=== PATIENT | male | born 1945 | race Caucasian/White ===

== ENCOUNTER 2018-07-24 22:36 | Inpatient (IN) | payer OTHER, MEDICARE ==
[~2018-07-24] VITALS: Ht 170.2 cm; Wt 77.7 kg
--- NOTE | 2018-07-24 23:23 | CT SCAN REPORT ---
EXAMINATION: CT HEAD WITHOUT CONTRAST CLINICAL INFORMATION: Unresponsive. Concern for stroke. COMPARISON: None. TECHNIQUE: Contiguous axial images of the brain were obtained without IV contrast. DLP: 602 mGy-cm. FINDINGS: There are no pathologic extra-axial fluid collections. The lateral, third, fourth ventricles are nondilated and concordant with the appearance of the sulci. There is no evidence for acute intraparenchymal hemorrhage or infarct. There is neither mass nor mass effect. There is no shift of midline structures. There is patchy ethmoid sinus opacification. The paranasal sinuses and mastoid air cells are otherwise clear. There are no osseous lesions. IMPRESSION: No evidence for acute intracranial injury. Mild paranasal sinus disease. The aforementioned was communicated to Dr. Christy at 2320 hours.
[2018-07-24 23:29] LABS: ABSOLUTE BASOPHIL COUNT 0 /CUMM (0.0-0.2); ABSOLUTE EOSINOPHIL COUNT 0.1 /CUMM (0.0-0.7); ABSOLUTE GRANULOCYTE CT 8.7 /CUMM (1.4-6.5); ABSOLUTE LYMPH COUNT 1.8 /CUMM (1.2-3.4); BASOPHIL % 0.3 % (0.0-2.0); EOSINOPHIL % 0.8 % (0-5); HEMATOCRIT 44.4 % (42-52); MEAN CORPUSCULAR HGB 29.6 PG (27.0-31.0); MEAN CORPUSCULAR HGB CONC 33.4 G/DL (33.0-37.0); MEAN CORPUSCULAR VOLUME 88.8 FL (80.0-94.0); PLATELET COUNT 139 /CUMM (130-400); RBC DISTRIBUTION WIDTH 13.8 % (11.5-14.5); WHITE BLOOD CELL COUNT 11.6 /CUMM (4.8-10.8)
[2018-07-24 23:36] LABS: PT 13.4 SEC (9.4-12.5); PTT 25 SEC (25-37)
--- NOTE | 2018-07-24 23:54 | CT SCAN REPORT ---
EXAMINATION: CT NECK ANGIOGRAM, CT HEAD ANGIOGRAM CLINICAL INFORMATION: Unresponsive. Cerebrovascular accident. COMPARISON: CT scan of the head and 07/24/2018. TECHNIQUE: Patient Care Assistant images were obtained. A CT angiogram of the head and neck was performed in the arterial phase after the intravenous administration of 95 mL Optiray 320. Delayed postcontrast images of the head were also obtained. MIP reconstructions were generated in multiple orientations at the acquisition workstation. Multiple three-dimensional surface rendered images and maximum intensity projection images were generated on a dedicated 3-D lab workstation. Arterial stenoses are measured in accordance with NASCET criteria or similar method if applicable. Total exam dose-length product 1865.43 mGy-cm FINDINGS: Head: Delayed postcontrast images reveal no abnormal intracranial mass or enhancement. There is no intracranial mass effect midline shift. Lateral and third ventricles are normal. No hydrocephalus. Gonzales-white matter differentiation is grossly preserved and there is no evidence of acute territorial infarct. The calvarium and skull base are intact. Mastoid air cells and middle ear cavities are well aerated. There is mild paranasal sinus disease primarily affecting the ethmoid air cells CT angiogram neck: The aortic arch apex is normal and the origins of major aortic branches are patent. Common carotid arteries and carotid bifurcations are normal. No stenosis of the extracranial internal carotid arteries. The cervical segments of the vertebral arteries as well as their origins are patent. CT angiogram head: The intracranial internal carotid arteries are patent. Intradural vertebral artery segments and basilar artery are patent. Anterior, middle, and posterior cerebral artery complexes are unremarkable. No high-grade stenosis or proximal occlusion is visualized within the intracranial vessels. Other: There is extensive centrilobular emphysema visualized within the apices of both lungs. No acute osseous finding. The tip of the endotracheal tube is located at the level of the jorge directed towards the right mainstem bronchus. IMPRESSION: Unremarkable CT angiogram of the head and neck. No high-grade stenosis or proximal occlusion is visualized within the intracranial vessels. Grossly no evidence of acute territorial infarct or hemorrhage. No abnormal intracranial mass or enhancement. Of note the tip of the endotracheal tube is located at the level of the jorge directed towards the right mainstem bronchus. This critical result was discussed with Sid Christy at 07/24/2018 11:48 PM and it was ascertained that the content and urgency of the report was understood at the time of direct communication.
--- NOTE | 2018-07-25 00:38 | History & Physical ---
Junior Knutson 07/25/18 0037: General Information and HPI MD Statement: I have seen and personally examined LANCE MARTINEZ and documented this H&P. The patient is a 73 year old M who presented with a patient stated chief complaint of [unresponsiveness]. Source of Information: family Exam Limitations: not alert/orientated, clinical condition, physical impairment History of Present Illness: The patient is a 73-year-old male with a past medical history significant for obstructive sleep apnea, coronary artery disease (with 7 stents), hypertension, chronic back pain, depression and anxiety who was brought in due to unresponsiveness. The patient was accompanied by his ex- who is a nurse and 3 of his sons and also his daughter and the history was taken from the family members, he was unconscious and unresponsive during the history and physical examination (he had received 2 doses of vecuronium prior to intubation). 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 Segura. The surgery took longer than what it was supposed to, because the mass was more extensive than what they thought at first, and the patient had to stay overnigh in [facility]. The surgery was done by general anesthesia, and the pathology report was consistent with mature adipose tissue consistent with lipoma. Based on the history from family postoperatively the patient needed 6 L of oxygen and his saturation was up to 93, and after wards with 2 L of oxygen saturation was between 89-93. The surgery was done on the last Sunday, and the patient was sent home on Sunday. Based on the history from his son, he was relatively doing fine when he was home on Sunday morning, walking around, talking, and difficulty and pain while swallowing. On Sunday, later in the day the patient started to become confused and then his daughter came home, she found that her father is out of himself and confused. Oxycodone 5 mg, 3 times a day was prescribed to control his pain. The patient was brought by ambulance to the emergency department of [facility]. He was not responding to any commands. The family asked that ambulance take the patient to [facility] where he had the surgery, but since they were suspecting CVA, they brought the patient to [facility] since it is closer to their home. He also has an extensive history of lower back pain. Allergy: The patient is allergic to statins and he develops muscle problems with this medication, he has an allergic reaction to honeybee sting. Family history: His mother had breast cancer, and his sister has end-stage pancreatic cancer Past medical history: Obstructive sleep apnea, chronic back pain, coronary artery disease with [address], hypertension, depression and anxiety Past surgical history: Surgery on both knees, surgery on right sided elbow and wrist Social history: Based on the history from the family the patient never smoked, never used any type of recreational drugs, and had occasional use of alcohol. Allergies/Medications Allergies: Coded Allergies: STATINS (UNKNOWN 07/25/18) bee venom protein (honey bee) (UNKNOWN 07/25/18) Compliance With Home Meds: UNKNOWN Past History Travel History Traveled to [facility] past 21 day No Medical History Neurological: NONE EENT: NONE Cardiovascular: CAD, hypertension, [place] X7 Respiratory: NONE Gastrointestinal: GERD Hepatic: NONE Renal: KIDNEY STONES Musculoskeletal: chronic back pain, osteoarthritis Psychiatric: NONE Endocrine: NONE Blood Disorders: NONE Cancer(s): NONE PATIENT CARE ASSISTANT/Reproductive: NONE Surgical History Surgical History: Cervical lipoma removed on Jul 22, 2018 remote knee surgery remote right elbow and wrist surgery Past Family/Social History Psychosocial History ETOH Use: denies use Illicit Drug Use: denies illicit drug use Review of Systems Review of Systems Constitutional: Reports: see HPI. Exam & Diagnostic Data Last 24 Hrs of Vital Signs/I&O Vital Signs Date Time Temp Pulse Resp B/P B/P Pulse O2 O2 Flow FiO2 Mean Ox Delivery Rate 07/25 0541 50 07/25 0400 97 Ventilator 50% 07/25 0400 95.7 42 20 100/50 97 Ventilator 50% 07/25 0334 96 Ventilator 50% 07/25 0245 50 07/25 0205 44 92/55 100 Ventilator 07/25 0200 41 90/52 07/25 0155 44 87/53 07/25 0150 43 84/50 07/25 0149 96.7 42 20 96/54 99 Ventilator 07/25 0145 41 96/54 99 Ventilator 07/25 0140 41 96/52 07/25 0135 85 125/59 07/25 0130 42 104/58 07/25 0125 43 87/51 07/25 0120 41 83/50 07/25 0115 44 87/51 99 Ventilator / 0100 41 126/62 98 Ventilator / 0045 46 98/55 99 Ventilator / 0026 50 09/13 0025 46 134/63 99 Ventilator / 0010 44 110/67 99 Ventilator / 2355 99 Ventilator / 2351 50 79/51 99 Ventilator / 2324 50 09/ 2321 62 125/62 95 Ventilator / 2256 128/70 07/24 2250 139 120/64 96 Ventilator 07/24 2247 82 115/61 95 Ventilator Intake & Output 07/25 0800 07/25 0000 07/24 1600 Intake Total 3000 Output Total 300 Balance 2700 Intake, IV 3000 Output, Urine 300 Patient 180 lb Weight Weight Bed scale Measurement Method Physical Exam General Appearance Unresponsive, intubated, Skin No Rashes Skin Temp/Moisture Exam: Warm/Dry Sepsis Skin Exam (color): Normal for Ethnicity HEENT echymosis on the lateral side of his tounge Neck swelling, no external sutures Cardiovascular Regular Rate, Normal S1, Normal S2, bradycardic Lungs Clear to Auscultation, Normal Air Movement Neurological Not able to assess unresponsive, unconsious, intubated, Extremities Normal Pulses Assessment/Plan Assessment: The patient is a 73-year-old male with a past medical history significant for obstructive sleep apnea, coronary artery disease with 7 stents, who had recently had a surgery to remove a cervical lipoma on Sunday, was brought into emergency department by ambulance due to unresponsiveness. Unresponsiveness probably due to CO2 retention: The patient has a background history of obstructive sleep apnea, and the surgery had induced neck swelling which has probably compress the airways and may be more difficult for the patient to ventilate. He said probably caused CO2 retention and had led to confusion and then unresponsiveness. The first ABG was done 1-2 hours after the patient was intubated so it cannot be reliable to assess the primary condition of the patient. Plan: The patient is admitted to ICU, IV fluids at the rate of 100 cc/h. Smith catheter, daily weights, intake and output measurement, neurochecks Bradycardia: The patient has metoprolol as home medication which might be the cause of bradycardia. Plan: Qc Tech consult, pacer pads and atropine at the bedside Hypertension: Blood pressure was normal on admission but it went down to 80s over 50s Plan: IV fluids to maintain the mean arterial pressure over 65 CODE STATUS: Full code As Ranked By This Provider Problem List: 1. Altered mental status 2. Respiratory failure Core Measures/Misc (07/29) Acute Coronary Syndrome ACS Diagnosis: No Congestive Heart Failure Congestive Heart Failure Diagnosis No Cerebrovascular Accident CVA/TIA Diagnosis: No VTE (View Protocol) VTE Risk Factors Age>40 No Mechanical VTE Prophylaxis d/t N/A MechProphylax Ordered No VTE Pharm Prophylaxis d/t NA PharmProphylax ordered Sepsis (View protocol) Sepsis Present: No If YES complete Sepsis Event Note If YES complete Sepsis Event Note Reagan REEVES,Tonia 07/25/18 0044: Exam & Diagnostic Data Last 24 Hrs of Vital Signs/I&O Vital Signs Date Time Temp Pulse Resp B/P B/P Pulse O2 O2 Flow FiO2 Mean Ox Delivery Rate 07/25 0026 50 07/24 2324 50 07/24 2321 62 125/62 95 Ventilator 07/24 2256 128/70 07/24 2250 139 120/64 96 Ventilator 07/24 2247 82 115/61 95 Ventilator Last 24 Hrs of Labs/Andry: Laboratory Tests 07/25/18 004: pH 7.50 H, pCO2 26 L, pO2 74 L, HCO3 20 L, ABG O2 Sat (Measured) 95.0 L, P- 50 (Temp Corrected) Y, Carboxyhemoglobin 1.3 L, O2 Concentration % 50%, Temperature 96.8 L, Respiration Rate 20, O2 Delivery Method ESPRIT, Vent Mode AC, Expiratory Pressure 5, Tidal Volume 500, Phlebotomy Draw Site RIGHT RADIAL 07/24/182239: Anion Gap 7, Estimated GFR > 60, BUN/Creatinine Ratio 15.5, Glucose 111 H, Calcium 8.9, Magnesium 2.1, Total Bilirubin 1.2, AST 27, ALT 34, Alkaline Phosphatase 88, Troponin I < 0.01, Total Protein 6.1 L, Albumin 3.4 L, Globulin 2.7, Albumin/Globulin Ratio 1.3, Free T4 Pending, TSH &T3 &Free T4 Intrp 0.097 L, PT 13.4 H, INR 1.23 H, APTT 25, CBC w Diff NO MAN DIFF REQ, RBC 5.00, MCV 88.8, MCH 29.6, MCHC 33.4, RDW 13.8, MPV 8.0, Gran % 75.0, Lymphocytes % 15.4 L, Monocytes % 8.5, Eosinophils % 0.8, Basophils % 0.3, Absolute Granulocytes 8.7 H, Absolute Lymphocytes 1.8, Absolute Monocytes 1.0 H, Absolute Eosinophils 0.1, Absolute Basophils 0 Core Measures/Misc (07/29) Sepsis (View protocol) If YES complete Sepsis Event Note If YES complete Sepsis Event Note Resident Review Statement Resident Statement: examined this patient, discussed with manager intern, agreed with manager intern, discussed with family, reviewed EMR data (avail) Other Findings: Patient is a 73-year-old male, was unresponsive and got intubated in the ED, followed by assist control ventilation tidal volume 500, FiO2 50% with 5 PEEP. History is taken from the as patient was completely intubated and sedated. 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 Patient was taken to the OR on 07/22/2018 with , for excision of retropharyngeal mass, left posterior pharyngeal mass was resected transorally a general anesthesia. Pathology report did show mature adipose tissue consistent with lipoma. According to the postoperatively patient needed 6 L of oxygen with saturation of 93% he was kept overnight and afterwards he was tapered down to 2 L with saturation between 89-93%. He was sent home he was completely all right except he was complaining of difficulty in the swallowing slight sore throat. Denies for any fever, chills. Overnight on Sunday he was slightly confused. Early in the morning, when daughter came to the home she found that her father is completely out of himself. He was not responding to any commands. So the BIBA him to the [facility]. Before transport they wanted patient to be transferred to the [facility] by EMS did not allow that because [facility] is much near to their home. His most of care is done at the [facility]. Past medical history- Coronary artery disease, hypertension, hyperlipidemia, [place] status post coronary stent x 7, GERD, nephrolithiasis, chronic back pain, osteoarthritis, history of pericarditis January 2017 CT head-No evidence for acute intracranial injury. Mild paranasal sinus disease. CTA HEAD AND NECK -Unremarkable CT angiogram of the head and neck. Blood workup-WBC 11.6, hemoglobin 14.8, hematocrit 44.8, platelet count 139, granulocyte 75.0, serum sodium 137, potassium 3.9, chloride 102, carbon DEXA 27, anion gap 7, BUN 17, creatinine 1.1, glucose 111, calcium 8.9, magnesium 2.1, total bilirubin 1.2, AST 27, ALT 34, alkaline phosphatase 88, troponin I is 0.01 , albumin 3.4, PT/INR 13 point/1.23, APTT is 25, Assessment and plan - Difficulty in the breathing possibly secondary to swelling in the neck leading to compression of the trachea and CO2 retention followed by confusion - * Admit the patient to the ICU * Smith catheter * Daily weight * Strict intake output charting * IV fluid - normal saline for boluses followed by 100 cc/h to keep the mean arterial pressure more than 65. * We will hold his home medication * Neuro check every shift * Please get the medical records from [facility] * We will rethink about using steroid -to decrease the inflammation * Weaning from the ventilator after he regained consciousness * Placed cardiology consult - Dr Olsen-medication management * Echocardiogram in the morning * We will follow the ENT evaluation with Dr. Segura. Bradycardia-possibly secondary to medication-metoprolol * We discussed with Dr. Olsen he will come in follow the patient * Pacer pads and atropine at the bedside. Hypotension- * We will give IV fluid to keep the mean arterial pressure more than 65. Code status - full code Diet - NPO DVT prophylaxis - HA Marina MD,Delfino 07/25/18 0505: Core Measures/Misc (07/29) Sepsis (View protocol) If YES complete Sepsis Event Note If YES complete Sepsis Event Note Attending MD Review Statement Attending Statement Attending MD Statement: examined this patient, discuss w/resident/PA/SLAG DUMPER, agreed w/resident/PA/SLAG DUMPER, discussed with family, reviewed EMR data (avail), discussed with nursing, amended to note Attending Assessment/Plan: Patient seen and examined. History and physical as documented by the resident above. Family present at the bedside. Records from [facility] reviewed. Pathology results consistent with lipoma. On examination patient is intubated on mechanical ventilation. Pupils are round equal and reactive. He had no response to verbal or tactile stimuli. However as time progressed he has started to show some spontaneous activity. Imaging studies obtained by the ER include CT head and neck with contrast due to concern for stroke. No evidence of stroke noted. Differential for his acute respiratory failure include compression of his airway by inflammation from the surgical site. An infection is also within the differential. Lactic acid level however is not elevated as would be expected if he was indeed in septic shock. Pulmonary embolism is also within the differential. Blood pressure currently stabilizing. His hypotension could be explained by medications he received prior to intubation. BP has improved after over 5 L of fluid boluses. He is also bradycardic with HR as low as upper 30s. Problems: 1. Acute hypoxic respiratory failure 2. Recent retropharyngeal surgery. 3. Extensive coronary artery disease history. 4. Hypotension 5. Bradycardia Plan: -Admit to the intensive care unit. -Begin empiric antibiotic therapy with IV ceftazidime. Obtain blood cultures. -Urgent ENT consultation. -Would recommend CT scan soft tissues of the neck once more clinically stable. -Check D-dimers. Check lower extremity Dopplers. -Hold all antihypertensive medications. -Trend troponins. Obtain echocardiogram. Hold metoprolol. Cardiology consultation. Pacer Pads at the bedside. -Maintenance fluid D5 half-normal saline at 100 cc/h. -Abnormal TSH noted, ?euthyroid sick syndrome. Repeat TSH. -Critical Care Consultation.
--- NOTE | 2018-07-25 01:30 | ED AMS/SEIZURE/WEAK/DIZZY ---
History of Present Illness General Chief Complaint: Neuro Symptoms/ Deficit Stated Complaint: AMS/ ACUTE RESPIRATORY DISTRESS Source: family, old records, EMS, Epic Exam Limitations: clinical condition Vital Signs & Intake/Output Vital Signs & Intake/Output Vital Signs Date Time Temp Pulse Resp B/P B/P Pulse O2 O2 Flow FiO2 Mean Ox Delivery Rate / 0245 50 / 0205 44 92/55 100 Ventilator / 0200 41 90/52 / 0155 44 87/53 / 0150 43 84/50 / 0149 96.7 42 20 96/54 99 Ventilator 09/13 0145 41 96/54 99 Ventilator 09/13 0140 41 96/52 / 0135 85 125/59 /13 0130 42 104/58 / 0125 43 87/51 / 0120 41 83/50 / 0115 44 87/51 99 Ventilator / 0100 41 126/62 98 Ventilator / 0045 46 98/55 99 Ventilator / 0026 50 / 0025 46 134/63 99 Ventilator /13 0010 44 110/67 99 Ventilator 09/12 2355 99 Ventilator 09/12 2351 50 79/51 99 Ventilator 09/12 2324 50 09/12 2321 62 125/62 95 Ventilator 09/12 2256 128/70 09/12 2250 139 120/64 96 Ventilator 09/12 2247 82 115/61 95 Ventilator Allergies Coded Allergies: STATINS (UNKNOWN 07/25/18) bee venom protein (honey bee) (UNKNOWN 07/25/18) Triage Note: PT BIBA FOR STROKE ALERT, 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 WHEN EMS ARRIVED PT UNRESPONSIVE BUT BREATHING SPONTANEOUSLY. HX THROAT SURGERY LAST WEEK. Triage Nurses Notes Reviewed? 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 His ex notes he was put on 6L NC with oxygen saturation of 93%. 1 day prior to admission the middle of the night he called his ex- thinking it was the afternoon. Prior to admission he became acutely confused and speaking to his ex-. She called 911. She took his oxygen saturation and it was 88%. The paramedics called a stroke alert he seemed to be less confused at this time and moving all extremities. He was brought immediately to the CT scanner and became apneic. His past reports there was no fever chills nausea vomiting diarrhea abdominal pain chest pain cough headache dysuria rash bleeding. Past History Travel History Traveled to [place] past 21 day No Medical History Any Pertinent Medical History? 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 No Review of Systems Review of Systems Constitutional: Reports: see HPI, weakness. EENTM: Reports: no symptoms. Respiratory: Reports: see HPI. Cardiovascular: Reports: no symptoms. GI: Reports: no symptoms. Genitourinary: Reports: no symptoms. Musculoskeletal: Reports: no symptoms. Skin: Reports: no symptoms. Neurological/Psychological: Reports: see HPI, confusion. Hematologic/Endocrine: Reports: no symptoms. Immunologic/Allergic: Reports: no symptoms. All Other Systems: Reviewed and Negative Physical Exam Physical Exam General Appearance: well developed/nourished, lethargic, severe distress, obese Head: atraumatic, normal appearance Eyes: Bilateral: normal appearance, PERRL, EOMI. Ears, Nose, Throat: normal pharynx, normal ENT inspection Neck: normal inspection, supple, full range of motion, no midline tenderness Respiratory: chest non-tender, respiratory distress Cardiovascular: regular rate/rhythm, normal peripheral pulses, norml femoral pulses equa Peripheral Pulses: 4+ carotid (R), 4+ carotid (L) Gastrointestinal: normal bowel sounds, soft, non-tender, no organomegaly Back: normal inspection, normal range of motion Extremities: normal range of motion, no ligament instability Neurologic/Psych: disoriented x 3, motor/sensory deficits Reflexes: 2+: bicep (R), bicep (L). Skin: intact, normal color, warm/dry Lymphatic: no anterior cervical norman Core Measures ACS in differential dx? Yes No ASA d/t Medical Contraindication CVA/TIA Diagnosis No Sepsis Present: No Sepsis Focused Exam Completed? No Progress Differential Diagnosis: CVA/stroke, drug intoxication, electrolyte imbalance, hypoglycemia, hypoxia, intracranial Hem., intracranial mass/tumor, pneumonia Plan of Care: Orders Procedure Date/time Status XRY-PORTABLE CHEST XRAY 07/25 0600 Active ICU LAB BUNDLE 07/25 0400 Active CBC WITHOUT DIFFERENTIAL 07/25 0400 Active VRE ACTIVE SURVIELLANCE 07/25 0243 Active ACTIVE SURVEILLANCE NARES 07/25 0243 Active Restraint- Medical 07/25 0239 Active OGT 07/25 0239 Active Code Status 07/25 0239 Active Intake & Output 07/25 0231 Active Wound Care/Dressing 07/25 0228 Active Wound Care/Dressing 07/25 0203 Complete Weight 07/25 0203 Complete VTE Mechanical Prophylaxis 07/25 0203 Active Vital Signs 07/25 0203 Active Turn and Reposition 07/25 0203 Active Drains/Tubes 07/25 0203 Active Teach/Educate 07/25 0203 Active Skin Integrity Protocol 07/25 0203 Active Skin/Pressure Ulcer Assess (Sk 07/25 0203 Active Precautions 07/25 0203 Active Pain Treatment and Response 07/25 0203 Active Nutritional Intake, Monitor 07/25 0203 Active Isolation 07/25 0203 Active CIWA 07/25 0203 Complete Patient Care Conference 07/25 0203 Active Activity/Ambulation 07/25 0203 Active CULTURE,URINE 07/25 0138 Active Add-on Test (ER Only) 07/25 0053 Active Patient Data 07/25 0039 Active Admit to inpatient 07/25 0025 Active ARTERIAL BLOOD GAS (GEN) 07/25 0010 Active US-EXT BILAT VENOUS DOPPLER 07/25 UNK Active Smith, Insertion/Removal/Asses 07/25 UNK Active EKG 07/24 2257 Active TSH REFLEX 07/24 2251 Complete TROPONIN LEVEL 07/24 2251 Complete PARTIAL THROMBOPLASTIN TIME 07/24 2251 Complete PROTHROMBIN TIME 07/24 2251 Complete MAGNESIUM 07/24 2251 Complete COMPREHENSIVE METABOLIC PANEL 07/24 2251 Complete CBC WITHOUT DIFFERENTIAL 07/24 2251 Complete VENTILATOR PARAMETERS 07/24 2248 Complete TOTAL TRIODOTHYROXINE 07/24 224 Complete LACTIC ACID 07/24 224 Complete FREE T4 07/24 2240 Complete Current Medications Sig/Zev Start time Last Medication Dose Stop Time Status Admin Pantoprazole Sodium 40 MG DAILY 07/25 09 AC (Protonix) Lorazepam 50 MG Q24H 07/25 0330 AC (Ativan Drip) Sodium Chloride 500 ML (Normal Saline 0.9%) Sodium Chloride 1,000 ML BOLUS ONE 07/25 031 UNVr (Normal Saline 0.9%) 07/25 0414 Laboratory Tests 07/25/18 0040: pH 7.50 H, pCO2 26 L, pO2 74 L, HCO3 20 L, ABG O2 Sat (Measured) 95.0 L, P- 50 (Temp Corrected) Y, Carboxyhemoglobin 1.3 L, O2 Concentration % 50%, Temperature 96.8 L, Respiration Rate 20, O2 Delivery Method ESPRIT, Vent Mode AC, Expiratory Pressure 5, Tidal Volume 500, Phlebotomy Draw Site RIGHT RADIAL 07/24/18 2240: Anion Gap 7, Estimated GFR > 60, BUN/Creatinine Ratio 15.5, Glucose 111 H, Lactic Acid 0.8, Calcium 8.9, Magnesium 2.1, Total Bilirubin 1.2, AST 27, ALT 34 , Alkaline Phosphatase 88, Troponin I < 0.01, Total Protein 6.1 L, Albumin 3.4 L, Globulin 2.7, Albumin/Globulin Ratio 1.3, Free T4 2.10, Total T3 1.16, TSH & T3 &Free T4 Intrp 0.097 L, PT 13.4 H, INR 1.23 H, APTT 25, CBC w Diff NO MAN DIFF REQ, RBC 5.00, MCV 88.8, MCH 29.6, MCHC 33.4, RDW 13.8, MPV 8.0, Gran % 75.0, Lymphocytes % 15.4 L, Monocytes % 8.5, Eosinophils % 0.8, Basophils % 0.3 , Absolute Granulocytes 8.7 H, Absolute Lymphocytes 1.8, Absolute Monocytes 1.0 H, Absolute Eosinophils 0.1, Absolute Basophils 0 Microbiology 07/25 243 UPPER RESP: Surveillance Culture - ORD 07/25 243 GI: Surveillance Culture - ORD 07/25 0156 URINE ROUT: Urine Culture - RECD Diagnostic Imaging: Viewed by Me: Radiology Read, CT Scan. Discussed w/RAD: Radiology Read, CT Scan. CXR Impression: 1. Endotracheal tube catheter 4 cm above jorge. 2. Nasogastric tube in stomach. 3. No acute abnormality of chest. Initial ED EKG: normal axis, normal intervals, normal p-waves, normal QRS complex, normal sinus rhythm, nonspecific ST T wave chg Rhythm Strip: normal sinus rhythm Departure Departure Disposition: STILL A PATIENT Condition: Critical Clinical Impression Primary Impression: Respiratory failure Secondary Impressions: Altered mental status Referrals: Augusto REEVES,Stephan Hargrove III (PCP/Family) Departure Forms: Customer Survey General Discharge Information Admission Note Spoke With: Delfino Marina MD Documentation of Exam: Documentation of any treatments & extenuating circumstances including Concerns Regarding Discharge (functional status, medication knowledge or non-compliance, living conditions, etc.) that warrant an admission rather than observation: ICU monitoring mechanical ventilation serial EKG serial lab exam medication adjustment neurology evaluation pulmonary evaluation continuing care discharge planning Procedures Intubation Intubation Method: orotracheal Tube Size (cm): 7.5 Medications: succinylcholine Breath Sounds After Intubation: equal Intubation Complications: no complications Post Intubation Xray? Yes Critical Care Note Critical Care Note Critical Care Time: 30-74 min (45)
--- NOTE | 2018-07-25 01:48 | RADIOLOGY REPORT ---
EXAMINATION: XR PORTABLE CHEST CLINICAL INFORMATION: Altered mental status COMPARISON: None TECHNIQUE: Portable frontal view of the chest was obtained. 12:51 AM FINDINGS: Endotracheal tube in place. Catheter tip is approximately 4 cm above the jorge. This nasogastric tube tip in the stomach. There is emphysematous lucency of lungs. There are coarse increased lung markings at both lung bases that appear to be likely chronic. There is no acute abnormality. No focal consolidation. No pleural effusion or pneumothorax. There is multilevel degenerative spondylosis of dorsal spine. IMPRESSION: 1. Endotracheal tube catheter 4 cm above jorge. 2. Nasogastric tube in stomach. 3. No acute abnormality of chest.
[2018-07-25 04:00] VITALS: BP 100/50
--- NOTE | 2018-07-25 05:06 | Admission Certification ---
Admission Certification Certification Statement - As attending physician, I certify that at the time of - admission, based on clinical presentation, severity of - symptoms, need for further diagnostic testing and - therapeutic interventions, and risk of adverse outcomes - without in-hospital treatment, in my clinical assessment, - this patient requires an acute hospital stay for a minimum - of two nights or longer. I have also considered psychsocial - factors such as support system, advanced age, financial - issues, cognitive issues, and failed out-patient treatments, - past re-admission history, safety of patient, and lack of - compliance as applicable. Specific rationale supporting this admission is: Patient requires hospitalization for management of acute respiratory failure.
[2018-07-25 05:31] LABS: ABSOLUTE BASOPHIL COUNT 0 /CUMM (0.0-0.2); ABSOLUTE EOSINOPHIL COUNT 0 /CUMM (0.0-0.7); ABSOLUTE GRANULOCYTE CT 5.6 /CUMM (1.4-6.5); ABSOLUTE MONOCYTE COUNT 0.6 /CUMM (0.10-0.60); BASOPHIL % 0.4 % (0.0-2.0); EOSINOPHIL % 0.5 % (0-5); GRANULOCYTE % 77.2 % (42.2-75.2); MEAN CORPUSCULAR HGB 30.5 PG (27.0-31.0); MEAN CORPUSCULAR VOLUME 89.7 FL (80.0-94.0); MEAN PLATELET VOLUME 9.1 FL (7.4-10.4); PLATELET COUNT 95 /CUMM (130-400); RBC DISTRIBUTION WIDTH 13.6 % (11.5-14.5); RED BLOOD CELL CT 4.15 /CUMM (4.70-6.10); WHITE BLOOD CELL COUNT 7.3 /CUMM (4.8-10.8)
[2018-07-25 05:46] LABS: HEMATOCRIT 37.2 % (42-52)
--- NOTE | 2018-07-25 06:21 | RADIOLOGY REPORT ---
EXAMINATION: XR PORTABLE CHEST CLINICAL INFORMATION: Intubation. COMPARISON: Chest x-ray July 25, 2018 TECHNIQUE: Portable frontal view of the chest was obtained. 5:37 AM FINDINGS: Endotracheal tube catheter unchanged position. Catheter tip about 5 cm above the jorge. Nasogastric tube catheter in the stomach. Lung volume is low. This causes crowding of the bronchovascular markings. Allowing for the low inspiratory effort there does not appear to be significant pulmonary vascular congestion. There is no focal consolidation. There are no large pleural effusions. IMPRESSION: 1. Endotracheal tube catheter 5 cm above jorge. 2. Nasogastric tube in stomach. 3. Low lung volume. No acute abnormality of the chest.
--- NOTE | 2018-07-25 07:39 | Cons- CRCU ---
Jonathan REEVES,[facility] 07/25/18 0739: General Information and HPI Consulting Request Date of Consult: 07/25/18 Requested By: Dr. Marina Reason for Consult: Respiratory failure requiring intubation Source of Information: family, old records Exam Limitations: not alert/orientated, clinical condition History of Present Illness: Past medical history significant for extensive cardiovascular disease status post 7 stents last 1 couple of years ago, no reports for drug-eluting stents. History of severe pericarditis in 2017, hypertension, hyperlipidemia, chronic back pain, osteoarthritis. Recent history of retropharyngeal procedure to remove mass that turned to be a lipoma 3 days ago on 07/22/18 at [facility]. Patient had an uneventful hospital stay during the procedure except of desaturating and requiring 6 L that was titrated down to 2 L and then patient was discharged next day on Monday 07/23 on room air and was satting at 93%. 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 Initially patient was thought to have CTA however CAT scan head negative for any evidence of acute intracranial injury. Patient was intubated in ED because of unconsciousness and inability to secure airway. Family denied any recent symptoms of chest pain, palpitation, shortness of breath, weakness, headaches, falls, motor or sensory changes. In ICU, patient was started on fluid D5 half-normal saline running at 75 cc/h, Protonix, antibiotic Unasyn to cover for possible aspiration pneumonia. Cardiology consultation was obtained for bradycardia that is new onset and was reported since admission, heart rate has been running in the 30s, possible causes are injury of sympathetic fibers and/or increased vagal tone because of the neck manipulation during the recent retropharyngeal surgery, patient was started on dobutamine drip running at 5 mics that was titrated down to 2.5 mics per kilogram per minute with targeting heart rate of 50 and above beats per minute. Blood pressure was noticed to be running on the high side with maximum of 160 systolic, patient was given Ativan followed by fentanyl 25 MCG every 3 hours for anxiety and agitation. Around 2 PM afternoon patient was noticed to have generalized tonic-clonic jerking movements, was given Versed 2 mg and loading dose of Keppra 2000 mg, EEG was ordered, chest x-ray and ABG to rule out any hypoxia, neurology consultation was obtained. Allergies/Medications Allergies: Coded Allergies: STATINS (UNKNOWN 07/25/18) bee venom protein (honey bee) (UNKNOWN 07/25/18) Review of Systems Review of Systems Constitutional: Reports: see HPI. 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 Home Smoking Status: Former Smoker ETOH Use: denies use Illicit Drug Use: denies illicit drug use Exam & Diagnostic Data Last 24 Hrs of Vital Signs/I&O Vital Signs Date Time Temp Pulse Resp B/P B/P Pulse O2 O2 Flow FiO2 Mean Ox Delivery Rate 07/25 1605 45 07/25 1600 98.6 53 20 138/64 96 Ventilator 45% 07/25 1600 96 Ventilator 45% 07/25 1529 56 127/62 07/25 1444 45 / 1200 97 Ventilator 45% / 1142 45 / 1100 46 170/75 07/25 0818 50 / 0800 96.9 33 20 100/60 97 Ventilator 50% / 0800 97 Ventilator 50% / 0541 50 / 0400 97 Ventilator 50% / 0400 95.7 42 20 100/50 97 Ventilator 50% / 0334 96 Ventilator 50% / 0245 50 / 0205 44 92/55 100 Ventilator / 0200 41 90/52 / 0155 44 87/53 / 0150 43 84/50 / 0149 96.7 42 20 96/54 99 Ventilator 09/13 0145 41 96/54 99 Ventilator 09/ 0140 41 96/52 / 0135 85 125/59 / 0130 42 104/58 / 0125 43 87/51 09/13 0120 41 83/50 / 0115 44 87/51 99 Ventilator 09/ 0100 41 126/62 98 Ventilator 07/25 0045 46 98/55 99 Ventilator 07/25 0026 50 07/25 0025 46 134/63 99 Ventilator 07/25 0010 44 110/67 99 Ventilator 07/24 2355 99 Ventilator 07/24 2351 50 79/51 99 Ventilator 07/24 2324 50 / 2321 62 125/62 95 Ventilator 07/24 2256 128/70 07/24 2250 139 120/64 96 Ventilator 07/24 2247 82 115/61 95 Ventilator Intake & Output 07/25 1600 07/25 0800 07/25 0000 Intake Total 1110 4400 Output Total 525 900 Balance 585 3500 Intake, IV 1050 4400 Intake, Other 60 Output, 75 Gastric Drainage Output, Urine 450 900 Patient 81.5 kg Weight Weight Bed scale Measurement Method Physical Exam General Appearance: well developed/nourished Head: atraumatic, normal appearance Ears, Nose, Throat: normal pharynx, normal ENT inspection Neck: normal inspection, supple Respiratory: chest non-tender Cardiovascular: regular rate/rhythm, bradycardia Gastrointestinal: normal bowel sounds, soft, non-tender Extremities: normal inspection, normal capillary refill, normal range of motion, no edema Cranial Nerves: respond to painful stimuli Last 48 Hrs of Labs/Andry: Laboratory Tests 07/25/18 2000: Potassium Cancelled 07/25/18 1905: Sodium Pending, Potassium Pending, Chloride Pending, Carbon Dioxide Pending, Anion Gap Pending, BUN Pending, Creatinine Pending, Glucose Pending, Calcium Pending, Phosphorus Pending, Magnesium Pending, Total Bilirubin Pending, AST Pending, ALT Pending, Albumin Pending 07/25/18 1645: pH 7.38, pCO2 38, pO2 95, HCO3 19 L, ABG O2 Sat (Measured) 96.0, P-50 (Temp Corrected) N, Carboxyhemoglobin 0.7 L, O2 Concentration % 40%, Temperature 98.6 , Respiration Rate 20, O2 Delivery Method ESPRIT, Vent Mode AC, Expiratory Pressure 5, Tidal Volume 500, Phlebotomy Draw Site RIGHT BRACHIAL 07/25/18 1410: Anion Gap 9, Estimated GFR > 60, Glucose 106 H, Calcium 8.2 L, Phosphorus 1.8 L, Magnesium 2.0, Total Bilirubin 0.6, AST 19, ALT 30, Albumin 2.7 L, CBC w Diff NO MAN DIFF REQ, RBC 4.65 L, MCV 88.8, MCH 30.0, MCHC 33.8, RDW 13.9, MPV 7.6, Gran % 82.9 H, Lymphocytes % 9.1 L, Monocytes % 7.1, Eosinophils % 0.5, Basophils % 0.4, Absolute Granulocytes 5.8, Absolute Lymphocytes 0.6 L, Absolute Monocytes 0.5, Absolute Eosinophils 0, Absolute Basophils 0 07/25/18 0835: pH 7.39, pCO2 31 L, pO2 77 L, HCO3 19 L, ABG O2 Sat (Measured) 95.0 L, P-50 (Temp Corrected) N, Carboxyhemoglobin 0.9 L, O2 Concentration % 50%, Respiration Rate 20, O2 Delivery Method VENT, Vent Mode AC, Expiratory Pressure 5, Tidal Volume 500, Pressure Support 0, Phlebotomy Draw Site RIGHT RADIAL 07/25/18 0755: Urine Opiates Screen 156, Methadone Screen 44, Barbiturate Screen < 60, Ur Phencyclidine Scrn < 6.00, Amphetamines Screen < 100, U Benzodiazepines Scrn 122 , Urine Cocaine Screen < 50, Urine Cannabis Screen < 5.00, Urine Color YEL, Urine Clarity CLEAR, Urine pH 7.0, Ur Specific [place] <= 1.005, Urine Protein NEG, Urine Ketones 15 H, Urine Nitrite NEG, Urine Bilirubin NEG, Urine Urobilinogen 0.2, Ur Leukocyte Esterase NEG, Ur Microscopic SEDIMENT EXAMINED, Urine RBC 15-25 H, Urine WBC RARE, Ur Epithelial Cells FEW, Urine Hemoglobin MOD H, Urine Glucose NEG 07/25/18 0630: D-Dimer High Sensitivty 233 07/25/18 0400: Anion Gap 10, Estimated GFR > 60, Glucose 93, Calcium 7.8 L, Phosphorus 1.5 L, Magnesium 2.0, Total Bilirubin 1.0, AST 26, ALT 19 L, Troponin I < 0.01, Albumin 2.6 L, CBC w Diff NO MAN DIFF REQ, RBC 4.15 L, MCV 89.7, MCH 30.5, MCHC 34.0, RDW 13.6, MPV 9.1, Gran % 77.2 H, Lymphocytes % 13.9 L, Monocytes % 8.0, Eosinophils % 0.5, Basophils % 0.4, Absolute Granulocytes 5.6, Absolute Lymphocytes 1.0 L, Absolute Monocytes 0.6, Absolute Eosinophils 0, Absolute Basophils 0, Lyme Disease Screen Pending 07/25/18 0040: pH 7.50 H, pCO2 26 L, pO2 74 L, HCO3 20 L, ABG O2 Sat (Measured) 95.0 L, P- 50 (Temp Corrected) Y, Carboxyhemoglobin 1.3 L, O2 Concentration % 50%, Temperature 96.8 L, Respiration Rate 20, O2 Delivery Method ESPRIT, Vent Mode AC, Expiratory Pressure 5, Tidal Volume 500, Phlebotomy Draw Site RIGHT RADIAL 07/24/18 2240: Anion Gap 7, Estimated GFR > 60, BUN/Creatinine Ratio 15.5, Glucose 111 H, Lactic Acid 0.8, Calcium 8.9, Magnesium 2.1, Total Bilirubin 1.2, AST 27, ALT 34 , Alkaline Phosphatase 88, Troponin I < 0.01, Total Protein 6.1 L, Albumin 3.4 L, Globulin 2.7, Albumin/Globulin Ratio 1.3, Free T4 2.10, Total T3 1.16, TSH & T3 &Free T4 Intrp 0.097 L, PT 13.4 H, INR 1.23 H, APTT 25, CBC w Diff NO MAN DIFF REQ, RBC 5.00, MCV 88.8, MCH 29.6, MCHC 33.4, RDW 13.8, MPV 8.0, Gran % 75.0, Lymphocytes % 15.4 L, Monocytes % 8.5, Eosinophils % 0.8, Basophils % 0.3 , Absolute Granulocytes 8.7 H, Absolute Lymphocytes 1.8, Absolute Monocytes 1.0 H, Absolute Eosinophils 0.1, Absolute Basophils 0 Assessment/Plan CRCU Impression/Plan: Mr. MARTINEZ is 73-year-old male with following problems: 1-new onset bradycardia 2-extensive past medical history of CAD status post 7 stents 3-pharyngeal lipoma status post retropharyngeal excision 4-COPD not on home oxygen 5-low lung volume with signs of aspiration pneumonia 6-CT findings suspicious for lung nodule 7-new onset of seizure activity with an abnormal EEG Plan Continue dobutamine drip at 2.5 MCG per hour with targeting heart rate 50 Continue Keppra 500 mg twice daily, patient received 2000 mg loading dose Continue Ativan 1 mg every 2 hours Continue fentanyl as needed 25 MCG every 3 hours for agitation and irritability Replete potassium and repeat labs Monitor EKG Follow-up blood cultures, sputum culture Repeat ICU bundle, CBCs in a.m. Repeat chest x-ray in a.m. Continue Unasyn for possible aspiration pneumonia Appreciate cardiology, ENT, neurology recommendation Consult Acknowledgment - Thank you for your consult request. 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 Patient was on a beta-arpita and multiple other medications as noted including mirtazapine, Lexapro etc. He was discharged from sent refills on stable condition. Patient apparently was doing well at home but however in the past day he started becoming more confused and was brought to the emergency room. He was having significant periods of desaturation at times was having severe bradycardia as well. He was promptly intubated. Due to some episodes of agitation he was paralyzed as well. Since then he has been significantly bradycardic. Since this morning when I saw him he has been unresponsive, had bilateral pinpoint pupils. Patient continued to be bradycardic. Subsequently was started on low-dose dobutamine drip. His blood pressure seems to have come up nicely and his heart rate is improved. He continues to be now sedated with lorazepam. Full history and exam as noted above Pupils reacting but pinpoint dull site could not be appropriately elicited patient was paralyzed prior to that Bradycardic with no heart murmur Chest clear to auscultation Abdominal exam soft bowel sounds were heard Trace edema noted some ecchymosis noted EKG reviewed significant bradycardia with no heart block Laboratory data reviewed Chest x-ray showed low lung volumes ET tube in place nasogastric tube in place CT of the head with angiogram was unremarkable no significant stroke noted no high-grade stenosis prior CT to that was unremarkable Lower extremity Doppler negative D-dimer low EKG after his heart rate came up did show prolonged QTC. IMPRESSION This is a 73-year-old gentleman with history of sleep apnea, not on CPAP regularly, COPD, increasing lung nodule which needs longitudinal follow-up, coronary artery disease with multiple stents in the past, chronic back pain, previous history of depression and anxiety on multiple medications noted, recent surgery of pharyngeal lipoma resection, came into the hospital with lethargy on and off was promptly intubated. Subsequently noted to have bradycardia. He was hemodynamically stable. ENT evaluation noted. Apparently posterior pharyngeal evaluation per Dr. Ramirez, was unremarkable with no significant edema. Issues Unresponsive, altered mental status prior to coming here with severe bradycardia so far is suggestive of significant vagal response versus arrhythmia. Patient's QTC is quite prolonged. Differential diagnosis is broad which includes stroke versus aspiration episode but that seems very unlikely so far. No clinical evidence suggestive of posterior pharyngeal anatomical abnormality versus significant aspiration pneumonia etc. No clinical evidence suggestive of substance overdose. However patient has been on multiple medications at home. Severe bradycardia with no heart block, maintaining his blood pressure, perfusion, no pulmonary edema despite having bradycardia related to beta arpita with probable worsening vagal motor tone cardiology is aware. Patient is now on low-dose dobutamine drip and the heart rate has come up to 50s Lyme titer pending Ischemic heart disease with no significant ST-T changes, troponin normal echocardiogram pending No clinical evidence suggestive of venous thromboembolism with lower extremity Doppler. Hypertension, ischemic heart disease, depression/anxiety, patient was on Klonopin at home, multiple other issues COPD with emphysema noted in the CAT scan with increasing lung nodule as noted in the recent CT scan of the chest and end of June. PCP is aware of this and patient needs follow-up to rule out lung cancer in the future when he gets better PLAN Maintenance IV fluids with D5 normal saline at 75 cc Continue dobutamine drip Low-dose benzo, fentanyl drip 24 hours of Unasyn Repeat ABG Lovenox daily Repeat chest x-ray Repeat CBCs to evaluate his platelets Echocardiogram Patient is critically ill total time spent 70 minutes Seen and examined multiple times again This afternoon when examined he started having seizure-like activity. Patient was loaded with Versed, Chucho is on board. Continues to be sedated intubated Urology evaluation obtained Exam unchanged Continues to be slightly hypoxemic Plan as noted above And other family meeting held The 40 minutes of critical care time was spent with this patient Consult Acknowledgment - Thank you for your consult request.
[2018-07-25 08:00] VITALS: BP 100/60
--- NOTE | 2018-07-25 08:38 | Cons- Ear,Nose&Throat ---
General Information and HPI Consulting Request Date of Consult: 07/25/18 Requested By: Delfino Marina MD Reason for Consult: Postoperative confusion and hypoxemia Source of Information: family, intensive care unit staff Exam Limitations: patient is intubated in the intensive care unit History of Present Illness: This 73-year-old gentleman with a history of coronary artery disease and obstructive sleep apnea recently underwent a transoral resection of a retropharyngeal mass (lipoma) on 07/22/2018 at [facility]. The procedure itself was uneventful. He was observed postoperatively for his comorbidities. She has been on long-term aspirin and this was held during the surgery but started immediately after. During his postoperative period he required oxygen supplementation for the first evening but then appeared to recover well and was able to be discharged on the following morning. He was discharged on oral antibiotics and analgesics. He is quite close to his ex- and family and they noted that on the day of this admission he was becoming confused. He was then brought to the emergency room and was noted to have periodic desaturations. While undergoing a CT scan of the head and neck area he desaturated again which prompted oral intubation. There is no known history of any unilateral neurologic signs. There is no history of change in his pain pattern. He did complain of sore throat which was felt to be associated with his recent surgery Allergies/Medications Allergies: Coded Allergies: STATINS (UNKNOWN 07/25/18) bee venom protein (honey bee) (UNKNOWN 07/25/18) Current Medications: Current Medications Sig/Zev Start time Last Medication Dose Route Stop Time Status Admin Acetaminophen 0 .STK-MED ONE 07/25 0031 DC IV Acetaminophen 1,000 MG ONCE ONE 07/25 0030 DC 07/25 IV 07/25 0031 0039 Ceftazidime 2,000 MG IQ8 07/25 08 AC 07/25 IV 0650 Etomidate 10 MG ONCE ONE 07/24 2300 DC 07/24 IV 07/24 2301 2245 Lorazepam 50 MG Q24H 07/25 0330 DC Sodium Chloride 500 ML IV Lorazepam 1 MG ONCE ONE 07/24 2300 DC 07/24 IV 07/24 2301 2250 Lorazepam 0 .STK-MED ONE 07/24 2255 DC .ROUTE Pantoprazole Sodium 40 MG DAILY 07/25 900 AC IV Phosphate 250 MG 0800 07/25 0800 DC PO 07/25 0801 Sodium Chloride 1,000 ML BOLUS ONE 07/25 0315 DC / IV 07/25 0414 0323 Sodium Chloride 1,000 ML BOLUS ONE 07/25 0145 DC 09/ IV 07/25 0244 0149 Sodium Chloride 1,000 ML BOLUS ONE 07/25 0015 DC / IV 07/25 0114 0020 Sodium Chloride 1,000 ML BOLUS ONE 07/25 0015 DC / IV 07/25 0114 0049 Succinylcholine 100 MG ONCE ONE 07/24 2300 DC 09 Chloride IV 07/24 2301 2245 Vecuronium Bernice 0 .STK-MED ONE 07/25 0031 DC IV Vecuronium Bernice 10 MG ONCE ONE 07/25 0030 DC 07/25 IV 07/25 0031 0039 Vecuronium Bernice 10 MG ONCE ONE 07/24 2300 DC 07/24 IV 07/24 2301 2250 Past History Medical History Neurological: NONE EENT: NONE Cardiovascular: CAD, hypertension, [place] X7 Respiratory: NONE Gastrointestinal: GERD Hepatic: NONE Renal: KIDNEY STONES Musculoskeletal: chronic back pain, osteoarthritis Psychiatric: NONE Endocrine: NONE Blood Disorders: NONE Cancer(s): NONE 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 Home Smoking Status: Former Smoker ETOH Use: denies use Illicit Drug Use: denies illicit drug use Exam & Diagnostic Data Vital Signs and I&O Vital Signs Date Time Temp Pulse Resp B/P B/P Pulse O2 O2 Flow FiO2 Mean Ox Delivery Rate 07/25 0818 50 07/25 0800 96.9 33 20 100/60 97 Ventilator 50% 07/25 0541 50 07/25 0400 97 Ventilator 50% 07/25 0400 95.7 42 20 100/50 97 Ventilator 50% 07/25 0334 96 Ventilator 50% 07/25 0245 50 07/25 0205 44 92/55 100 Ventilator 07/25 0200 41 90/52 07/25 0155 44 87/53 07/25 0150 43 84/50 07/25 0149 96.7 42 20 96/54 99 Ventilator 07/25 0145 41 96/54 99 Ventilator 07/25 0140 41 96/52 07/25 0135 85 125/59 07/25 0130 42 104/58 /13 0125 43 87/51 /13 0120 41 83/50 /13 0115 44 87/51 99 Ventilator 09/13 0100 41 126/62 98 Ventilator 09/13 0045 46 98/55 99 Ventilator 09/13 0026 50 09/13 0025 46 134/63 99 Ventilator 09/13 0010 44 110/67 99 Ventilator /12 2355 99 Ventilator / 2351 50 79/51 99 Ventilator 09/12 2324 50 09/12 2321 62 125/62 95 Ventilator 09/12 2256 128/70 / 2250 139 120/64 96 Ventilator / 2247 82 115/61 95 Ventilator Intake & Output 07/25 1600 07/25 0800 07/25 0000 / 1600 07/24 0800 07/24 0000 Intake Total 4400 Output Total 900 Balance 3500 Intake, IV 4400 Output, Urine 900 Patient 180 lb Weight Weight Bed scale Measurement Method Physical Exam: Examination was performed at the bedside with the ICU staff and his ex- present. He was orally intubated and nonresponsive verbally but did respond to pain. Oral examination revealed accumulated secretions in the oropharynx, however, there is mild swelling of the uvula but the posterior pharyngeal wall did not appear significantly swollen. The neck examination was unremarkable Assessment/Plan Assessment/Plan Impression: post-operative confusion of unclear etiology Postoperative findings consistent with healing following a transoral duction of a retropharyngeal mass Recommend: Coverage of antibiotics for oral tej Management of his airway per ICU staff will follow Consult Acknowledgment - Thank you for your consult request. Attending MD Review Statement Attending Statement Attending MD Statement: examined this patient
--- NOTE | 2018-07-25 12:25 | ULTRASOUND REPORT ---
EXAMINATION: US TRIPLEX OF LOWER EXTREMITIES, BILATERAL CLINICAL INFORMATION: Tachypnea emboli suspected COMPARISON: None TECHNIQUE: Color-flow triplex imaging with spectral analysis and compression Doppler were performed on the lower extremities. FINDINGS: Respiratory variation, normal compression and augmented flow are noted throughout the lower extremities. The visualized common femoral vein, superficial femoral vein, profunda femoral vein, popliteal vein and midcalf peroneal and posterior tibial venous segments show no evidence of deep venous thrombosis. There is no Leigh's cyst. IMPRESSION: No evidence of deep venous thrombosis involving the bilateral lower extremities.
--- NOTE | 2018-07-25 13:13 | Cons- Cardiology ---
General Information and HPI Consulting Request Date of Consult: 07/25/18 Requested By: Delfino Marina MD History of Present Illness: This patient is a 73 year old male with history of hypertension and coronary artery disease s/p multiple stents. 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 This did appear to be an extensive mass however. 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 Post operatively the patient desaturated and was confused. He currently does not respond to questions. He is also noted to be very bradycardic with pauses which is not his baseline although his blood pressure is elevated. There is no evidence of hypothyroidism. There is no mass effect or evidence of CVA on his head CT. Allergies/Medications Allergies: Coded Allergies: STATINS (UNKNOWN 07/25/18) bee venom protein (honey bee) (UNKNOWN 07/25/18) Review of Systems Review of Systems: A review of systems is not obtainable. 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 Home Smoking Status: Former Smoker ETOH Use: denies use Illicit Drug Use: denies illicit drug use Exam & Diagnostic Data Vital Signs and I&O Vital Signs Date Time Temp Pulse Resp B/P B/P Pulse O2 O2 Flow FiO2 Mean Ox Delivery Rate 07/25 1200 97 Ventilator 45% 07/25 1142 45 07/25 1100 46 170/75 07/25 0818 50 07/25 0800 96.9 33 20 100/60 97 Ventilator 50% 07/25 0800 97 Ventilator 50% 07/25 0541 50 07/25 0400 97 Ventilator 50% 07/25 0400 95.7 42 20 100/50 97 Ventilator 50% 07/25 0334 96 Ventilator 50% 07/25 0245 50 07/25 0205 44 92/55 100 Ventilator 07/25 0200 41 90/52 07/25 0155 44 87/53 07/25 0150 43 84/50 09/13 0149 96.7 42 20 96/54 99 Ventilator 09/13 0145 41 96/54 99 Ventilator 09/13 0140 41 96/52 /13 0135 85 125/59 / 0130 42 104/58 /13 0125 43 87/51 09/13 0120 41 83/50 /13 0115 44 87/51 99 Ventilator 09/13 0100 41 126/62 98 Ventilator 09/ 0045 46 98/55 99 Ventilator 09/ 0026 50 09/13 0025 46 134/63 99 Ventilator 09/13 0010 44 110/67 99 Ventilator 09/12 2355 99 Ventilator / 2351 50 79/51 99 Ventilator 09/12 2324 50 09/ 2321 62 125/62 95 Ventilator / 2256 128/70 / 2250 139 120/64 96 Ventilator / 2247 82 115/61 95 Ventilator Intake & Output 07/25 1600 07/25 0800 / 0000 / 1600 07/24 0800 07/24 0000 Intake Total 4400 Output Total 900 Balance 3500 Intake, IV 4400 Output, Urine 900 Patient 180 lb Weight Weight Bed scale Measurement Method Physical Exam: General: WD/WN male in no apparent distress; intubated and not responsive to verbal stimuli HEENT: NC/AT, PERRL, EOMI Neck: no JVD Heart: bradycardic without murmur Lungs: clear anteriorly ABdomen: soft, NT, +ve bowel sounds Extremities: no edema Assessment/Plan Assessment/Plan * This patient has bradycardia that may be from sympathetic deinervation post surgery with unopposed vagal response or increased vagal tone. I suspect that the above is from tauma and swelling and may well resolve over time. The patient has a very good, if not elevated blood pressure despite his bradycardia. He also has platelets that are on the lower side. I recommend beginning dobutamine 5mcg/ kg/min and monitoring for improvement of his heart rate. We will consider a temporary pacemaker if this proves inadequate. Please check a Lyme titer. Consult Acknowledgment - Thank you for your consult request.
[2018-07-25 14:47] LABS: ABSOLUTE BASOPHIL COUNT 0 /CUMM (0.0-0.2); ABSOLUTE EOSINOPHIL COUNT 0 /CUMM (0.0-0.7); ABSOLUTE GRANULOCYTE CT 5.8 /CUMM (1.4-6.5); ABSOLUTE LYMPH COUNT 0.6 /CUMM (1.2-3.4); ABSOLUTE MONOCYTE COUNT 0.5 /CUMM (0.10-0.60); BASOPHIL % 0.4 % (0.0-2.0); EOSINOPHIL % 0.5 % (0-5); GRANULOCYTE % 82.9 % (42.2-75.2); HEMATOCRIT 41.3 % (42-52); MEAN CORPUSCULAR HGB CONC 33.8 G/DL (33.0-37.0); MEAN CORPUSCULAR VOLUME 88.8 FL (80.0-94.0); MEAN PLATELET VOLUME 7.6 FL (7.4-10.4); RBC DISTRIBUTION WIDTH 13.9 % (11.5-14.5); RED BLOOD CELL CT 4.65 /CUMM (4.70-6.10)
[2018-07-25 15:18] LABS: PLATELET COUNT 106 /CUMM (130-400)
--- NOTE | 2018-07-25 15:30 | RADIOLOGY REPORT ---
EXAMINATION: XR PORTABLE CHEST CLINICAL INFORMATION: Desaturation, intubated. Presumptive diagnosis of aspiration pneumonia. COMPARISON: Two chest x-rays dated 07/25/2018. TECHNIQUE: Portable frontal view of the chest was obtained. FINDINGS: Multiple EKG leads overlie the chest. Endotracheal tube is in place with tip approximately 6 cm above the jorge. Enteric tube extends into the abdomen but tip not included. The cardiomediastinal silhouette is within normal limits in size. Low lung volumes are seen with patchy parenchymal opacities in both lung bases, right greater than left. Associated air bronchograms are seen in the right lung base. No effusion or pneumothorax is seen. Bony structures are unremarkable. IMPRESSION: 1. Endotracheal tube tip approximately 6 cm above the jorge. 2. Enteric tube courses into the abdomen with tip not included. 3. Low lung volumes with bibasilar parenchymal opacities, more extensive on the right side than the left. Findings in the right lung base are associated with air bronchograms and are suspicious for pneumonia. Findings in the left lung base are nonspecific and may be related to pneumonia or atelectasis. Clinical correlation and follow-up is recommended.
[2018-07-25 16:00] VITALS: BP 138/64
--- NOTE | 2018-07-25 16:20 | Cons- Neurology ---
General Information and HPI Consulting Request Date of Consult: 07/25/18 Requested By: Christin REEVES,Taqu[employer] Hearn History of Present Illness: 73-year-old male observe today to have seizure-like event Patient had surgery 4 days ago for retropharyngeal mass He was discharged the following day On the evening of the following day patient was noted to be confused He had been on oxycodone although had taking medications of that nature in the past with no significant side effect Patient at the time did not have any fall or head trauma or convulsive activity There was a question regarding patient becoming mildly hypoxic Patient does have a history of obstructive sleep apnea No focal abnormalities were detected during the period in which he became confused EMS was called and he was taken to hospital there was also a question regarding possible CO2 retention Patient had no significant complaints over this period of time In hospital he was intubated and observed to have brief convulsive-like activity which was repetitive He was then loaded with levetiracetam and was given sedative The event happened approximately 2 hours prior to this examination Allergies/Medications Allergies: Coded Allergies: STATINS (UNKNOWN 07/25/18) bee venom protein (honey bee) (UNKNOWN 07/25/18) Current Medications: Current Medications Sig/Zev Start time Last Medication Dose Route Stop Time Status Admin Acetaminophen 0 .STK-MED ONE 07/25 0031 DC IV Acetaminophen 1,000 MG ONCE ONE 07/25 0030 DC 07/25 IV 07/25 0031 0039 Ampicillin Sodium/ 3,000 MG Q6 07/25 1200 AC 07/25 Sulbactam Sodium IV 1135 Sodium Chloride 100 ML Aspirin 81 MG DAILY 07/25 1417 AC 07/25 PO 1528 Ceftazidime 2,000 MG IQ8 07/25 0800 DC 07/25 IV 0650 Dextrose/Sodium 1,000 ML Q13H 07/25 1400 AC 07/25 Chloride IV 1440 Dextrose/Sodium 1,000 ML Q10H 07/25 1115 DC 07/25 Chloride IV 1135 Dobutamine HCl 250 MG Q20H 07/25 1400 AC Dextrose/Water 250 ML IV Dobutamine HCl 250 MG Q24H 07/25 1030 CAN Dextrose/Water 250 ML IV Dobutamine HCl 250 MG Q10H 07/25 1030 DC 07/25 Dextrose/Water 250 ML IV 1100 Enoxaparin Sodium 40 MG DAILY 07/25 1315 AC 07/25 SC 1440 Etomidate 10 MG ONCE ONE 07/24 2300 DC 07/24 IV 07/24 2301 2245 Fentanyl Citrate 25 MCG Q3P PRN 07/25 1330 AC IV Levetiracetam 500 MG ONCE ONE 07/25 1530 DC N/A 1 UNIT IV 07/25 1544 Levetiracetam 2,000 MG ONCE ONE 07/25 1500 CAN N/A 1 UNIT IV 07/25 1519 Levetiracetam 1,500 MG Q12H 07/25 1435 AC 07/25 N/A 1 UNIT IV 1528 Lorazepam 0 .STK-MED ONE 07/25 1105 DC .ROUTE Lorazepam 1 MG ONCE ONE 07/25 1100 DC 07/25 IV 07/25 1101 1107 Lorazepam 50 MG Q24H 07/25 0330 DC Sodium Chloride 500 ML IV Lorazepam 1 MG ONCE ONE 07/24 2300 DC 07/24 IV 07/24 2301 2250 Lorazepam 0 .STK-MED ONE 07/24 2255 DC .ROUTE Midazolam HCl 2 MG ONCE ONE 07/25 1445 DC 07/25 IV 07/25 1446 1440 Non-Formulary 0 SEE ADMIN CRITERIA 07/25 1000 CAN Medication ANY Pantoprazole Sodium 40 MG DAILY 07/25 0900 AC 07/25 IV 0902 Phosphate 250 MG 0800 07/25 0800 DC 07/25 PO 07/25 0801 1049 Potassium Chloride 10 MEQ Q1H 07/25 1530 AC IV 07/25 1631 Potassium Chloride 20 MEQ ONCE ONE 07/25 1530 CAN PO 07/25 1531 Potassium Chloride 20 MEQ ONCE ONE 07/25 1530 DC 07/25 PO 07/25 1531 1528 Potassium Chloride 0 .STK-MED ONE 07/25 1530 DC PO Potassium Phosphate 15 mMol ONE ONE 07/25 1530 AC Sodium Chloride 250 ML IV 07/25 1934 Sodium Chloride 1,000 ML BOLUS ONE 07/25 0315 DC 07/25 IV 07/25 0414 0323 Sodium Chloride 1,000 ML BOLUS ONE 07/25 0145 DC 07/25 IV 07/25 0244 0149 Sodium Chloride 1,000 ML BOLUS ONE 07/25 0015 DC 07/25 IV 07/25 0114 0020 Sodium Chloride 1,000 ML BOLUS ONE 07/25 0015 DC 07/25 IV 07/25 0114 0049 Succinylcholine 100 MG ONCE ONE 07/24 2300 DC / Chloride IV 07/24 2301 2245 Vecuronium [place] 0 .STK-MED ONE 07/25 0031 DC IV Vecuronium [place] 10 MG ONCE ONE 07/25 0030 DC 07/25 IV 07/25 0031 0039 Vecuronium [place] 10 MG ONCE ONE 07/24 2300 DC / IV 07/24 2301 2250 Review of Systems Review of Systems: No significant headache No head trauma Occasional shortness of breath Occasional chest pains but not recent No vomiting No fall No focal weakness No history of incontinence No recent fevers or significant swelling Weight fluctuates but overall stable Past History Travel History Traveled to [place] past 21 day No Medical History Neurological: NONE EENT: NONE Cardiovascular: CAD, hypertension, [place] X7 Respiratory: NONE Gastrointestinal: GERD Hepatic: NONE Renal: KIDNEY STONES Musculoskeletal: chronic back pain, osteoarthritis Psychiatric: NONE Endocrine: NONE Blood Disorders: NONE Cancer(s): NONE 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 Home Smoking Status: Former Smoker ETOH Use: denies use Illicit Drug Use: denies illicit drug use Exam & Diagnostic Data Vital Signs and I&O Vital Signs Date Time Temp Pulse Resp B/P B/P Pulse O2 O2 Flow FiO2 Mean Ox Delivery Rate 07/25 1600 98.6 53 20 138/64 96 Ventilator 45% 07/25 1529 56 127/62 07/25 1444 45 07/25 1200 97 Ventilator 45% 07/25 1142 45 07/25 1100 46 170/75 07/25 0818 50 07/25 0800 96.9 33 20 100/60 97 Ventilator 50% 07/25 0800 97 Ventilator 50% 07/25 0541 50 07/25 0400 97 Ventilator 50% 07/25 0400 95.7 42 20 100/50 97 Ventilator 50% 07/25 0334 96 Ventilator 50% 07/25 0245 50 07/25 0205 44 92/55 100 Ventilator 07/25 0200 41 90/52 07/25 0155 44 87/53 07/25 0150 43 84/50 07/25 0149 96.7 42 20 96/54 99 Ventilator 07/25 0145 41 96/54 99 Ventilator 07/25 0140 41 96/52 07/25 0135 85 125/59 07/25 0130 42 104/58 / 0125 43 87/51 / 0120 41 83/50 / 0115 44 87/51 99 Ventilator / 0100 41 126/62 98 Ventilator / 0045 46 98/55 99 Ventilator / 0026 50 / 0025 46 134/63 99 Ventilator / 0010 44 110/67 99 Ventilator / 2355 99 Ventilator / 2351 50 79/51 99 Ventilator / 2324 50 09/ 2321 62 125/62 95 Ventilator / 2256 128/70 07/24 2250 139 120/64 96 Ventilator 07/24 2247 82 115/61 95 Ventilator Intake & Output 07/25 1600 07/25 0800 07/25 0000 Intake Total 1110 4400 Output Total 525 900 Balance 585 3500 Intake, IV 1050 4400 Intake, Other 60 Output, 75 Gastric Drainage Output, Urine 450 900 Patient 180 lb Weight Weight Bed scale Measurement Method Last 48 Hours of Lab Results: Laboratory Tests 07/25 07/25 1410 0835 Blood Gas pH (7.35 - 7.45 PH) 7.39 pCO2 (35 - 45 TORR) 31 L pO2 (80 - 100 TORR) 77 L HCO3 (21 - 28 MEQ/L) 19 L ABG O2 Sat (Measured) (>96.0 %) 95.0 L P-50 (Temp Corrected) N Carboxyhemoglobin (1.5 - 5.0 %) 0.9 L O2 Concentration % 50% Respiration Rate (BPM) 20 O2 Delivery Method VENT Vent Mode AC Expiratory Pressure (CMH2O/P) 5 Tidal Volume (CC) 500 Pressure Support (CMH2O/P) 0 Chemistry Sodium (137 - 145 mmol/L) 141 Potassium (3.5 - 5.1 mmol/L) 3.2 L Chloride (98 - 107 mmol/L) 112 H Carbon Dioxide (22 - 30 mmol/L) 19 L Anion Gap (5 - 16) 9 BUN (9 - 20 mg/dL) 13 Creatinine (0.7 - 1.2 mg/dL) 0.8 Estimated GFR (>60 ml/min) > 60 Glucose (65 - 99 mg/dL) 106 H Calcium (8.4 - 10.2 mg/dL) 8.2 L Phosphorus (2.5 - 4.5 mg/dL) 1.8 L Magnesium (1.6 - 2.3 mg/dL) 2.0 Total Bilirubin (0.2 - 1.3 mg/dL) 0.6 AST (17 - 59 U/L) 19 ALT (21 - 72 U/L) 30 Albumin (3.5 - 5.0 g/dL) 2.7 L Hematology CBC w Diff NO MAN DIFF REQ WBC (4.8 - 10.8 /CUMM) 7.0 RBC (4.70 - 6.10 /CUMM) 4.65 L Hgb (14.0 - 18.0 G/DL) 13.9 L Hct (42 - 52 %) 41.3 L MCV (80.0 - 94.0 FL) 88.8 MCH (27.0 - 31.0 PG) 30.0 MCHC (33.0 - 37.0 G/DL) 33.8 RDW (11.5 - 14.5 %) 13.9 Plt Count (130 - 400 /CUMM) 106 L MPV (7.4 - 10.4 FL) 7.6 Gran % (42.2 - 75.2 %) 82.9 H Lymphocytes % (20.5 - 51.1 %) 9.1 L Monocytes % (1.7 - 9.3 %) 7.1 Eosinophils % (0 - 5 %) 0.5 Basophils % (0.0 - 2.0 %) 0.4 Absolute Granulocytes (1.4 - 6.5 /CUMM) 5.8 Absolute Lymphocytes (1.2 - 3.4 /CUMM) 0.6 L Absolute Monocytes (0.10 - 0.60 /CUMM) 0.5 Absolute Eosinophils (0.0 - 0.7 /CUMM) 0 Absolute Basophils (0.0 - 0.2 /CUMM) 0 Miscellaneous Phlebotomy Draw Site RIGHT RADIAL 07/25 07/25 3069 0802 Coagulation D-Dimer High Sensitivty (0 - 243 ng/ml) 233 Toxicology Urine Opiates Screen (>2000 NG/ML) 156 Methadone Screen (>300 NG/ML) 44 Barbiturate Screen (>200 NG/ML) < 60 Ur Phencyclidine Scrn (>25 NG/ML) < 6.00 Amphetamines Screen (>1000 NG/ML) < 100 U Benzodiazepines Scrn (>200 NG/ML) 122 Urine Cocaine Screen (>300 NG/ML) < 50 Urine Cannabis Screen (>50 NG/ML) < 5.00 Urines Urine Color (YEL,AMB,STR) YEL Urine Clarity (CLEAR) CLEAR Urine pH (5.0 - 8.0) 7.0 Ur Specific [place] (1.001 - 1.035) <= 1.005 Urine Protein (NEG,<30 MG/DL) NEG Urine Ketones (NEG) 15 H Urine Nitrite (NEG) NEG Urine Bilirubin (NEG) NEG Urine Urobilinogen (0.1 - 1.0 EU/dl) 0.2 Ur Leukocyte Esterase (NEG) NEG Ur Microscopic SEDIMENT EXAMINED Urine RBC (0 - 5 /HPF) 15-25 H Urine WBC (0 - 2 /HPF) RARE Ur Epithelial Cells (NONE,FEW) FEW Urine Hemoglobin (NEG) MOD H Urine Glucose (N MG/DL) NEG 07/25 07/25 0400 0040 Blood Gas pH (7.35 - 7.45 PH) 7.50 H pCO2 (35 - 45 TORR) 26 L pO2 (80 - 100 TORR) 74 L HCO3 (21 - 28 MEQ/L) 20 L ABG O2 Sat (Measured) (>96.0 %) 95.0 L P-50 (Temp Corrected) Y Carboxyhemoglobin (1.5 - 5.0 %) 1.3 L O2 Concentration % 50% Temperature (97.0 - 100.0 FARH) 96.8 L Respiration Rate (BPM) 20 O2 Delivery Method ESPRIT Vent Mode AC Expiratory Pressure (CMH2O/P) 5 Tidal Volume (CC) 500 Chemistry Sodium (137 - 145 mmol/L) 138 Potassium (3.5 - 5.1 mmol/L) 4.1 Chloride (98 - 107 mmol/L) 108 H Carbon Dioxide (22 - 30 mmol/L) 20 L Anion Gap (5 - 16) 10 BUN (9 - 20 mg/dL) 17 Creatinine (0.7 - 1.2 mg/dL) 1.0 Estimated GFR (>60 ml/min) > 60 Glucose (65 - 99 mg/dL) 93 Calcium (8.4 - 10.2 mg/dL) 7.8 L Phosphorus (2.5 - 4.5 mg/dL) 1.5 L Magnesium (1.6 - 2.3 mg/dL) 2.0 Total Bilirubin (0.2 - 1.3 mg/dL) 1.0 AST (17 - 59 U/L) 26 ALT (21 - 72 U/L) 19 L Troponin I (<0.11 ng/ml) < 0.01 Albumin (3.5 - 5.0 g/dL) 2.6 L Hematology CBC w Diff NO MAN DIFF REQ WBC (4.8 - 10.8 /CUMM) 7.3 RBC (4.70 - 6.10 /CUMM) 4.15 L Hgb (14.0 - 18.0 G/DL) 12.7 L Hct (42 - 52 %) 37.2 L MCV (80.0 - 94.0 FL) 89.7 MCH (27.0 - 31.0 PG) 30.5 MCHC (33.0 - 37.0 G/DL) 34.0 RDW (11.5 - 14.5 %) 13.6 Plt Count (130 - 400 /CUMM) 95 L MPV (7.4 - 10.4 FL) 9.1 Gran % (42.2 - 75.2 %) 77.2 H Lymphocytes % (20.5 - 51.1 %) 13.9 L Monocytes % (1.7 - 9.3 %) 8.0 Eosinophils % (0 - 5 %) 0.5 Basophils % (0.0 - 2.0 %) 0.4 Absolute Granulocytes (1.4 - 6.5 /CUMM) 5.6 Absolute Lymphocytes (1.2 - 3.4 /CUMM) 1.0 L Absolute Monocytes (0.10 - 0.60 /CUMM) 0.6 Absolute Eosinophils (0.0 - 0.7 /CUMM) 0 Absolute Basophils (0.0 - 0.2 /CUMM) 0 Miscellaneous Phlebotomy Draw Site RIGHT RADIAL Serology Lyme Disease Screen Pending 07/24 2240 Chemistry Sodium (137 - 145 mmol/L) 137 Potassium (3.5 - 5.1 mmol/L) 3.9 Chloride (98 - 107 mmol/L) 102 Carbon Dioxide (22 - 30 mmol/L) 27 Anion Gap (5 - 16) 7 BUN (9 - 20 mg/dL) 17 Creatinine (0.7 - 1.2 mg/dL) 1.1 Estimated GFR (>60 ml/min) > 60 BUN/Creatinine Ratio (7 - 25 %) 15.5 Glucose (65 - 99 mg/dL) 111 H Lactic Acid (0.7 - 2.1 mmol/L) 0.8 Calcium (8.4 - 10.2 mg/dL) 8.9 Magnesium (1.6 - 2.3 mg/dL) 2.1 Total Bilirubin (0.2 - 1.3 mg/dL) 1.2 AST (17 - 59 U/L) 27 ALT (21 - 72 U/L) 34 Alkaline Phosphatase (< 127 U/L) 88 Troponin I (<0.11 ng/ml) < 0.01 Total Protein (6.3 - 8.2 g/dL) 6.1 L Albumin (3.5 - 5.0 g/dL) 3.4 L Globulin (1.9 - 4.2 gm/dL) 2.7 Albumin/Globulin Ratio (1.1 - 2.2 %) 1.3 Free T4 (0.78 - 2.44 ng/dL) 2.10 Total T3 (0.97 - 1.69 ng/mL) 1.16 TSH &T3 &Free T4 Intrp (0.27 - 4.20 uIU/mL) 0.097 L Coagulation PT (9.4 - 12.5 SEC) 13.4 H INR (0.90 - 1.17) 1.23 H APTT (25 - 37 SEC) 25 Hematology CBC w Diff NO MAN DIFF REQ WBC (4.8 - 10.8 /CUMM) 11.6 H RBC (4.70 - 6.10 /CUMM) 5.00 Hgb (14.0 - 18.0 G/DL) 14.8 Hct (42 - 52 %) 44.4 MCV (80.0 - 94.0 FL) 88.8 MCH (27.0 - 31.0 PG) 29.6 MCHC (33.0 - 37.0 G/DL) 33.4 RDW (11.5 - 14.5 %) 13.8 Plt Count (130 - 400 /CUMM) 139 MPV (7.4 - 10.4 FL) 8.0 Gran % (42.2 - 75.2 %) 75.0 Lymphocytes % (20.5 - 51.1 %) 15.4 L Monocytes % (1.7 - 9.3 %) 8.5 Eosinophils % (0 - 5 %) 0.8 Basophils % (0.0 - 2.0 %) 0.3 Absolute Granulocytes (1.4 - 6.5 /CUMM) 8.7 H Absolute Lymphocytes (1.2 - 3.4 /CUMM) 1.8 Absolute Monocytes (0.10 - 0.60 /CUMM) 1.0 H Absolute Eosinophils (0.0 - 0.7 /CUMM) 0.1 Absolute Basophils (0.0 - 0.2 /CUMM) 0 Imaging/Other Studies: CT brain IMPRESSION: No evidence for acute intracranial injury. Mild paranasal sinus disease. Assessment/Plan Assessment: Brief seizure-like activity Possibly related to period where he was relatively anoxic No previous history of seizure disorder Period of confusion likely related to hypoxia and possible contribution from opioids Recommendations: For the interim continue levetiracetam 500 mg twice a day Electroencephalogram Since mental status once patient is off all stimulants and narcotic agents Hopefully mental status will return to baseline, at which time if EEG shows no abnormalities may taper off levetiracetam Consult Acknowledgment - Thank you for your consult request.
--- NOTE | 2018-07-25 18:34 | ELECTROENCEPHALOGRAM REPORT ---
Electroencephalogram Report Electroencephalogram Results Date of service: 07/25/18 Attending MD: Christin REEVES,[employer] Records Analyst: Ish Murillo EEG Number: [id number] Test Utilizes: 10-20 system, 21 lead 18 channel digital recording Pertinent Hx/Physical/Neuro Findings/Clin Diagnosis: confusion seizure Inpatient Medications: Current Medications Sig/Zev Start time Last Medication Dose Route Stop Time Status Admin Acetaminophen 0 .STK-MED ONE 07/25 0031 DC IV Acetaminophen 1,000 MG ONCE ONE 07/25 0030 DC 07/25 IV 07/25 0031 0039 Ampicillin Sodium/ 3,000 MG Q6 07/25 1200 AC 07/25 Sulbactam Sodium IV 1742 Sodium Chloride 100 ML Aspirin 81 MG DAILY 07/25 1417 AC 07/25 PO 1528 Ceftazidime 2,000 MG IQ8 07/25 0800 DC 07/25 IV 0650 Dextrose/Sodium 1,000 ML Q13H 07/25 1400 AC 07/25 Chloride IV 1440 Dextrose/Sodium 1,000 ML Q10H 07/25 1115 DC 07/25 Chloride IV 1135 Dobutamine HCl 250 MG Q20H 07/25 1400 AC Dextrose/Water 250 ML IV Dobutamine HCl 250 MG Q24H 07/25 1030 CAN Dextrose/Water 250 ML IV Dobutamine HCl 250 MG Q10H 07/25 1030 DC 07/25 Dextrose/Water 250 ML IV 1100 Enoxaparin Sodium 40 MG DAILY 07/25 1315 AC 07/25 SC 1440 Etomidate 10 MG ONCE ONE 07/24 2300 DC 07/24 IV 07/24 2301 2245 Fentanyl Citrate 25 MCG Q3P PRN 07/25 1330 07/25 IV 1703 Levetiracetam 500 MG ONCE ONE 07/25 1530 DC 07/25 N/A 1 UNIT IV 07/25 1544 1712 Levetiracetam 2,000 MG ONCE ONE 07/25 1500 CAN N/A 1 UNIT IV 07/25 1519 Levetiracetam 1,500 MG Q12H 07/25 1435 AC 07/25 N/A 1 UNIT IV 1528 Lorazepam 0 .STK-MED ONE 07/25 1105 DC .ROUTE Lorazepam 1 MG ONCE ONE 07/25 1100 DC 07/25 IV 07/25 1101 1107 Lorazepam 50 MG Q24H 07/25 0330 DC Sodium Chloride 500 ML IV Lorazepam 1 MG ONCE ONE 07/24 2300 DC 07/24 IV 07/24 2301 2250 Lorazepam 0 .STK-MED ONE 07/24 2255 DC .ROUTE Midazolam HCl 2 MG ONCE ONE 07/25 1445 DC 07/25 IV 07/25 1446 1440 Non-Formulary 0 SEE ADMIN CRITERIA 07/25 1000 CAN Medication ANY Pantoprazole Sodium 40 MG DAILY 07/25 0900 AC 07/25 IV 0902 Phosphate 250 MG 0800 07/25 0800 DC 07/25 PO 07/25 0801 1049 Potassium Chloride 0 .STK-MED ONE 07/25 1631 DC IV Potassium Chloride 10 MEQ Q1H 07/25 1530 DC 07/25 IV 07/25 1631 1742 Potassium Chloride 20 MEQ ONCE ONE 07/25 1530 CAN PO 07/25 1531 Potassium Chloride 20 MEQ ONCE ONE 07/25 1530 DC 07/25 PO 07/25 1531 1528 Potassium Chloride 0 .STK-MED ONE 07/25 1530 DC PO Potassium Phosphate 15 mMol ONE ONE 07/25 1530 AC Sodium Chloride 250 ML IV 07/25 1934 Sodium Chloride 1,000 ML BOLUS ONE 07/25 0315 DC 07/25 IV 07/25 0414 0323 Sodium Chloride 1,000 ML BOLUS ONE 07/25 0145 DC 07/25 IV 07/25 0244 0149 Sodium Chloride 1,000 ML BOLUS ONE 07/25 0015 DC 07/25 IV 07/25 0114 0020 Sodium Chloride 1,000 ML BOLUS ONE 07/25 0015 DC 07/25 IV 07/25 0114 0049 Succinylcholine 100 MG ONCE ONE 07/24 2300 DC 07/24 Chloride IV 07/24 2301 2245 Vecuronium [place] 0 .STK-MED ONE 07/25 0031 DC IV Vecuronium [place] 10 MG ONCE ONE 07/25 0030 DC 07/25 IV 07/25 0031 0039 Vecuronium [place] 10 MG ONCE ONE 07/24 2300 DC 07/24 IV 07/24 2301 2250 Interpretation: EEG on propofor Background low voltage 22-24 cps activity Pseudoperiodic generalized sharp waves present throughout the recording Impression: Abnormal EEG due to periodic sharp waves; potentially epileptogenic repeat EEG when off sedatives
[2018-07-26] VITALS: BP 140/64
[2018-07-26 05:30] LABS: ABSOLUTE BASOPHIL COUNT 0 /CUMM (0.0-0.2); ABSOLUTE EOSINOPHIL COUNT 0.1 /CUMM (0.0-0.7); ABSOLUTE GRANULOCYTE CT 5.5 /CUMM (1.4-6.5); ABSOLUTE LYMPH COUNT 0.8 /CUMM (1.2-3.4); ABSOLUTE MONOCYTE COUNT 0.5 /CUMM (0.10-0.60); BASOPHIL % 0.3 % (0.0-2.0); EOSINOPHIL % 0.8 % (0-5); HEMATOCRIT 41.7 % (42-52); MEAN CORPUSCULAR HGB CONC 33.8 G/DL (33.0-37.0); MEAN CORPUSCULAR VOLUME 88.7 FL (80.0-94.0); MEAN PLATELET VOLUME 7.4 FL (7.4-10.4); PLATELET COUNT 141 /CUMM (130-400); RBC DISTRIBUTION WIDTH 13.7 % (11.5-14.5); WHITE BLOOD CELL COUNT 6.8 /CUMM (4.8-10.8)
--- NOTE | 2018-07-26 07:04 | RADIOLOGY REPORT ---
EXAMINATION: XR PORTABLE CHEST CLINICAL INFORMATION: Aspiration pneumonia. Endotracheal tube. COMPARISON: Chest x-ray July 25, 2018. TECHNIQUE: Portable frontal view of the chest was obtained. 6:20 AM FINDINGS: Endotracheal tube catheter about 5 cm above the jorge. Nasogastric tube passes into the stomach. The catheter tip though is not identified. Lung volume is low. There is persistent bibasilar atelectasis/infiltrate similar to prior chest x-ray. No significant central pulmonary vascular congestion. There is no large pleural effusion. IMPRESSION: Endotracheal tube proximal 5 cm above the jorge. 2. Nasogastric tube passes into stomach. 3. Low lung volume with bibasilar atelectasis/infiltrate.
--- NOTE | 2018-07-26 07:53 | ECHOCARDIOGRAM REPORT ---
LANCE MARTINEZ Age: 73 : 1945 Gender: M Exam Date: 07/25/2018 10:40 Exam Location: [facility] Ht (in): 67 Wt (lb): 179 BSA: 1.98 BP: 168 / 76 Ordering Physician: Jenn Castillo MD Referring Physician: Jenn Castillo MD Technologist: Marty Ly RUST Room Number: 108 Indications: Pericardial Effusion Rhythm: Sinus Technical Quality: good FINDINGS Left Ventricle Normal left ventricular size, wall thickness and systolic function with no obvious regional wall motion abnormalities. Diastolic filling pattern is consistent with impaired LV relaxation. The ejection fraction is visually estimated at 60%. Right Ventricle The right ventricle is normal in size and function. Right Atrium The right atrium is normal in size. Left Atrium The left atrium is normal in size. The interatrial septum is intact. Mitral Valve The mitral valve is normal in structure and function. There is no mitral regurgitation. Aortic Valve Structurally normal aortic valve without significant sclerosis or stenosis. There is no aortic regurgitation. Tricuspid Valve The tricuspid valve is normal in structure and function. There is trace tricuspid regurgitation. Pulmonary artery systolic pressure is normal. Pulmonic Valve Structurally normal pulmonic valve. There is no pulmonic regurgitation. Pericardium Normal pericardium without effusion. No pleural effusion. Great Vessels Normal aortic root dimension. The aortic arch and great vessels are well seen and are normal. CONCLUSIONS 1. Normal EF of 60% with impaired LV relaxation. 2. Trace tricuspid regurgitation. Hermilo Olsen M.D. (Electronically Signed) Final Date: 26 July 2018 07:52 MEASUREMENTS (Male / Female) Normal Values 2D ECHO LV Diastolic Diameter PLAX 4.8 cm 4.2 - 5.9 / 3.9 - 5.3 cm LV Systolic Diameter PLAX 3.1 cm 2.1 - 4.0 cm LV Fractional Shortening PLAX 35.4 % 25 - 46 % LV Ejection Fraction 2D Teich 64.7 % IVS Diastolic Thickness 1.2 cm LVPW Diastolic Thickness 1.1 cm LV Relative Wall Thickness 0.5 LVOT Diameter 2.0 cm Aortic Root Diameter 3.6 cm LA Systolic Diameter LX 2.9 cm 3.0 - 4.0 / 2.7 - 3.8 cm Ascending Aorta Diameter 3.5 cm DOPPLER AV Peak Velocity 186.0 cm/s AV Peak Gradient 13.8 mmHg AV Mean Velocity 108.0 cm/s AV Mean Gradient 6.0 mmHg AV Velocity Time Integral 30.0 cm LVOT Peak Velocity 120.0 cm/s LVOT Peak Gradient 5.8 mmHg LVOT Mean Velocity 64.9 cm/s LVOT Mean Gradient 2.0 mmHg LVOT Velocity Time Integral 24.6 cm LVOT Stroke Volume 77.3 cm AV Area Cont Eq vti 2.6 cm AV Area Cont Eq pk 2.0 cm MV Peak Velocity 97.9 cm/s MV Peak Gradient 3.8 mmHg MV Mean Velocity 40.9 cm/s MV Mean Gradient 1.0 mmHg Mitral E Point Velocity 77.5 cm/s Mitral A Point Velocity 47.9 cm/s Mitral E to A Ratio 1.6 MV PHT Velocity 102.0 cm/s MV Deceleration [place] 497.0 cm/s MV Pressure Half Time 61.6 ms MV Area PHT 3.6 cm MV Deceleration Time 201.0 ms TR Peak Velocity 278.0 cm/s TR Peak Gradient 30.9 mmHg Right Atrial Pressure 10.0 mmHg Pulmonary Artery Systolic Pressure 40.9 mmHg Right Ventricular Systolic Pressure 40.9 mmHg PV Peak Velocity 116.0 cm/s PV Peak Gradient 5.4 mmHg PV Mean Velocity 67.2 cm/s PV Mean Gradient 2.0 mmHg PV Velocity Time Integral 23.4 cm LV E' Lateral Velocity 13.2 cm/s Mitral E to LV E' Lateral Ratio 5.9 LV E' Septal Velocity 12.1 cm/s Mitral E to LV E' Septal Ratio 6.4
[2018-07-26 08:00] VITALS: BP 142/80
--- NOTE | 2018-07-26 08:49 | CT SCAN REPORT ---
EXAMINATION: CT HEAD WITHOUT CONTRAST CLINICAL INFORMATION: Bradycardia and new onset of seizure. COMPARISON: Head angiography, 07/24/2018 TECHNIQUE: Contiguous axial imaging was performed from the skull base to vertex without intravenous administration of contrast. DLP: 629 mGy-cm FINDINGS: Brain parenchyma: No acute findings compared to 07/24/2018. Turner-white matter differentiation is well preserved. No evidence of a dense middle cerebral artery sign, acute major vascular territory infarction, hemorrhage, mass or midline shift. Mild atrophy of cerebral and cerebellar hemispheres associated with commensurate prominence of ventricles and sulci. Cerebrospinal fluid spaces: No hydrocephalus or extra-axial fluid collections. Cerebellum and brainstem: No acute abnormality. The 4th ventricle is midline in position. The cerebellopontine angles are normal. Calvarium and temporomandibular joints: Calvarium is intact. Mastoid air cells and middle ear cavities are well aerated. The TMJs are normal. Paranasal sinuses and orbits: Orogastric and endotracheal tubes in place. Persistent mucosal thickening of ethmoid air cells. Also, mucosal thickening of sphenoid sinus and interval development of air-fluid levels within sphenoid sinus and maxillary sinuses. No acute intraorbital pathology. IMPRESSION: No evidence of cerebral edema or intracranial hemorrhage. No acute intracranial pathology compared to 07/24/2018.
--- NOTE | 2018-07-26 08:51 | PN- Cardiology ---
Subjective Subjective: * Patient is not responsive to verbal stimuli. * heart rate is in the 60's on minimal dobutamine and is mildly hypertensive * normal EF of echo Objective Vital Signs and I&Os Vital Signs Date Time Temp Pulse Resp B/P B/P Pulse O2 O2 Flow FiO2 Mean Ox Delivery Rate 07/26 0611 40 07/26 0609 62 20 168/85 07/26 0428 40 07/26 0400 95 Ventilator 40% 07/26 0212 40 07/26 0000 97 Ventilator 40% 07/26 0000 97.4 52 20 140/64 97 Ventilator 40% 07/25 2225 40 07/25 2000 96 Ventilator 40% 07/25 1930 40 07/25 1605 45 07/25 1600 98.6 53 20 138/64 96 Ventilator 45% 07/25 1600 96 Ventilator 45% 07/25 1529 56 127/62 07/25 1444 45 07/25 1200 97 Ventilator 45% 07/25 1142 45 07/25 1100 46 170/75 Intake & Output 07/26 1600 07/26 0800 07/26 0000 07/25 1600 07/25 0800 07/25 0000 Intake Total 1041 1412 1110 4400 Output Total 840 690 525 900 Balance 201 950 267 7904 Intake, IV 1041 1412 1050 4400 Intake, Other 60 Number 0 0 Bowel Movements Output, 220 40 75 Gastric Drainage Output, Urine 620 650 450 900 Patient 180 lb 180 lb Weight Weight Bed scale Measurement Method Physical Exam: General: WD/WN male in no apparent distress; intubated and not responsive to verbal stimuli HEENT: NC/AT, PERRL, EOMI Neck: no JVD Heart: RRR without murmur Lungs: clear anteriorly ABdomen: soft, NT, +ve bowel sounds Extremities: no edema Assessment/Plan Assessment/Plan * This patient has bradycardia that may be from sympathetic deinervation post surgery with unopposed vagal response or increased vagal tone. I suspect that the above is from trauma and swelling, and may well resolve over time. The patient's heart rate is in the mid 60's on a small dose of dobutamine. It is reasonable to stop this medication and observe for bradycardia. I would maintain a heart rate of above 55bpm. His Lyme titer is normal. He also has a normal EF. Continue telemetry? Yes
--- NOTE | 2018-07-26 09:34 | CT SCAN REPORT ---
EXAMINATION: CT NECK WITHOUT CONTRAST CLINICAL INFORMATION: 73-year-old male with new onset of seizure and history of neck surgery. COMPARISON: CT neck angiography of 07/24/2018. TECHNIQUE: Noncontrast multidetector CT imaging examination of the neck was performed. Axial images are presented at 0.625 mm and 2.5 mm slice thickness. DLP: 597 mGy-cm FINDINGS: The tip of the endotracheal tube is 4.5 cm above the jorge. There is a mucus along the posterior wall of the jorge extending into the right mainstem bronchus. The enteric tube travels through the esophagus and beyond the [id number]. Parotid glands, submandibular glands, and thyroid gland are normal. Again noted are secretions within the posterior nasal cavity and nasopharynx. Also, mild amount of fluid/secretions within maxillary sinuses and sphenoid sinus. Again noted is mucosal thickening of bilateral ethmoid air cells. The predominantly left-sided prevertebral/retropharyngeal edema extending from C2-C4 has decreased compared to 07/24/2018. No surgical clips in this region of the neck. No noncontrast imaging evidence of soft tissue abscess or hematoma. The oral cavity, tongue base, and tonsillar pillars are unremarkable. The parapharyngeal fat planes are preserved. Laryngeal structures are unremarkable. There are normal sized lymph nodes of the suprahyoid and infrahyoid neck without evidence of lymphadenopathy by size criteria. No evidence of atherosclerotic disease of the vertebral or carotid arteries. Skull base is intact. No intracranial hemorrhage. No acute findings within the visualized head compared to 07/24/2018. The cervical vertebra have normal height and alignment. There is normal lordotic curvature of the cervical spine. Multilevel disc space narrowing and osteophyte formation. Prominent anterior ligament ossification is present at C2-C3 and C3-C4. Severe centrilobular emphysema of the partially visualized upper lobes. Mild atelectasis within dependent aspect of each lung. IMPRESSION: - Endotracheal tube is in satisfactory position at 4.5 cm above the jorge. - Severe pulmonary emphysema. - No acute findings within the neck compared to 07/24/2018. The predominantly left-sided prevertebral/retropharyngeal edema extending from C2-C4 has decreased compared to 07/24/2018.
--- NOTE | 2018-07-26 10:23 | PN- CRCU ---
Subjective HPI/Critical Care Issues: Seen and examined this morning Noted to have seizure-like activity again this morning. He definitely did have seizure yesterday. Still less responsive. Does not follow commands. Remains afebrile Still has secretions No other history could be obtained Ventilator settings reviewed he is on 40% All the data reviewed BUN creatinine stable potassium is still low magnesium is 1.8 phosphorus was slightly low and his urine tox screen was unremarkable when he came in White count 6.8 hemoglobin 14.1 platelets 141 INR upon admission was 1.2 ABG from yesterday reviewed patient is maintaining his oxygenation on 40% Bradycardia has improved, now off dobutamine CT scan of the head and neck from this morning reviewed the neck showed no significant new findings severe emphysema no acute findings. He does have some retropharyngeal left-sided edema which has significantly reduced Head CT reviewed showed no evidence of cerebral edema or intracranial hemorrhage and no acute intracranial pathology. Gonzales-white matter differentiation is well preserved. Chest x-ray showed bibasilar atelectasis/infiltrate Sputum Gram stain showed gram-positive cocci no growth after 1 day Objective Current Medications: Current Medications Sig/Zev Start time Last Medication Dose Route Stop Time Status Admin Ampicillin Sodium/ 3,000 MG Q6 07/25 1200 AC 07/26 Sulbactam Sodium IV 0610 Sodium Chloride 100 ML Aspirin 81 MG DAILY 07/25 1417 AC 07/25 PO 1528 Dextrose/Sodium 1,000 ML Q13H 07/25 1400 AC 07/25 Chloride IV 2356 Dextrose/Sodium 1,000 ML Q10H 07/25 1115 DC 07/25 Chloride IV 1135 Dobutamine HCl 250 MG Q20H 07/25 1400 DC 07/26 Dextrose/Water 250 ML IV 0609 Dobutamine HCl 250 MG Q24H 07/25 1030 CAN Dextrose/Water 250 ML IV Dobutamine HCl 250 MG Q10H 07/25 1030 DC 07/25 Dextrose/Water 250 ML IV 1100 Enoxaparin Sodium 40 MG DAILY 07/25 1315 AC 07/26 SC 1008 Fentanyl Citrate 0 .STK-MED ONE 07/26 0844 DC .ROUTE Fentanyl Citrate 25 MCG Q3P PRN 07/25 1330 AC 07/26 IV 0854 Levetiracetam 1,000 MG Q12H 07/26 1435 AC N/A 1 UNIT IV Levetiracetam 500 MG ONCE ONE 07/26 0900 DC 07/26 N/A 1 UNIT IV 07/26 0914 0944 Levetiracetam 500 MG Q12H 07/26 0235 AC 07/26 N/A 1 UNIT IV 07/26 1434 0226 Levetiracetam 500 MG ONCE ONE 07/25 1530 DC 07/25 N/A 1 UNIT IV 07/25 1544 1712 Levetiracetam 2,000 MG ONCE ONE 07/25 1500 CAN N/A 1 UNIT IV 07/25 1519 Levetiracetam 1,500 MG Q12H 07/25 1435 DC 07/25 N/A 1 UNIT IV 07/26 0234 1528 Lorazepam 2 MG ONE ONE 07/26 0900 DC 07/26 IV 07/26 0901 0859 Lorazepam 1 MG Q2 07/25 1930 AC 07/26 IV 0747 Lorazepam 0 .STK-MED ONE 07/25 1105 DC .ROUTE Lorazepam 1 MG ONCE ONE 07/25 1100 DC 07/25 IV 07/25 1101 1107 Midazolam HCl 50 MG Q24H 07/26 1015 AC Sodium Chloride 50 ML IV Midazolam HCl 25 MG SEE ADMIN CRITERIA 07/26 1000 CAN IV Midazolam HCl 2 MG ONCE ONE 07/26 1000 DC 07/26 IV 07/26 1001 1004 Midazolam HCl 2 MG ONCE ONE 07/26 0900 DC 07/26 IV 07/26 0901 0853 Midazolam HCl 2 MG ONCE ONE 07/25 1445 DC 07/25 IV 07/25 1446 1440 Non-Formulary 0 SEE ADMIN CRITERIA 07/25 1000 CAN Medication ANY Pantoprazole Sodium 40 MG DAILY 07/25 0900 AC 07/26 IV 1008 Potassium Chloride 0 .STK-MED ONE 07/26 0642 DC PO Potassium Chloride 20 MEQ ONCE ONE 07/26 0615 DC 07/26 PO 07/26 0616 0643 Potassium Chloride 20 MEQ ONCE ONE 07/26 0600 CAN IV 07/26 0601 Potassium Chloride 0 .STK-MED ONE 07/25 1631 DC IV Potassium Chloride 10 MEQ Q1H 07/25 1530 DC 07/25 IV 07/25 1631 1742 Potassium Chloride 20 MEQ ONCE ONE 07/25 1530 CAN PO 07/25 1531 Potassium Chloride 20 MEQ ONCE ONE 07/25 1530 DC 07/25 PO 07/25 1531 1528 Potassium Chloride 0 .STK-MED ONE 07/25 1530 DC PO Potassium Phosphate 15 mMol ONE ONE 07/25 1530 DC 07/25 Sodium Chloride 250 ML IV 07/25 1934 1910 Vital Signs & I&O Last 24 Hrs of Vitals and I&O: Vital Signs Date Time Temp Pulse Resp B/P B/P Pulse O2 O2 Flow FiO2 Mean Ox Delivery Rate 07/26 0846 40 07/26 0800 96.6 70 20 142/80 93 Ventilator 40% 07/26 0800 93 Ventilator 40% 07/26 0611 40 07/26 0609 62 20 168/85 07/26 0428 40 07/26 0400 95 Ventilator 40% 07/26 0212 40 07/26 0000 97 Ventilator 40% 07/26 0000 97.4 52 20 140/64 97 Ventilator 40% 07/25 2225 40 07/25 2000 96 Ventilator 40% 07/25 1930 40 07/25 1605 45 07/25 1600 98.6 53 20 138/64 96 Ventilator 45% 07/25 1600 96 Ventilator 45% 07/25 1529 56 127/62 07/25 1444 45 07/25 1200 97 Ventilator 45% 07/25 1142 45 07/25 1100 46 170/75 Intake & Output 07/26 1600 07/26 0800 07/26 0000 Intake Total 1041 1412 Output Total 840 690 Balance 201 722 Intake, IV 1041 1412 Number 0 0 Bowel Movements Output, 220 40 Gastric Drainage Output, Urine 620 650 Patient 180 lb Weight Laboratory Tests 07/26 07/25 07/25 0457 1999 190 Chemistry Sodium (137 - 145 mmol/L) 141 140 Potassium (3.5 - 5.1 mmol/L) 3.5 Cancelled 4.3 Chloride (98 - 107 mmol/L) 114 H 114 H Carbon Dioxide (22 - 30 mmol/L) 22 20 L Anion Gap (5 - 16) 4 L 6 BUN (9 - 20 mg/dL) 6 L 11 Creatinine (0.7 - 1.2 mg/dL) 0.7 0.8 Estimated GFR (>60 ml/min) > 60 > 60 Glucose (65 - 99 mg/dL) 130 H 120 H Calcium (8.4 - 10.2 mg/dL) 8.2 L 8.1 L Phosphorus (2.5 - 4.5 mg/dL) 2.4 L 1.9 L Magnesium (1.6 - 2.3 mg/dL) 1.8 1.9 Total Bilirubin (0.2 - 1.3 mg/dL) 0.6 0.6 AST (17 - 59 U/L) 19 18 ALT (21 - 72 U/L) 30 32 Albumin (3.5 - 5.0 g/dL) 2.6 L 2.6 L Hematology CBC w Diff NO MAN DIFF REQ WBC (4.8 - 10.8 /CUMM) 6.8 RBC (4.70 - 6.10 /CUMM) 4.70 Hgb (14.0 - 18.0 G/DL) 14.1 Hct (42 - 52 %) 41.7 L MCV (80.0 - 94.0 FL) 88.7 MCH (27.0 - 31.0 PG) 30.0 MCHC (33.0 - 37.0 G/DL) 33.8 RDW (11.5 - 14.5 %) 13.7 Plt Count (130 - 400 /CUMM) 141 MPV (7.4 - 10.4 FL) 7.4 Gran % (42.2 - 75.2 %) 81.0 H Lymphocytes % (20.5 - 51.1 %) 11.1 L Monocytes % (1.7 - 9.3 %) 6.8 Eosinophils % (0 - 5 %) 0.8 Basophils % (0.0 - 2.0 %) 0.3 Absolute Granulocytes (1.4 - 6.5 /CUMM) 5.5 Absolute Lymphocytes (1.2 - 3.4 /CUMM) 0.8 L Absolute Monocytes (0.10 - 0.60 /CUMM) 0.5 Absolute Eosinophils (0.0 - 0.7 /CUMM) 0.1 Absolute Basophils (0.0 - 0.2 /CUMM) 0 07/25 07/25 1645 1410 Blood Gas pH (7.35 - 7.45 PH) 7.38 pCO2 (35 - 45 TORR) 38 pO2 (80 - 100 TORR) 95 HCO3 (21 - 28 MEQ/L) 19 L ABG O2 Sat (Measured) (>96.0 %) 96.0 P-50 (Temp Corrected) N Carboxyhemoglobin (1.5 - 5.0 %) 0.7 L O2 Concentration % 40% Temperature (97.0 - 100.0 FARH) 98.6 Respiration Rate (BPM) 20 O2 Delivery Method ESPRIT Vent Mode AC Expiratory Pressure (CMH2O/P) 5 Tidal Volume (CC) 500 Chemistry Sodium (137 - 145 mmol/L) 141 Potassium (3.5 - 5.1 mmol/L) 3.2 L Chloride (98 - 107 mmol/L) 112 H Carbon Dioxide (22 - 30 mmol/L) 19 L Anion Gap (5 - 16) 9 BUN (9 - 20 mg/dL) 13 Creatinine (0.7 - 1.2 mg/dL) 0.8 Estimated GFR (>60 ml/min) > 60 Glucose (65 - 99 mg/dL) 106 H Calcium (8.4 - 10.2 mg/dL) 8.2 L Phosphorus (2.5 - 4.5 mg/dL) 1.8 L Magnesium (1.6 - 2.3 mg/dL) 2.0 Total Bilirubin (0.2 - 1.3 mg/dL) 0.6 AST (17 - 59 U/L) 19 ALT (21 - 72 U/L) 30 Albumin (3.5 - 5.0 g/dL) 2.7 L Hematology CBC w Diff NO MAN DIFF REQ WBC (4.8 - 10.8 /CUMM) 7.0 RBC (4.70 - 6.10 /CUMM) 4.65 L Hgb (14.0 - 18.0 G/DL) 13.9 L Hct (42 - 52 %) 41.3 L MCV (80.0 - 94.0 FL) 88.8 MCH (27.0 - 31.0 PG) 30.0 MCHC (33.0 - 37.0 G/DL) 33.8 RDW (11.5 - 14.5 %) 13.9 Plt Count (130 - 400 /CUMM) 106 L MPV (7.4 - 10.4 FL) 7.6 Gran % (42.2 - 75.2 %) 82.9 H Lymphocytes % (20.5 - 51.1 %) 9.1 L Monocytes % (1.7 - 9.3 %) 7.1 Eosinophils % (0 - 5 %) 0.5 Basophils % (0.0 - 2.0 %) 0.4 Absolute Granulocytes (1.4 - 6.5 /CUMM) 5.8 Absolute Lymphocytes (1.2 - 3.4 /CUMM) 0.6 L Absolute Monocytes (0.10 - 0.60 /CUMM) 0.5 Absolute Eosinophils (0.0 - 0.7 /CUMM) 0 Absolute Basophils (0.0 - 0.2 /CUMM) 0 Miscellaneous Phlebotomy Draw Site RIGHT BRACHIAL 07/25 07/25 0835 0755 Blood Gas pH (7.35 - 7.45 PH) 7.39 pCO2 (35 - 45 TORR) 31 L pO2 (80 - 100 TORR) 77 L HCO3 (21 - 28 MEQ/L) 19 L ABG O2 Sat (Measured) (>96.0 %) 95.0 L P-50 (Temp Corrected) N Carboxyhemoglobin (1.5 - 5.0 %) 0.9 L O2 Concentration % 50% Respiration Rate (BPM) 20 O2 Delivery Method VENT Vent Mode AC Expiratory Pressure (CMH2O/P) 5 Tidal Volume (CC) 500 Pressure Support (CMH2O/P) 0 Miscellaneous Phlebotomy Draw Site RIGHT RADIAL Toxicology Urine Opiates Screen (>2000 NG/ML) 156 Methadone Screen (>300 NG/ML) 44 Barbiturate Screen (>200 NG/ML) < 60 Ur Phencyclidine Scrn (>25 NG/ML) < 6.00 Amphetamines Screen (>1000 NG/ML) < 100 U Benzodiazepines Scrn (>200 NG/ML) 122 Urine Cocaine Screen (>300 NG/ML) < 50 Urine Cannabis Screen (>50 NG/ML) < 5.00 Urines Urine Color (YEL,AMB,STR) YEL Urine Clarity (CLEAR) CLEAR Urine pH (5.0 - 8.0) 7.0 Ur Specific [place] (1.001 - 1.035) <= 1.005 Urine Protein (NEG,<30 MG/DL) NEG Urine Ketones (NEG) 15 H Urine Nitrite (NEG) NEG Urine Bilirubin (NEG) NEG Urine Urobilinogen (0.1 - 1.0 EU/dl) 0.2 Ur Leukocyte Esterase (NEG) NEG Ur Microscopic SEDIMENT EXAMINED Urine RBC (0 - 5 /HPF) 15-25 H Urine WBC (0 - 2 /HPF) RARE Ur Epithelial Cells (NONE,FEW) FEW Urine Hemoglobin (NEG) MOD H Urine Glucose (N MG/DL) NEG 07/25 07/25 07/25 0630 0400 0040 Blood Gas pH (7.35 - 7.45 PH) 7.50 H pCO2 (35 - 45 TORR) 26 L pO2 (80 - 100 TORR) 74 L HCO3 (21 - 28 MEQ/L) 20 L ABG O2 Sat (Measured) (>96.0 %) 95.0 L P-50 (Temp Corrected) Y Carboxyhemoglobin (1.5 - 5.0 %) 1.3 L O2 Concentration % 50% Temperature (97.0 - 100.0 FARH) 96.8 L Respiration Rate (BPM) 20 O2 Delivery Method ESPRIT Vent Mode AC Expiratory Pressure (CMH2O/P) 5 Tidal Volume (CC) 500 Chemistry Sodium (137 - 145 mmol/L) 138 Potassium (3.5 - 5.1 mmol/L) 4.1 Chloride (98 - 107 mmol/L) 108 H Carbon Dioxide (22 - 30 mmol/L) 20 L Anion Gap (5 - 16) 10 BUN (9 - 20 mg/dL) 17 Creatinine (0.7 - 1.2 mg/dL) 1.0 Estimated GFR (>60 ml/min) > 60 Glucose (65 - 99 mg/dL) 93 Calcium (8.4 - 10.2 mg/dL) 7.8 L Phosphorus (2.5 - 4.5 mg/dL) 1.5 L Magnesium (1.6 - 2.3 mg/dL) 2.0 Total Bilirubin (0.2 - 1.3 mg/dL) 1.0 AST (17 - 59 U/L) 26 ALT (21 - 72 U/L) 19 L Troponin I (<0.11 ng/ml) < 0.01 Albumin (3.5 - 5.0 g/dL) 2.6 L Coagulation D-Dimer High Sensitivty (0 - 243 ng/ml) 233 Hematology CBC w Diff NO MAN DIFF REQ WBC (4.8 - 10.8 /CUMM) 7.3 RBC (4.70 - 6.10 /CUMM) 4.15 L Hgb (14.0 - 18.0 G/DL) 12.7 L Hct (42 - 52 %) 37.2 L MCV (80.0 - 94.0 FL) 89.7 MCH (27.0 - 31.0 PG) 30.5 MCHC (33.0 - 37.0 G/DL) 34.0 RDW (11.5 - 14.5 %) 13.6 Plt Count (130 - 400 /CUMM) 95 L MPV (7.4 - 10.4 FL) 9.1 Gran % (42.2 - 75.2 %) 77.2 H Lymphocytes % (20.5 - 51.1 %) 13.9 L Monocytes % (1.7 - 9.3 %) 8.0 Eosinophils % (0 - 5 %) 0.5 Basophils % (0.0 - 2.0 %) 0.4 Absolute Granulocytes (1.4 - 6.5 /CUMM) 5.6 Absolute Lymphocytes (1.2 - 3.4 /CUMM) 1.0 L Absolute Monocytes (0.10 - 0.60 /CUMM) 0.6 Absolute Eosinophils (0.0 - 0.7 /CUMM) 0 Absolute Basophils (0.0 - 0.2 /CUMM) 0 Miscellaneous Phlebotomy Draw Site RIGHT RADIAL Serology Lyme Disease Screen (() index) <0.90 07/24 2240 Chemistry Sodium (137 - 145 mmol/L) 137 Potassium (3.5 - 5.1 mmol/L) 3.9 Chloride (98 - 107 mmol/L) 102 Carbon Dioxide (22 - 30 mmol/L) 27 Anion Gap (5 - 16) 7 BUN (9 - 20 mg/dL) 17 Creatinine (0.7 - 1.2 mg/dL) 1.1 Estimated GFR (>60 ml/min) > 60 BUN/Creatinine Ratio (7 - 25 %) 15.5 Glucose (65 - 99 mg/dL) 111 H Lactic Acid (0.7 - 2.1 mmol/L) 0.8 Calcium (8.4 - 10.2 mg/dL) 8.9 Magnesium (1.6 - 2.3 mg/dL) 2.1 Total Bilirubin (0.2 - 1.3 mg/dL) 1.2 AST (17 - 59 U/L) 27 ALT (21 - 72 U/L) 34 Alkaline Phosphatase (< 127 U/L) 88 Troponin I (<0.11 ng/ml) < 0.01 Total Protein (6.3 - 8.2 g/dL) 6.1 L Albumin (3.5 - 5.0 g/dL) 3.4 L Globulin (1.9 - 4.2 gm/dL) 2.7 Albumin/Globulin Ratio (1.1 - 2.2 %) 1.3 Free T4 (0.78 - 2.44 ng/dL) 2.10 Total T3 (0.97 - 1.69 ng/mL) 1.16 TSH &T3 &Free T4 Intrp (0.27 - 4.20 uIU/mL) 0.097 L Coagulation PT (9.4 - 12.5 SEC) 13.4 H INR (0.90 - 1.17) 1.23 H APTT (25 - 37 SEC) 25 Hematology CBC w Diff NO MAN DIFF REQ WBC (4.8 - 10.8 /CUMM) 11.6 H RBC (4.70 - 6.10 /CUMM) 5.00 Hgb (14.0 - 18.0 G/DL) 14.8 Hct (42 - 52 %) 44.4 MCV (80.0 - 94.0 FL) 88.8 MCH (27.0 - 31.0 PG) 29.6 MCHC (33.0 - 37.0 G/DL) 33.4 RDW (11.5 - 14.5 %) 13.8 Plt Count (130 - 400 /CUMM) 139 MPV (7.4 - 10.4 FL) 8.0 Gran % (42.2 - 75.2 %) 75.0 Lymphocytes % (20.5 - 51.1 %) 15.4 L Monocytes % (1.7 - 9.3 %) 8.5 Eosinophils % (0 - 5 %) 0.8 Basophils % (0.0 - 2.0 %) 0.3 Absolute Granulocytes (1.4 - 6.5 /CUMM) 8.7 H Absolute Lymphocytes (1.2 - 3.4 /CUMM) 1.8 Absolute Monocytes (0.10 - 0.60 /CUMM) 1.0 H Absolute Eosinophils (0.0 - 0.7 /CUMM) 0.1 Absolute Basophils (0.0 - 0.2 /CUMM) 0 Microbiology Date/Time Procedure - Status Source Growth 07/25 1830 Respiratory Culture - RES LOWER RESP 07/25 183 Gram Stain - RES LOWER RESP 07/25 0630 Blood Culture - RECD BLOOD 07/25 0607 Urine Culture - COLB URINE ROUT 07/25 0600 Blood Culture - RECD BLOOD 07/25 300 Surveillance Culture - COMP UPPER RESP 07/25 300 Surveillance Culture - COMP GI 07/25 0156 Urine Culture - RES URINE ROUT Impression/Plan Impression/Plan Impression/Plan: CONCLUSIONS 1. Normal EF of 60% with impaired LV relaxation. 2. Trace tricuspid regurgitation. 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 Patient was on a beta-arpita and multiple other medications as noted including mirtazapine, Lexapro etc. He was discharged from sent refills on stable condition. Patient apparently was doing well at home but however in the past day he started becoming more confused and was brought to the emergency room. He was having significant periods of desaturation and was unconsious, and at times was having severe bradycardia as well. He was promptly intubated. Due to some episodes of agitation vs seizure he was paralyzed as well. Was sig quinn with HR of 30s since admission and was rxd with dobutamine now off dobutamine Since yesterday has had recurrent seizures and at times myoclonic jerks PT was loaded with keppra and now will be on versed drip Reactive Bradycardic with no heart murmur Chest clear to auscultation Abdominal exam soft bowel sounds were heard Trace edema noted some ecchymosis noted EKG reviewed significant bradycardia with no heart block Laboratory data reviewed Chest x-ray showed low lung volumes ET tube in place nasogastric tube in place CT of the head with angiogram was unremarkable no significant stroke noted no high-grade stenosis prior CT to that was unremarkable Lower extremity Doppler negative D-dimer low EKG after his heart rate came up did show prolonged QTC. IMPRESSION This is a 73-year-old gentleman with history of sleep apnea, not on CPAP regularly, COPD, increasing lung nodule which needs longitudinal follow-up, coronary artery disease with multiple stents in the past, chronic back pain, previous history of depression and anxiety on multiple medications noted, recent surgery of pharyngeal lipoma resection, came into the hospital with lethargy on and off was promptly intubated. Since admission he was severely bradycardic now heart rate has improved He is hemodynamically stable. ENT evaluation noted. Posterior pharyngeal evaluation per ENT, was unremarkable with no significant edema. Issues Unresponsive, altered mental status prior to coming here with severe bradycardia so far is suggestive of significant vagal reaction causing severe quinn versus arrhythmia. Patient's QTC is quite prolonged. Differential diagnosis is broad which includes low flow state from quinn vs stroke (unlikely) versus aspiration episode but that seems very unlikely so far. No clinical evidence suggestive of posterior pharyngeal anatomical abnormality versus significant aspiration pneumonia etc. No clinical evidence suggestive of substance overdose. However patient has been on multiple medications at home with prolonged qtc Severe bradycardia now resolved upon admission with no heart block, maintaining his blood pressure, perfusion, was rxd with dobutamine now off the drip with no pulmonary edema despite having bradycardia related to beta arpita with probable worsening vagal motor tone as he had post pharyngeal surg/ cardiology is aware. Lyme titer pending Sig ischemic injury to the brain now with recurrent seizures with reduced mental status and neuro onboard Ischemic heart disease with no significant ST-T changes, troponin normal echocardiogram normal No clinical evidence suggestive of venous thromboembolism with lower extremity Doppler. H/o Hypertension, ischemic heart disease, depression/anxiety, patient was on Klonopin at home, multiple other issues COPD with emphysema noted in the CAT scan with increasing lung nodule as noted in the recent CT scan of the chest and end of June. PCP is aware of this and patient needs follow-up to rule out lung cancer in the future when he gets better PLAN Maintenance IV fluids with D5 ringers Start versed drip, increase keppra and neuro to follow, if further seizures despite high dose versed then start valproic acid 48 hours of Unasyn Lovenox daily Repeat chest x-ray Start tube feedings 20 cc And other family meeting held The 40 minutes of critical care time was spent with this patient
--- NOTE | 2018-07-26 11:11 | PN- Resident CRCU ---
Subjective HPI/CRCU Issues: Patient was seen and examined this morning, intubated, sedated with as needed Ativan and fentanyl No overnight events reported by the nurse, no seizures for the last 12 hours 24 Hour Events: Temperature 96.5, T-max 98 Heart rate lowest 33, highest 85 sinus rhythm Blood pressure manual lowest 100/60, highest 168/70 Endotracheal intubation AC/500/20/40/5 Intake 3563, output 2055 Objective Vital Signs & I&O Last 8 Hrs of Vitals and I&O: Intake & Output 07/26 1600 Intake Total 1194 Output Total 850 Balance 344 Intake, IV 1094 Intake, Tube 100 Irrigant Output, 200 Gastric Drainage Output, Urine 650 Patient 81.5 kg Weight Exam General Appearance: no apparent distress, sedated, intubated Head: atraumatic Ears, Nose, Throat: normal pharynx Respiratory: chest non-tender Cardiovascular: regular rate/rhythm Gastrointestinal: normal bowel sounds, soft, non-tender Extremities: normal inspection, no edema Cranial Nerves: PERRL Current Medications: Current Medications Sig/Zev Start time Last Medication Dose Route Stop Time Status Admin Ampicillin Sodium/ 3,000 MG Q6 07/25 1200 AC 07/26 Sulbactam Sodium IV 1154 Sodium Chloride 100 ML Aspirin 81 MG DAILY 07/25 1417 07/26 PO 1014 Dextrose/Lactated 1,000 ML Q13H 07/26 1130 07/26 Ringer's IV 1154 Dextrose/Sodium 1,000 ML Q13H 07/25 1400 DC 07/25 Chloride IV 2356 Dobutamine HCl 250 MG Q20H 07/25 1400 DC 07/26 Dextrose/Water 250 ML IV 0609 Enoxaparin Sodium 40 MG DAILY 07/25 1315 07/26 SC 1008 Fentanyl Citrate 25 MCG ONCE ONE 07/26 1500 DC 07/26 IV 07/26 1501 1507 Fentanyl Citrate 0 .STK-MED ONE 07/26 1216 DC .ROUTE Fentanyl Citrate 0 .STK-MED ONE 07/26 0844 DC .ROUTE Fentanyl Citrate 25 MCG Q3P PRN 07/25 1330 07/26 IV 1245 Levetiracetam 1,000 MG Q12 07/26 2100 DC N/A 1 UNIT IV Levetiracetam 1,500 MG Q12 07/26 2100 AC N/A 1 UNIT IV Levetiracetam 500 MG ONCE ONE 07/26 1730 DC N/A 1 UNIT IV 07/26 1744 Levetiracetam 1,000 MG Q12H 07/26 1435 DC N/A 1 UNIT IV Levetiracetam 500 MG ONCE ONE 07/26 0900 DC 07/26 N/A 1 UNIT IV 07/26 0914 0944 Levetiracetam 500 MG Q12H 07/26 0235 DC 07/26 N/A 1 UNIT IV 07/26 1434 0226 Levetiracetam 1,500 MG Q12H 07/25 1435 DC 07/25 N/A 1 UNIT IV 07/26 0234 1528 Lorazepam 2 MG ONE ONE 07/26 1715 DC IV 07/26 1716 Lorazepam 0 .STK-MED ONE 07/26 1707 DC .ROUTE Lorazepam 2 MG ONE ONE 07/26 0900 DC 07/26 IV 07/26 0901 0859 Lorazepam 1 MG Q2 07/25 1930 DC 07/26 IV 0747 Midazolam HCl 5 MG ONCE ONE 07/26 1315 DC 07/26 IV 07/26 1316 1245 Midazolam HCl 50 MG Q24H 07/26 1015 AC 07/26 Sodium Chloride 50 ML IV 1030 Midazolam HCl 25 MG SEE ADMIN CRITERIA 07/26 1000 CAN IV Midazolam HCl 2 MG ONCE ONE 07/26 1000 DC 07/26 IV 07/26 1001 1004 Midazolam HCl 2 MG ONCE ONE 07/26 0900 DC 07/26 IV 07/26 0901 0853 Non-Formulary 0 SEE ADMIN CRITERIA 07/26 1745 CAN Medication ANY Pantoprazole Sodium 40 MG DAILY 07/25 0900 AC 07/26 IV 1008 Potassium Chloride 0 .STK-MED ONE 07/26 0642 DC PO Potassium Chloride 20 MEQ ONCE ONE 07/26 0615 DC 07/26 PO 07/26 0616 0643 Potassium Chloride 20 MEQ ONCE ONE 07/26 0600 CAN IV 07/26 0601 Potassium Phosphate 15 mMol ONE ONE 07/25 1530 DC 07/25 Sodium Chloride 250 ML IV 07/25 1934 1910 Propofol 1,000 MG Q24H 07/26 1800 AC N/A 1 UNIT IV Valproate Sodium 500 MG Q8 07/26 2200 CAN Sodium Chloride 50 ML IV Valproate Sodium 750 MG Q8H 07/26 1900 AC Sodium Chloride 50 ML IV Valproate Sodium 500 MG Q8 07/26 1400 DC 07/26 Sodium Chloride 50 ML IV 1240 Valproate Sodium 1,000 MG ONCE ONE 07/26 1300 DC 07/26 Sodium Chloride 100 ML IV 07/26 1359 1344 Impression/Plan Impression/Problem List Impression: 73-year-old male who was admitted on 07/24/18 after was found unconscious, patient was intubated in the ED and admitted to ICU. Problem list: 1-new onset bradycardia 2-extensive past medical history of CAD status post 7 stents 3-pharyngeal lipoma status post retropharyngeal excision 4-COPD not on home oxygen 5-low lung volume with signs of aspiration pneumonia 6-CT findings suspicious for lung nodule 7-new onset of seizure activity with an abnormal EEG Plan: Respiratory: * Intubated 07/24 * AC 500/20/40/5 * Chest x-ray revealed extensive emphysematous changes, right lung base air bronchograms suspicious for pneumonia mostly aspiration pneumonia * Unasyn IV for 48 hours * Repeat chest x-ray if patient desat Infection: * Possible aspiration pneumonia * On Unasyn for 48 hours * Sputum and blood cultures remain negative Circulation: * Off dobutamine that was started for bradycardia * Patient maintain heart rate at 80-90 normal sinus rhythm with couple of PVCs * Pressure maintaining in systolic 110-120 * Being on Versed and propofol drips, will continue to monitor closely blood pressure and heart rate. * In case of hypotension we will place a central line and start pressor while continuing antiseizure medication * Consent was obtained Hematology: * Hg is stable. * No leukocytosis * Platelet 141 improved after transient thrombocytopenia with no evidence of bleeding Neurology: * New onset of seizure probably due to decreased perfusion in setting of bradycardia and desaturation in setting of state of unconsciousness * CT head and neck 2 (07/24, 07/26) negative for any brain anoxial changes, white and groves matter differentiation is well preserved * Neurology consultation was obtained, thanks for recommendation * Currently patient is on IV propofol drip after multiple seizures despite being on Versed drip * Propofol started at 20 mics per hour, Versed drip at 9 mg/h, fentanyl as needed 25 MCG * Plan to continue propofol and Versed drips and increase it as needed to control seizure with close monitoring of blood pressure and heart rate. Central line consent was obtained in anticipation for need to place central line to support blood pressure. * We can go up on Versed drip as high as 20-30 mg/h per conversation with as far as blood pressure and heart rate allow * metabolic: * Electrolytes are balanced except for mild hyperchloremia * Fluid was changed to lactated Ringer Alimentary: * N.p.o. * Tube feed was started DVT : Lovenox code status -full Patient's significant other is ex-, 7 children Ex- has no power of assistant city attorney Problem List: 1. Altered mental status 2. Respiratory failure Pain Ratin Tomorrow's Labs & Rationales: ICU bundle CBC Chest x-ray Plan DVT/Prophylaxis: mechanical, pharmacological
[2018-07-26 16:33] VITALS: BP 128/90
--- NOTE | 2018-07-26 18:57 | PN- Neurology ---
Subjective Subjective: 73 year old s/p a retropharyngeal surgery who is now in the ICU after becoming severely bradycardic with changes in mental status and hypoxia. He was intubated and placed on Midazolam after he was noted to have a seizure yesterday. He was loaded with Keppra, but continued to exhibit more focal left sided seizures with deviatioon of the eyes to the left. Therefore I instructed to load Depakote 1500mg. This was done and since that time the seizures have slowed down albeit he still has them, just at a lower frequency. Review of Systems: no change Objective Vital Signs and I&Os Vital Signs Date Time Temp Pulse Resp B/P B/P Pulse O2 O2 Flow FiO2 Mean Ox Delivery Rate 07/26 1719 60 07/26 1633 98.0 72 20 128/90 94 Ventilator 60% 07/26 1441 60 07/26 1200 95 Ventilator 40% 07/26 1133 40 07/26 0846 40 07/26 0800 96.6 70 20 142/80 93 Ventilator 40% 07/26 0800 93 Ventilator 40% 07/26 0611 40 07/26 0609 62 20 168/85 07/26 0428 40 07/26 0400 95 Ventilator 40% 07/26 0212 40 07/26 0000 97 Ventilator 40% 07/26 0000 97.4 52 20 140/64 97 Ventilator 40% 07/25 2225 40 07/25 2000 96 Ventilator 40% 07/25 1930 40 Intake & Output 07/26 1600 07/26 0800 07/26 0000 07/25 1600 07/25 0800 07/25 0000 Intake Total 1194 1041 1412 1110 4400 Output Total 850 840 690 525 900 Balance 344 201 652 557 6386 Intake, IV 1094 1041 1412 1050 4400 Intake, Other 60 Intake, Tube 100 Irrigant Number 0 0 Bowel Movements Output, 200 220 40 75 Gastric Drainage Output, Urine 650 620 650 450 900 Patient 180 lb 180 lb Weight Weight Bed scale Measurement Method Physical Exam: Stuporous. Intubated. Pupils reactive to light. Corneal's reactive. Every so often left leg jerks. During the time I am there he goes into a seizure with left eye gaze deviation and drools through mouth. Tonic contractions noted on left side. 2 mg Ativan administered. Current Medications: Current Medications Sig/Zev Start time Last Medication Dose Route Stop Time Status Admin Ampicillin Sodium/ 3,000 MG Q6 07/25 1200 AC 07/26 Sulbactam Sodium IV 1154 Sodium Chloride 100 ML Aspirin 81 MG DAILY 07/25 1417 07/26 PO 1014 Dextrose/Lactated 1,000 ML Q13H 07/26 1130 AC 07/26 Ringer's IV 1154 Dextrose/Sodium 1,000 ML Q13H 07/25 1400 DC 07/25 Chloride IV 2356 Dobutamine HCl 250 MG Q20H 07/25 1400 DC 07/26 Dextrose/Water 250 ML IV 0609 Enoxaparin Sodium 40 MG DAILY 07/25 1315 07/26 SC 1008 Fentanyl Citrate 25 MCG ONCE ONE 07/26 1500 DC 07/26 IV 07/26 1501 1507 Fentanyl Citrate 0 .STK-MED ONE 07/26 1216 DC .ROUTE Fentanyl Citrate 0 .STK-MED ONE 07/26 0844 DC .ROUTE Fentanyl Citrate 25 MCG Q3P PRN 07/25 1330 07/26 IV 1245 Levetiracetam 1,000 MG Q12 07/26 2100 DC N/A 1 UNIT IV Levetiracetam 1,500 MG Q12 07/26 2100 AC N/A 1 UNIT IV Levetiracetam 500 MG ONCE ONE 07/26 1730 DC N/A 1 UNIT IV 07/26 1744 Levetiracetam 1,000 MG Q12H 07/26 1435 DC N/A 1 UNIT IV Levetiracetam 500 MG ONCE ONE 07/26 0900 DC 07/26 N/A 1 UNIT IV 07/26 0914 0944 Levetiracetam 500 MG Q12H 07/26 0235 DC 07/26 N/A 1 UNIT IV 07/26 1434 0226 Levetiracetam 1,500 MG Q12H 07/25 1435 DC 07/25 N/A 1 UNIT IV 07/26 0234 1528 Lorazepam 2 MG ONE ONE 07/26 1715 DC IV 07/26 1716 Lorazepam 0 .STK-MED ONE 07/26 1707 DC .ROUTE Lorazepam 2 MG ONE ONE 07/26 0900 DC 07/26 IV 07/26 0901 0859 Lorazepam 1 MG Q2 07/25 1930 DC 07/26 IV 0747 Midazolam HCl 5 MG ONCE ONE 07/26 1315 DC 07/26 IV 07/26 1316 1245 Midazolam HCl 50 MG Q24H 07/26 1015 AC 07/26 Sodium Chloride 50 ML IV 1030 Midazolam HCl 25 MG SEE ADMIN CRITERIA 07/26 1000 CAN IV Midazolam HCl 2 MG ONCE ONE 07/26 1000 DC 07/26 IV 07/26 1001 1004 Midazolam HCl 2 MG ONCE ONE 07/26 0900 DC 07/26 IV 07/26 0901 0853 Non-Formulary 0 SEE ADMIN CRITERIA 07/26 1745 CAN Medication ANY Pantoprazole Sodium 40 MG DAILY 07/25 0900 AC 07/26 IV 1008 Potassium Chloride 0 .STK-MED ONE 07/26 0642 DC PO Potassium Chloride 20 MEQ ONCE ONE 07/26 0615 DC 07/26 PO 07/26 0616 0643 Potassium Chloride 20 MEQ ONCE ONE 07/26 0600 CAN IV 07/26 0601 Potassium Phosphate 15 mMol ONE ONE 07/25 1530 DC 07/25 Sodium Chloride 250 ML IV 07/25 1934 1910 Propofol 1,000 MG Q24H 07/26 1800 AC N/A 1 UNIT IV Valproate Sodium 500 MG Q8 07/26 2200 CAN Sodium Chloride 50 ML IV Valproate Sodium 750 MG Q8H 07/26 1900 AC Sodium Chloride 50 ML IV Valproate Sodium 500 MG Q8 07/26 1400 DC 07/26 Sodium Chloride 50 ML IV 1240 Valproate Sodium 1,000 MG ONCE ONE 07/26 1300 DC 07/26 Sodium Chloride 100 ML IV 07/26 1359 1344 Results Last 24 Hours of Lab Results: Laboratory Tests 07/26 07/25 07/25 0457 2000 1905 Chemistry Sodium (137 - 145 mmol/L) 141 140 Potassium (3.5 - 5.1 mmol/L) 3.5 Cancelled 4.3 Chloride (98 - 107 mmol/L) 114 H 114 H Carbon Dioxide (22 - 30 mmol/L) 22 20 L Anion Gap (5 - 16) 4 L 6 BUN (9 - 20 mg/dL) 6 L 11 Creatinine (0.7 - 1.2 mg/dL) 0.7 0.8 Estimated GFR (>60 ml/min) > 60 > 60 Glucose (65 - 99 mg/dL) 130 H 120 H Calcium (8.4 - 10.2 mg/dL) 8.2 L 8.1 L Phosphorus (2.5 - 4.5 mg/dL) 2.4 L 1.9 L Magnesium (1.6 - 2.3 mg/dL) 1.8 1.9 Total Bilirubin (0.2 - 1.3 mg/dL) 0.6 0.6 AST (17 - 59 U/L) 19 18 ALT (21 - 72 U/L) 30 32 Albumin (3.5 - 5.0 g/dL) 2.6 L 2.6 L Hematology CBC w Diff NO MAN DIFF REQ WBC (4.8 - 10.8 /CUMM) 6.8 RBC (4.70 - 6.10 /CUMM) 4.70 Hgb (14.0 - 18.0 G/DL) 14.1 Hct (42 - 52 %) 41.7 L MCV (80.0 - 94.0 FL) 88.7 MCH (27.0 - 31.0 PG) 30.0 MCHC (33.0 - 37.0 G/DL) 33.8 RDW (11.5 - 14.5 %) 13.7 Plt Count (130 - 400 /CUMM) 141 MPV (7.4 - 10.4 FL) 7.4 Gran % (42.2 - 75.2 %) 81.0 H Lymphocytes % (20.5 - 51.1 %) 11.1 L Monocytes % (1.7 - 9.3 %) 6.8 Eosinophils % (0 - 5 %) 0.8 Basophils % (0.0 - 2.0 %) 0.3 Absolute Granulocytes (1.4 - 6.5 /CUMM) 5.5 Absolute Lymphocytes (1.2 - 3.4 /CUMM) 0.8 L Absolute Monocytes (0.10 - 0.60 /CUMM) 0.5 Absolute Eosinophils (0.0 - 0.7 /CUMM) 0.1 Absolute Basophils (0.0 - 0.2 /CUMM) 0 Recent Imaging Studies: INDINGS: Brain parenchyma: No acute findings compared to 07/24/2018. Turner-white matter differentiation is well preserved. No evidence of a dense middle cerebral artery sign, acute major vascular territory infarction, hemorrhage, mass or midline shift. Mild atrophy of cerebral and cerebellar hemispheres associated with commensurate prominence of ventricles and sulci. Cerebrospinal fluid spaces: No hydrocephalus or extra-axial fluid collections. Cerebellum and brainstem: No acute abnormality. The 4th ventricle is midline in position. The cerebellopontine angles are normal. Calvarium and temporomandibular joints: Calvarium is intact. Mastoid air cells and middle ear cavities are well aerated. The TMJs are normal. Paranasal sinuses and orbits: Orogastric and endotracheal tubes in place. Persistent mucosal thickening of ethmoid air cells. Also, mucosal thickening of sphenoid sinus and interval development of air-fluid levels within sphenoid sinus and maxillary sinuses. No acute intraorbital pathology. IMPRESSION: No evidence of cerebral edema or intracranial hemorrhage. No acute intracranial pathology compared to 07/24/2018. Assessment/Plan Assessment: 73 year old man with suspected hypoxic injury that seems focal in nature. Despite the fact that NCHCT is unrevealing he seems to have a right hemispheric frontal focus with secondary generalization. Plan: 1. Increase Keppra to 1500mg PO q12h. 2. Increase Depakote to 750mg PO q8h. 3. Increase Midazolam per ICU attending comfort. 4. If this fails to control the seizures tonight will consider switching to Propofol. YC
[2018-07-27] VITALS: BP 104/78
[2018-07-27 04:43] LABS: ABSOLUTE BASOPHIL COUNT 0 /CUMM (0.0-0.2); ABSOLUTE EOSINOPHIL COUNT 0.1 /CUMM (0.0-0.7); ABSOLUTE GRANULOCYTE CT 5.2 /CUMM (1.4-6.5); ABSOLUTE LYMPH COUNT 1.3 /CUMM (1.2-3.4); ABSOLUTE MONOCYTE COUNT 0.4 /CUMM (0.10-0.60); BASOPHIL % 0.3 % (0.0-2.0); EOSINOPHIL % 1.5 % (0-5); GRANULOCYTE % 73.3 % (42.2-75.2); HEMATOCRIT 38.4 % (42-52); MEAN CORPUSCULAR HGB 30.1 PG (27.0-31.0); MEAN CORPUSCULAR VOLUME 88.8 FL (80.0-94.0); MEAN PLATELET VOLUME 7.5 FL (7.4-10.4); PLATELET COUNT 165 /CUMM (130-400); RBC DISTRIBUTION WIDTH 13.9 % (11.5-14.5); RED BLOOD CELL CT 4.32 /CUMM (4.70-6.10); WHITE BLOOD CELL COUNT 7.1 /CUMM (4.8-10.8)
[2018-07-27 08:00] VITALS: BP 120/80
--- NOTE | 2018-07-27 08:28 | PN- Resident CRCU ---
Michel REEVES,Tavo 07/27/18 08: Subjective HPI/CRCU Issues: Patient was noted to have several episodes of seizures yesterday. Neurology was consulted. The patient was placed on a propofol drip as well as increasing doses of valproic acid, levetiracetam, and midazolam. Patient did not have any further seizures overnight. He is afebrile without any other events. This morning, he is sedated and intubated, unresponsive to sternal rub. Objective Vital Signs & I&O Last 8 Hrs of Vitals and I&O: Vital Signs Date Time Temp Pulse Resp B/P B/P Pulse O2 O2 Flow FiO2 Mean Ox Delivery Rate 07/27 0619 50 07/27 0400 95 Ventilator 50% 07/27 0350 50 07/27 0129 50 07/27 0000 98.8 82 21 104/78 95 Ventilator 50% 07/27 0000 95 Ventilator 50% 07/26 2237 50 07/26 2040 50 07/26 2024 94 Ventilator 60% 07/26 2000 97 Ventilator 60% 07/26 1719 60 07/26 1633 98.0 72 20 128/90 94 Ventilator 60% 07/26 1441 60 07/26 1200 95 Ventilator 40% 07/26 1133 40 07/26 0846 40 Intake & Output 07/27 1600 07/27 0800 07/27 0000 Intake Total 1057 1124 Output Total 1350 1150 Balance -293 -26 Intake, IV 1057 1124 Intake, Oral 0 Number 0 Bowel Movements Output, 200 200 Gastric Drainage Output, Urine 1150 950 Exam General Appearance: sedated, intubated Respiratory: no respiratory distress, rales Cardiovascular: regular rate/rhythm Gastrointestinal: normal bowel sounds, soft, non-tender Extremities: normal inspection, no edema Cranial Nerves: PINPOINT PUPILS, NEGATIVE DOLLS EYES Current Medications: Current Medications Sig/Zev Start time Last Medication Dose Route Stop Time Status Admin Ampicillin Sodium/ 3,000 MG Q6 07/25 1200 AC 07/27 Sulbactam Sodium IV 0544 Sodium Chloride 100 ML Aspirin 81 MG DAILY 07/25 1417 AC 07/27 PO 0802 Dextrose/Lactated 1,000 ML Q13H 07/26 1130 AC 07/27 Ringer's IV 0004 Dextrose/Sodium 1,000 ML Q13H 07/25 1400 DC 07/25 Chloride IV 2356 Dobutamine HCl 250 MG Q20H 07/25 1400 DC 07/26 Dextrose/Water 250 ML IV 0609 Enoxaparin Sodium 40 MG DAILY 07/25 1315 AC 07/27 SC 0801 Fentanyl Citrate 25 MCG ONCE ONE 07/26 1500 DC 07/26 IV 07/26 1501 1507 Fentanyl Citrate 0 .STK-MED ONE 07/26 1216 DC .ROUTE Fentanyl Citrate 0 .STK-MED ONE 07/26 0844 DC .ROUTE Fentanyl Citrate 25 MCG Q3P PRN 07/25 1330 AC 07/26 IV 1245 Levetiracetam 1,000 MG Q12 07/26 2100 DC N/A 1 UNIT IV Levetiracetam 1,500 MG Q12 07/26 2100 AC 07/27 N/A 1 UNIT IV 0803 Levetiracetam 500 MG ONCE ONE 07/26 1730 DC 07/26 N/A 1 UNIT IV 07/26 1744 1939 Levetiracetam 1,000 MG Q12H 07/26 1435 DC N/A 1 UNIT IV Levetiracetam 500 MG ONCE ONE 07/26 0900 DC 07/26 N/A 1 UNIT IV 07/26 0914 0944 Levetiracetam 500 MG Q12H 07/26 0235 DC 07/26 N/A 1 UNIT IV 07/26 1434 0226 Lorazepam 2 MG ONE ONE 07/26 1715 DC 07/26 IV 07/26 1716 1952 Lorazepam 0 .STK-MED ONE 07/26 1707 DC .ROUTE Lorazepam 2 MG ONE ONE 07/26 0900 DC 07/26 IV 07/26 0901 0859 Lorazepam 1 MG Q2 07/25 1930 DC 07/26 IV 0747 Magnesium Sulfate 1 GM ONCE ONE 07/27 0600 DC 07/27 Dextrose/Water 100 ML IV 07/27 0659 0616 Midazolam HCl 50 MG Q5H 07/26 2300 AC 07/27 Sodium Chloride 50 ML IV 0004 Midazolam HCl 5 MG ONCE ONE 07/26 1315 DC 07/26 IV 07/26 1316 1245 Midazolam HCl 50 MG Q24H 07/26 1015 DC 07/26 Sodium Chloride 50 ML IV 07/26 2300 1030 Midazolam HCl 25 MG SEE ADMIN CRITERIA 07/26 1000 CAN IV Midazolam HCl 2 MG ONCE ONE 07/26 1000 DC 09/14 IV 07/26 1001 1004 Midazolam HCl 2 MG ONCE ONE 07/26 0900 DC 07/26 IV 07/26 0901 0853 Non-Formulary 0 SEE ADMIN CRITERIA 07/26 1745 CAN Medication ANY Pantoprazole Sodium 40 MG DAILY 07/25 0900 AC 07/27 IV 0801 Potassium Chloride 10 MEQ Q1H 07/27 0600 DC 07/27 IV 07/27 0701 0801 Propofol 1,000 MG Q24H 07/26 1800 AC 07/27 N/A 1 UNIT IV 0154 Valproate Sodium 500 MG Q8 07/26 2200 CAN Sodium Chloride 50 ML IV Valproate Sodium 750 MG Q8H 07/26 1900 AC 07/27 Sodium Chloride 50 ML IV 0212 Valproate Sodium 500 MG Q8 07/26 1400 DC 07/26 Sodium Chloride 50 ML IV 1240 Valproate Sodium 1,000 MG ONCE ONE 07/26 1300 DC 07/26 Sodium Chloride 100 ML IV 07/26 1359 1344 Impression/Plan Impression/Problem List Impression: Mr. Monge is a 73-year-old gentleman with history of sleep apnea, not on CPAP regularly, COPD, increasing lung nodule which needs longitudinal follow-up, coronary artery disease with multiple stents in the past, chronic back pain, previous history of depression and anxiety on multiple medications noted, recent surgery of pharyngeal lipoma resection, came into the hospital with lethargy, was promptly intubated and admitted to the ICU, with subsequent episodes of bradycardia thought to be secondary to vagal nerve stimulation status post retropharyngeal surgery, lately with ongoing seizures refractory to multiple antiseizure medications but now without any seizures overnight on propofol. Issues Unresponsive, altered mental status prior to coming here with severe bradycardia so far is suggestive of significant vagal reaction causing severe quinn versus arrhythmia. Patient's QTC is quite prolonged. Differential diagnosis is broad which includes low flow state from quinn vs stroke (unlikely) versus aspiration episode but that seems very unlikely so far. No clinical evidence suggestive of posterior pharyngeal anatomical abnormality versus significant aspiration pneumonia etc. No clinical evidence suggestive of substance overdose. However patient has been on multiple medications at home with prolonged qtc Severe bradycardia now resolved upon admission with no heart block, maintaining his blood pressure, perfusion, was rxd with dobutamine now off the drip with no pulmonary edema despite having bradycardia related to beta arpita with probable worsening vagal motor tone as he had post pharyngeal surg/ cardiology is aware. Lyme titer pending Sig ischemic injury to the brain now with recurrent seizures with reduced mental status and neuro onboard Ischemic heart disease with no significant ST-T changes, troponin normal echocardiogram normal No clinical evidence suggestive of venous thromboembolism with lower extremity Doppler. H/o Hypertension, ischemic heart disease, depression/anxiety, patient was on Klonopin at home, multiple other issues COPD with emphysema noted in the CAT scan with increasing lung nodule as noted in the recent CT scan of the chest and end of June. PCP is aware of this and patient needs follow-up to rule out lung cancer in the future when he gets better PLAN Respiratory: * Intubated 07/24 * AC 500/20/40/5 * Unasyn IV for 48 hours (until tomorrow) Infection: * Possible aspiration pneumonia * On Unasyn for 48 hours (until sourav) * Sputum and blood cultures remain negative Circulation: * Off dobutamine that was started for bradycardia * Patient maintain heart rate at 80-90 normal sinus rhythm with couple of PVCs * Pressure maintaining in systolic 110-120 * Being on Versed and propofol drips, will continue to monitor closely blood pressure and heart rate. * In case of hypotension we will place a central line and start pressor while continuing antiseizure medication * Consent was obtained Hematology: * Hg is stable and low * No leukocytosis * Platelet 141 improved after transient thrombocytopenia with no evidence of bleeding Neurology: * New onset of seizure probably due to decreased perfusion in setting of bradycardia and desaturation in setting of state of unconsciousness * CT head and neck 2 (07/24, 07/26) negative for any brain anoxial changes, white and groves matter differentiation is well preserved * Neurology consultation was obtained, thanks for recommendation * Currently patient is on IV propofol drip after multiple seizures despite being on Versed drip * Propofol 20 mics per hour, Versed drip at 9 mg/h, fentanyl as needed 25 MCG, levetiracetam, valproic acid * Plan to continue propofol and Versed drips and increase it as needed to control seizure with close monitoring of blood pressure and heart rate. Central line consent was obtained in anticipation for need to place central line to support blood pressure. * We can go up on Versed drip as high as 20-30 mg/h per conversation with as far as blood pressure and heart rate allow * Appreciate neuro input Metabolic: * Electrolytes are balanced except for mild hyperchloremia * Fluid was changed to lactated Ringer Alimentary: * N.p.o. * Tube feed DVT : Lovenox code status -full Patient's significant other is ex-, 7 children Ex- has no power of trust and estates attorney, children are decision makers in absence of POA or conservator Problem List: 1. Respiratory failure 2. Hypoxic brain injury Pain Ratin Tomorrow's Labs & Rationales: cbc icu Plan DVT/Prophylaxis: mechanical, pharmacological Agnieszka REEVES,Michael 07/27/18 0846: Attending MD Review Statement Attending Sign Off Attending Cosign Statement: I have: examined this patient, reviewed aval EMR data, personally reviewd images, discussd w/resident/PA/[employer]PERATOR HELPER, discussed mgmt plan w/jeny, discussed mgmt plan w/CM, discussed mgmt plan w/pt, agreed w/resident/PA/[employer] OPERATOR HELPER, amended to note. Other Findings: Impression 73 year old man s/p pharyngeal lipoma s/p retropharyngeal excision * resolved bradycardia thought to be secondary to vagal response * seizure activity * aspiration pneumonia - bibasilar infiltrates * lung nodule per Dr. Waller's records - no imaging study at Plan Respiratory/ID -mechanical ventilation -cxr stable, continue to monitor -no leukocytosis, afebrile -currently on Unasyn, cultures negative to date -check ABG CVS -bradycardia currently resolved -sensitive to suction/stimuli likely vagal responses -cardiology consulted -ECHO EF 60% Heme -monitor coags, cbc's Metabolic -replete mag/k/phos Alimentary -tube feeds started - if to goal can stop fluids Neuro -suspected anoxic injury -keprra, depakote, midazolam -neurology consultation reviewed and appreciated -currently on propofol - will titrate if no seizure activity clinically DVT prophylaxis at all times Attending time spent 30 minutes
--- NOTE | 2018-07-27 09:19 | RADIOLOGY REPORT ---
EXAMINATION: XR PORTABLE CHEST CLINICAL INFORMATION: Aspiration pneumonia. COMPARISON: 07/26/2018 TECHNIQUE: Portable frontal view of the chest was obtained. FINDINGS: The tip of the endotracheal tube is approximately 6 cm both the jorge. The enteric tube extends below the diaphragm and into the proximal stomach. Lungs are slightly hypoinflated. Persistent linear opacity of discoid atelectasis in the left midlung. Mild atelectasis in the right lung base is not appreciably changed compared to 07/26/2018. The opacity in the left lung base is slightly increased, but this is nonspecific. It could represent a combination of small pleural effusion, atelectasis and/or consolidation. No pneumothorax, pneumomediastinum or other significant interval change. IMPRESSION: - Endotracheal tube is approximately 6 cm above the jorge. - The opacity in the left lung base is slightly increased compared to 07/26/2018. This is nonspecific and could represent combination of small pleural effusion, atelectasis and/or consolidation.
--- NOTE | 2018-07-27 14:12 | PN- Ear, Nose & Throat ---
Subjective Subjective: please see above Review of Systems: see chart Objective Vital Signs and I&Os Vital Signs Date Time Temp Pulse Resp B/P B/P Pulse O2 O2 Flow FiO2 Mean Ox Delivery Rate 07/27 1106 50 07/27 0840 50 07/27 0800 96 Ventilator 50% 07/27 0800 97.0 76 18 120/80 96 Ventilator 50% 07/27 0619 50 07/27 0400 95 Ventilator 50% 07/27 0350 50 07/27 0129 50 07/27 0000 98.8 82 21 104/78 95 Ventilator 50% 07/27 0000 95 Ventilator 50% 07/26 2237 50 07/26 2040 50 07/26 2024 94 Ventilator 60% 07/26 2000 97 Ventilator 60% 07/26 1719 60 07/26 1633 98.0 72 20 128/90 94 Ventilator 60% 07/26 1441 60 Intake & Output 07/27 1600 07/27 0800 15 0000 07/26 1600 07/26 0800 07/26 0000 Intake Total 1057 1124 1194 1041 1412 Output Total 1350 1150 850 840 690 Balance -293 -26 344 201 722 Intake, IV 1057 1124 1094 1041 1412 Intake, Oral 0 Intake, Tube 100 Irrigant Number 0 0 0 Bowel Movements Output, 200 200 200 220 40 Gastric Drainage Output, Urine 1150 950 650 620 650 Patient 180 lb Weight Assessment/Plan Assessment/Plan Patient seen on rounds at the bedside in ICU youngest daughter present patient is sedated due to recent seizure activity no seizure activity reported for past 24 hours intubated no neurologic localizing signs discussed with ICU housestaff Impression: no unusual post-operative findings following resection of posterior pharyngeal lesion (lipoma) bradycardia, hypoxia - unclear etiology history of Wang seizures no history or tests suggestived of abnormal toxicology Will continue to follow Core Measures Venous Thromboembolism VTE Risk Factors Age>40 No Mechanical VTE Prophylaxis d/t N/A MechProphylax Ordered No VTE Pharm Prophylaxis d/t NA PharmProphylax ordered Attending MD Review Statement Attending Statement Attending MD Statement: examined this patient Attending Assessment/Plan: please see above
[2018-07-27 16:00] VITALS: BP 120/60
--- NOTE | 2018-07-27 20:24 | PN- Cardiology ---
Subjective Subjective: Dobutamine titrated off and HR remains stable in the 60s. Has been loaded with keppra and is heavily sedated with propofol. No recurrence of seizures since yesterday. No pathology observed on head CT other than some mild atrophy. Objective Vital Signs and I&Os Vital Signs Date Time Temp Pulse Resp B/P B/P Pulse O2 O2 Flow FiO2 Mean Ox Delivery Rate 07/27 1917 40 07/27 1627 40 07/27 1600 95 Ventilator 40% 07/27 1600 96.4 63 18 120/60 95 Ventilator 95% 07/27 1423 50 07/27 1200 98 Ventilator 50% 07/27 1106 50 07/27 0840 50 07/27 0800 96 Ventilator 50% 07/27 0800 97.0 76 18 120/80 96 Ventilator 50% 07/27 0619 50 07/27 0400 95 Ventilator 50% 07/27 0350 50 07/27 0129 50 07/27 0000 98.8 82 21 104/78 95 Ventilator 50% 07/27 0000 95 Ventilator 50% 07/26 2237 50 07/26 2040 50 07/26 2024 94 Ventilator 60% Intake & Output 07/27 1600 15 0800 07/27 0000 07/26 1600 07/26 0800 07/26 0000 Intake Total 1815 1057 1124 1194 1041 1412 Output Total 840 1350 1150 850 840 690 Balance 975 -293 -26 344 201 722 Intake, IV 1435 1057 1124 1094 1041 1412 Intake, Oral 0 Intake, Tube 160 Feeding Intake, Tube 220 100 Irrigant Number 0 0 0 Bowel Movements Output, 200 200 200 220 40 Gastric Drainage Output, Urine 840 1150 950 650 620 650 Patient 180 lb Weight Physical Exam: General Appearance: sedated, intubated Respiratory: good air entry bilaterally Cardiovascular: regular rate/rhythm, no audible murmur Gastrointestinal: normal bowel sounds, soft, non-tender Extremities: good capillary refill, no edema Current Medications: Current Medications Sig/Zve Start time Last Medication Dose Route Stop Time Status Admin Ampicillin Sodium/ 3,000 MG Q6 07/25 1200 AC 07/27 Sulbactam Sodium IV 1837 Sodium Chloride 100 ML Aspirin 81 MG DAILY 07/25 1417 AC 07/27 PO 0802 Dextrose/Lactated 1,000 ML Q13H 07/26 1130 AC 07/27 Ringer's IV 1446 Enoxaparin Sodium 40 MG DAILY 07/25 1315 07/27 SC 0801 Fentanyl Citrate 25 MCG Q3P PRN 07/25 1330 07/26 IV 1245 Levetiracetam 1,500 MG Q12 07/26 2100 07/27 N/A 1 UNIT IV 0803 Magnesium Sulfate 1 GM ONCE ONE 07/27 0900 NJ 07/27 Dextrose/Water 100 ML IV 07/27 0959 1127 Magnesium Sulfate 1 GM ONCE ONE 07/27 0600 NJ 07/27 Dextrose/Water 100 ML IV 07/27 0659 0616 Midazolam HCl 50 MG Q4H 07/27 0830 07/27 Sodium Chloride 50 ML IV 1820 Midazolam HCl 50 MG Q5H 07/26 2300 NJ 07/27 Sodium Chloride 50 ML IV 0004 Midazolam HCl 50 MG Q24H 07/26 1015 NJ 07/26 Sodium Chloride 50 ML IV 07/26 2300 1030 Pantoprazole Sodium 40 MG DAILY 07/25 0900 07/27 IV 0801 Potassium Chloride 0 .STK-MED ONE 07/27 1129 NJ IV Potassium Chloride 10 MEQ Q1H 07/27 0600 NJ 07/27 IV 07/27 0701 1127 Propofol 1,000 MG Q12H 07/27 1300 07/27 N/A 1 UNIT IV 1445 Propofol 1,000 MG Q24H 07/26 1800 NJ 07/27 N/A 1 UNIT IV 0154 Valproate Sodium 750 MG Q8H 07/26 1900 07/27 Sodium Chloride 50 ML IV 1837 Results Last 48 Hrs of Labs/Mics: Laboratory Tests 07/27/18 1045: pH 7.52 H, pCO2 30 L, pO2 76 L, HCO3 23, ABG O2 Sat (Measured) 95.0 L, P-50 (Temp Corrected) N, Carboxyhemoglobin 0.3 L, O2 Concentration % 50%, Respiration Rate 20, O2 Delivery Method VENT, Vent Mode AC, Expiratory Pressure 5, Tidal Volume 500, Pressure Support 0, Phlebotomy Draw Site RIGHT RADIAL 07/27/18 0405: Anion Gap 7, Estimated GFR > 60, Glucose 114 H, Calcium 8.3 L, Phosphorus 2.6, Magnesium 1.7, Total Bilirubin 0.5, AST 24, ALT 26, Albumin 2.4 L, CBC w Diff NO MAN DIFF REQ, RBC 4.32 L, MCV 88.8, MCH 30.1, MCHC 34.0, RDW 13.9, MPV 7.5, Gran % 73.3, Lymphocytes % 18.6 L, Monocytes % 6.3, Eosinophils % 1.5, Basophils % 0.3, Absolute Granulocytes 5.2, Absolute Lymphocytes 1.3, Absolute Monocytes 0.4, Absolute Eosinophils 0.1, Absolute Basophils 0 07/26/18 0457: Anion Gap 4 L, Estimated GFR > 60, Glucose 130 H, Calcium 8.2 L, Phosphorus 2.4 L, Magnesium 1.8, Total Bilirubin 0.6, AST 19, ALT 30, Albumin 2.6 L, CBC w Diff NO MAN DIFF REQ, RBC 4.70, MCV 88.7, MCH 30.0, MCHC 33.8, RDW 13.7, MPV 7.4, Gran % 81.0 H, Lymphocytes % 11.1 L, Monocytes % 6.8, Eosinophils % 0.8, Basophils % 0.3, Absolute Granulocytes 5.5, Absolute Lymphocytes 0.8 L, Absolute Monocytes 0.5, Absolute Eosinophils 0.1, Absolute Basophils 0 Assessment/Plan Assessment/Plan 73 year old man with bradycardia due to traumatic/postoperative parasympathetic stimulation +/- sympathetic injury, with resultant hypoxic brain injury that seems focal in nature despite the fact that NCHCT is unrevealing he seems to have a right hemispheric frontal focus with secondary generalization. No need for inotropes at the moment. Continuing to follow, especially in context of deep sedatrion. Continue telemetry? Yes
[2018-07-28] VITALS: BP 170/100
[2018-07-28 04:59] LABS: ABSOLUTE BASOPHIL COUNT 0 /CUMM (0.0-0.2); ABSOLUTE EOSINOPHIL COUNT 0.1 /CUMM (0.0-0.7); ABSOLUTE LYMPH COUNT 1.5 /CUMM (1.2-3.4); ABSOLUTE MONOCYTE COUNT 0.4 /CUMM (0.10-0.60); BASOPHIL % 0.3 % (0.0-2.0); EOSINOPHIL % 2.1 % (0-5); GRANULOCYTE % 70.3 % (42.2-75.2); MEAN CORPUSCULAR HGB 29.8 PG (27.0-31.0); MEAN CORPUSCULAR HGB CONC 33.6 G/DL (33.0-37.0); MEAN CORPUSCULAR VOLUME 88.9 FL (80.0-94.0); MEAN PLATELET VOLUME 7.6 FL (7.4-10.4); PLATELET COUNT 163 /CUMM (130-400); RED BLOOD CELL CT 4.83 /CUMM (4.70-6.10); WHITE BLOOD CELL COUNT 7.1 /CUMM (4.8-10.8)
[2018-07-28 08:00] VITALS: BP 150/90
--- NOTE | 2018-07-28 08:41 | PN- Resident CRCU ---
See Addendum Subjective HPI/CRCU Issues: Patient was heriberto violettexaminekirstieoday, sedated and intubated. RASS -4 and sometimes -5. No seizures overnight. 24 Hour Events: Temp 98, TMAX 98.8 HR rate 50-109 BPM BP Manual lowest 90/50 and highest 170/100 AC 16/500/40/5 93% Drips: propofol 10 mcg/h, versed 10mg/h IV DC becusase of high blood pressure early this morning. Input 4323, Output 1380 No tele events Objective Vital Signs & I&O Last 8 Hrs of Vitals and I&O: -- Exam General Appearance: sedated, intubated Head: atraumatic Ears, Nose, Throat: normal ENT inspection Neck: normal inspection, supple, full range of motion Respiratory: normal breath sounds, chest non-tender Cardiovascular: regular rate/rhythm Gastrointestinal: normal bowel sounds, soft, non-tender Extremities: normal inspection, normal capillary refill, normal range of motion, no edema Cranial Nerves: PERRL Current Medications: Current Medications Sig/Zev Start time Last Medication Dose Route Stop Time Status Admin Ampicillin Sodium/ 3,000 MG Q6 07/25 1200 AC 07/28 Sulbactam Sodium IV 0511 Sodium Chloride 100 ML Aspirin 81 MG DAILY 07/25 1417 AC 07/28 PO 0822 Dextrose/Lactated 1,000 ML Q13H 07/26 1130 DC 07/27 Ringer's IV 1446 Enoxaparin Sodium 40 MG DAILY 07/25 1315 AC 07/28 SC 0821 Fentanyl Citrate 25 MCG Q3P PRN 07/25 1330 AC 07/26 IV 1245 Levetiracetam 1,500 MG Q12 07/26 2100 AC 07/28 N/A 1 UNIT IV 0823 Magnesium Sulfate 1 GM ONCE ONE 07/27 09 DC 07/27 Dextrose/Water 100 ML IV 07/27 0959 1127 Midazolam HCl 50 MG Q4H 07/27 0830 AC 07/28 Sodium Chloride 50 ML IV 0405 Pantoprazole Sodium 40 MG DAILY 07/25 0900 AC 07/28 IV 0821 Potassium Chloride 20 MEQ ONCE ONE 07/28 0945 UNVr PO 07/28 0946 Potassium Chloride 10 MEQ Q1H 07/28 0900 UNVr IV 07/28 1001 Potassium Chloride 40 MEQ ONCE ONE 07/28 0900 CANr PO 07/28 0901 Potassium Chloride 0 .STK-MED ONE 07/27 1129 DC IV Potassium Phosphate 15 mMol ONE ONE 07/28 0945 UNVr Sodium Chloride 250 ML IV 07/28 1349 Propofol 1,000 MG Q12H 07/27 1300 AC 07/28 N/A 1 UNIT IV 0819 Propofol 1,000 MG Q24H 07/26 1800 DC 07/27 N/A 1 UNIT IV 0154 Senna/Docusate Sodium 2 TAB DAILY 07/28 0900 UNVr PO Valproate Sodium 750 MG Q8H 07/26 1900 AC 07/28 Sodium Chloride 50 ML IV 0403 Impression/Plan Impression/Problem List Impression: 73-year-old male who was admitted on 07/24/18 after was found unconscious, patient was intubated in the ED and admitted to ICU. Problem list: 1-new onset bradycardia 2-extensive past medical history of CAD status post 7 stents 3-pharyngeal lipoma status post retropharyngeal excision 4-COPD not on home oxygen 5-low lung volume with signs of aspiration pneumonia 6-CT findings suspicious for lung nodule 7-new onset of seizure activity with an abnormal EEG Plan: Respiratory: * Intubated 07/24 * AC 500/20/40/5 * PH 7.55, rate was decreased to 16 ater. Patient does override the RR. We will increase sedation * Chest x-ray revealed extensive emphysematous changes, right lung base air bronchograms suspicious for pneumonia mostly aspiration pneumonia * Unasyn IV for 48 hours * Repeat ABG and CXR in AM Infection: * Possible aspiration pneumonia * Continue Unysn for now * Sputum and blood cultures remain negative Circulation: * Off dobutamine that was started for bradycardia * Patient maintain heart rate at 80-90 normal sinus rhythm with couple of PVCs * Pressure maintaining in systolic 110-120 * Being on Versed and propofol drips, will continue to monitor closely blood pressure and heart rate. * In case of hypotension we will place a central line and start pressor while continuing antiseizure medication * Consent was obtained Hematology: * Hg is stable * No leukocytosis * Platelet improved after transient thrombocytopenia with no evidence of bleeding Neurology: * New onset of seizure probably due to decreased perfusion in setting of bradycardia and desaturation in setting of state of unconsciousness * CT head and neck 2 (07/24, 07/26) negative for any brain anoxial changes, white and groves matter differentiation is well preserved * Neurology consultation was obtained, thanks for recommendation * Currently patient is on IV propofol drip after multiple seizures despite being on Versed drip * Propofol 10 mics per hour, Versed drip at 10 mg/h, fentanyl as needed 25 MCG * Plan to continue propofol and Versed drips and increase it as needed to control seizure with close monitoring of blood pressure and heart rate. Central line consent was obtained in anticipation for need to place central line to support blood pressure. * We can go up on Versed drip as high as 20-30 mg/h per conversation with as far as blood pressure and heart rate allow * Incerase Versed to 12 mg/hr * metabolic: * Electrolytes are balanced except for mild hyperchloremia * Fluid was changed to lactated Ringer Alimentary: * N.p.o. * Tube feed was started * Repleat K * [place] S for constipation DVT : Lovenox code status -full Patient's significant other is ex-, 7 children Ex- has no power of patent attorney, children are decision makers in absence of POA or conservator Problem List: 1. Respiratory failure 2. Altered mental status 3. Status epilepticus Pain Ratin Tomorrow's Labs & Rationales: ICU bundle CBC ABG CXR Plan DVT/Prophylaxis: mechanical, pharmacological
--- NOTE | 2018-07-28 10:07 | Transfer of Care Summary ---
See Addendum Hospital Course Course Hospital Course: Mr. Trinh is 73 year old male with past medical history significant for extensive cardiovascular disease status post 7 stents last 1 couple of years ago , no reports for drug-eluting stents. History of severe pericarditis in 2017, hypertension, hyperlipidemia, chronic back pain, osteoarthritis. Recent history of retropharyngeal procedure to remove mass that turned to be a lipoma 3 days ago on 07/22/18 at [facility]. Problem list: 1-new onset bradycardia 2-extensive past medical history of CAD status post 7 stents 3-pharyngeal lipoma status post retropharyngeal excision 4-COPD not on home oxygen 5-low lung volume with signs of aspiration pneumonia 6-CT findings suspicious for lung nodule 7-new onset of seizure activity with an abnormal EEG Patient was admitted to ICU for following problems: Acute hypoxic respiratory failure: patient had an uneventful hospital stay during the procedure except of desaturating and requiring 6 L that was titrated down to 2 L and then patient was discharged next day on Monday 07/23 on room air and was satting at 93%. 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 Initially patient was thought to have CTA however CAT scan head negative for any evidence of acute intracranial injury. Patient was intubated in ED because of unconsciousness and inability to secure airway. Direct visualization of airways did not reveal any swelling or obstruction per respiratory therapist. ENT evaluation was obtained, no further recommendation from ENT perspective. Toxicology screening is negative. Patient was maintained on Unasyn for possible aspiration pneumonia, abnormal chest x-ray with extensive emphysematous changes and right lung base air bronchograms. Blood culture and sputum culture remained negative. Current ventilator setting is 16/500/40/5. PH 7.55, rate was decreased to 16 yeaterday. Patient does override the RR. We will increase sedation. We will repeat chest x-ray and ABG in a.m. New onset bradycardia status post posterior retropharyngeal surgery: in ICU, patient was started on fluid D5 half-normal saline running at 75 cc/h, Protonix, antibiotic Unasyn to cover for possible aspiration pneumonia. Cardiology consultation was obtained for bradycardia that is new onset and was reported since admission, heart rate has been running in the 30s, possible causes are injury of sympathetic fibers and/or increased vagal tone because of the neck manipulation during the recent retropharyngeal surgery, patient was started on dobutamine drip running at 5 mics that was titrated down to 2.5 mics per kilogram per minute with targeting heart rate of 50 and above beats per minute and discontinued on 07/26, patient has been maintaining heart rate between 70 to low 90s. Lyme titer is negative, EKG did not show any changes including new blocks. Blood pressure was noticed to be running on the high side with maximum of 160 systolic. In case of hypotension we will place a central line and start pressor while continuing antiseizure medication. Consent obtained. New onset of seizure with suspicion for anoxic brain injury in setting of hypoxia and bradycardia: On second day of admission 07/25 patient noticed to have generalized tonic-clonic jerking movements, was given Versed 2 mg and loading dose of Keppra 2000 mg. Neurology consultation was obtained, EEG was abnormal and revealed periodic sharp waves; potentially epileptogenic. However CT head and neck 2 (07/24, 07/26 ) negative for any brain anoxial changes, white and groves matter differentiation is well preserved. Patient continued to have seizures despite being on Versed drip and Keppra. There is a suspicion of hypoxic injury that seems focal in nature. Despite the fact that NCHCT is unrevealing he seems to have a right hemispheric frontal focus with secondary generalization. Keppra was increased to 1500 twice daily, patient was started on valproic acid 750 every 8 in addition to propofol and Versed drips. No seizure activity was reported in the last 24 hours. Plan to continue both drips with close monitor of blood pressure and heart rate. Patient maintaining good heart rate and blood pressure so far. Plan to continue propofol and Versed drips and increase it as needed to control seizure with close monitoring of blood pressure and heart rate. Central line consent was obtained in anticipation for need to place central line to support blood pressure. Alimentary: * N.p.o. * Off IV fluid giving episodes of hypertension and mild hyperchloremia * Tube feed was started * Follow-up electrolytes daily and replete potassium to be 4, phosphorus between 2-3, and magnesium above 2 * [place] S for constipation * DVT : Lovenox at all times code status -full Patient's significant other is ex-, 7 children Ex- has no power of attorney general, children are decision makers in absence of POA or conservator Assessment/Plan: Please see above
--- NOTE | 2018-07-28 12:48 | PN- Neurology ---
Subjective Subjective: Doing better from a seizure perspective. Now in induced coma with Versed and Propofol x 24 hours. No further abnormal movements. Review of Systems: overbreathing vent, ph 7.55. Objective Vital Signs and I&Os Vital Signs Date Time Temp Pulse Resp B/P B/P Pulse O2 O2 Flow FiO2 Mean Ox Delivery Rate 07/28 1157 40 07/28 0827 30 07/28 0800 98.0 73 18 150/90 95 Ventilator 50% 07/28 0800 95 Ventilator 50% 07/28 0552 40 07/28 0400 94 Ventilator 40% 07/28 0340 40 07/28 0056 40 07/28 0000 92 Ventilator 40% 07/28 0000 98.3 109 22 170/100 92 Ventilator 40% 07/27 2221 40 07/27 2000 95 Ventilator 40% 07/27 1917 40 07/27 1627 40 07/27 1600 95 Ventilator 40% 07/27 1600 96.4 63 18 120/60 95 Ventilator 95% 07/27 1423 50 Intake & Output 07/28 1600 07/28 0800 07/28 0000 07/27 1600 07/27 0800 07/27 0000 Intake Total 1035 1470 1815 1057 1124 Output Total 1360 281 343 2732 1150 Balance -325 915 975 -293 -26 Intake, IV 564 513 9870 1057 1124 Intake, Oral 0 Intake, Tube 400 280 160 Feeding Intake, Tube 220 220 220 Irrigant Number 0 Bowel Movements Output, 200 200 Gastric Drainage Output, Urine 1360 048 284 9655 950 Physical Exam: Obtunded. Pupils small and equal, minimally reactive. Corneals intact bilaterally. Doll's eye intact. Resting comfortably. Current Medications: Current Medications Sig/Zev Start time Last Medication Dose Route Stop Time Status Admin Ampicillin Sodium/ 3,000 MG Q6 07/25 1200 AC 07/28 Sulbactam Sodium IV 0511 Sodium Chloride 100 ML Artificial Tears 2 GTT 4 TIMES/DAY 07/28 1300 AC OPH Aspirin 81 MG DAILY 07/25 1417 AC 07/28 PO 0822 Dextrose/Lactated 1,000 ML Q13H 07/26 1130 DC 07/27 Ringer's IV 1446 Enoxaparin Sodium 40 MG DAILY 07/25 1315 AC 07/28 SC 0821 Fentanyl Citrate 25 MCG Q3P PRN 07/25 1330 AC 07/26 IV 1245 Levetiracetam 1,500 MG Q12 07/26 2100 AC 07/28 N/A 1 UNIT IV 0823 Midazolam HCl 50 MG Q4H 07/27 0830 AC 07/28 Sodium Chloride 50 ML IV 1002 Pantoprazole Sodium 40 MG DAILY 07/25 0900 AC 07/28 IV 0821 Potassium Chloride 20 MEQ ONCE ONE 07/28 0945 DC 07/28 PO 07/28 0946 1020 Potassium Chloride 10 MEQ Q1H 07/28 0900 DC 07/28 IV 07/28 1001 1211 Potassium Chloride 40 MEQ ONCE ONE 07/28 0900 CAN PO 07/28 0901 Potassium Phosphate 15 mMol ONE ONE 07/28 0945 AC 07/28 Sodium Chloride 250 ML IV 07/28 1349 1211 Propofol 1,000 MG Q12H 07/27 1300 AC 07/28 N/A 1 UNIT IV 0819 Propofol 1,000 MG Q24H 07/26 1800 DC 07/27 N/A 1 UNIT IV 0154 Senna/Docusate Sodium 2 TAB DAILY 07/28 1000 AC 07/28 PO 1020 Valproate Sodium 750 MG Q8H 07/26 1900 AC 07/28 Sodium Chloride 50 ML IV 1211 Assessment/Plan Assessment: 73 year old man with 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 Plan: 1. Attempt to wean off Propofol. 2. EEG repeat tomorrow. 3. VPA levels at trough with LFTs daily. 4. MRI brain when possible.
[2018-07-28 16:00] VITALS: BP 100/68
--- NOTE | 2018-07-28 18:40 | PN- Cardiology ---
Subjective Subjective: No recurrence of bradycardia X > 48 hours, off dobutamine. No recurrence of seizures. Patient still headily sedated. Objective Vital Signs and I&Os Vital Signs Date Time Temp Pulse Resp B/P B/P Pulse O2 O2 Flow FiO2 Mean Ox Delivery Rate 07/28 1600 95 Ventilator 50% 07/28 1600 97.6 68 18 100/68 95 Ventilator 50% 07/28 1556 40 07/28 1340 40 07/28 1200 96 Ventilator 50% 07/28 1157 40 07/28 0827 30 07/28 0800 98.0 73 18 150/90 95 Ventilator 50% 07/28 0800 95 Ventilator 50% 07/28 0552 40 07/28 0400 94 Ventilator 40% 07/28 0340 40 07/28 0056 40 07/28 0000 92 Ventilator 40% 07/28 0000 98.3 109 22 170/100 92 Ventilator 40% 07/27 2221 40 07/27 2000 95 Ventilator 40% 07/27 1917 40 Intake & Output 07/28 1600 07/28 0800 07/28 0000 07/27 1600 07/27 0800 07/27 0000 Intake Total 1580 1035 1470 1815 1057 1124 Output Total 680 1360 644 243 3750 1150 Balance 900 -325 915 975 -293 -26 Intake, IV 800 932 494 5251 1057 1124 Intake, Oral 0 Intake, Tube 560 400 280 160 Feeding Intake, Tube 220 220 220 220 Irrigant Number 0 Bowel Movements Output, 200 200 Gastric Drainage Output, Urine 680 1360 776 546 8834 950 Physical Exam: General Appearance: sedated, intubated Respiratory: good air entry bilaterally Cardiovascular: regular rate/rhythm, no audible murmur Gastrointestinal: normal bowel sounds, soft, non-tender Extremities: good capillary refill, no edema Current Medications: Current Medications Sig/Zev Start time Last Medication Dose Route Stop Time Status Admin Ampicillin Sodium/ 3,000 MG Q6 07/25 1200 AC 07/28 Sulbactam Sodium IV 1752 Sodium Chloride 100 ML Artificial Tears 2 GTT 4 TIMES/DAY 07/28 1300 AC 07/28 OPH 1752 Aspirin 81 MG DAILY 07/25 1417 AC 07/28 PO 0822 Dextrose/Lactated 1,000 ML Q13H 07/26 1130 DC 07/27 Ringer's IV 1446 Enoxaparin Sodium 40 MG DAILY 07/25 1315 AC 07/28 SC 0821 Fentanyl Citrate 25 MCG Q3P PRN 07/25 1330 AC 07/26 IV 1245 Levetiracetam 1,500 MG Q12 07/26 2100 AC 07/28 N/A 1 UNIT IV 0823 Midazolam HCl 50 MG Q4H 07/27 0830 AC 07/28 Sodium Chloride 50 ML IV 1500 Pantoprazole Sodium 40 MG DAILY 07/25 0900 AC 07/28 IV 0821 Potassium Chloride 20 MEQ ONCE ONE 07/28 0945 DC 07/28 PO 07/28 0946 1020 Potassium Chloride 10 MEQ Q1H 07/28 0900 DC 07/28 IV 07/28 1001 1211 Potassium Chloride 40 MEQ ONCE ONE 07/28 0900 CAN PO 07/28 0901 Potassium Phosphate 15 mMol ONE ONE 07/28 0945 DC 07/28 Sodium Chloride 250 ML IV 07/28 1349 1211 Propofol 1,000 MG Q12H 07/27 1300 AC 07/28 N/A 1 UNIT IV 0819 Senna/Docusate Sodium 2 TAB DAILY 07/28 1000 AC 07/28 PO 1020 Valproate Sodium 750 MG Q8H 07/26 1900 AC 07/28 Sodium Chloride 50 ML IV 1753 Results Last 48 Hrs of Labs/Mics: Laboratory Tests 07/28/18 1830: Sodium Pending, Potassium Pending, Chloride Pending, Carbon Dioxide Pending, Anion Gap Pending, BUN Pending, Creatinine Pending, Glucose Pending, Calcium Pending, Phosphorus Pending, Magnesium Pending, Total Bilirubin Pending, AST Pending, ALT Pending, Albumin Pending 07/28/18 0515: pH 7.55 H, pCO2 28 L, pO2 65 L, HCO3 24, ABG O2 Sat (Measured) 94.0 L, P-50 (Temp Corrected) Y, Carboxyhemoglobin 0.5 L, O2 Concentration % 40%, Temperature 98.0, Respiration Rate 16, O2 Delivery Method ESPRIT, Vent Mode AC, Expiratory Pressure 5, Tidal Volume 500, Phlebotomy Draw Site RIGHT RADIAL 07/28/18 0410: Anion Gap 3 L, Estimated GFR > 60, Glucose 94, Calcium 8.2 L, Phosphorus 2.7, Magnesium 2.2, Total Bilirubin 0.4, AST 18, ALT 29, Albumin 2.4 L, CBC w Diff NO MAN DIFF REQ, RBC 4.83, MCV 88.9, MCH 29.8, MCHC 33.6, RDW 14.0, MPV 7.6, Gran % 70.3, Lymphocytes % 21.0, Monocytes % 6.3, Eosinophils % 2.1, Basophils % 0.3, Absolute Granulocytes 5.0, Absolute Lymphocytes 1.5, Absolute Monocytes 0.4 , Absolute Eosinophils 0.1, Absolute Basophils 0, Valproic Acid 64.7 07/27/18 1045: pH 7.52 H, pCO2 30 L, pO2 76 L, HCO3 23, ABG O2 Sat (Measured) 95.0 L, P-50 (Temp Corrected) N, Carboxyhemoglobin 0.3 L, O2 Concentration % 50%, Respiration Rate 20, O2 Delivery Method VENT, Vent Mode AC, Expiratory Pressure 5, Tidal Volume 500, Pressure Support 0, Phlebotomy Draw Site RIGHT RADIAL 07/27/18 0405: Anion Gap 7, Estimated GFR > 60, Glucose 114 H, Calcium 8.3 L, Phosphorus 2.6, Magnesium 1.7, Total Bilirubin 0.5, AST 24, ALT 26, Albumin 2.4 L, CBC w Diff NO MAN DIFF REQ, RBC 4.32 L, MCV 88.8, MCH 30.1, MCHC 34.0, RDW 13.9, MPV 7.5, Gran % 73.3, Lymphocytes % 18.6 L, Monocytes % 6.3, Eosinophils % 1.5, Basophils % 0.3, Absolute Granulocytes 5.2, Absolute Lymphocytes 1.3, Absolute Monocytes 0.4, Absolute Eosinophils 0.1, Absolute Basophils 0 Assessment/Plan Assessment/Plan Post operative parasympathetic induced bradycardia, now resolved, with dobutamine drip discontinued 07/26. Seizures post hypoxia (although the hypoxia was not prolonged...) without other identified cerebral lesions. Would it be worth looking for herpes encephalitis? Continue telemetry? Yes
[2018-07-29] VITALS: BP 147/81
[2018-07-29 04:49] LABS: ABSOLUTE BASOPHIL COUNT 0 /CUMM (0.0-0.2); ABSOLUTE EOSINOPHIL COUNT 0.1 /CUMM (0.0-0.7); ABSOLUTE GRANULOCYTE CT 4.6 /CUMM (1.4-6.5); ABSOLUTE LYMPH COUNT 1.2 /CUMM (1.2-3.4); ABSOLUTE MONOCYTE COUNT 0.4 /CUMM (0.10-0.60); BASOPHIL % 0.4 % (0.0-2.0); EOSINOPHIL % 2.4 % (0-5); GRANULOCYTE % 72.4 % (42.2-75.2); HEMATOCRIT 42.4 % (42-52); MEAN CORPUSCULAR HGB 29.6 PG (27.0-31.0); MEAN CORPUSCULAR HGB CONC 33.6 G/DL (33.0-37.0); MEAN CORPUSCULAR VOLUME 88.2 FL (80.0-94.0); MEAN PLATELET VOLUME 7.6 FL (7.4-10.4); PLATELET COUNT 181 /CUMM (130-400); RBC DISTRIBUTION WIDTH 14.3 % (11.5-14.5); RED BLOOD CELL CT 4.81 /CUMM (4.70-6.10); WHITE BLOOD CELL COUNT 6.4 /CUMM (4.8-10.8)
--- NOTE | 2018-07-29 07:46 | PN- Resident CRCU ---
See Addendum Subjective HPI/CRCU Issues: No overnight events. Patient remained afebrile for last 24H. Still intubated and sedated. This morning, he is spontaneously opening his eyes and squeezes his left hand in response to command. Right hand unresponsive. Patient does not seem to be in pain. Objective Vital Signs & I&O Last 8 Hrs of Vitals and I&O: Vital Signs Date Time Temp Pulse Resp B/P B/P Pulse O2 O2 Flow FiO2 Mean Ox Delivery Rate 07/29 0542 40 07/29 0400 95 Ventilator 40% 07/29 0325 40 07/29 0051 40 07/29 0000 94 Ventilator 40% 07/29 0000 98.2 83 22 147/81 94 Ventilator 40% 07/28 2146 40 07/28 2000 95 Ventilator 40% 07/28 1848 40 07/28 1600 95 Ventilator 50% 07/28 1600 97.6 68 18 100/68 95 Ventilator 50% 07/28 1556 40 07/28 1340 40 07/28 1200 96 Ventilator 50% 07/28 1157 40 07/28 0827 30 07/28 0800 98.0 73 18 150/90 95 Ventilator 50% 07/28 0800 95 Ventilator 50% Intake & Output 07/29 0800 07/29 0000 07/28 1600 Intake Total 1211 1291 1580 Output Total 650 630 680 Balance 561 661 900 Intake, IV 431 431 800 Intake, Tube 560 560 560 Feeding Intake, Tube 220 300 220 Irrigant Output, Urine 650 630 680 Intake & Output 07/29 0800 Intake Total 1211 Output Total 650 Balance 561 Intake, IV 431 Intake, Tube 560 Feeding Intake, Tube 220 Irrigant Output, Urine 650 Exam General Appearance: awake, comfortable, sedated, intubated Respiratory: no respiratory distress Cardiovascular: regular rate/rhythm Gastrointestinal: normal bowel sounds, soft, non-tender Extremities: no edema Cranial Nerves: PERRL, L hand squeezes in response to command, R hand no movement. Does not track eye movements. Current Medications: Current Medications Sig/Zev Start time Last Medication Dose Route Stop Time Status Admin Ampicillin Sodium/ 3,000 MG Q6 07/25 1200 AC 07/29 Sulbactam Sodium IV 0502 Sodium Chloride 100 ML Artificial Tears 2 GTT 4 TIMES/DAY 07/28 1300 AC 07/28 OPH 2047 Aspirin 81 MG DAILY 07/25 1417 AC 07/28 PO 0822 Enoxaparin Sodium 40 MG DAILY 07/25 1315 AC 07/28 SC 0821 Fentanyl Citrate 25 MCG Q3P PRN 07/25 1330 AC 07/26 IV 1245 Levetiracetam 1,500 MG Q12 07/26 2100 AC 07/28 N/A 1 UNIT IV 2046 Magnesium Sulfate 1 GM ONCE ONE 07/29 0530 CAN Dextrose/Water 100 ML IV 07/29 0929 Midazolam HCl 50 MG Q4H 07/27 0830 AC 07/29 Sodium Chloride 50 ML IV 0337 Pantoprazole Sodium 40 MG DAILY 07/25 0900 AC 07/28 IV 0821 Potassium Chloride 20 MEQ ONCE ONE 07/28 1915 DC 07/28 PO 07/28 191 2047 Potassium Chloride 20 MEQ ONCE ONE 07/28 0945 DC 07/28 PO 07/28 0946 1020 Potassium Chloride 10 MEQ Q1H 07/28 0900 DC 07/28 IV 07/28 1001 1211 Potassium Chloride 40 MEQ ONCE ONE 07/28 0900 CAN PO 07/28 0901 Potassium Phosphate 15 mMol ONE ONE 07/28 0945 DC 07/28 Sodium Chloride 250 ML IV 07/28 1349 1211 Propofol 1,000 MG Q12H 07/27 1300 AC 07/29 N/A 1 UNIT IV 0047 Senna/Docusate Sodium 2 TAB DAILY 07/28 1000 AC 07/28 PO 1020 Valproate Sodium 750 MG Q8H 07/26 1900 AC 07/29 Sodium Chloride 50 ML IV 0256 Impression/Plan Impression/Problem List Impression: Mr. Monge is a 73-year-old gentleman with history of sleep apnea, not on CPAP regularly, COPD, increasing lung nodule which needs longitudinal follow-up, coronary artery disease with multiple stents in the past, chronic back pain, previous history of depression and anxiety on multiple medications noted, and recent surgery of retropharyngeal lipoma resection who came into the hospital with lethargy, was promptly intubated and admitted to the ICU, with subsequent episodes of bradycardia thought to be secondary to vagal nerve stimulation, then refractory status epilepticus s/p induced coma, now with somewhat improving mental status as sedation is tapered. Problem List: 1. AMS, unclear etiology 2. Severe bradycardia, now resovled 3. Refractory status epilepticus s/p induced coma 4. Anoxic brain injury vs CVA 5. Acute hypoxic respiratory failure s/p intubation with possible asp pna 6. Lung nodule that needs follow up when improved Plan: Neurology: -Patient presented with AMS of unclear etiology s/p retropharygeal surgery, does not seem related to surgery, differential includes low flow state secondary to bradycardia in setting of apnea (patient has COPD and LUKE) while taking oxycodone vs CVA vs aspiration episode -No clinical evidence of substance overdose -Patient had status epilepticus refractory to midazolam and levetiracetam s/p induced coma with propofol -Possible anoxic brain injury vs stroke, now responding to command -CT head and neck 2 (07/24, 07/26) negative for any brain anoxial changes, white and groves matter differentiation is well preserved -Neurology services follow -EEG showed pseudoperiodic generalized sharp waves, potentially epileptogenic -Repeat EEG today -Currently patient is on IV propofol drip, midazolam drip, valproic acid, and levetiracetam -Should get MRI brain when possible Respiratory: -Intubated 07/24 -Possible asp pna -Latest ABG 07/28 showing resp alk with met comp, pO2 65 on 40% FiO2 Infection: -Possible aspiration pneumonia -On amp/sulbactam for 72H -Sputum and blood cultures remain negative Cardiology: -Initially bradycardic treated with dobutamine, now off dobutamine -HR and BP stable Hematology: -Hg is stable, no leukocytosis Metabolic: -Currently on LR, keep Na>140 to prevent cerebral edema Alimentary: -N.p.o. with tube feed per nutrition DVT ppx with enoxaparin NPO Full code Patient's significant other is ex-, 7 children Ex- has no power of securities attorney, children are decision makers in absence of POA or conservator Problem List: 1. Hypoxic brain injury 2. Status epilepticus Pain Ratin Tomorrow's Labs & Rationales: cbc icu Plan DVT/Prophylaxis: mechanical, pharmacological
[2018-07-29 08:00] VITALS: BP 154/90
--- NOTE | 2018-07-29 08:10 | RADIOLOGY REPORT ---
EXAMINATION: XR PORTABLE CHEST CLINICAL INFORMATION: Aspiration pneumonia. Endotracheal tube position. COMPARISON: Chest x-ray 07/27/2018 TECHNIQUE: Portable frontal view of the chest was obtained. FINDINGS: Endotracheal tube terminates approximately 6 cm above the level of the jorge. Enteric tube terminates below the level of the diaphragm. Low lung volumes. Minimal bibasilar airspace disease, unchanged. No large pleural effusion. IMPRESSION: 1. Stable support apparatus. 2. Stable minimal bibasilar airspace disease. Pulmonary evaluation is limited secondary to hypoinflation.
[2018-07-29 12:00] VITALS: BP 122/78
--- NOTE | 2018-07-29 13:48 | PN- Cardiology ---
Subjective Subjective: * Patient is noted to have precordial ST depressions with T wave inversions that are new compared to baseline. No discernible chest pain and cardiac enzymes are in the normal range. * No obvious complaints although sedation is being weaned off at this time. He can follow commands and squeezes both hands upon command. * sinus rhythm Objective Vital Signs and I&Os Vital Signs Date Time Temp Pulse Resp B/P B/P Pulse O2 O2 Flow FiO2 Mean Ox Delivery Rate 07/29 1200 94 Ventilator 40% 07/29 1200 98.3 79 16 122/78 94 Ventilator 40% 07/29 1115 40 07/29 0833 40 07/29 0800 97.4 89 17 154/90 98 Ventilator 40% 07/29 0800 98 Ventilator 40% 07/29 0542 40 07/29 0400 95 Ventilator 40% 07/29 0325 40 07/29 0051 40 07/29 0000 94 Ventilator 40% 07/29 0000 98.2 83 22 147/81 94 Ventilator 40% 07/28 2146 40 07/28 2000 95 Ventilator 40% 07/28 1848 40 07/28 1600 95 Ventilator 50% 07/28 1600 97.6 68 18 100/68 95 Ventilator 50% 07/28 1556 40 Intake & Output 07/29 1600 07/29 0800 07/29 0000 07/28 1600 07/28 0800 07/28 0000 Intake Total 1211 1291 1580 1035 1470 Output Total 650 689 751 3036 555 Balance 561 661 900 -325 915 Intake, IV 431 431 800 415 970 Intake, Tube 560 560 560 400 280 Feeding Intake, Tube 220 300 220 220 220 Irrigant Output, Urine 650 211 042 3551 555 Physical Exam: General: WD/WN male in no apparent distress; intubated and not responsive to verbal stimuli HEENT: NC/AT, PERRL, EOMI Neck: no JVD Heart: RRR without murmur Lungs: clear anteriorly ABdomen: soft, NT, +ve bowel sounds Extremities: no edema Assessment/Plan Assessment/Plan * This patient had bradycardia which is now resolved. He now demonstrates precordial T wave inversions that may be related to ischemia although cerebral T wave inversions are suspected. Add NTG paste 1/2 inch Q 6 hours or as tolerated by blood pressure. Follow three sets of cardiac enzymes. He also has a normal EF. Continue telemetry? Yes
[2018-07-29 16:00] VITALS: BP 168/98
--- NOTE | 2018-07-29 19:02 | Event Note ---
Event Note Event Note: Spoke with Dr. Horton over the phone regarding the valproate level. We should obtain trough level (30 mins before the morning dose) however it was obtained 2 hours after the morning dose and the result is 78.5 which indicates that mostly the trough level is still in the very low range (50-100 mmol/l) Patient was noticed to have some jerky movement of the left side which may represent either seizure or myoclonus. Dr. Horton agreed to go up in valproate to 1000 mg Q8hr and to obtain the trough level. Order was changed. I disscused with the nurse and pharmacy to ensure obtaining trough level 30 min before the morning dose of valproate.
--- NOTE | 2018-07-29 21:22 | ELECTROENCEPHALOGRAM REPORT ---
Electroencephalogram Report Electroencephalogram Results Date of service: 07/29/18 Attending MD: Christin REEVES,[employer]: Ish Murillo EEG Number: [id number] Test Utilizes: 10-20 system, 21 lead 18 channel digital recording Pertinent Hx/Physical/Neuro Findings/Clin Diagnosis: 73 year old man with resp distress, AMS and seizures. Inpatient Medications: Current Medications Sig/Zev Start time Last Medication Dose Route Stop Time Status Admin Ampicillin Sodium/ 3,000 MG Q6 07/25 1200 DC 07/29 Sulbactam Sodium IV 0502 Sodium Chloride 100 ML Artificial Tears 2 GTT 4 TIMES/DAY 07/28 1300 AC 07/29 OPH 1720 Aspirin 81 MG DAILY 07/25 1417 AC 07/29 PO 0843 Enoxaparin Sodium 40 MG DAILY 07/25 1315 AC 07/29 SC 0843 Fentanyl Citrate 25 MCG Q3P PRN 07/25 1330 AC 07/29 IV 1915 Levetiracetam 1,500 MG Q12 07/26 2100 AC 07/29 N/A 1 UNIT IV 0843 Magnesium Sulfate 1 GM ONCE ONE 07/29 0530 CAN Dextrose/Water 100 ML IV 07/29 0929 Midazolam HCl 2 MG ONCE ONE 07/29 1845 DC 07/29 IV 07/29 1846 1915 Midazolam HCl 50 MG Q10H 07/29 1800 AC 07/29 Sodium Chloride 50 ML IV 1915 Midazolam HCl 2 MG ONCE ONE 07/29 1645 DC 07/29 IV 07/29 1646 1720 Midazolam HCl 50 MG Q10H 07/29 1245 DC Sodium Chloride 50 ML IV Midazolam HCl 50 MG Q4H 07/27 0830 DC 07/29 Sodium Chloride 50 ML IV 0905 Nitroglycerin 0 .STK-MED ONE 07/29 1408 DC TOP Nitroglycerin 0.5 GM Q6 07/29 1351 AC 07/29 TOP 1720 Nystatin 1 CHERYL TID 07/29 1400 AC 07/29 TOP 1720 Pantoprazole Sodium 40 MG DAILY 07/25 0900 AC 07/29 IV 0843 Propofol 1,000 MG Q12H 07/27 1300 DC 07/29 N/A 1 UNIT IV 0843 Senna/Docusate Sodium 2 TAB DAILY 07/28 1000 AC 07/29 PO 0843 Valproate Sodium 1,000 MG Q8H 07/29 1900 AC 07/29 Sodium Chloride 50 ML IV 1932 Valproate Sodium 750 MG Q8H 07/26 1900 DC 07/29 Sodium Chloride 50 ML IV 1107 Interpretation: The recording reveals a loss of the normal frequency gradient. Instead, the background is composed of a mix of theta and alpha rhythms with medium amplitude. Otherwise there is no evidence of any paroxysmal sharps or spikes. The posterior dominant rhythm is estimated at 7 Hertz. Impression: Mildly abnormal recording due to mild background slowing that is suggestive of mild encephalopathy. No epileptogenic potentials observed.
[2018-07-30] VITALS: BP 124/80
[2018-07-30 03:24] LABS: ABSOLUTE BASOPHIL COUNT 0 /CUMM (0.0-0.2); ABSOLUTE EOSINOPHIL COUNT 0.2 /CUMM (0.0-0.7); ABSOLUTE GRANULOCYTE CT 5.5 /CUMM (1.4-6.5); ABSOLUTE LYMPH COUNT 1.1 /CUMM (1.2-3.4); ABSOLUTE MONOCYTE COUNT 0.3 /CUMM (0.10-0.60); BASOPHIL % 0.3 % (0.0-2.0); EOSINOPHIL % 2.2 % (0-5); HEMATOCRIT 41.8 % (42-52); MEAN CORPUSCULAR HGB 29.9 PG (27.0-31.0); MEAN CORPUSCULAR HGB CONC 33.6 G/DL (33.0-37.0); MEAN CORPUSCULAR VOLUME 89.1 FL (80.0-94.0); MEAN PLATELET VOLUME 7.3 FL (7.4-10.4); PLATELET COUNT 176 /CUMM (130-400); RBC DISTRIBUTION WIDTH 13.9 % (11.5-14.5); RED BLOOD CELL CT 4.69 /CUMM (4.70-6.10); WHITE BLOOD CELL COUNT 7.1 /CUMM (4.8-10.8)
--- NOTE | 2018-07-30 07:56 | PN- Resident CRCU ---
See Addendum Subjective HPI/CRCU Issues: Patient had no overnight events and remained afebrile. He has had no further seizures. This morning, he squeezes both hands in response to command but does not move lower extremities. He also will not track eyes. Objective Vital Signs & I&O Last 8 Hrs of Vitals and I&O: Vital Signs Date Time Temp Pulse Resp B/P B/P Pulse O2 O2 Flow FiO2 Mean Ox Delivery Rate 07/30 0546 50 07/30 0400 94 Ventilator 50% 07/30 0303 50 07/30 0123 50 07/30 0000 97.0 78 16 124/80 97 Ventilator 50% 07/30 0000 97 Ventilator 50% 07/29 2202 50 07/29 2000 95 Ventilator 50% 07/29 1945 50 07/29 1700 40 07/29 1600 94 Ventilator 40% 07/29 1600 99.3 84 20 168/98 94 Ventilator 40% 07/29 1430 40 07/29 1200 94 Ventilator 40% 07/29 1200 98.3 79 16 122/78 94 Ventilator 40% 07/29 1115 40 07/29 0833 40 07/29 0800 97.4 89 17 154/90 98 Ventilator 40% 07/29 0800 98 Ventilator 40% Intake & Output 07/30 0800 07/30 0000 07/29 1600 Intake Total 890 1012 Output Total 1080 1350 Balance -190 -338 Intake, IV 300 293 Intake, Tube 455 374 Feeding Intake, Tube 135 345 Irrigant Number 1 Bowel Movements Output, Urine 1080 1350 Exam General Appearance: no apparent distress, sedated, intubated Respiratory: quiet respiration, lungs clear Cardiovascular: regular rate/rhythm Gastrointestinal: normal bowel sounds, soft, non-tender Extremities: no edema Cranial Nerves: PERRL, Squeezes both hands but no lower extremity movement in response to command Current Medications: Current Medications Sig/Zev Start time Last Medication Dose Route Stop Time Status Admin Ampicillin Sodium/ 3,000 MG Q6 07/25 1200 DC 07/29 Sulbactam Sodium IV 0502 Sodium Chloride 100 ML Artificial Tears 2 GTT 4 TIMES/DAY 07/28 1300 AC 07/29 OPH 2111 Aspirin 81 MG DAILY 07/25 1417 AC 07/29 PO 0843 Enoxaparin Sodium 40 MG DAILY 07/25 1315 AC 07/29 SC 0843 Fentanyl Citrate 25 MCG Q3P PRN 07/25 1330 AC 07/30 IV 0340 Levetiracetam 1,500 MG Q12 07/26 2100 AC 07/29 N/A 1 UNIT IV 2106 Midazolam HCl 2 MG ONCE ONE 07/29 1845 DC 07/29 IV 07/29 1846 1915 Midazolam HCl 50 MG Q10H 07/29 1800 AC 07/30 Sodium Chloride 50 ML IV 0419 Midazolam HCl 2 MG ONCE ONE 07/29 1645 DC 07/29 IV 07/29 1646 1720 Midazolam HCl 50 MG Q10H 07/29 1245 DC Sodium Chloride 50 ML IV Midazolam HCl 50 MG Q4H 07/27 0830 DC 07/29 Sodium Chloride 50 ML IV 0905 Nitroglycerin 0 .STK-MED ONE 07/29 1408 DC TOP Nitroglycerin 0.5 GM Q6 07/29 1351 AC 07/30 TOP 0709 Nystatin 1 CHERYL TID 07/29 1400 AC 07/29 TOP 2111 Pantoprazole Sodium 40 MG DAILY 07/25 0900 AC 07/29 IV 0843 Propofol 1,000 MG Q12H 07/27 1300 DC 07/29 N/A 1 UNIT IV 0843 Senna/Docusate Sodium 2 TAB DAILY 07/28 1000 AC 07/29 PO 0843 Valproate Sodium 1,000 MG Q8H 07/29 1900 AC 07/30 Sodium Chloride 50 ML IV 0339 Valproate Sodium 750 MG Q8H 07/26 1900 DC 07/29 Sodium Chloride 50 ML IV 1107 Impression/Plan Impression/Problem List Impression: Mr. Monge is a 73-year-old male with history of sleep apnea, not on CPAP regularly, COPD, increasing lung nodule which needs longitudinal follow-up, coronary artery disease with multiple stents in the past, chronic back pain, previous history of depression and anxiety on multiple medications noted, and recent surgery of retropharyngeal lipoma resection who came into the hospital with lethargy, was promptly intubated and admitted to the ICU, with subsequent episodes of bradycardia thought to be secondary to vagal nerve stimulation, then refractory status epilepticus s/p induced coma, now with somewhat improving mental status as sedation is tapered. Problem List: 1. AMS, unclear etiology 2. Severe bradycardia, now resovled 3. Refractory status epilepticus s/p induced coma 4. Anoxic brain injury vs CVA 5. Acute hypoxic respiratory failure s/p intubation with possible asp pna 6. Lung nodule that needs follow up when improved Plan: Neurology: -Patient presented with AMS of unclear etiology s/p retropharygeal surgery, does not seem related to surgery, differential includes low flow state secondary to bradycardia in setting of apnea (patient has COPD and LUKE) while taking oxycodone vs CVA vs aspiration episode -No clinical evidence of substance overdose -Patient had status epilepticus refractory to midazolam and levetiracetam s/p induced coma with propofol -Possible anoxic brain injury vs stroke, now responding to some commands -CT head and neck 2 (07/24, 07/26) negative for any brain anoxial changes, white and groves matter differentiation is well preserved -Neurology services follow -EEG initially showed pseudoperiodic generalized sharp waves, potentially epileptogenic, repeat EEG showed a mildly abnormal recording due to mild background slowing that is suggestive of mild encephalopathy but no epileptogenic potentials observed -Currently patient is on midazolam drip, valproic acid, and levetiracetam -Should get MRI brain after extubation Respiratory: -Intubated 07/24 -Possible asp pna -Latest ABG 07/28 showing resp alk with met comp, pO2 65 on 40% FiO2 Infection: -Possible aspiration pneumonia -On amp/sulbactam for 72H, now off antibiotics -Sputum and blood cultures remain negative Cardiology: -Initially bradycardic treated with dobutamine, now off dobutamine -HR and BP stable Hematology: -Hg is stable, no leukocytosis Metabolic: -Currently on LR, keep Na>140 to prevent cerebral edema Alimentary: -N.p.o. with tube feed per nutrition DVT ppx with enoxaparin NPO Full code Patient's significant other is ex-, 7 children Ex- has no power of estate planning attorney, children are decision makers in absence of POA or conservator Problem List: 1. Hypoxic brain injury 2. Status epilepticus Pain Ratin Tomorrow's Labs & Rationales: cbc icu Plan DVT/Prophylaxis: mechanical, pharmacological
[2018-07-30 08:00] VITALS: BP 120/70
[2018-07-30 12:00] VITALS: BP 82/60
[2018-07-30 16:00] VITALS: BP 82/50
--- NOTE | 2018-07-30 16:16 | RADIOLOGY REPORT ---
EXAMINATION: XR PORTABLE CHEST CLINICAL INFORMATION: Hypoxemia. COMPARISON: 07/29/2018 TECHNIQUE: Portable frontal view of the chest was obtained. FINDINGS: The patient is intubated, the tip of the endotracheal tube is 5.3 cm from the jorge. There is an enteric tube with tip below the field of view, below the diaphragm. The cardiomediastinal silhouette is stable. The lungs are hypoinflated. Bibasilar atelectasis, otherwise no dense consolidation, pleural effusion or pneumothorax. IMPRESSION: Endotracheal tube tip is 5.3 cm from the jorge. Low lung volumes with bibasilar atelectasis, no clear acute cardiopulmonary process.
--- NOTE | 2018-07-30 21:16 | PN- Cardiology ---
Subjective Subjective: * Patient remains sedated. * sinus rhythm * ST depressions are still noted. Objective Vital Signs and I&Os Vital Signs Date Time Temp Pulse Resp B/P B/P Pulse O2 O2 Flow FiO2 Mean Ox Delivery Rate 07/30 2000 93 Ventilator 45% 07/30 1949 45 09/18 1632 45 /18 1600 97.0 83 18 82/50 94 Ventilator 45% /18 1600 94 Ventilator 45% 09/18 1428 45 /18 1200 95 Ventilator 45% 09/18 1200 97.9 74 16 82/60 95 Ventilator 45% 09/18 1145 45 /18 0808 50 09/18 0800 95 Ventilator 50% /18 0800 97.1 82 21 120/70 95 Ventilator 50% / 0546 50 / 0400 94 Ventilator 50% 07/30 0303 50 /18 0123 50 /18 0000 97.0 78 16 124/80 97 Ventilator 50% 07/30 0000 97 Ventilator 50% 07/29 2202 50 Intake & Output 07/30 1600 18 0800 /18 0000 / 1600 07/29 0800 / 0000 Intake Total 1182.7 4644 398 2589 1211 1291 Output Total 1700 1510 1080 1350 650 630 Balance -517.3 -435 -190 -338 561 661 Intake, IV 344.7 194 300 293 431 431 Intake, Tube 488 611 455 374 560 560 Feeding Intake, Tube 350 270 135 345 220 300 Irrigant Number 1 1 1 Bowel Movements Output, Urine 1700 1510 1080 1350 650 630 Physical Exam: General: WD/WN male in no apparent distress; intubated and not responsive to verbal stimuli HEENT: NC/AT, PERRL, EOMI Neck: no JVD Heart: RRR without murmur Lungs: clear anteriorly ABdomen: soft, NT, +ve bowel sounds Extremities: no edema Assessment/Plan Assessment/Plan * This patient had bradycardia which is now resolved. He now demonstrates precordial T wave inversions that may be related to ischemia although cerebral T wave inversions are suspected. Continue NTG paste 1/2 inch Q 6 hours or as tolerated by blood pressure. Cardiac enzymes are normal. Lighten sedation and inquire about chest pain if possible. Continue telemetry? Yes
[2018-07-31] VITALS: BP 106/70
[2018-07-31 05:51] LABS: ABSOLUTE BASOPHIL COUNT 0 /CUMM (0.0-0.2); ABSOLUTE EOSINOPHIL COUNT 0.2 /CUMM (0.0-0.7); ABSOLUTE GRANULOCYTE CT 5.5 /CUMM (1.4-6.5); ABSOLUTE LYMPH COUNT 1.4 /CUMM (1.2-3.4); ABSOLUTE MONOCYTE COUNT 0.5 /CUMM (0.10-0.60); BASOPHIL % 0.3 % (0.0-2.0); EOSINOPHIL % 2.8 % (0-5); GRANULOCYTE % 72.5 % (42.2-75.2); MEAN CORPUSCULAR HGB 29.6 PG (27.0-31.0); MEAN CORPUSCULAR HGB CONC 33.1 G/DL (33.0-37.0); MEAN CORPUSCULAR VOLUME 89.4 FL (80.0-94.0); MEAN PLATELET VOLUME 7.3 FL (7.4-10.4); PLATELET COUNT 166 /CUMM (130-400); RBC DISTRIBUTION WIDTH 13.8 % (11.5-14.5); RED BLOOD CELL CT 4.37 /CUMM (4.70-6.10); WHITE BLOOD CELL COUNT 7.6 /CUMM (4.8-10.8)
[2018-07-31 08:00] VITALS: BP 100/60
--- NOTE | 2018-07-31 08:17 | PN- Resident CRCU ---
Subjective HPI/CRCU Issues: Patient was restless overnight, required frequent as needed dosing of midazolam for thrashing. This morning, he continues to be restless making it difficult to taper the midazolam. He does not seem to be looking purposefully but does open his eyes when agitated. Objective Vital Signs & I&O Last 8 Hrs of Vitals and I&O: Vital Signs Date Time Temp Pulse Resp B/P B/P Pulse O2 O2 Flow FiO2 Mean Ox Delivery Rate 07/31 0610 45 07/31 0400 94 Ventilator 45% 07/31 0345 45 07/31 0121 45 07/31 0000 94 Ventilator 45% 07/31 0000 97.3 78 16 106/70 93 Ventilator 45% 07/30 2230 45 07/30 2000 93 Ventilator 45% 07/30 1949 45 07/30 1632 45 07/30 1600 97.0 83 18 82/50 94 Ventilator 45% 07/30 1600 94 Ventilator 45% 07/30 1428 45 07/30 1200 95 Ventilator 45% 07/30 1200 97.9 74 16 82/60 95 Ventilator 45% 07/30 1145 45 Intake & Output 07/31 1600 07/31 0800 07/31 0000 Intake Total 722 852 Output Total 650 1000 Balance 72 -148 Intake, IV 91 249 Intake, Tube 411 468 Feeding Intake, Tube 220 135 Irrigant Number 3 Bowel Movements Output, Urine 650 1000 Exam General Appearance: well developed/nourished, sedated, intubated Respiratory: no respiratory distress Cardiovascular: regular rate/rhythm Gastrointestinal: normal bowel sounds, soft, non-tender Extremities: no edema Cranial Nerves: PERRL Current Medications: Current Medications Sig/Zev Start time Last Medication Dose Route Stop Time Status Admin Apixaban 5 MG BID 07/30 0900 CAN PO Artificial Tears 2 GTT 4 TIMES/DAY 07/28 1300 AC 07/30 OPH 2133 Aspirin 81 MG DAILY 07/25 1417 AC 07/30 PO 0904 Enoxaparin Sodium 40 MG DAILY 07/25 1315 AC 07/30 SC 0904 Fentanyl Citrate 25 MCG ONCE ONE 07/30 2045 DC 07/30 IV 07/30 Fentanyl Citrate 25 MCG Q3P PRN 07/25 1330 AC 07/31 IV 0600 Furosemide 20 MG ONCE ONE 07/30 1130 DC 07/30 IV 07/30 1131 1243 Levetiracetam 1,500 MG Q12 07/26 2100 AC 07/30 N/A 1 UNIT IV 2133 Midazolam HCl 2 MG Q2 HRS NEEDED PRN 07/30 1345 AC 07/31 IV 0651 Midazolam HCl 50 MG Q10H 07/30 1200 DC 07/30 Sodium Chloride 50 ML IV 1119 Midazolam HCl 50 MG Q10H 07/29 1800 DC 07/30 Sodium Chloride 50 ML IV 07/30 1159 0419 Nitroglycerin 0.5 GM Q6 07/29 1351 AC 07/30 TOP 1118 Nystatin 1 CHERYL TID 07/29 1400 AC 07/30 TOP 2133 Pantoprazole Sodium 40 MG DAILY 07/25 0900 AC 07/30 IV 0904 Potassium Chloride 40 MEQ ONCE ONE 07/31 0715 DC PO 07/31 0716 Potassium Chloride 0 .STK-MED ONE 07/30 0919 DC PO Potassium Chloride 40 MEQ ONCE ONE 07/30 0915 DC 07/30 PO 07/30 0916 0917 Senna/Docusate Sodium 2 TAB DAILY 07/28 1000 AC 07/29 PO 0843 Valproate Sodium 1,000 MG Q8H 07/29 1900 AC 07/31 Sodium Chloride 50 ML IV 0315 Impression/Plan Impression/Problem List Impression: Mr. Monge is a 73-year-old male with history of sleep apnea, not on CPAP regularly, COPD, increasing lung nodule which needs longitudinal follow-up, coronary artery disease with multiple stents in the past, chronic back pain, previous history of depression and anxiety on multiple medications noted, and recent surgery of retropharyngeal lipoma resection who came into the hospital with lethargy, was promptly intubated and admitted to the ICU, with subsequent episodes of bradycardia thought to be secondary to vagal nerve stimulation, then refractory status epilepticus s/p induced coma, now with somewhat improving mental status as sedation is tapered. Problem List: 1. AMS, unclear etiology 2. Severe bradycardia, now resovled 3. Refractory status epilepticus s/p induced coma 4. Anoxic brain injury vs CVA 5. Acute hypoxic respiratory failure s/p intubation with possible asp pna 6. Lung nodule that needs follow up when improved Plan: Neurology: -Patient presented with AMS of unclear etiology s/p retropharygeal surgery, does not seem related to surgery, differential includes low flow state secondary to bradycardia in setting of apnea (patient has COPD and LUKE) while taking oxycodone vs CVA vs aspiration episode -No clinical evidence of substance overdose -Patient had status epilepticus refractory to midazolam and levetiracetam s/p induced coma with propofol -Possible anoxic brain injury vs stroke, now responding to some commands -CT head and neck 2 (07/24, 07/26) negative for any brain anoxial changes, white and groves matter differentiation is well preserved -Neurology services follow -EEG initially showed pseudoperiodic generalized sharp waves, potentially epileptogenic, repeat EEG showed a mildly abnormal recording due to mild background slowing that is suggestive of mild encephalopathy but no epileptogenic potentials observed -Currently patient is on midazolam drip, valproic acid, and levetiracetam -Trying to taper off the benzodiazepine but patient is restless -Should get MRI brain after extubation Respiratory: -Intubated 07/24 -Possible asp pna -Latest ABG 07/28 showing resp alk with met comp, pO2 65 on 40% FiO2 Infection: -Off antibiotics -Sputum and blood cultures remain negative Cardiology: -Initially bradycardic treated with dobutamine, now off dobutamine -HR stable Hematology: -Hg is stable, no leukocytosis -Blood pressure a little soft overnight Metabolic: -Keep Na>140 to prevent cerebral edema Alimentary: -N.p.o. with tube feed per nutrition DVT ppx with enoxaparin Tube feed Full code Patient's significant other is ex-, 7 children Ex- has no power of compliance attorney, children are decision makers in absence of POA or conservator Problem List: 1. Hypoxic brain injury Pain Ratin Tomorrow's Labs & Rationales: cbc icu Plan DVT/Prophylaxis: mechanical, pharmacological
--- NOTE | 2018-07-31 09:18 | PN- CRCU ---
Subjective HPI/Critical Care Issues: Seen and examined this morning Continues to be restless Not responding to any commands Continues to do poorly. Does have periods of significant agitation at that time he become significantly hypoxemic. It has been difficult to taper him off Vidaza Whitley. A lot of Hardeep Soto does not have any purposeful movements but does open his eyes spontaneously and squeezes hand at times. Although the data reviewed. Medications as noted. Continues to be on antiseizure medications. Chest x-ray showed low lung volumes. 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 Other data reviewed in the computer white count 7.6 hemoglobin 12.9 no significant left shift. Patient is on appropriate prophylaxis with pantoprazole and Lovenox Objective Current Medications: Current Medications Sig/Zev Start time Last Medication Dose Route Stop Time Status Admin Artificial Tears 2 GTT 4 TIMES/DAY 07/28 1300 AC 07/30 OPH 2133 Aspirin 81 MG DAILY 07/25 1417 AC 07/30 PO 0904 Clotrimazole 1 CHERYL BID 07/31 0915 AC TOP Enoxaparin Sodium 40 MG DAILY 07/25 1315 AC 07/30 SC 0904 Fentanyl Citrate 25 MCG ONCE ONE 07/30 2045 DC 07/30 IV 07/30 204 2052 Fentanyl Citrate 25 MCG Q3P PRN 07/25 1330 AC 07/31 IV 0600 Furosemide 20 MG ONCE ONE 07/30 1130 DC 07/30 IV 07/30 1131 1243 Levetiracetam 1,500 MG Q12 07/26 2100 AC 07/30 N/A 1 UNIT IV 2133 Midazolam HCl 2 MG ONCE ONE 07/31 0845 DC IV 07/31 0846 Midazolam HCl 2 MG Q2 HRS NEEDED PRN 07/30 1345 07/31 IV 0651 Midazolam HCl 50 MG Q10H 07/30 1200 DC 07/30 Sodium Chloride 50 ML IV 1119 Midazolam HCl 50 MG Q10H 07/29 1800 DC 07/30 Sodium Chloride 50 ML IV 07/30 1159 0419 Nitroglycerin 0.5 GM Q6 07/29 1351 07/30 TOP 1118 Non-Formulary 0 SEE ADMIN CRITERIA 07/31 09 UNVr Medication ANY Nystatin 1 CHERYL TID 07/29 1400 AC 07/30 TOP 2133 Pantoprazole Sodium 40 MG DAILY 07/25 0900 AC 07/30 IV 0904 Potassium Chloride 40 MEQ ONCE ONE 07/31 0715 DC PO 07/31 0716 Potassium Chloride 0 .STK-MED ONE 07/30 0919 DC PO Potassium Chloride 40 MEQ ONCE ONE 07/30 0915 DC 07/30 PO 07/30 0916 0917 Propofol 0 .STK-MED ONE 07/31 0905 DC IV Senna/Docusate Sodium 2 TAB DAILY 07/28 1000 AC 07/29 PO 0843 Valproate Sodium 1,000 MG Q8H 07/29 1900 AC 07/31 Sodium Chloride 50 ML IV 0315 Vital Signs & I&O Last 24 Hrs of Vitals and I&O: Vital Signs Date Time Temp Pulse Resp B/P B/P Pulse O2 O2 Flow FiO2 Mean Ox Delivery Rate 07/31 0851 100 07/31 0610 45 07/31 0400 94 Ventilator 45% 07/31 0345 45 07/31 0121 45 07/31 0000 94 Ventilator 45% 07/31 0000 97.3 78 16 106/70 93 Ventilator 45% 07/30 2230 45 07/30 2000 93 Ventilator 45% 07/30 1949 45 07/30 1632 45 07/30 1600 97.0 83 18 82/50 94 Ventilator 45% 07/30 1600 94 Ventilator 45% 07/30 1428 45 07/30 1200 95 Ventilator 45% 07/30 1200 97.9 74 16 82/60 95 Ventilator 45% 07/30 1145 45 Intake & Output 07/31 1600 07/31 0800 07/31 0000 Intake Total 722 852 Output Total 650 1000 Balance 72 -148 Intake, IV 91 249 Intake, Tube 411 468 Feeding Intake, Tube 220 135 Irrigant Number 3 Bowel Movements Output, Urine 650 1000 Impression/Plan Impression/Plan Impression/Plan: General Appearance: no apparent distress, sedated, intubated Respiratory: quiet respiration, lungs clear Cardiovascular: regular rate/rhythm Gastrointestinal: normal bowel sounds, soft, non-tender Extremities: no edema Cranial Nerves: PERRL, Squeezes both hands but no lower extremity movement in response to command IMPRESSION This is a 73-year-old gentleman with history of sleep apnea, not on CPAP regularly, COPD, increasing lung nodule which needs longitudinal follow-up, coronary artery disease with multiple stents in the past, chronic back pain, previous history of depression and anxiety on multiple medications noted, recent surgery of pharyngeal lipoma resection, came into the hospital with lethargy, unresponsiveness with hypoxia and was promptly intubated. Upon admission he was severely bradycardic now heart rate has improved He is hemodynamically stable. ENT evaluation noted. Posterior pharyngeal evaluation per ENT, was unremarkable with no significant edema. Issues * Reecurrent seizures was on propofol now on versed with keppra and valproic acid on board. The seizure seems to have stopped however he has significant agitation and restlessness and does not seem to have any purposeful movements. * AMS since admission with Unresponsive state, altered mental status prior to coming here with severe bradycardia so far is suggestive of significant vagal reaction causing severe quinn versus arrhythmia. Patient's QTC was quite prolonged. Differential diagnosis is broad which includes low flow state from quinn vs stroke (unlikely) versus aspiration episode but that seems very unlikely so far. No clinical evidence suggestive of posterior pharyngeal anatomical abnormality versus significant aspiration pneumonia etc. No clinical evidence suggestive of substance overdose. However patient has been on multiple medications at home with prolonged qtc. Severe bradycardia now resolved * Ischemic heart disease with some ST-T changes, troponin normal echocardiogram normal, cardio on board. 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 * H/o Hypertension, ischemic heart disease, depression/anxiety, patient was on Klonopin at home, multiple other issues * COPD with emphysema noted in the CAT scan with increasing lung nodule as noted in the recent CT scan of the chest and end of June. PCP is aware of this and patient needs follow-up to rule out lung cancer in the future when he gets better PLAN Restart propofol, discontinue Versed We will assess his mental status on and off of propofol. Neurology to follow. We will asked him if there is any value in lumbar puncture. Cont keppra and valproic acid Lovenox daily cont tube feedings EKG daily keep potassium more than 4 cont other meds Will follow Discussed with ex- Family meeting arranged for tomorrow or Sunday morning at 9 AM Pt remains critically ill, TTS 40 mins
--- NOTE | 2018-07-31 11:02 | PN- Cardiology ---
Subjective Subjective: * Patient remains sedated and is not following commands this morning. * ST depressions improved. Objective Vital Signs and I&Os Vital Signs Date Time Temp Pulse Resp B/P B/P Pulse O2 O2 Flow FiO2 Mean Ox Delivery Rate 07/31 0851 100 07/31 0800 96 Ventilator 100% 07/31 0800 97.3 66 16 100/60 96 Ventilator 100% 07/31 0610 45 07/31 0400 94 Ventilator 45% 07/31 0345 45 07/31 0121 45 07/31 0000 94 Ventilator 45% 07/31 0000 97.3 78 16 106/70 93 Ventilator 45% 07/30 2230 45 07/30 2000 93 Ventilator 45% 07/30 1949 45 07/30 1632 45 07/30 1600 97.0 83 18 82/50 94 Ventilator 45% 07/30 1600 94 Ventilator 45% 07/30 1428 45 07/30 1200 95 Ventilator 45% 07/30 1200 97.9 74 16 82/60 95 Ventilator 45% 07/30 1145 45 Intake & Output 07/31 1600 07/31 0800 07/31 0000 07/30 1600 07/30 0800 07/30 0000 Intake Total 745 631 7799.7 1075 890 Output Total 650 1000 1700 1510 1080 Balance 72 -148 -517.3 -435 -190 Intake, IV 91 249 344.7 194 300 Intake, Tube 411 468 488 611 455 Feeding Intake, Tube 220 135 350 270 135 Irrigant Number 3 1 1 Bowel Movements Output, Urine 650 1000 1700 1510 1080 Physical Exam: General: WD/WN male in no apparent distress; intubated and not responsive to verbal stimuli HEENT: NC/AT, PERRL, EOMI Neck: no JVD Heart: RRR without murmur Lungs: clear anteriorly ABdomen: soft, NT, +ve bowel sounds Extremities: no edema Assessment/Plan Assessment/Plan * This patient had bradycardia which is now resolved. Over the prior couple days he demonstrated precordial T wave inversions that may be related to ischemia although cerebral T wave inversions are suspected. His ST segment depressions have improved. Continue NTG paste 1/2 inch Q 6 hours or as tolerated by blood pressure. Cardiac enzymes are normal. Lighten sedation and inquire about chest pain if possible. Continue telemetry? Yes
--- NOTE | 2018-07-31 14:40 | RADIOLOGY REPORT ---
EXAMINATION: XR PORTABLE CHEST CLINICAL INFORMATION: Intubated COMPARISON: 07/30/2018 TECHNIQUE: Portable frontal view of the chest was obtained. FINDINGS: The endotracheal tube is not definitely seen. The patient is suboptimally positioned which limits evaluation. There is a linear opacity projecting over the spine which may be the endotracheal tube and if so it is located 6.1 cm above the jorge. Enteric tube is seen to level of the lower mediastinum, however due to the density of overlying soft tissues within the abdomen, the remainder of the tube cannot be seen. The lungs are hypoinflated. Possible small right pleural effusion. The right apex is cut off image. No evidence of pneumothorax. Heart size is normal. IMPRESSION: The endotracheal tube is not definitely seen. There is a linear structure identified projecting over the spine, and if this is the endotracheal tube is located too high at 6.1 cm above the jorge. Recommend advancement by 2-3 cm and repeat chest radiograph. Although there is suboptimal patient positioning with cut off of the right apex and right costophrenic angle, there is that appear to be any significant interval change the appearance of the hypoinflated lungs when compared to the most recent prior study. This critical result was discussed with Dr. Tavo Pearson at 2:35 PM on 07/31/2018 and it was ascertained that the content and urgency of the report was understood at the time of direct communication.
--- NOTE | 2018-07-31 15:54 | PN- Neurology ---
Subjective Subjective: Pt sedated on propofol. Reportedly "thrashing" off versed & propofol earlier today. Objective Vital Signs and I&Os Vital Signs Date Time Temp Pulse Resp B/P B/P Pulse O2 O2 Flow FiO2 Mean Ox Delivery Rate 07/31 1444 60 07/31 1235 80 07/31 1157 96 Ventilator 100% 07/31 0851 100 07/31 0800 96 Ventilator 100% 07/31 0800 97.3 66 16 100/60 96 Ventilator 100% 07/31 0610 45 07/31 0400 94 Ventilator 45% 07/31 0345 45 07/31 0121 45 07/31 0000 94 Ventilator 45% 07/31 0000 97.3 78 16 106/70 93 Ventilator 45% 07/30 2230 45 07/30 2000 93 Ventilator 45% 07/30 1949 45 07/30 1632 45 07/30 1600 97.0 83 18 82/50 94 Ventilator 45% 07/30 1600 94 Ventilator 45% Intake & Output 07/31 1600 07/31 0800 07/31 0000 07/30 1600 07/30 0800 07/30 0000 Intake Total 1122 989 128 1947.7 1075 890 Output Total 756 968 5692 1700 1510 1080 Balance 522 72 -148 -517.3 -435 -190 Intake, IV 262 91 249 344.7 194 300 Intake, Oral 0 Intake, Tube 560 411 468 488 611 455 Feeding Intake, Tube 300 220 135 350 270 135 Irrigant Number 1 3 1 1 Bowel Movements Output, Urine 349 918 4835 1700 1510 1080 Physical Exam: Sedated PERRL Corneal reflexes present Full EOMs on oculocephalic maneuvers Grimaces symmetrically No limb movements elicited w/ noxious stim Current Medications: Current Medications Sig/Zev Start time Last Medication Dose Route Stop Time Status Admin Artificial Tears 2 GTT 4 TIMES/DAY 07/28 1300 AC 07/31 OPH 1307 Aspirin 81 MG DAILY 07/25 1417 AC 07/31 PO 0929 Clotrimazole 1 CHERYL BID 07/31 0915 07/31 TOP 0933 Enoxaparin Sodium 40 MG DAILY 07/25 1315 07/31 SC 0934 Fentanyl Citrate 25 MCG ONCE ONE 07/30 2045 DC 07/30 IV 07/30 Fentanyl Citrate 25 MCG Q3P PRN 07/25 1330 AC 07/31 IV 0600 Levetiracetam 1,500 MG Q12 07/26 2100 AC 07/31 N/A 1 UNIT IV 0934 Midazolam HCl 2 MG ONCE ONE 07/31 0845 DC 07/31 IV 07/31 0846 0845 Midazolam HCl 2 MG Q2 HRS NEEDED PRN 07/30 1345 DC 07/31 IV 0651 Midazolam HCl 50 MG Q10H 07/30 1200 DC 07/30 Sodium Chloride 50 ML IV 1119 Nitroglycerin 0.5 GM Q6 07/29 1351 AC 07/30 TOP 1118 Non-Formulary 0 SEE ADMIN CRITERIA 07/31 09 CAN Medication ANY Nystatin 1 CHERYL TID 07/29 1400 AC 07/31 TOP 1307 Pantoprazole Sodium 40 MG DAILY 07/25 0900 AC 07/31 IV 0930 Potassium Chloride 40 MEQ ONCE ONE 07/31 0715 DC 07/31 PO 07/31 0716 0929 Propofol 0 .STK-MED ONE 07/31 0905 DC IV Propofol 1,000 MG Q12H 07/31 0900 AC 07/31 N/A 1 UNIT IV 1027 Senna/Docusate Sodium 2 TAB DAILY 07/28 1000 AC 07/31 PO 0929 Valproate Sodium 1,000 MG Q8H 07/29 1900 AC 07/31 Sodium Chloride 50 ML IV 1027 Results Last 24 Hours of Lab Results: Laboratory Tests 07/31 0509 Chemistry Sodium (137 - 145 mmol/L) 141 Potassium (3.5 - 5.1 mmol/L) 3.8 Chloride (98 - 107 mmol/L) 106 Carbon Dioxide (22 - 30 mmol/L) 27 Anion Gap (5 - 16) 8 BUN (9 - 20 mg/dL) 24 H Creatinine (0.7 - 1.2 mg/dL) 0.9 Estimated GFR (>60 ml/min) > 60 Glucose (65 - 99 mg/dL) 134 H Calcium (8.4 - 10.2 mg/dL) 8.4 Phosphorus (2.5 - 4.5 mg/dL) 3.7 Magnesium (1.6 - 2.3 mg/dL) 2.5 H Total Bilirubin (0.2 - 1.3 mg/dL) 0.3 AST (17 - 59 U/L) 18 ALT (21 - 72 U/L) 25 Albumin (3.5 - 5.0 g/dL) 2.5 L Hematology CBC w Diff NO MAN DIFF REQ WBC (4.8 - 10.8 /CUMM) 7.6 RBC (4.70 - 6.10 /CUMM) 4.37 L Hgb (14.0 - 18.0 G/DL) 12.9 L Hct (42 - 52 %) 39.0 L MCV (80.0 - 94.0 FL) 89.4 MCH (27.0 - 31.0 PG) 29.6 MCHC (33.0 - 37.0 G/DL) 33.1 RDW (11.5 - 14.5 %) 13.8 Plt Count (130 - 400 /CUMM) 166 MPV (7.4 - 10.4 FL) 7.3 L Gran % (42.2 - 75.2 %) 72.5 Lymphocytes % (20.5 - 51.1 %) 18.4 L Monocytes % (1.7 - 9.3 %) 6.0 Eosinophils % (0 - 5 %) 2.8 Basophils % (0.0 - 2.0 %) 0.3 Absolute Granulocytes (1.4 - 6.5 /CUMM) 5.5 Absolute Lymphocytes (1.2 - 3.4 /CUMM) 1.4 Absolute Monocytes (0.10 - 0.60 /CUMM) 0.5 Absolute Eosinophils (0.0 - 0.7 /CUMM) 0.2 Absolute Basophils (0.0 - 0.2 /CUMM) 0 Recent Imaging Studies: PATIENT: LANCE MARTINEZ PRESENT AGE: 73 PATIENT ACCOUNT NO: [id number] : 43 LOCATION: [facility] ORDERING PHYSICIAN: Jenn Castillo MD SERVICE DATE: 07/26/18 EXAM TYPE: CAT - CT HEAD WO IV CONTRAST EXAMINATION: CT HEAD WITHOUT CONTRAST CLINICAL INFORMATION: Bradycardia and new onset of seizure. COMPARISON: Head angiography, 07/24/2018 TECHNIQUE: Contiguous axial imaging was performed from the skull base to vertex without intravenous administration of contrast. DLP: 629 mGy-cm FINDINGS: Brain parenchyma: No acute findings compared to 07/24/2018. Turner-white matter differentiation is well preserved. No evidence of a dense middle cerebral artery sign, acute major vascular territory infarction, hemorrhage, mass or midline shift. Mild atrophy of cerebral and cerebellar hemispheres associated with commensurate prominence of ventricles and sulci. Cerebrospinal fluid spaces: No hydrocephalus or extra-axial fluid collections. Cerebellum and brainstem: No acute abnormality. The 4th ventricle is midline in position. The cerebellopontine angles are normal. Calvarium and temporomandibular joints: Calvarium is intact. Mastoid air cells and middle ear cavities are well aerated. The TMJs are normal. Paranasal sinuses and orbits: Orogastric and endotracheal tubes in place. Persistent mucosal thickening of ethmoid air cells. Also, mucosal thickening of sphenoid sinus and interval development of air-fluid levels within sphenoid sinus and maxillary sinuses. No acute intraorbital pathology. IMPRESSION: No evidence of cerebral edema or intracranial hemorrhage. No acute intracranial pathology compared to 07/24/2018. DICTATED BY: Colin Corbett MD DATE/TIME DICTATED:07/26/18834 DRY CHAIN PULLER:BETO DATE/TIME TRANSCRIBED:07/26/18834 CONFIDENTIAL, DO NOT COPY WITHOUT APPROPRIATE AUTHORIZATION. <Electronically signed in Other Vendor System> SIGNED BY: Colin Corbett MD 07/26/18 0849 Patient Name: LANCE MARTINEZ Location: [facility] Date of : 43 Unit Number: [id number] Sex: M Age: 73 Electroencephalogram Report Electroencephalogram Results Date of service: 07/29/18 Attending MD: Christin REEVES,[employer] Tender: Ish Murillo EEG Number: [id number] Test Utilizes: 10-20 system, 21 lead 18 channel digital recording Pertinent Hx/Physical/Neuro Findings/Clin Diagnosis: 73 year old man with resp distress, AMS and seizures. Inpatient Medications: Current Medications Sig/Zev Start time Last Medication Dose Route Stop Time Status Admin Ampicillin Sodium/ 3,000 MG Q6 07/25 1200 DC 07/29 Sulbactam Sodium IV 0502 Sodium Chloride 100 ML Artificial Tears 2 GTT 4 TIMES/DAY 07/28 1300 AC 07/29 OPH 1720 Aspirin 81 MG DAILY 07/25 1417 AC 07/29 PO 0843 Enoxaparin Sodium 40 MG DAILY 07/25 1315 AC 07/29 SC 0843 Fentanyl Citrate 25 MCG Q3P PRN 07/25 1330 AC 07/29 IV 1915 Levetiracetam 1,500 MG Q12 07/26 2100 AC 07/29 N/A 1 UNIT IV 0843 Magnesium Sulfate 1 GM ONCE ONE 07/29 0530 CAN Dextrose/Water 100 ML IV 07/29 0929 Midazolam HCl 2 MG ONCE ONE 07/29 1845 DC 07/29 IV 07/29 1846 1915 Midazolam HCl 50 MG Q10H 07/29 1800 AC 07/29 Sodium Chloride 50 ML IV 1915 Midazolam HCl 2 MG ONCE ONE 07/29 1645 DC 07/29 IV 07/29 1646 1720 Midazolam HCl 50 MG Q10H 07/29 1245 DC Sodium Chloride 50 ML IV Midazolam HCl 50 MG Q4H 07/27 0830 DC 07/29 Sodium Chloride 50 ML IV 0905 Nitroglycerin 0 .STK-MED ONE 07/29 1408 DC TOP Nitroglycerin 0.5 GM Q6 07/29 1351 AC 07/29 TOP 1720 Nystatin 1 CHERYL TID 07/29 1400 AC 07/29 TOP 1720 Pantoprazole Sodium 40 MG DAILY 07/25 0900 AC 07/29 IV 0843 Propofol 1,000 MG Q12H 07/27 1300 DC 07/29 N/A 1 UNIT IV 0843 Senna/Docusate Sodium 2 TAB DAILY 07/28 1000 AC 07/29 PO 0843 Valproate Sodium 1,000 MG Q8H 07/29 1900 AC 07/29 Sodium Chloride 50 ML IV 1932 Valproate Sodium 750 MG Q8H 07/26 1900 DC 07/29 Sodium Chloride 50 ML IV 1107 Interpretation: The recording reveals a loss of the normal frequency gradient. Instead, the background is composed of a mix of theta and alpha rhythms with medium amplitude. Otherwise there is no evidence of any paroxysmal sharps or spikes. The posterior dominant rhythm is estimated at 7 Hertz. Impression: Mildly abnormal recording due to mild background slowing that is suggestive of mild encephalopathy. No epileptogenic potentials observed. DICTATED BY: Sol REEVES,Hugo DATE/TIME DICTATED:07/29/182113 DRY CHAIN PULLER:ДМИТРИЙ EEG 07-25 Interpretation: EEG on propofor Background low voltage 22-24 cps activity Pseudoperiodic generalized sharp waves present throughout the recording Impression: Abnormal EEG due to periodic sharp waves; potentially epileptogenic repeat EEG when off sedatives DICTATED BY: Colin Bryant MD DATE/TIME DICTATED:07/25/181829 DRY CHAIN PULLER:CRISTIANO DATE/TIME TRANSCRIBED:07/25/181829 REPORT NUMBER:[id number] CONFIDENTIAL, DO NOT COPY WITHOUT APPROPRIATE AUTHORIZATION. <Electronically signed by Colin Bryant MD> 07/25/181833 Assessment/Plan Assessment: Hypoxic encephalopathy w/ seizures-> presently controlled Plan: Cont kep & VPA at current doses. Check VPA trough level in am Eventual brain MRI Discussed at length w/ son, ex
[2018-07-31 16:00] VITALS: BP 104/65
--- NOTE | 2018-07-31 16:15 | RADIOLOGY REPORT ---
EXAMINATION: CR PORTABLE CHEST CLINICAL INFORMATION: Intubated patient. Evaluate tube position. COMPARISON: Several prior chest x-rays, most recent of which is from earlier today. TECHNIQUE: Portable AP semierect view of the chest was obtained. FINDINGS: Endotracheal tube tip is approximately 5 cm above the jorge. Enteric tube courses into the abdomen with tip projected over the left upper quadrant. EKG leads and ventilator tubing overlie the chest. The cardiomediastinal silhouette is within normal limits in size. Low lung volumes are seen with bibasilar opacities, likely representing progressive atelectatic changes when compared to prior exam. Upper lungs remain clear. No significant effusion or pneumothorax is seen. Bony structures are grossly unremarkable. IMPRESSION: 1. Endotracheal tube tip approximately 5 cm above the jorge. 2. Enteric tube tip projects over the left upper quadrant. 3. Low lung volumes with increasing bibasilar opacities, consistent with increasing atelectasis.
[2018-08-01] VITALS: BP 120/80
[2018-08-01 02:57] LABS: ABSOLUTE BASOPHIL COUNT 0 /CUMM (0.0-0.2); ABSOLUTE EOSINOPHIL COUNT 0.2 /CUMM (0.0-0.7); ABSOLUTE GRANULOCYTE CT 5.9 /CUMM (1.4-6.5); ABSOLUTE MONOCYTE COUNT 0.3 /CUMM (0.10-0.60); BASOPHIL % 0.1 % (0.0-2.0); EOSINOPHIL % 2.9 % (0-5); GRANULOCYTE % 79.7 % (42.2-75.2); HEMATOCRIT 39.8 % (42-52); MEAN CORPUSCULAR HGB 30.1 PG (27.0-31.0); MEAN CORPUSCULAR HGB CONC 33.9 G/DL (33.0-37.0); MEAN CORPUSCULAR VOLUME 88.7 FL (80.0-94.0); MEAN PLATELET VOLUME 6.9 FL (7.4-10.4); PLATELET COUNT 181 /CUMM (130-400); RBC DISTRIBUTION WIDTH 13.5 % (11.5-14.5); RED BLOOD CELL CT 4.49 /CUMM (4.70-6.10); WHITE BLOOD CELL COUNT 7.4 /CUMM (4.8-10.8)
--- NOTE | 2018-08-01 07:46 | PN- Resident CRCU ---
See Addendum Subjective HPI/CRCU Issues: Patient sedated introduced, with propofol, no restlessness overnight. This morning, she does not arouse to sternal rub but his pupils are reactive. Objective Vital Signs & I&O Last 8 Hrs of Vitals and I&O: Vital Signs Date Time Temp Pulse Resp B/P B/P Pulse O2 O2 Flow FiO2 Mean Ox Delivery Rate 08/01 0551 50 08/01 0400 98 Ventilator 50% 08/01 0354 50 08/01 0124 50 08/01 0000 98.1 73 16 120/80 93 Ventilator 50% 08/01 0000 93 Ventilator 50% 07/31 2216 50 07/31 2000 95 Ventilator 50% 07/31 1925 55 07/31 1628 60 07/31 1600 96 Ventilator 55% 07/31 1600 98.0 72 16 104/65 95 Ventilator 55% 07/31 1444 60 07/31 1235 80 07/31 1157 96 Ventilator 100% 07/31 0851 100 07/31 0800 96 Ventilator 100% 07/31 0800 97.3 66 16 100/60 96 Ventilator 100% Intake & Output 08/01 0800 08/01 0000 07/31 1600 Intake Total 089 029 2899 Output Total 800 500 600 Balance 113 405 522 Intake, IV 196 222 262 Intake, Oral 0 0 Intake, Other 0 Intake, Tube 607 438 560 Feeding Intake, Tube 110 245 300 Irrigant Number 0 0 1 Bowel Movements Output, Urine 800 500 600 Intake & Output 08/01 0800 Intake Total 913 Output Total 800 Balance 113 Intake, IV 196 Intake, Tube 607 Feeding Intake, Tube 110 Irrigant Number 0 Bowel Movements Output, Urine 800 Exam General Appearance: sedated, intubated Respiratory: chest non-tender, no respiratory distress, quiet respiration Cardiovascular: regular rate/rhythm Gastrointestinal: normal bowel sounds, soft, non-tender Extremities: no edema Current Medications: Current Medications Sig/Zev Start time Last Medication Dose Route Stop Time Status Admin Artificial Tears 2 GTT 4 TIMES/DAY 07/28 1300 AC 07/31 OPH 2058 Aspirin 81 MG DAILY 07/25 1417 07/31 PO 0929 Clotrimazole 1 CHERYL BID 07/31 0915 07/31 TOP 205 Enoxaparin Sodium 40 MG DAILY 07/25 1315 07/31 SC 0934 Fentanyl Citrate 25 MCG Q3P PRN 07/25 1330 AC 07/31 IV 2049 Levetiracetam 1,500 MG Q12 07/26 2100 AC 07/31 N/A 1 UNIT IV 2057 Midazolam HCl 2 MG ONCE ONE 07/31 0845 DC 07/31 IV 07/31 0846 0845 Midazolam HCl 2 MG Q2 HRS NEEDED PRN 07/30 1345 DC 07/31 IV 0651 Nitroglycerin 0.5 GM Q6 07/29 1351 AC 07/30 TOP 1118 Non-Formulary 0 SEE ADMIN CRITERIA 07/31 900 CAN Medication ANY Nystatin 1 CHERYL TID 07/29 1400 AC 07/31 TOP 2058 Pantoprazole Sodium 40 MG DAILY 07/25 0900 AC 07/31 IV 0930 Propofol 0 .STK-MED ONE 07/31 0905 DC IV Propofol 1,000 MG Q12H 07/31 0900 AC 07/31 N/A 1 UNIT IV 2308 Senna/Docusate Sodium 2 TAB DAILY 07/28 1000 AC 07/31 PO 0929 Valproate Sodium 1,000 MG Q8H 07/29 1900 AC 08/01 Sodium Chloride 50 ML IV 0335 Impression/Plan Impression/Problem List Impression: Mr. Monge is a 73-year-old male with history of sleep apnea, not on CPAP regularly, COPD, increasing lung nodule which needs longitudinal follow-up, coronary artery disease with multiple stents in the past, chronic back pain, previous history of depression and anxiety on multiple medications noted, and recent surgery of retropharyngeal lipoma resection who came into the hospital with lethargy, was promptly intubated and admitted to the ICU, with subsequent episodes of bradycardia thought to be secondary to vagal nerve stimulation, then refractory status epilepticus s/p induced coma, now introduced in an induced coma for restlessness. Problem List: 1. AMS, unclear etiology 2. Severe bradycardia, now resovled 3. Refractory status epilepticus s/p induced coma 4. Anoxic brain injury vs CVA 5. Acute hypoxic respiratory failure s/p intubation with possible asp pna 6. Lung nodule that needs follow up when improved Plan: Neurology: -Patient presented with AMS of unclear etiology s/p retropharygeal surgery, does not seem related to surgery, differential includes low flow state secondary to bradycardia in setting of apnea (patient has COPD and LUKE) while taking oxycodone vs CVA vs aspiration episode -No clinical evidence of substance overdose -Patient had status epilepticus refractory to midazolam and levetiracetam s/p induced coma with propofol -Possible anoxic brain injury vs stroke, now responding to some commands -CT head and neck 2 (07/24, 07/26) negative for any brain anoxial changes, white and groves matter differentiation is well preserved -Neurology services following sporatically -EEG initially showed pseudoperiodic generalized sharp waves, potentially epileptogenic, repeat EEG showed a mildly abnormal recording due to mild background slowing that is suggestive of mild encephalopathy but no epileptogenic potentials observed -Currently patient is on propofol drip, valproic acid, and levetiracetam -May trial patient off propofol today to observe mental status -Should get MRI brain after extubation, may consider head CT Respiratory: -Intubated 07/24, AC 500/18/5/50 percent FiO2 -Chest x-ray shows atelectasis Infection: -Off antibiotics -Sputum and blood cultures remain negative Cardiology: -Initially bradycardic treated with dobutamine, now off dobutamine -HR stable Hematology: -Hg is stable, no leukocytosis -Blood pressure a little soft overnight Metabolic: -Keep Na>140 to prevent cerebral edema Alimentary: -N.p.o. with tube feed per nutrition DVT ppx with enoxaparin Tube feed Full code Patient's significant other is ex-, 7 children Ex- has no power of transactional attorney, children are decision makers in absence of POA or conservator Problem List: 1. Status epilepticus 2. Hypoxic brain injury Pain Ratin Tomorrow's Labs & Rationales: cbc icu Plan DVT/Prophylaxis: mechanical, pharmacological
[2018-08-01 08:00] VITALS: BP 160/90
--- NOTE | 2018-08-01 08:39 | RADIOLOGY REPORT ---
EXAMINATION: XR PORTABLE CHEST CLINICAL INFORMATION: Basilar opacities COMPARISON: 07/31/2018 TECHNIQUE: Portable frontal view of the chest was obtained. FINDINGS: The tip of the endotracheal tube is 5.5 cm above the jorge. The enteric tube extends below the diaphragm and into the stomach. Lungs remain hypoinflated and the bibasilar opacities, likely atelectasis, are not appreciably changed compared to 07/31/2018. No pulmonary edema, pneumothorax or other new pathology. Cardiac silhouette remains normal in size. IMPRESSION: - Endotracheal tube is in satisfactory position at 5.5 cm both jorge. - Persistent pulmonary hypoinflation and bibasilar atelectasis.
--- NOTE | 2018-08-01 14:58 | CT SCAN REPORT ---
EXAMINATION: CT HEAD WITHOUT CONTRAST CLINICAL INFORMATION: No personal movements. Assess for hypoxic brain injury of brainstem stroke. COMPARISON: CT scan of the head 07/26/2018. TECHNIQUE: Contiguous axial imaging was performed from the skull base to vertex without intravenous administration of contrast. DLP: 615.62 mGy-cm FINDINGS: There is no evidence of acute intracranial hemorrhage or territorial infarction. No abnormal mass effect or midline shift is seen. Gonzales to white matter differentiation is well preserved. No extra-axial fluid collections are identified. There is mild prominence of the ventricles and sulci, similar compared to prior imaging. There is volume loss of the cerebellum, unchanged. There are areas of low-attenuation in the periventricular and subcortical white matter, consistent with chronic microvascular ischemic changes. There are extensive secretions in the nasopharynx, demonstrated on prior imaging. There are no acute osseous or soft tissue abnormalities. There is fluid in the bilateral mastoid air cells on the current exam. There has been interval increase in the opacification of the bilateral sphenoid sinuses. The maxillary sinuses appear better aerated compared to the prior study. There is bilateral ethmoid sinus opacification. The nasal septum is deviated to the right and there is a right-sided bony nasal septal spur. Oral tubes are partially redemonstrated. IMPRESSION: 1. There are no acute bleeds or territorial infarcts. No masses are demonstrated. Gonzales-white differentiation is maintained. 2. There is diffuse volume loss and there are chronic microvascular ischemic changes. 3. There is interval increase in opacification of the sphenoid sinuses. There is fluid in the bilateral mastoid air cells.
[2018-08-01 16:00] VITALS: BP 140/80
[2018-08-02] VITALS: BP 94/62
[2018-08-02 05:02] LABS: ABSOLUTE BASOPHIL COUNT 0 /CUMM (0.0-0.2); ABSOLUTE EOSINOPHIL COUNT 0.2 /CUMM (0.0-0.7); ABSOLUTE GRANULOCYTE CT 5.3 /CUMM (1.4-6.5); ABSOLUTE MONOCYTE COUNT 0.7 /CUMM (0.10-0.60); HEMATOCRIT 39.2 % (42-52); MEAN CORPUSCULAR HGB 30.3 PG (27.0-31.0); MEAN CORPUSCULAR HGB CONC 33.5 G/DL (33.0-37.0); MEAN CORPUSCULAR VOLUME 90.3 FL (80.0-94.0); MEAN PLATELET VOLUME 6.9 FL (7.4-10.4); PLATELET COUNT 178 /CUMM (130-400); RBC DISTRIBUTION WIDTH 13.8 % (11.5-14.5); RED BLOOD CELL CT 4.34 /CUMM (4.70-6.10); WHITE BLOOD CELL COUNT 7.3 /CUMM (4.8-10.8)
[2018-08-02 05:07] LABS: BASOPHIL % 0.4 % (0.0-2.0); EOSINOPHIL % 2.4 % (0-5); GRANULOCYTE % 73.1 % (42.2-75.2)
[2018-08-02 08:00] VITALS: BP 138/70
--- NOTE | 2018-08-02 08:06 | PN- Resident CRCU ---
See Addendum Subjective HPI/CRCU Issues: Patient received 1 dose of haloperidol yesterday for agitation as propofol was attempted to be weaned. Overnight he had no events and continues to be unresponsive this morning in an induced coma. Objective Vital Signs & I&O Last 8 Hrs of Vitals and I&O: Vital Signs Date Time Temp Pulse Resp B/P B/P Pulse O2 O2 Flow FiO2 Mean Ox Delivery Rate 08/02 06 40 08/02 0400 95 Ventilator 40% 08/02 0336 40 08/02 0033 40 08/02 0000 98.4 70 18 94/62 94 Ventilator 40% 08/02 0000 93 Ventilator 40% 08/01 2219 40 08/01 2000 94 Ventilator 40% 08/01 1939 40 08/01 1648 40 08/01 1600 97 Ventilator 40% 08/01 1600 98.9 80 22 140/80 94 Ventilator 40% 08/01 1435 40 08/01 1200 97 Ventilator 40% 08/01 1149 40 08/01 0827 50 Vital Signs Date Time Temp Pulse Resp B/P B/P Pulse O2 O2 Flow FiO2 Mean Ox Delivery Rate 08/02 06 40 08/02 0400 95 Ventilator 40% 08/02 0336 40 08/02 0033 40 08/02 0000 98.4 70 18 94/62 94 Ventilator 40% 08/02 0000 93 Ventilator 40% 08/01 2219 40 08/01 2000 94 Ventilator 40% 08/01 1939 40 08/01 1648 40 08/01 1600 97 Ventilator 40% 08/01 1600 98.9 80 22 140/80 94 Ventilator 40% 08/01 1435 40 08/01 1200 97 Ventilator 40% 08/01 1149 40 08/01 0827 50 Intake & Output 08/02 1600 08/02 0800 08/02 0000 Intake Total 937 828.1 Output Total 400 450 Balance 537 378.1 Intake, IV 174 48.1 Intake, Tube 543 560 Feeding Intake, Tube 220 220 Irrigant Output, Urine 400 450 Exam General Appearance: well developed/nourished, no apparent distress, sedated, intubated Respiratory: normal breath sounds, chest non-tender, no respiratory distress Cardiovascular: regular rate/rhythm Gastrointestinal: normal bowel sounds, soft, non-tender Extremities: no edema Cranial Nerves: PERRL, Unresponsive to sternal rub/pain stimuli Current Medications: Current Medications Sig/Zev Start time Last Medication Dose Route Stop Time Status Admin Artificial Tears 2 GTT 4 TIMES/DAY 07/28 1300 AC 08/02 OPH 0802 Aspirin 81 MG DAILY 07/25 1417 AC 08/02 PO 0746 Clotrimazole 1 CHERYL BID 07/31 0915 AC 08/02 TOP 0803 Enoxaparin Sodium 40 MG DAILY 07/25 1315 AC 08/02 SC 0746 Fentanyl Citrate 25 MCG Q3P PRN 07/25 1330 AC 08/01 IV 2119 Fluconazole 200 MG QTHURS 08/01 1030 AC 08/01 PO 1250 Haloperidol 0.5 MG ONE ONE 08/01 1400 DC 08/01 PO 08/01 1401 1353 Haloperidol 0 .STK-MED ONE 08/01 1355 DC PO Levetiracetam 1,500 MG Q12 07/26 2100 AC 08/02 N/A 1 UNIT IV 0745 Nitroglycerin 0.5 GM Q6 07/29 1351 AC 08/02 TOP 0616 Nystatin 1 CHERYL TID 07/29 1400 AC 08/02 TOP 0802 Pantoprazole Sodium 40 MG DAILY 07/25 0900 AC 08/02 IV 0746 Propofol 1,000 MG Q12H 08/01 1015 AC 08/02 N/A 1 UNIT IV 0334 Propofol 1,000 MG Q12H 07/31 0900 DC 08/01 N/A 1 UNIT IV 0820 Senna/Docusate Sodium 2 TAB DAILY 07/28 1000 AC 08/02 PO 0746 Sodium Chloride 1,000 ML BOLUS ONE 08/01 1330 CAN IV 08/01 1529 Valproate Sodium 1,000 MG Q8H 07/29 1900 AC 08/02 Sodium Chloride 50 ML IV 0229 Impression/Plan Impression/Problem List Impression: Mr. Monge is a 73-year-old male with history of sleep apnea, not on CPAP regularly, COPD, increasing lung nodule which needs longitudinal follow-up, coronary artery disease with multiple stents in the past, chronic back pain, previous history of depression and anxiety on multiple medications noted, and recent surgery of retropharyngeal lipoma resection who came into the hospital with lethargy, was promptly intubated and admitted to the ICU, with subsequent episodes of bradycardia thought to be secondary to vagal nerve stimulation, then refractory status epilepticus s/p induced coma, now in an induced coma for restlessness. Problem List: 1. AMS, unclear etiology 2. Severe bradycardia, now resovled 3. Refractory status epilepticus s/p induced coma 4. Anoxic brain injury vs CVA 5. Acute hypoxic respiratory failure s/p intubation with possible asp pna 6. Lung nodule that needs follow up when improved Plan: Neurology: -Patient presented with AMS of unclear etiology s/p retropharygeal surgery, does not seem related to surgery, differential includes low flow state secondary to bradycardia in setting of apnea (patient has COPD and LUKE) while taking oxycodone vs CVA vs aspiration episode -No clinical evidence of substance overdose -Patient had status epilepticus refractory to midazolam and levetiracetam s/p induced coma with propofol -Possible anoxic brain injury vs stroke -CT head and neck 3 (07/24, 07/26, 08/01) negative for any brain anoxial changes, white and groves matter differentiation is well preserved -Neurology services following sporatically -EEG initially showed pseudoperiodic generalized sharp waves, potentially epileptogenic, repeat EEG showed a mildly abnormal recording due to mild background slowing that is suggestive of mild encephalopathy but no epileptogenic potentials observed -Currently patient is on propofol drip, valproic acid, and levetiracetam -Trying to keep propofol at a minimum, consider adding haloperidol regimen with daily QTC checks -Daily sedation holidays to observe mental status -Should get MRI brain after extubation Respiratory: -Intubated 07/24, AC 500/16/5/40 percent FiO2 -Chest x-ray shows atelectasis Infection: -Off antibiotics -Sputum and blood cultures remain negative Cardiology: -Initially bradycardic treated with dobutamine, now off dobutamine -HR stable Hematology: -Hg is stable, no leukocytosis -Blood pressure labile likely secondary to propofol Metabolic: -Keep Na>140 to prevent cerebral edema -Potassium greater than 4 Alimentary: -N.p.o. with tube feed per nutrition DVT ppx with enoxaparin Tube feed Full code Patient's significant other is ex-, 7 children Ex- has no power of employment attorney, children are decision makers in absence of POA or conservator Problem List: 1. Hypoxic brain injury 2. Status epilepticus Pain Ratin Tomorrow's Labs & Rationales: cbc icu Plan DVT/Prophylaxis: mechanical, pharmacological
[2018-08-02 16:00] VITALS: BP 107/65
[2018-08-03] VITALS: BP 148/80
[2018-08-03 05:54] LABS: ABSOLUTE BASOPHIL COUNT 0 /CUMM (0.0-0.2); ABSOLUTE EOSINOPHIL COUNT 0.1 /CUMM (0.0-0.7); ABSOLUTE LYMPH COUNT 0.9 /CUMM (1.2-3.4); ABSOLUTE MONOCYTE COUNT 0.7 /CUMM (0.10-0.60); BASOPHIL % 0.1 % (0.0-2.0); EOSINOPHIL % 1.8 % (0-5); GRANULOCYTE % 77.7 % (42.2-75.2); HEMATOCRIT 38.6 % (42-52); MEAN CORPUSCULAR HGB 30.3 PG (27.0-31.0); MEAN CORPUSCULAR HGB CONC 33.5 G/DL (33.0-37.0); MEAN CORPUSCULAR VOLUME 90.2 FL (80.0-94.0); PLATELET COUNT 175 /CUMM (130-400); RBC DISTRIBUTION WIDTH 13.8 % (11.5-14.5); RED BLOOD CELL CT 4.28 /CUMM (4.70-6.10); WHITE BLOOD CELL COUNT 7.8 /CUMM (4.8-10.8)
--- NOTE | 2018-08-03 07:55 | PN- CRCU ---
Subjective HPI/Critical Care Issues: The patient is much more awake this morning. He is following commands and answering appropriately. The patient has had significant improvement in his neurologic status overnight. He remains intubated, on mechanical ventilation. His propofol is now off. This morning, the patient has had multiple stools. Objective Current Medications: Current Medications Sig/Zev Start time Last Medication Dose Route Stop Time Status Admin Acetaminophen 1,000 MG Q8P PRN 08/03 0915 AC 08/03 PO 0913 Artificial Tears 2 GTT 4 TIMES/DAY 07/28 1300 AC 08/02 OPH 2203 Aspirin 81 MG DAILY 07/25 1417 AC 08/03 PO 0914 Clotrimazole 1 CHERYL BID 07/31 0915 AC 08/03 TOP 0914 Enoxaparin Sodium 40 MG DAILY 07/25 1315 AC 08/03 SC 0914 Fentanyl Citrate 25 MCG Q3P PRN 07/25 1330 AC 08/03 IV 0326 Fluconazole 200 MG QTHURS 08/01 1030 AC 08/01 PO 1250 Haloperidol 1 MG Q8P PRN 08/03 1015 PO Haloperidol 0.5 MG Q8 08/03 0830 DC PO 08/03 2201 Haloperidol 0.5 MG Q8 08/02 0945 DC 08/02 PO 08/02 2201 2202 Levetiracetam 1,500 MG Q12 07/26 2100 AC 08/03 N/A 1 UNIT IV 0914 Nitroglycerin 0.5 GM Q6 07/29 1351 AC 08/03 TOP 0552 Nystatin 1 CHERYL TID 07/29 1400 AC 08/03 TOP 0914 Pantoprazole Sodium 40 MG DAILY 07/25 0900 AC 08/03 IV 0914 Propofol 0 .STK-MED ONE 08/02 1534 DC IV Propofol 1,000 MG Q12H 08/01 1015 DC 08/02 N/A 1 UNIT IV 2338 Senna/Docusate Sodium 2 TAB DAILY 07/28 1000 DC 08/02 PO 0746 Valproate Sodium 1,000 MG Q8H 07/29 1900 AC 08/03 Sodium Chloride 50 ML IV 0238 Vital Signs & I&O Last 24 Hrs of Vitals and I&O: Vital Signs Date Time Temp Pulse Resp B/P B/P Pulse O2 O2 Flow FiO2 Mean Ox Delivery Rate 08/03 913 100.4 08/03 0818 40 08/03 0800 93 Ventilator 40% 08/03 0800 97.6 73 22 120/60 93 Ventilator 40% 08/03 0550 40 08/03 0400 93 Ventilator 40% 08/03 0322 40 08/03 0024 40 08/03 0000 91 Ventilator 40% 08/03 0000 98.8 78 21 148/80 91 Ventilator 40% 08/02 2206 40 08/02 2000 93 Ventilator 40% 08/02 1940 40 08/02 1737 40 08/02 1600 95 Ventilator 40% 08/02 1600 98.1 70 18 107/65 95 Ventilator 40% 08/02 1356 40 08/02 1200 95 Ventilator 40% 08/02 1134 40 Intake & Output 08/03 1600 08/03 0800 08/03 0000 Intake Total 920 949 Output Total 650 500 Balance 270 449 Intake, IV 199 199 Intake, Tube 501 530 Feeding Intake, Tube 220 220 Irrigant Number 1 0 Bowel Movements Output, Urine 650 500 Results Last 24 Hrs of Lab Results: Laboratory Tests 08/03/18 0418: Anion Gap 7, Estimated GFR > 60, Glucose 105 H, Calcium 8.2 L, Phosphorus 2.9, Magnesium 2.4 H, Total Bilirubin 0.2, AST 20, ALT 43, Albumin 2.5 L, CBC w Diff NO MAN DIFF REQ, RBC 4.28 L, MCV 90.2, MCH 30.3, MCHC 33.5, RDW 13.8, MPV 7.0 L, Gran % 77.7 H, Lymphocytes % 11.2 L, Monocytes % 9.2, Eosinophils % 1.8, Basophils % 0.1, Absolute Granulocytes 6.0, Absolute Lymphocytes 0.9 L, Absolute Monocytes 0.7 H, Absolute Eosinophils 0.1, Absolute Basophils 0, Valproic Acid 133.3 H Impression/Plan Impression/Plan Impression/Plan: 1. Acute mental status change, unclear etiology. The patient is clinically improved this morning. 2. Severe bradycardia, now resolved. 3. Refractory status epilepticus, with induced coma, now improved. No current evidence of seizures. 4. Anoxic brain injury versus acute CVA. 5. Acute hypoxic respiratory failure status post intubation and treatment for possible aspiration pneumonia. 6. History of lung nodule that will require ongoing follow-up. 7. Malnutrition, on tube feeds. 8. Recent retropharyngeal surgery for nonmalignant mass. Recommendations: * Check stool for C. difficile. * Monitor off propofol. * Haldol as needed for agitation. * Check a portable chest x-ray this morning. * Continue current ventilator settings. * Begin weaning trials. * Monitor neurologic status and for seizures. * Monitor off antibiotics as per ID. * Keep sodium greater than 140 to prevent cerebral edema. * Vent bundleDVT prophylaxis at all times. * Continue all supportive care.
[2018-08-03 08:00] VITALS: BP 120/60
--- NOTE | 2018-08-03 08:24 | PN- Resident CRCU ---
Subjective HPI/CRCU Issues: No overnight events. Patient remains intubated and sedated. We will do a sedation holiday today and assess. Objective Vital Signs & I&O Last 8 Hrs of Vitals and I&O: Vital Signs Date Time Temp Pulse Resp B/P B/P Pulse O2 O2 Flow FiO2 Mean Ox Delivery Rate 08/03 0800 93 Ventilator 40% 08/03 0800 97.6 73 22 120/60 93 Ventilator 40% 08/03 0550 40 08/03 0400 93 Ventilator 40% 08/03 0322 40 08/03 0024 40 08/03 0000 91 Ventilator 40% 08/03 0000 98.8 78 21 148/80 91 Ventilator 40% 08/02 2206 40 08/02 2000 93 Ventilator 40% 08/02 1940 40 08/02 1737 40 08/02 1600 95 Ventilator 40% 08/02 1600 98.1 70 18 107/65 95 Ventilator 40% 08/02 1356 40 08/02 1200 95 Ventilator 40% 08/02 1134 40 Intake & Output 08/03 1600 08/03 0800 08/03 0000 Intake Total 920 949 Output Total 650 500 Balance 270 449 Intake, IV 199 199 Intake, Tube 501 530 Feeding Intake, Tube 220 220 Irrigant Number 1 0 Bowel Movements Output, Urine 650 500 Exam General Appearance: well developed/nourished, sedated, intubated Respiratory: normal breath sounds, chest non-tender, no respiratory distress Cardiovascular: regular rate/rhythm Gastrointestinal: soft, non-tender Extremities: no edema Cranial Nerves: PERRL Current Medications: Current Medications Sig/Zev Start time Last Medication Dose Route Stop Time Status Admin Artificial Tears 2 GTT 4 TIMES/DAY 07/28 1300 AC 08/02 OPH 2203 Aspirin 81 MG DAILY 07/25 1417 AC 08/02 PO 0746 Clotrimazole 1 CHERYL BID 07/31 0915 AC 08/02 TOP 2200 Enoxaparin Sodium 40 MG DAILY 07/25 1315 AC 08/02 SC 0746 Fentanyl Citrate 25 MCG Q3P PRN 07/25 1330 AC 08/03 IV 0326 Fluconazole 200 MG QTHURS 08/01 1030 AC 08/01 PO 1250 Haloperidol 0.5 MG Q8 08/03 0830 UNVr PO 08/03 220 Haloperidol 0.5 MG Q8 08/02 0945 DC 08/02 PO 08/02 2201 2202 Levetiracetam 1,500 MG Q12 07/26 2100 AC 08/02 N/A 1 UNIT IV 2204 Nitroglycerin 0.5 GM Q6 07/29 1351 AC 08/03 TOP 0552 Nystatin 1 CHERYL TID 07/29 1400 AC 08/02 TOP 2202 Pantoprazole Sodium 40 MG DAILY 07/25 0900 AC 08/02 IV 0746 Propofol 0 .STK-MED ONE 08/02 1534 DC IV Propofol 1,000 MG Q12H 08/01 1015 AC 08/02 N/A 1 UNIT IV 2338 Senna/Docusate Sodium 2 TAB DAILY 07/28 1000 AC 08/02 PO 0746 Valproate Sodium 1,000 MG Q8H 07/29 1900 AC 08/03 Sodium Chloride 50 ML IV 0238 Impression/Plan Impression/Problem List Impression: Mr. Monge is a 73-year-old male with history of sleep apnea, not on CPAP regularly, COPD, increasing lung nodule which needs longitudinal follow-up, coronary artery disease with multiple stents in the past, chronic back pain, previous history of depression and anxiety on multiple medications noted, and recent surgery of retropharyngeal lipoma resection who came into the hospital with lethargy, was promptly intubated and admitted to the ICU, with subsequent episodes of bradycardia thought to be secondary to vagal nerve stimulation, then refractory status epilepticus s/p induced coma, now in an induced coma for restlessness. Problem List: 1. AMS, unclear etiology 2. Severe bradycardia, now resovled 3. Refractory status epilepticus s/p induced coma 4. Anoxic brain injury vs CVA 5. Acute hypoxic respiratory failure s/p intubation with possible asp pna 6. Lung nodule that needs follow up when improved Plan: Neurology: -Patient presented with AMS of unclear etiology s/p retropharygeal surgery, does not seem related to surgery, differential includes low flow state secondary to bradycardia in setting of apnea (patient has COPD and LUKE) while taking oxycodone vs CVA vs aspiration episode -No clinical evidence of substance overdose -Patient had status epilepticus refractory to midazolam and levetiracetam s/p induced coma with propofol -Possible anoxic brain injury vs stroke -CT head and neck 3 (07/24, 07/26, 08/01) negative for any brain anoxial changes, white and groves matter differentiation is well preserved -Neurology services following sporatically -EEG initially showed pseudoperiodic generalized sharp waves, potentially epileptogenic, repeat EEG showed a mildly abnormal recording due to mild background slowing that is suggestive of mild encephalopathy but no epileptogenic potentials observed -Currently patient is on valproic acid, and levetiracetam -Check QTc twice daily, if okay continue haloperidol 0.5 mg every 8 hours, reorder daily -Today, for the first time, the patient is answering questions appropriately after stopping the propofol. He will answer yes or no questions and move all 4 extremities -We will hold further sedation unless the patient gets agitated -Should get MRI brain after extubation Respiratory: -Intubated 07/24, AC 500/16/5/40 percent FiO2 -Chest x-ray shows atelectasis -Weaning trial today Infection: -Off antibiotics -Sputum and blood cultures remain negative Cardiology: -Initially bradycardic treated with dobutamine, now off dobutamine -HR stable Hematology: -Hg is stable, no leukocytosis -Blood pressure labile likely secondary to propofol Metabolic: -Keep Na>140 to prevent cerebral edema -Potassium greater than 4 Alimentary: -N.p.o. with tube feed per nutrition DVT ppx with enoxaparin Tube feed DNR/no pressors/no dialysis Please note that on 08/02/18 Dr. Waller and I had an extensive discussion with the entire family including his children and ex-. Legally speaking, his children are the decision makers, not the ex-. It was decided at this meeting that the patient is now DNR and we will not initiate pressors or dialysis if he decompensates. If he self extubates or extubates accidentally, we will reintubate him. Otherwise, we will continue assessing the patient for progress and reassess next week. Problem List: 1. Hypoxic brain injury Pain Ratin Tomorrow's Labs & Rationales: cbc icu Plan DVT/Prophylaxis: mechanical, pharmacological
--- NOTE | 2018-08-03 11:30 | RADIOLOGY REPORT ---
EXAMINATION: CHEST 1 VIEW CLINICAL INFORMATION: Intubated. Fluid overload. COMPARISON: 08/01/2018. TECHNIQUE: An AP view of the chest is provided. FINDINGS: The cardiac silhouette is not enlarged. An endotracheal tube is in place. The tip is approximately 6 cm above the jorge. An enteric tube is in unchanged position. The mediastinal and hilar contours are unremarkable. There are neither pleural effusions nor pneumothoraces. There are no consolidations. There is mild dependent bibasilar atelectasis. The osseous structures are unremarkable. IMPRESSION: Lines and tubes in place as stated above. Mild bibasilar atelectasis.
[2018-08-03 12:00] VITALS: BP 130/80
--- NOTE | 2018-08-03 14:52 | PN- Cardiology ---
Subjective Subjective: The patient is more alert today. He is able to follow simple commands. He remains intubated. Propofol is now off. Objective Vital Signs and I&Os Vital Signs Date Time Temp Pulse Resp B/P B/P Pulse O2 O2 Flow FiO2 Mean Ox Delivery Rate 08/03 1415 40 08/03 1105 40 08/03 0913 100.4 08/03 0818 40 08/03 0800 93 Ventilator 40% 08/03 0800 97.6 73 22 120/60 93 Ventilator 40% 08/03 0550 40 08/03 0400 93 Ventilator 40% 08/03 0322 40 08/03 0024 40 08/03 0000 91 Ventilator 40% 08/03 0000 98.8 78 21 148/80 91 Ventilator 40% 08/02 2206 40 08/02 2000 93 Ventilator 40% 08/02 1940 40 08/02 1737 40 08/02 1600 95 Ventilator 40% 08/02 1600 98.1 70 18 107/65 95 Ventilator 40% Intake & Output 08/03 1600 08/03 0800 08/03 0000 08/02 1600 08/02 0800 08/02 0000 Intake Total 510 804 0036.8 937 828.1 Output Total 650 500 400 400 450 Balance 270 449 816.8 537 378.1 Intake, IV 199 199 246.8 174 48.1 Intake, Oral 0 Intake, Tube 501 530 560 543 560 Feeding Intake, Tube 220 220 410 220 220 Irrigant Number 1 0 Bowel Movements Output, Urine 650 500 400 400 450 Physical Exam: Gen: NAD HEENT: normal Lungs: clear to auscultation, normal resp. effort Heart: RRR, S1, S2, no murmurs Abdomen: Soft, nontender, no masses Extremities: No clubbing, cyanosis, or edema. Neuro: Alert and oriented x 3, cranial nerves intact Current Medications: Current Medications Sig/Zev Start time Last Medication Dose Route Stop Time Status Admin Acetaminophen 1,000 MG Q8P PRN 08/03 915 AC 08/03 PO 912 Artificial Tears 2 GTT 4 TIMES/DAY 07/28 1300 AC 08/03 OPH 1443 Aspirin 81 MG DAILY 07/25 1417 AC 08/03 PO 0914 Clotrimazole 1 CHERYL BID 07/31 0915 AC 08/03 TOP 0914 Enoxaparin Sodium 40 MG DAILY 07/25 1315 AC 08/03 SC 0914 Fentanyl Citrate 25 MCG Q3P PRN 07/25 1330 08/03 IV 0326 Fluconazole 200 MG QTHURS 08/01 1030 08/01 PO 1250 Haloperidol 1 MG Q8P PRN 08/03 1015 08/03 PO 1115 Haloperidol 0.5 MG Q8 08/03 0830 DC PO 08/03 2201 Haloperidol 0.5 MG Q8 08/02 0945 DC 08/02 PO 08/02 2201 2202 Levetiracetam 1,500 MG Q12 07/26 2100 08/03 N/A 1 UNIT IV 0914 Nitroglycerin 0.5 GM Q6 07/29 1351 08/03 TOP 1119 Nystatin 1 CHERYL TID 07/29 1400 08/03 TOP 1443 Pantoprazole Sodium 40 MG DAILY 07/25 0900 08/03 IV 0914 Propofol 1,000 MG Q12H 08/03 1245 08/03 N/A 1 UNIT IV 1245 Propofol 0 .STK-MED ONE 08/02 1534 DC IV Propofol 1,000 MG Q12H 08/01 1015 [place] 08/02 N/A 1 UNIT IV 2338 Senna/Docusate Sodium 2 TAB DAILY 07/28 1000 [place] 08/02 PO 0746 Valproate Sodium 1,000 MG Q12 08/03 2100 Sodium Chloride 50 ML IV Valproate Sodium 1,000 MG Q8H 07/29 1900 [place] 08/03 Sodium Chloride 50 ML IV 1115 Results Last 48 Hrs of Labs/Mics: Laboratory Tests 08/03/18 1030: Urinalysis LIGHT H, Urine Color STRAW, Urine Clarity CLEAR, Urine pH 7.0, Ur Specific [place] 1.020, Urine Protein TRACE H, Urine Ketones NEG, Urine Nitrite NEG, Urine Bilirubin NEG, Urine Urobilinogen 0.2, Ur Leukocyte Esterase NEG, Ur Microscopic SEDIMENT EXAMINED, Urine RBC 50-75 H, Urine WBC 1-3 H, Hyaline Casts RARE H, Urine Hemoglobin MOD H, Urine Glucose NEG 08/03/18 0418: Anion Gap 7, Estimated GFR > 60, Glucose 105 H, Calcium 8.2 L, Phosphorus 2.9, Magnesium 2.4 H, Total Bilirubin 0.2, AST 20, ALT 43, Albumin 2.5 L, CBC w Diff NO MAN DIFF REQ, RBC 4.28 L, MCV 90.2, MCH 30.3, MCHC 33.5, RDW 13.8, MPV 7.0 L, Gran % 77.7 H, Lymphocytes % 11.2 L, Monocytes % 9.2, Eosinophils % 1.8, Basophils % 0.1, Absolute Granulocytes 6.0, Absolute Lymphocytes 0.9 L, Absolute Monocytes 0.7 H, Absolute Eosinophils 0.1, Absolute Basophils 0, Valproic Acid 133.3 H 08/02/18 0430: Anion Gap 7, Estimated GFR > 60, Glucose 95, Calcium 8.3 L, Phosphorus 3.6, Magnesium 2.6 H, Total Bilirubin 0.3, AST 20, ALT 24, Albumin 2.5 L, Triglycerides 124, CBC w Diff NO MAN DIFF REQ, RBC 4.34 L, MCV 90.3, MCH 30.3, MCHC 33.5, RDW 13.8, MPV 6.9 L, Gran % 73.1, Lymphocytes % 14.4 L, Monocytes % 9.7 H, Eosinophils % 2.4, Basophils % 0.4, Absolute Granulocytes 5.3, Absolute Lymphocytes 1.0 L, Absolute Monocytes 0.7 H, Absolute Eosinophils 0.2, Absolute Basophils 0 Recent Imaging Studies: Chest x-ray: Lines and tubes in place as stated above. Mild bibasilar atelectasis. Assessment/Plan Assessment/Plan Assessment: 1. Sinus bradycardia, resolved 2. Abnormal EKG 3. Normal echocardiogram 4. Acute mental status change 5. Possible anoxic brain injury Plan: * Ventilatory support as per pulmonary * Continue aspirin for possible CVA * Cardiac monitoring Continue telemetry? Yes
[2018-08-03 16:00] VITALS: BP 92/54
[2018-08-04] VITALS: BP 90/50
[2018-08-04 05:52] LABS: ABSOLUTE BASOPHIL COUNT 0 /CUMM (0.0-0.2); ABSOLUTE EOSINOPHIL COUNT 0.1 /CUMM (0.0-0.7); ABSOLUTE MONOCYTE COUNT 0.6 /CUMM (0.10-0.60); BASOPHIL % 0.1 % (0.0-2.0); EOSINOPHIL % 1.5 % (0-5); GRANULOCYTE % 78.2 % (42.2-75.2); HEMATOCRIT 38.7 % (42-52); MEAN CORPUSCULAR HGB 30.1 PG (27.0-31.0); MEAN CORPUSCULAR HGB CONC 33.7 G/DL (33.0-37.0); MEAN CORPUSCULAR VOLUME 89.4 FL (80.0-94.0); MEAN PLATELET VOLUME 7.1 FL (7.4-10.4); PLATELET COUNT 160 /CUMM (130-400); RED BLOOD CELL CT 4.33 /CUMM (4.70-6.10); WHITE BLOOD CELL COUNT 7.7 /CUMM (4.8-10.8)
[2018-08-04 08:00] VITALS: BP 142/72
--- NOTE | 2018-08-04 08:40 | PN- CRCU ---
Subjective HPI/Critical Care Issues: The patient remains awake and following commands. He is intermittently agitated. He had many bowel movements yesterday. Stool for C. difficile is pending. The patient did relatively well with weaning trials yesterday. His oxygen levels were within normal range, however on a T-piece, the patient became tachypneic and was placed back on mechanical ventilation. Objective Current Medications: Current Medications Sig/Zev Start time Last Medication Dose Route Stop Time Status Admin Acetaminophen 1,000 MG Q8P PRN 08/03 0915 AC 08/03 PO 0913 Artificial Tears 2 GTT 4 TIMES/DAY 07/28 1300 AC 08/04 OPH 0821 Aspirin 81 MG DAILY 07/25 1417 AC 08/04 PO 0818 Chlorhexidine 30 ML BID 08/03 2100 DC Gluconate PO Chlorhexidine 15 ML BID 08/03 2100 AC 08/04 Gluconate PO 0819 Clotrimazole 1 CHERYL BID 07/31 0915 AC 08/04 TOP 0821 Enoxaparin Sodium 40 MG DAILY 07/25 1315 AC 08/04 SC 0818 Fentanyl Citrate 25 MCG Q3P PRN 07/25 1330 AC 08/04 IV 0045 Fluconazole 200 MG QTHURS 08/01 1030 AC 08/01 PO 1250 Haloperidol 1 MG Q8P PRN 08/03 1015 AC 08/04 PO 0343 Haloperidol 0.5 MG Q8 08/03 0830 DC PO 08/03 2201 Levetiracetam 1,500 MG Q12 07/26 2100 AC 08/04 N/A 1 UNIT IV 0818 Nitroglycerin 0.5 GM Q6 07/29 1351 AC 08/04 TOP 0613 Nystatin 1 CHERYL TID 07/29 1400 AC 08/04 TOP 0819 Oxymetazoline HCl 2 SPRAY BID 08/03 2100 AC 08/04 JERRY 08/06 0901 0819 Pantoprazole Sodium 40 MG DAILY 07/25 0900 AC 08/04 IV 0818 Propofol 1,000 MG Q12H 08/03 1245 AC 08/04 N/A 1 UNIT IV 0654 Propofol 1,000 MG Q12H 08/01 1015 DC 08/02 N/A 1 UNIT IV 2338 Senna/Docusate Sodium 2 TAB DAILY 07/28 1000 DC 08/02 PO 0746 Valproate Sodium 1,000 MG Q12 08/03 2100 AC 08/03 Sodium Chloride 50 ML IV 2052 Valproate Sodium 1,000 MG Q8H 07/29 1900 DC 08/03 Sodium Chloride 50 ML IV 1115 Vital Signs & I&O Last 24 Hrs of Vitals and I&O: Vital Signs Date Time Temp Pulse Resp B/P B/P Pulse O2 O2 Flow FiO2 Mean Ox Delivery Rate 08/04 0825 40 08/04 0625 40 08/04 0400 94 Ventilator 40% 08/04 0333 40 08/04 0034 40 08/04 0000 95 Ventilator 40% 08/04 0000 97.3 60 16 90/50 95 Ventilator 40% 08/03 2228 40 08/03 2000 93 Ventilator 40% 08/03 1915 40 08/03 1640 40 08/03 1600 99.9 72 18 92/54 95 Ventilator 40% 08/03 1600 95 Ventilator 40% 08/03 1415 40 08/03 1200 92 Ventilator 40% 08/03 1200 99.3 98 38 130/80 92 Ventilator 40% 08/03 1105 40 08/03 0913 100.4 Intake & Output 08/04 1600 08/04 0800 08/04 0000 Intake Total 834 955 Output Total 970 935 Balance -136 20 Intake, IV 92 235 Intake, Tube 522 500 Feeding Intake, Tube 220 220 Irrigant Number 1 3 Bowel Movements Output, Urine 970 935 Exam General Appearance: intubated, agitated Head: atraumatic Neck: supple Respiratory: increased tachypnea with weaning Cardiovascular: regular rate/rhythm, tachycardia Abdomen: normal bowel sounds, soft, non-tender Extremities: no edema Skin: intact, normal color, warm/dry Results Last 24 Hrs of Lab Results: Laboratory Tests 08/04/18 0935: pH 7.48 H, pCO2 34 L, pO2 71 L, HCO3 25, ABG O2 Sat (Measured) 93.0 L, Carboxyhemoglobin 0.9 L, O2 Concentration % 40%, O2 Delivery Method TP, Phlebotomy Draw Site LEFT RADIAL 08/04/18 0406: Anion Gap 6, Estimated GFR > 60, Glucose 112 H, Calcium 8.3 L, Phosphorus 2.7, Magnesium 2.4 H, Total Bilirubin 0.4, AST 24, ALT 30, Albumin 2.6 L, CBC w Diff NO MAN DIFF REQ, RBC 4.33 L, MCV 89.4, MCH 30.1, MCHC 33.7, RDW 14.0, MPV 7.1 L, Gran % 78.2 H, Lymphocytes % 12.6 L, Monocytes % 7.6, Eosinophils % 1.5, Basophils % 0.1, Absolute Granulocytes 6.0, Absolute Lymphocytes 1.0 L, Absolute Monocytes 0.6, Absolute Eosinophils 0.1, Absolute Basophils 0, Valproic Acid 80.0 Diagnostic Data CXR Findings: None available for today. Impression/Plan Impression/Plan Impression/Plan: 1. Acute mental status change, unclear etiology. The patient is now awake and alert, following commands. 2. Severe bradycardia, now resolved. 3. Refractory status epilepticus, with induced coma, now improved. No current evidence of seizures. 4. Anoxic brain injury versus acute CVA. 5. Acute hypoxic respiratory failure status post intubation and treatment for possible aspiration pneumonia. The patient is doing better with weaning, however he is not yet ready to be extubated. 6. History of lung nodule that will require ongoing follow-up. 7. Malnutrition, on tube feeds. 8. Recent retropharyngeal surgery for nonmalignant mass. 9. Oral thrush. Recommendations: * Follow-up stool for C. difficile results. * Check daily chest x-rays to ensure adequate placement of lines and tubes and to look for any new findings. * Continue current vent settings. * Continue with weaning trials/T piece trials. * Continue nebs/TRC. * Monitor off propofol, continue Haldol for agitation. * Monitor off antibiotics per ID. * Continue to monitor neurologic status, continue antiseizure medication ( valproate and Keppra). * Check an ammonia level today. * DVT and GI prophylaxis at all times. * Continue all supportive care.
--- NOTE | 2018-08-04 08:53 | PN- Resident CRCU ---
Subjective HPI/CRCU Issues: Off propofol, weaning trial today, pt remains intubated and intermittently agitated Objective Vital Signs & I&O Last 8 Hrs of Vitals and I&O: Vital Signs Date Time Temp Pulse Resp B/P B/P Pulse O2 O2 Flow FiO2 Mean Ox Delivery Rate 08/04 1133 40 08/04 0825 40 08/04 0625 40 08/04 0400 94 Ventilator 40% 08/04 0333 40 08/04 0034 40 08/04 0000 95 Ventilator 40% 08/04 0000 97.3 60 16 90/50 95 Ventilator 40% 08/03 2228 40 08/03 2000 93 Ventilator 40% 08/03 1915 40 08/03 1640 40 08/03 1600 99.9 72 18 92/54 95 Ventilator 40% 08/03 1600 95 Ventilator 40% 08/03 1415 40 Intake & Output 08/04 1600 08/04 0800 08/04 0000 Intake Total 834 955 Output Total 970 935 Balance -136 20 Intake, IV 92 235 Intake, Tube 522 500 Feeding Intake, Tube 220 220 Irrigant Number 1 3 Bowel Movements Output, Urine 970 935 Exam General Appearance: anxious, sedated, intubated Head: atraumatic Respiratory: lungs clear Cardiovascular: regular rate/rhythm, tachycardia Gastrointestinal: soft, non-tender Extremities: normal inspection, no edema, medical restraints b/l upper Skin: intact, warm/dry Skin Temp/Moisture Exam: Warm/Dry Weaning Parameters NIF: 27 Minute Volume: 9.14 Resp rate: 20 Vt: 450 Heart Rate: 74 Weaning Schedule Start Time: 0820 Minute Volume: 13.3 Resp Rate: 27 Vt: 665 Heart Rate: 74 End Time: 1225 Minute Volume: 10.1 Resp Rate: 26 Vt: 700 Heart Rate: 100 Start Time: 1225 Heart Rate: 100 End Time: 1235 Heart Rate: 110 Current Medications: Current Medications Sig/Zev Start time Last Medication Dose Route Stop Time Status Admin Acetaminophen 1,000 MG Q8P PRN 08/03 0915 AC 08/03 PO 0913 Artificial Tears 2 GTT 4 TIMES/DAY 07/28 1300 AC 08/04 OPH 0821 Aspirin 81 MG DAILY 07/25 1417 AC 08/04 PO 0818 Chlorhexidine 30 ML BID 08/03 2100 DC Gluconate PO Chlorhexidine 15 ML BID 08/03 2100 AC 08/04 Gluconate PO 0819 Clotrimazole 1 CHERYL BID 07/31 0915 AC 08/04 TOP 0821 Enoxaparin Sodium 40 MG DAILY 07/25 1315 AC 08/04 SC 0818 Fentanyl Citrate 25 MCG Q3P PRN 07/25 1330 AC 08/04 IV 0045 Fluconazole 200 MG QTHURS 08/01 1030 AC 08/01 PO 1250 Haloperidol 1 MG Q8P PRN 08/03 1015 AC 08/04 PO 0343 Levetiracetam 1,500 MG Q12 07/26 2100 AC 08/04 N/A 1 UNIT IV 0818 Nitroglycerin 0.5 GM Q6 07/29 1351 AC 08/04 TOP 0613 Nystatin 1 CHERYL TID 07/29 1400 AC 08/04 TOP 0819 Oxymetazoline HCl 2 SPRAY BID 08/03 2100 AC 08/04 JERRY 08/06 0901 0819 Pantoprazole Sodium 40 MG DAILY 07/25 0900 AC 08/04 IV 0818 Propofol 1,000 MG Q12H 08/03 1245 AC 08/04 N/A 1 UNIT IV 0654 Valproate Sodium 1,000 MG Q12 08/03 2100 AC 08/04 Sodium Chloride 50 ML IV 1142 Valproate Sodium 1,000 MG Q8H 07/29 1900 DC 08/03 Sodium Chloride 50 ML IV 1115 Impression/Plan Impression/Problem List Impression: Mr. Monge is a 73-year-old male with history of sleep apnea, not on CPAP regularly, COPD, increasing lung nodule which needs longitudinal follow-up, coronary artery disease with multiple stents in the past, chronic back pain, previous history of depression and anxiety on multiple medications noted, and recent surgery of retropharyngeal lipoma resection who came into the hospital with lethargy, was promptly intubated and admitted to the ICU, with subsequent episodes of bradycardia thought to be secondary to vagal nerve stimulation, then refractory status epilepticus s/p induced coma, now in an induced coma for restlessness. Problem List: 1. AMS, unclear etiology 2. Severe bradycardia, now resovled 3. Refractory status epilepticus s/p induced coma 4. Anoxic brain injury vs CVA 5. Acute hypoxic respiratory failure s/p intubation with possible asp pna 6. Lung nodule that needs follow up when improved Plan: Neurology: -Patient presented with AMS of unclear etiology s/p retropharygeal surgery, does not seem related to surgery, differential includes low flow state secondary to bradycardia in setting of apnea (patient has COPD and LUKE) while taking oxycodone vs CVA vs aspiration episode -No clinical evidence of substance overdose -Patient had status epilepticus refractory to midazolam and levetiracetam s/p induced coma with propofol -Possible anoxic brain injury vs stroke -CT head and neck 3 (07/24, 07/26, 08/01) negative for any brain anoxial changes, white and groves matter differentiation is well preserved -Neurology services following sporatically -EEG initially showed pseudoperiodic generalized sharp waves, potentially epileptogenic, repeat EEG showed a mildly abnormal recording due to mild background slowing that is suggestive of mild encephalopathy but no epileptogenic potentials observed -Currently patient is on valproic acid, and levetiracetam -Check QTc twice daily, if okay continue haloperidol 0.5 mg every 8 hours, reorder daily -Patient continues to answer questions appropriately after stopping the propofol. He will answer yes or no questions and move all 4 extremities -Back on propofol after marked agitation -Should get MRI brain after extubation Respiratory: -Intubated 07/24, AC 500/16/5/40 percent FiO2 -Chest x-ray shows atelectasis -Weaning trial today - tolerated T-piece with stable vitals, but did have marked agitation; will try again tomorrow Infection: -Off antibiotics -Sputum and blood cultures remain negative -Urine culture growing enterococcus -Stool culture positive for Cdiff toxin A; will be started on vancomycin and placed on isolation Cardiology: -Initially bradycardic treated with dobutamine, now off dobutamine -HR stable Hematology: -Hg is stable, no leukocytosis -Blood pressure labile likely secondary to propofol Metabolic: -Keep Na>140 to prevent cerebral edema -Potassium greater than 4 -Will replete lytes as necessary Alimentary: -N.p.o. with tube feed per nutrition DVT ppx with enoxaparin Tube feed DNR/no pressors/no dialysis Please note that on 08/02/[address] Waller and Dr Pearson had an extensive discussion with the entire family including his children and ex-. Legally speaking, his children are the decision makers, not the ex-. It was decided at this meeting that the patient is now DNR and we will not initiate pressors or dialysis if he decompensates. If he self extubates or extubates accidentally, we will reintubate him. Otherwise, we will continue assessing the patient for progress and reassess next week. Problem List: 1. Hypoxic brain injury 2. Status epilepticus 3. Altered mental status Pain Ratin Tomorrow's Labs & Rationales: CBC, ICU bundle Plan DVT/Prophylaxis: mechanical, pharmacological
--- NOTE | 2018-08-04 11:47 | Event Note ---
Event Note Event Note: The patient was placed on a T-piece trial and had stable vital signs with the exception of increased tachypnea. After some time, he also experienced paradoxical respirations. The patient sat at the edge of the bed. He eventually was able to stand and pivot to sit out of bed in the chair. After approximately 1 hour in the chair, the patient became agitated and he was placed back into bed. Propofol needed to be turned back on due to the extreme agitation. We will continue to monitor the patient on light sedation. We will continue with weaning trials, however the patient does not appear to be ready for extubation today. I discussed this with the nursing staff, house staff and patient's family at length.
[2018-08-04 12:00] VITALS: BP 118/70
--- NOTE | 2018-08-04 15:48 | PN- Cardiology ---
Subjective Subjective: The patient is somewhat more alert, requiring sedation. He is intermittently agitated. Weaning trials were unsuccessful. Objective Vital Signs and I&Os Vital Signs Date Time Temp Pulse Resp B/P B/P Pulse O2 O2 Flow FiO2 Mean Ox Delivery Rate 08/04 1405 40 08/04 1133 40 08/04 0825 40 08/04 0625 40 08/04 0400 94 Ventilator 40% 08/04 0333 40 08/04 0034 40 08/04 0000 95 Ventilator 40% 08/04 0000 97.3 60 16 90/50 95 Ventilator 40% 08/03 2228 40 08/03 2000 93 Ventilator 40% 08/03 1915 40 08/03 1640 40 08/03 1600 99.9 72 18 92/54 95 Ventilator 40% 08/03 1600 95 Ventilator 40% Intake & Output 08/04 1600 08/04 0800 08/04 0000 08/03 1600 08/03 0800 08/03 0000 Intake Total 834 955 754 920 949 Output Total 403 861 4906 650 500 Balance -136 20 -296 270 449 Intake, IV 92 235 260 199 199 Intake, Tube 522 500 284 501 530 Feeding Intake, Tube 220 220 210 220 220 Irrigant Number 1 3 6 1 0 Bowel Movements Output, Urine 459 775 0244 650 500 Physical Exam: Gen: NAD HEENT: normal Lungs: clear to auscultation, normal resp. effort Heart: RRR, S1, S2, no murmurs Abdomen: Soft, nontender, no masses Extremities: No clubbing, cyanosis, or edema. Neuro: Alert and oriented x 3, cranial nerves intact Current Medications: Current Medications Sig/Zev Start time Last Medication Dose Route Stop Time Status Admin Acetaminophen 1,000 MG Q8P PRN 08/03 915 AC 08/03 PO 0913 Artificial Tears 2 GTT 4 TIMES/DAY 07/28 1300 AC 08/04 OPH 1425 Aspirin 81 MG DAILY 07/25 1417 AC 08/04 PO 0818 Chlorhexidine 30 ML BID 08/03 2100 DC Gluconate PO Chlorhexidine 15 ML BID 08/03 2100 AC 08/04 Gluconate PO 0819 Clotrimazole 1 CHERYL BID 07/31 0915 AC 08/04 TOP 0821 Enoxaparin Sodium 40 MG DAILY 07/25 1315 AC 08/04 SC 0818 Fentanyl Citrate 25 MCG Q3P PRN 07/25 1330 AC 08/04 IV 0045 Fluconazole 200 MG QTHURS 08/01 1030 08/01 PO 1250 Haloperidol 1 MG Q8P PRN 08/03 1015 08/04 PO 0343 Levetiracetam 1,500 MG Q12 07/26 2100 08/04 N/A 1 UNIT IV 0818 Nitroglycerin 0.5 GM Q6 07/29 1351 08/04 TOP 0613 Nystatin 1 CHERYL TID 07/29 1400 08/04 TOP 1425 Oxymetazoline HCl 2 SPRAY BID 08/03 2100 08/04 JERRY 08/06 0901 0819 Pantoprazole Sodium 40 MG DAILY 07/25 0900 DC 08/04 IV 0818 Propofol 1,000 MG Q12H 08/03 1245 08/04 N/A 1 UNIT IV 0654 Valproate Sodium 1,000 MG Q12 08/03 2100 08/04 Sodium Chloride 50 ML IV 1142 Vancomycin HCl 125 MG Q6 08/04 1315 08/04 PO 1425 Results Last 48 Hrs of Labs/Mics: Laboratory Tests 08/04/18 0935: pH 7.48 H, pCO2 34 L, pO2 71 L, HCO3 25, ABG O2 Sat (Measured) 93.0 L, Carboxyhemoglobin 0.9 L, O2 Concentration % 40%, O2 Delivery Method TP, Phlebotomy Draw Site LEFT RADIAL 08/04/18 0406: Anion Gap 6, Estimated GFR > 60, Glucose 112 H, Calcium 8.3 L, Phosphorus 2.7, Magnesium 2.4 H, Total Bilirubin 0.4, AST 24, ALT 30, Albumin 2.6 L, CBC w Diff NO MAN DIFF REQ, RBC 4.33 L, MCV 89.4, MCH 30.1, MCHC 33.7, RDW 14.0, MPV 7.1 L, Gran % 78.2 H, Lymphocytes % 12.6 L, Monocytes % 7.6, Eosinophils % 1.5, Basophils % 0.1, Absolute Granulocytes 6.0, Absolute Lymphocytes 1.0 L, Absolute Monocytes 0.6, Absolute Eosinophils 0.1, Absolute Basophils 0, Valproic Acid 80.0 08/03/18 1030: Urinalysis LIGHT H, Urine Color STRAW, Urine Clarity CLEAR, Urine pH 7.0, Ur Specific [place] 1.020, Urine Protein TRACE H, Urine Ketones NEG, Urine Nitrite NEG, Urine Bilirubin NEG, Urine Urobilinogen 0.2, Ur Leukocyte Esterase NEG, Ur Microscopic SEDIMENT EXAMINED, Urine RBC 50-75 H, Urine WBC 1-3 H, Hyaline Casts RARE H, Urine Hemoglobin MOD H, Urine Glucose NEG 08/03/18 0418: Anion Gap 7, Estimated GFR > 60, Glucose 105 H, Calcium 8.2 L, Phosphorus 2.9, Magnesium 2.4 H, Total Bilirubin 0.2, AST 20, ALT 43, Albumin 2.5 L, CBC w Diff NO MAN DIFF REQ, RBC 4.28 L, MCV 90.2, MCH 30.3, MCHC 33.5, RDW 13.8, MPV 7.0 L, Gran % 77.7 H, Lymphocytes % 11.2 L, Monocytes % 9.2, Eosinophils % 1.8, Basophils % 0.1, Absolute Granulocytes 6.0, Absolute Lymphocytes 0.9 L, Absolute Monocytes 0.7 H, Absolute Eosinophils 0.1, Absolute Basophils 0, Valproic Acid 133.3 H Microbiology 08/03 1300 STOOL: Clostridium difficile Toxin A & B - COMP CLOSTRIDIUM DIFFICILE Recent Imaging Studies: Chest x-ray: Lines and tubes in place as stated above. Mild bibasilar atelectasis. Assessment/Plan Assessment/Plan Assessment: 1. Sinus bradycardia, resolved 2. Abnormal EKG 3. Normal echocardiogram 4. Acute mental status change 5. Possible anoxic brain injury Plan: * Ventilatory support as per pulmonary * Continue aspirin for possible CVA * Cardiac monitoring Continue telemetry? Yes
[2018-08-04 16:00] VITALS: BP 150/80
--- NOTE | 2018-08-04 17:37 | Event Note ---
Event Note Event Note: Spoke with Tasneem, patients ex who requested for patient to be made full- code. As ex- is not decision-maker, I called and spoke with daughter Shwetha Rick ([phone]), who is patients POA, to see if that was what family wanted. They had not talked with ex- about this decision, and asked for some time to talk to family before any action was made on code status. At 1730 I talked with Shwetha Rick on the phone, who informed me that family would like to make patient FULL CODE, including pressors, dialysis, (re) intubation. They will plan for a family meeting tomorrow on 08/05/18 to further clarify goals of care. Patient was switched from DNR/DNI to FULL CODE.
--- NOTE | 2018-08-04 22:44 | RADIOLOGY REPORT ---
EXAMINATION: XR PORTABLE CHEST CLINICAL INFORMATION: Respiratory distress COMPARISON: 08/03/2018 chest x-ray TECHNIQUE: Portable AP view of the chest was obtained. FINDINGS: Hypoventilatory exam. The cardiomediastinal silhouette is normal. The endotracheal tube and enteric tube have been removed. There is platelike atelectasis in the left lower lung. There is no focal pulmonary consolidation, pleural effusion, pneumothorax or pulmonary venous congestion. No acute bony abnormality. IMPRESSION: Mild left lower lung platelike atelectasis.
[2018-08-05] VITALS: BP 146/92
--- NOTE | 2018-08-05 02:09 | Event Note ---
Event Note Event Note: At the time of my signout patient self extubated. Resident Dr Barajas, discussed the plan with Dr. Carranza. According to that people keep patient extubated on nasal cannula/high flow, immediate sedation. As needed Haldol for agitation. He was given TRC/nebulization. Inj halodol 1 mg IM stat. Patient continued to be agitated. He was with himself able to recognize the family member. He wanted to . Family was at the bedside. They wanted patient to be given some sedation to calm him down. I discussed in detail that it may lead to respiratory suppression and he may again need endotracheal intubation. We were thinking that patient is not benzodiazepine withdrawal as he was on fentanyl/midazolam/propofol drip. Discussed with over the phone. Advised we can give injection Haldol 5 mg IM start again and injection Ativan 0.5 mg as needed. I updated Dr. Waller, as I was signed out by morning team that does not want any benzodiazepines to be given again. Dr. Waller was okay that benzodiazepine can be given. We gave injection Ativan 0.5 mg IV state. Patient did not responded. His blood pressure keeps running over higher side. BP 200/85. We gave Inj labetolol 10mg IV state.
[2018-08-05 05:28] LABS: ABSOLUTE BASOPHIL COUNT 0 /CUMM (0.0-0.2); ABSOLUTE EOSINOPHIL COUNT 0.1 /CUMM (0.0-0.7); ABSOLUTE GRANULOCYTE CT 10.1 /CUMM (1.4-6.5); PLATELET COUNT 170 /CUMM (130-400); RED BLOOD CELL CT 4.74 /CUMM (4.70-6.10)
[2018-08-05 05:40] LABS: BASOPHIL % 0.2 % (0.0-2.0); EOSINOPHIL % 0.8 % (0-5); GRANULOCYTE % 83.1 % (42.2-75.2); HEMATOCRIT 42.4 % (42-52); MEAN CORPUSCULAR HGB 30.3 PG (27.0-31.0); MEAN CORPUSCULAR HGB CONC 33.8 G/DL (33.0-37.0); MEAN CORPUSCULAR VOLUME 89.4 FL (80.0-94.0); MEAN PLATELET VOLUME 7.2 FL (7.4-10.4); RBC DISTRIBUTION WIDTH 13.8 % (11.5-14.5)
[2018-08-05 06:20] LABS: WHITE BLOOD CELL COUNT 12.1 /CUMM (4.8-10.8)
--- NOTE | 2018-08-05 07:52 | PN- Resident CRCU ---
Subjective HPI/CRCU Issues: Severe bradycardia, now resolved Altered mental status Status epilepticus now controlled Acute hypoxic respiratory failure s/p intubation with possible asp pna 24 Hour Events: Yesterday evening patient self extubated himself with tube feeds running via OGT during the sef extubation. Deep suctioning revealed mod amt of quiles/yellow thick secretions. Given 6 mg of Haldol and 1.5mg of Ativan overnight for agitation. Also given 10mg of labetalol for BP of 200s systolic Seen and examined patient this morning, he continues to be agitation however is much less that how is was overnight afebrile overnight HR 82-96 BP 140s-200s/90-100s saturating 92% High flow on fiO2 55% ABG 7 7.46/37/91/26/ UO 890 Objective Vital Signs & I&O Last 8 Hrs of Vitals and I&O: Intake & Output 08/05 1600 08/05 0800 08/05 0000 Intake Total 1262 Output Total 890 810 Balance -890 452 Intake, IV 241 Intake, Other 531 Intake, Tube 280 Feeding Intake, Tube 210 Irrigant Number 1 Bowel Movements Output, Urine 890 810 Laboratory Tests 08/05 08/05 0820 0445 Blood Gas pH (7.35 - 7.45 PH) 7.46 H pCO2 (35 - 45 TORR) 37 pO2 (80 - 100 TORR) 91 HCO3 (21 - 28 MEQ/L) 26 ABG O2 Sat (Measured) (>96.0 %) 96.0 Carboxyhemoglobin (1.5 - 5.0 %) 1.0 L O2 Concentration % 55% O2 Delivery Method [facility] Chemistry Sodium (137 - 145 mmol/L) 143 Potassium (3.5 - 5.1 mmol/L) 4.2 Chloride (98 - 107 mmol/L) 109 H Carbon Dioxide (22 - 30 mmol/L) 25 Anion Gap (5 - 16) 8 BUN (9 - 20 mg/dL) 20 Creatinine (0.7 - 1.2 mg/dL) 0.7 Estimated GFR (>60 ml/min) > 60 Glucose (65 - 99 mg/dL) 100 H Calcium (8.4 - 10.2 mg/dL) 8.7 Phosphorus (2.5 - 4.5 mg/dL) 2.7 Magnesium (1.6 - 2.3 mg/dL) 2.2 Total Bilirubin (0.2 - 1.3 mg/dL) 0.6 AST (17 - 59 U/L) 41 ALT (21 - 72 U/L) 30 Albumin (3.5 - 5.0 g/dL) 3.2 L Hematology CBC w Diff MAN DIFF ORDERED WBC (4.8 - 10.8 /CUMM) 12.1 H RBC (4.70 - 6.10 /CUMM) 4.74 Hgb (14.0 - 18.0 G/DL) 14.3 Hct (42 - 52 %) 42.4 MCV (80.0 - 94.0 FL) 89.4 MCH (27.0 - 31.0 PG) 30.3 MCHC (33.0 - 37.0 G/DL) 33.8 RDW (11.5 - 14.5 %) 13.8 Plt Count (130 - 400 /CUMM) 170 MPV (7.4 - 10.4 FL) 7.2 L Gran % (42.2 - 75.2 %) 83.1 H Lymphocytes % (20.5 - 51.1 %) 7.9 L Monocytes % (1.7 - 9.3 %) 8.0 Eosinophils % (0 - 5 %) 0.8 Basophils % (0.0 - 2.0 %) 0.2 Absolute Granulocytes (1.4 - 6.5 /CUMM) 10.1 H Segmented Neutrophils (42.2 - 75.2 %) 78 H Band Neutrophils (0.0 - 5.0 %) 5 Absolute Lymphocytes (1.2 - 3.4 /CUMM) 1.0 L Lymphocytes (20.5 - 51.1 %) 8 L Monocytes (1.7 - 9.3 %) 8 Absolute Monocytes (0.10 - 0.60 /CUMM) 1.0 H Absolute Eosinophils (0.0 - 0.7 /CUMM) 0.1 Absolute Basophils (0.0 - 0.2 /CUMM) 0 Metamyelocytes (0.0 - 1.0 %) 1 Platelet Estimate (ADEQUATE) ADEQUATE Polychromasia 1+ Miscellaneous Phlebotomy Draw Site RIGHT RADIAL 08/04 08/04 08/04 9829 9130 0981 Blood Gas pH (7.35 - 7.45 PH) 7.52 H 7.48 H pCO2 (35 - 45 TORR) 30 L 34 L pO2 (80 - 100 TORR) 73 L 71 L HCO3 (21 - 28 MEQ/L) 24 25 ABG O2 Sat (Measured) (>96.0 %) 94.0 L 93.0 L P-50 (Temp Corrected) N Carboxyhemoglobin (1.5 - 5.0 %) 1.0 L 0.9 L O2 Concentration % 50% 40% Temperature (97.0 - 100.0 FARH) 97.0 O2 Delivery Method NC TP Chemistry Ammonia (9 - 30 umol/L) 13 Miscellaneous Phlebotomy Draw Site RIGHT BRACHIAL LEFT RADIAL Exam General Appearance: awake, anxious, mild distress Head: normal appearance Respiratory: accessory muscle use, rhonchi Cardiovascular: regular rate/rhythm Gastrointestinal: soft Extremities: no edema Weaning Parameters NIF: 27 Minute Volume: 9.14 Resp rate: 20 Vt: 450 Heart Rate: 74 Weaning Schedule Start Time: 0820 Minute Volume: 13.3 Resp Rate: 27 Vt: 665 Heart Rate: 74 End Time: 0840 Minute Volume: 10.1 Resp Rate: 40 Vt: 700 Heart Rate: 100 Start Time: 0910 Heart Rate: 100 End Time: 1010 Heart Rate: 110 Current Medications: Current Medications Sig/Zev Start time Last Medication Dose Route Stop Time Status Admin Acetaminophen 1,000 MG Q8P PRN 08/03 0915 08/03 PO 0913 Artificial Tears 2 GTT 4 TIMES/DAY 07/28 1300 08/05 OPH 0842 Aspirin 81 MG DAILY 07/25 1417 08/04 PO 0818 Chlorhexidine 15 ML BID 08/03 2100 08/05 Gluconate PO 0843 Clotrimazole 1 CHERYL BID 07/31 0915 08/05 TOP 0842 Enoxaparin Sodium 40 MG DAILY 07/25 1315 08/05 SC 0836 Fentanyl Citrate 25 MCG Q3P PRN 07/25 1330 08/04 IV 0045 Fluconazole 200 MG QTHURS 08/01 1030 08/01 PO 1250 Haloperidol 5 MG ONCE ONE 08/04 2245 AL 08/04 IM 08/04 Haloperidol 0 .STK-MED ONE 08/04 2111 DC .ROUTE Haloperidol 1 MG ONCE ONE 08/04 2100 AL 08/04 IM 08/04 Haloperidol 1 MG Q8P PRN 08/03 1015 08/04 PO 0343 Labetalol HCl 0 .STK-MED ONE 08/05 0132 DC IV Labetalol HCl 10 MG ONCE ONE 08/05 0130 DC 08/05 IV 08/05 0131 0134 Levetiracetam 1,500 MG Q12 07/26 2100 AC 08/05 N/A 1 UNIT IV 0836 Lorazepam 0.5 MG ONCE ONE 08/05 0030 DC 08/05 IV 08/05 0031 0039 Nitroglycerin 0.5 GM Q6 07/29 1351 AC 08/05 TOP 0615 Nystatin 1 CHERYL TID 07/29 1400 AC 08/05 TOP 0842 Oxymetazoline HCl 2 SPRAY BID 08/03 2100 AC 08/05 JERRY 08/06 0901 0842 Pantoprazole Sodium 40 MG DAILY 07/25 0900 DC 08/04 IV 0818 Propofol 1,000 MG Q12H 08/03 1245 AC 08/04 N/A 1 UNIT IV 0654 Valproate Sodium 1,000 MG Q12 08/03 2100 AC 08/04 Sodium Chloride 50 ML IV 2100 Vancomycin HCl 125 MG Q6 08/04 1315 08/04 PO 1857 Impression/Plan Impression/Problem List Impression: 73-year-old gentleman with pmh history of sleep apnea, not on CPAP regularly, COPD, increasing lung nodule which needs longitudinal follow-up, coronary artery disease with multiple stents in the past, chronic back pain, previous history of depression and anxiety on multiple medications noted, s/p retropharyngeal lipoma resection admitted for AMS and bradycardia, course complicated by refractory status epilepticus s/p induced coma, s/p self extubation yesterday evening Problem List: 1. AMS, unclear etiology 2. Severe bradycardia, now resovled 3. Refractory status epilepticus s/p induced coma 4. Anoxic brain injury vs CVA 5. Acute hypoxic respiratory failure s/p intubation with possible asp pna 6. Lung nodule that needs follow up when improved Plan: Neurology: -continues to be agitated, however we do not want to oversedate him as he showed improved neurology status, PRN BZ as needed -CT head and neck 3 (07/24, 07/26, 08/01) negative for any brain anoxial changes, white and groves matter differentiation is well preserved -EEG initially showed pseudoperiodic generalized sharp waves, potentially epileptogenic, repeat EEG showed a mildly abnormal recording due to mild background slowing that is suggestive of mild encephalopathy but no epileptogenic potentials observed -continue valproic acid, and levetiracetam neuro consulted appreciate recommendations Respiratory: -on high flow oxygen -will repeat ABG this morning Infection: -Stool culture positive for Cdiff toxin A; -unable to take vancomycin as he is currently NPO, will start IV flagly continue isolation Cardiology: -increased BP and tachycardia likely due to agitation, will continue to monitor -BP improved -will repeat EKG this morning Hematology: -Hg is stable, Mild leukocytois 12.1 with 5 bands Metabolic: lytes wnl Alimentary: -N.p.o. -Swallow eval today DVT ppx with enoxaparin FC Problem List: 1. Status epilepticus 2. Hypoxic brain injury 3. Altered mental status 4. Respiratory failure Pain Ratin Tomorrow's Labs & Rationales: cbc/ICU bundle Plan DVT/Prophylaxis: mechanical, pharmacological
[2018-08-05 08:00] VITALS: BP 142/86
--- NOTE | 2018-08-05 09:33 | PN- CRCU ---
Subjective HPI/Critical Care Issues: Weekend events and data reviewed Pt self extubated and now has sig tachypenia and agitation Mental status has improved Sig diarrhea and cdiff noted Afebrile Leukocytosis noted Objective Current Medications: Current Medications Sig/Zev Start time Last Medication Dose Route Stop Time Status Admin Acetaminophen 1,000 MG Q8P PRN 08/03 0915 AC 08/03 PO 0913 Artificial Tears 2 GTT 4 TIMES/DAY 07/28 1300 AC 08/05 OPH 0842 Aspirin 81 MG DAILY 07/25 1417 AC 08/04 PO 0818 Chlorhexidine 15 ML BID 08/03 2100 AC 08/05 Gluconate PO 0843 Clotrimazole 1 EDISON BID 07/31 0915 AC 08/05 TOP 0842 Enoxaparin Sodium 40 MG DAILY 07/25 1315 AC 08/05 SC 0836 Fentanyl Citrate 25 MCG Q3P PRN 07/25 1330 AC 08/04 IV 0045 Fluconazole 200 MG QTHURS 08/01 1030 AC 08/01 PO 1250 Haloperidol 5 MG ONCE ONE 08/04 2245 DC 08/04 IM 08/04 2246 2241 Haloperidol 0 .STK-MED ONE 08/04 211 DC .ROUTE Haloperidol 1 MG ONCE ONE 08/04 2100 DC 08/04 IM 08/04 2101 2115 Haloperidol 1 MG Q8P PRN 08/03 1015 AC 08/04 PO 0343 Labetalol HCl 0 .STK-MED ONE 08/05 0132 DC IV Labetalol HCl 10 MG ONCE ONE 08/05 0130 DC 08/05 IV 08/05 0131 0134 Levetiracetam 1,500 MG Q12 07/26 2100 AC 08/05 N/A 1 UNIT IV 0836 Lorazepam 0.5 MG ONCE ONE 08/05 0030 DC 08/05 IV 08/05 0031 0039 Nitroglycerin 0.5 GM Q6 07/29 1351 AC 08/05 TOP 0615 Nystatin 1 EDISON TID 07/29 1400 AC 08/05 TOP 0842 Oxymetazoline HCl 2 SPRAY BID 08/03 2100 AC 08/05 JERRY 08/06 0901 0842 Pantoprazole Sodium 40 MG DAILY 07/25 0900 DC 08/04 IV 0818 Propofol 1,000 MG Q12H 08/03 1245 AC 08/04 N/A 1 UNIT IV 0654 Valproate Sodium 1,000 MG Q12 08/03 2100 AC 08/04 Sodium Chloride 50 ML IV 2100 Vancomycin HCl 125 MG Q6 08/04 1315 AC 08/04 PO 1857 Vital Signs & I&O Last 24 Hrs of Vitals and I&O: Vital Signs Date Time Temp Pulse Resp B/P B/P Pulse O2 O2 Flow FiO2 Mean Ox Delivery Rate 08/05 0800 93 Nasal 55% Cannula 08/05 0800 97.6 96 34 142/86 93 Nasal 55% Cannula 08/05 0400 91 Nasal 55% Cannula 08/05 0202 94 Nasal 55% Cannula 08/05 0134 99 200/93 08/05 0000 93 Nasal 55% Cannula 08/05 0000 98.2 89 22 146/92 92 Nasal 55% Cannula 08/04 2153 93 Nasal 50% Cannula 08/04 2000 91 Nasal 55% Cannula 08/04 1930 93 Nasal 50% Cannula 08/04 1920 40 08/04 1627 40 08/04 1600 96.2 72 17 150/80 96 Ventilator 40% 08/04 1600 96 Ventilator 40% 08/04 1405 40 08/04 1200 99.0 78 21 118/70 94 Ventilator 40% 08/04 1200 94 Ventilator 40% 08/04 1133 40 Intake & Output 08/05 1600 08/05 0800 08/05 0000 Intake Total 1262 Output Total 890 810 Balance -890 452 Intake, IV 241 Intake, Other 531 Intake, Tube 280 Feeding Intake, Tube 210 Irrigant Number 1 Bowel Movements Output, Urine 890 810 Impression/Plan Impression/Plan Impression/Plan: General Appearance: tachypenic and has at times paradoxical breathing, agitated Respiratory: quiet respiration, lungs clear Cardiovascular: regular rate/rhythm Gastrointestinal: normal bowel sounds, soft, non-tender Extremities: no edema Cranial Nerves: PERRL,does follow commands and lethargic IMPRESSION This is a 73-year-old gentleman with history of sleep apnea, not on CPAP regularly, COPD, increasing lung nodule which needs longitudinal follow-up, coronary artery disease with multiple stents in the past, chronic back pain, previous history of depression and anxiety on multiple medications noted, and recent surgery of retropharyngeal lipoma resection who came into the hospital with lethargy, was promptly intubated and admitted to the ICU, with subsequent episodes of bradycardia thought to be secondary to vagal nerve stimulation, then refractory status epilepticus s/p induced coma, with return of his mental status now self extubated with sig agitation and restlessness ISsues AMS unclear etiology - prob combination of met encephalopathy/recent ischemic encephalopathy/with seizures compounding the issue Resp failure now with Increased wob - combination of issues COPD with resp insuff - not a retainer Inital severe quinn/qtc prolongation now better Refractory seizures intially now on edison meds Inital asp was on unasyn for 48 hrs nw with cdiff Recent retropharyngeal surg / oral and groin fungal infection Anoxic brain injury - now improved REC Cont present care/ high flow for now IV flagyl till he can take PO Cont all iv seizure meds Lorazepam prn for atitation/if agitation is worse will give a trial of precedex (carefully watching the heart rate as it does cause quinn) Check qtc if ok will cont haldol One dose of lasix 20 mg iv Check labs this pm Agg pulm toilet Sputum culture Cont seizure meds Pt continues to be critcally ill If worse can place an ng tube for meds Pt is critically ill TTS 37 mins
[2018-08-05 16:00] VITALS: BP 98/60
[2018-08-05 21:51] LABS: ABSOLUTE BASOPHIL COUNT 0 /CUMM (0.0-0.2); ABSOLUTE EOSINOPHIL COUNT 0 /CUMM (0.0-0.7); ABSOLUTE GRANULOCYTE CT 12.3 /CUMM (1.4-6.5); ABSOLUTE LYMPH COUNT 0.7 /CUMM (1.2-3.4); ABSOLUTE MONOCYTE COUNT 1.4 /CUMM (0.10-0.60); BASOPHIL % 0 % (0.0-2.0); EOSINOPHIL % 0.2 % (0-5); HEMATOCRIT 44.3 % (42-52); MEAN CORPUSCULAR HGB 30.1 PG (27.0-31.0); MEAN CORPUSCULAR HGB CONC 33.7 G/DL (33.0-37.0); MEAN CORPUSCULAR VOLUME 89.3 FL (80.0-94.0); MEAN PLATELET VOLUME 6.6 FL (7.4-10.4); PLATELET COUNT 180 /CUMM (130-400); RBC DISTRIBUTION WIDTH 14.1 % (11.5-14.5); RED BLOOD CELL CT 4.96 /CUMM (4.70-6.10); WHITE BLOOD CELL COUNT 14.3 /CUMM (4.8-10.8)
[2018-08-05 21:53] LABS: GRANULOCYTE % 85.6 % (42.2-75.2)
[2018-08-06] VITALS: BP 110/60
[2018-08-06 05:38] LABS: ABSOLUTE BASOPHIL COUNT 0 /CUMM (0.0-0.2); ABSOLUTE EOSINOPHIL COUNT 0 /CUMM (0.0-0.7); ABSOLUTE GRANULOCYTE CT 12.9 /CUMM (1.4-6.5); ABSOLUTE LYMPH COUNT 1.1 /CUMM (1.2-3.4); ABSOLUTE MONOCYTE COUNT 1.6 /CUMM (0.10-0.60); BASOPHIL % 0.2 % (0.0-2.0); EOSINOPHIL % 0.1 % (0-5); GRANULOCYTE % 82.4 % (42.2-75.2); HEMATOCRIT 46.3 % (42-52); MEAN CORPUSCULAR HGB 30.1 PG (27.0-31.0); MEAN CORPUSCULAR HGB CONC 33.5 G/DL (33.0-37.0); MEAN PLATELET VOLUME 6.4 FL (7.4-10.4); PLATELET COUNT 246 /CUMM (130-400); RBC DISTRIBUTION WIDTH 14.4 % (11.5-14.5); RED BLOOD CELL CT 5.15 /CUMM (4.70-6.10); WHITE BLOOD CELL COUNT 15.7 /CUMM (4.8-10.8)
--- NOTE | 2018-08-06 06:47 | PN- Resident CRCU ---
Subjective HPI/CRCU Issues: Severe bradycardia, now resolved Altered mental status Status epilepticus now controlled Acute hypoxic respiratory failure s/p intubation with possible asp pna 24 Hour Events: No issues reported overnight, seen and examined patient. States that he feels very thirsty and would like something to drink. Also reports that his breathing feels better today than yesterday. Denies any pain. Objective Vital Signs & I&O Last 8 Hrs of Vitals and I&O: Laboratory Tests 08/06 08/05 0350 2125 Chemistry Sodium (137 - 145 mmol/L) 145 141 Potassium (3.5 - 5.1 mmol/L) 4.3 4.1 Chloride (98 - 107 mmol/L) 107 109 H Carbon Dioxide (22 - 30 mmol/L) 24 23 Anion Gap (5 - 16) 14 9 BUN (9 - 20 mg/dL) 27 H 24 H Creatinine (0.7 - 1.2 mg/dL) 1.0 0.9 Estimated GFR (>60 ml/min) > 60 > 60 Glucose (65 - 99 mg/dL) 96 101 H Calcium (8.4 - 10.2 mg/dL) 9.2 8.9 Phosphorus (2.5 - 4.5 mg/dL) 3.3 3.2 Magnesium (1.6 - 2.3 mg/dL) 2.4 H 2.2 Total Bilirubin (0.2 - 1.3 mg/dL) 0.9 0.8 AST (17 - 59 U/L) 39 38 ALT (21 - 72 U/L) 31 31 Albumin (3.5 - 5.0 g/dL) 3.6 3.4 L Hematology CBC w Diff NO MAN DIFF REQ NO MAN DIFF REQ WBC (4.8 - 10.8 /CUMM) 15.7 H 14.3 H RBC (4.70 - 6.10 /CUMM) 5.15 4.96 Hgb (14.0 - 18.0 G/DL) 15.5 14.9 Hct (42 - 52 %) 46.3 44.3 MCV (80.0 - 94.0 FL) 90.0 89.3 MCH (27.0 - 31.0 PG) 30.1 30.1 MCHC (33.0 - 37.0 G/DL) 33.5 33.7 RDW (11.5 - 14.5 %) 14.4 14.1 Plt Count (130 - 400 /CUMM) 246 180 MPV (7.4 - 10.4 FL) 6.4 L 6.6 L Gran % (42.2 - 75.2 %) 82.4 H 85.6 H Lymphocytes % (20.5 - 51.1 %) 6.9 L 4.7 L Monocytes % (1.7 - 9.3 %) 10.4 H 9.5 H Eosinophils % (0 - 5 %) 0.1 0.2 Basophils % (0.0 - 2.0 %) 0.2 0 Absolute Granulocytes (1.4 - 6.5 /CUMM) 12.9 H 12.3 H Absolute Lymphocytes (1.2 - 3.4 /CUMM) 1.1 L 0.7 L Absolute Monocytes (0.10 - 0.60 /CUMM) 1.6 H 1.4 H Absolute Eosinophils (0.0 - 0.7 /CUMM) 0 0 Absolute Basophils (0.0 - 0.2 /CUMM) 0 0 Vital Signs Date Time Temp Pulse Resp B/P B/P Pulse O2 O2 Flow FiO2 Mean Ox Delivery Rate 08/06 0831 94 Nasal 55% Cannula 08/06 0800 97.0 89 28 136/76 93 Nasal 55% Cannula 08/06 0800 93 Nasal 55% Cannula 08/06 0400 96 Nasal 55% Cannula 08/06 0249 90 Nasal 55% Cannula 08/06 0035 94 Nasal 55% Cannula 08/06 0000 94 Nasal 55% Cannula 08/06 0000 97.1 84 24 110/60 97 Nasal 2.0L Cannula 08/05 2152 94 Nasal 55% Cannula 08/05 1623 93 Nasal 55% Cannula 08/05 1600 98.1 80 26 98/60 91 Nasal 55% Cannula 08/05 1600 91 Nasal 55% Cannula 08/05 1200 93 Nasal 55% Cannula 08/05 1130 Nasal 55% Cannula 08/05 1120 93 Nasal 55% Cannula Intake & Output 08/06 1600 08/06 0800 08/06 0000 Intake Total 100 Output Total 230 355 Balance -130 -355 Intake, IV 100 Number 1 Bowel Movements Output, Urine 230 355 Exam General Appearance: alert, awake, mild distress Respiratory: normal breath sounds, respiratory distress (mild) Cardiovascular: regular rate/rhythm Gastrointestinal: normal bowel sounds, soft Extremities: no edema Weaning Parameters NIF: 27 Minute Volume: 9.14 Resp rate: 20 Vt: 450 Heart Rate: 74 Weaning Schedule Start Time: 0820 Minute Volume: 13.3 Resp Rate: 27 Vt: 665 Heart Rate: 74 End Time: 0840 Minute Volume: 10.1 Resp Rate: 40 Vt: 700 Heart Rate: 100 Start Time: 0910 Heart Rate: 100 End Time: 1010 Heart Rate: 110 Current Medications: Current Medications Sig/Zev Start time Last Medication Dose Route Stop Time Status Admin Acetaminophen 0 .STK-MED ONE 08/05 1033 DC IV Acetaminophen 1,000 MG Q6P PRN 08/05 1015 AC 08/05 N/A 1 UNIT IV 1041 Acetaminophen 1,000 MG Q8P PRN 08/03 0915 AC 08/03 PO 0913 Albuterol Sulfate 3 ML EVERY 4 HRS/AWAKE 08/05 1200 AC 08/06 INH 0800 Artificial Tears 2 GTT 4 TIMES/DAY 07/28 1300 AC 08/05 OPH 1738 Aspirin 81 MG DAILY 07/25 1417 AC 08/04 PO 0818 Chlorhexidine 15 ML BID 08/03 2100 AC 08/05 Gluconate PO 0843 Clotrimazole 1 CHERYL BID 07/31 0915 AC 08/05 TOP 2108 Enoxaparin Sodium 40 MG DAILY 07/25 1315 AC 08/05 SC 0836 Fentanyl Citrate 25 MCG Q3P PRN 07/25 1330 DC 08/04 IV 0045 Fluconazole 200 MG QTHURS 08/01 1030 DC 08/01 PO 1250 Furosemide 20 MG ONCE ONE 08/05 1015 DC 08/05 IV 08/05 1016 1037 Haloperidol 1 MG Q8P PRN 08/03 1015 DC 08/04 PO 0343 Ipratropium [place] 2.5 ML EVERY 4 HRS/AWAKE 08/05 1200 AC 08/06 INH 0800 Levetiracetam 1,500 MG Q12 07/26 2100 AC 08/05 N/A 1 UNIT IV 2108 Metronidazole 500 MG Q8H 08/05 1100 AC 08/06 N/A 1 UNIT IV 0418 Nitroglycerin 0.5 GM Q6 07/29 1351 DC 08/05 TOP 0615 Non-Formulary 0 SEE ADMIN CRITERIA 08/05 1045 CAN Medication ANY Nystatin 1 CHERYL TID 07/29 1400 DC 08/05 TOP 0842 Oxymetazoline HCl 2 SPRAY BID 08/03 2100 AC 08/05 JERRY 08/06 0901 2109 Propofol 1,000 MG Q12H 08/03 1245 DC 08/04 N/A 1 UNIT IV 0654 Valproate Sodium 1,000 MG Q12 08/03 2100 AC 08/05 Sodium Chloride 50 ML IV 2107 Vancomycin HCl 125 MG Q6 08/04 1315 DC 08/04 PO 1857 Zinc Oxide 1 CHERYL BID 08/05 2100 AC 08/05 TOP 1807 Impression/Plan Impression/Problem List Impression: 73-year-old gentleman with pmh history of sleep apnea, not on CPAP regularly, COPD, increasing lung nodule which needs longitudinal follow-up, coronary artery disease with multiple stents in the past, chronic back pain, previous history of depression and anxiety on multiple medications noted, s/p retropharyngeal lipoma resection admitted for AMS and bradycardia, course complicated by refractory status epilepticus s/p induced coma, s/p self extubation yesterday evening Problem List: 1. AMS, unclear etiology 2. Severe bradycardia, now resovled 3. Refractory status epilepticus s/p induced coma 4. Anoxic brain injury vs CVA 5. Acute hypoxic respiratory failure s/p intubation with possible asp pna 6. Lung nodule that needs follow up when improved Plan: Neurology: -Less agitated this morning, will continue with PRN BZ as needed -CT head and neck 3 (07/24, 07/26, 08/01) negative for any brain anoxial changes, white and groves matter differentiation is well preserved -EEG initially showed pseudoperiodic generalized sharp waves, potentially epileptogenic, repeat EEG showed a mildly abnormal recording due to mild background slowing that is suggestive of mild encephalopathy but no epileptogenic potentials observed -continue valproic acid, and levetiracetam neuro consulted appreciate recommendations -if QTc is acceptable can dose low dose haldol if needed Respiratory: -Continue on high flow oxygen Infection: -Stool culture positive for Cdiff toxin A; -unable to take vancomycin as he is currently NPO, will start IV flagly continue isolation Cardiology: -Stable, will continue to monitor -repeat EKG showed QTc of 473 Hematology: -Hg is stable, afebrile overnight, slightly trending up leukocytosis Metabolic: lytes wnl Alimentary: -N.p.o. -Swallow eval today DVT ppx with enoxaparin FC Problem List: 1. Respiratory failure 2. Altered mental status 3. Status epilepticus 4. Hypoxic brain injury Pain Ratin Tomorrow's Labs & Rationales: cbc/iCU Plan DVT/Prophylaxis: mechanical, pharmacological
[2018-08-06 08:00] VITALS: BP 136/76
--- NOTE | 2018-08-06 09:14 | PN- CRCU ---
Subjective HPI/Critical Care Issues: Slow improvement Still mildly confused Congested Still needing sig oxygen on high flow Wishes to eat no further diarrhea this am Objective Current Medications: Current Medications Sig/Zev Start time Last Medication Dose Route Stop Time Status Admin Acetaminophen 0 .STK-MED ONE 08/05 1033 DC IV Acetaminophen 1,000 MG Q6P PRN 08/05 1015 AC 08/05 N/A 1 UNIT IV 1041 Acetaminophen 1,000 MG Q8P PRN 08/03 0915 AC 08/03 PO 0913 Albuterol Sulfate 3 ML EVERY 4 HRS/AWAKE 08/05 1200 AC 08/06 INH 0800 Artificial Tears 2 GTT 4 TIMES/DAY 07/28 1300 AC 08/06 OPH 0900 Aspirin 81 MG DAILY 07/25 1417 AC 08/04 PO 0818 Chlorhexidine 15 ML BID 08/03 2100 AC 08/06 Gluconate PO 0846 Clotrimazole 1 EDISON BID 07/31 0915 AC 08/06 TOP 0901 Enoxaparin Sodium 40 MG DAILY 07/25 1315 AC 08/05 SC 0836 Fentanyl Citrate 25 MCG Q3P PRN 07/25 1330 DC 08/04 IV 0045 Fluconazole 200 MG QTHURS 08/01 1030 DC 08/01 PO 1250 Furosemide 20 MG ONCE ONE 08/05 1015 DC 08/05 IV 08/05 1016 1037 Haloperidol 1 MG Q8P PRN 08/03 1015 DC 08/04 PO 0343 Ipratropium [place] 2.5 ML EVERY 4 HRS/AWAKE 08/05 1200 AC 08/06 INH 0800 Levetiracetam 1,500 MG Q12 07/26 2100 AC 08/06 N/A 1 UNIT IV 0846 Metronidazole 500 MG Q8H 08/05 1100 AC 08/06 N/A 1 UNIT IV 0418 Nitroglycerin 0.5 GM Q6 07/29 1351 DC 08/05 TOP 0615 Non-Formulary 0 SEE ADMIN CRITERIA 08/05 1045 CAN Medication ANY Nystatin 1 EDISON TID 07/29 1400 DC 08/05 TOP 0842 Oxymetazoline HCl 2 SPRAY BID 08/03 2100 DC 08/06 JERRY 08/06 0901 0901 Propofol 1,000 MG Q12H 08/03 1245 DC 08/04 N/A 1 UNIT IV 0654 Valproate Sodium 1,000 MG Q12 08/03 2100 AC 08/05 Sodium Chloride 50 ML IV 2108 Vancomycin HCl 125 MG Q6 08/04 1315 DC 08/04 PO 1857 Zinc Oxide 1 EDISON BID 08/05 2100 AC 08/05 TOP 1807 Vital Signs & I&O Last 24 Hrs of Vitals and I&O: Vital Signs Date Time Temp Pulse Resp B/P B/P Pulse O2 O2 Flow FiO2 Mean Ox Delivery Rate 08/06 0831 94 Nasal 55% Cannula 08/06 0800 97.0 89 28 136/76 93 Nasal 55% Cannula 08/06 0800 93 Nasal 55% Cannula 08/06 0400 96 Nasal 55% Cannula 08/06 0249 90 Nasal 55% Cannula 08/06 0035 94 Nasal 55% Cannula 08/06 0000 94 Nasal 55% Cannula 08/06 0000 97.1 84 24 110/60 97 Nasal 2.0L Cannula 08/05 2152 94 Nasal 55% Cannula 08/05 1623 93 Nasal 55% Cannula 08/05 1600 98.1 80 26 98/60 91 Nasal 55% Cannula 08/05 1600 91 Nasal 55% Cannula 08/05 1200 93 Nasal 55% Cannula 08/05 1130 Nasal 55% Cannula 08/05 1120 93 Nasal 55% Cannula Intake & Output 08/06 1600 08/06 0800 08/06 0000 Intake Total 100 Output Total 230 355 Balance -130 -355 Intake, IV 100 Number 1 Bowel Movements Output, Urine 230 355 Impression/Plan Impression/Plan Impression/Plan: General Appearance: tachypenic and has at times paradoxical breathing, agitated Respiratory: quiet respiration, lungs clear Cardiovascular: regular rate/rhythm Gastrointestinal: normal bowel sounds, soft, non-tender Extremities: no edema Cranial Nerves: PERRL,does follow commands and lethargic IMPRESSION This is a 73-year-old gentleman with history of sleep apnea, not on CPAP regularly, COPD, increasing lung nodule which needs longitudinal follow-up, coronary artery disease with multiple stents in the past, chronic back pain, previous history of depression and anxiety on multiple medications noted, and recent surgery of retropharyngeal lipoma resection who came into the hospital with lethargy, was promptly intubated and admitted to the ICU, with subsequent episodes of bradycardia thought to be secondary to vagal nerve stimulation, then refractory status epilepticus s/p induced coma, with return of his mental status now self extubated with sig agitation and restlessness ISsues AMS unclear etiology - prob combination of met encephalopathy/recent ischemic encephalopathy/with seizures compounding the issue Resp failure now with Increased wob - combination of issues improving (copd, mild fluid overload, atx etc) COPD with resp insuff - not a retainer Inital severe quinn/qtc prolongation now better Refractory seizures intially now on edison meds Inital asp was on unasyn for 48 hrs nw with cdiff Recent retropharyngeal surg / oral and groin fungal infection Anoxic brain injury - now improved Enterococci in urine - yepez needs to be removed REC Cont present care/ high flow for now, and reduce fiow IV flagyl till he can take PO Cont all iv seizure meds Lorazepam prn for atitation/if agitation is worse will give a trial of precedex (carefully watching the heart rate as it does cause quinn) Check qtc if ok will cont haldol 0.5 bid prn and check mag daily One dose of lasix 20 mg iv If he fails the swallow will start d5 normal at 60 cc daily Agg pulm toilet Cont seizure meds
[2018-08-06 16:00] VITALS: BP 127/80
[2018-08-07] VITALS: BP 132/88
[2018-08-07 05:14] LABS: ABSOLUTE BASOPHIL COUNT 0 /CUMM (0.0-0.2); ABSOLUTE EOSINOPHIL COUNT 0.1 /CUMM (0.0-0.7); ABSOLUTE LYMPH COUNT 1.1 /CUMM (1.2-3.4); ABSOLUTE MONOCYTE COUNT 0.9 /CUMM (0.10-0.60); BASOPHIL % 0.3 % (0.0-2.0)
[2018-08-07 05:28] LABS: ABSOLUTE GRANULOCYTE CT 5.7 /CUMM (1.4-6.5); MEAN CORPUSCULAR HGB 30.3 PG (27.0-31.0); MEAN CORPUSCULAR HGB CONC 33.4 G/DL (33.0-37.0); MEAN CORPUSCULAR VOLUME 90.7 FL (80.0-94.0); MEAN PLATELET VOLUME 6.2 FL (7.4-10.4); PLATELET COUNT 201 /CUMM (130-400); RBC DISTRIBUTION WIDTH 14.3 % (11.5-14.5); RED BLOOD CELL CT 4.43 /CUMM (4.70-6.10)
[2018-08-07 06:13] LABS: HEMATOCRIT 40.1 % (42-52); WHITE BLOOD CELL COUNT 7.8 /CUMM (4.8-10.8)
--- NOTE | 2018-08-07 07:13 | PN- Resident CRCU ---
Subjective HPI/CRCU Issues: Interim History Patient is more awake and alert this morning that previous days. There were no significant overnight events reported. Patient safety monitor remains in place. He remains in normal sinus rhythm with short runs on SVT on telemetry. Subjective Patient seen and examined. He is seen sitting upright in bed resting comfortably. His is at bedside during the interview. Patient is awake and alert, but confused and not oriented to person, place, or time. Patients reports that her was taking clonazepam 1 mg PO TID prior to this hospitalization and may be withdrawing for benzodiazepenes resulting in his altered mental status. Subjective complaints and review of systems are unobtainable. Objective Vital Signs & I&O Last 8 Hrs of Vitals and I&O: Vitals review - please refer to paper chart Exam General Appearance: well developed/nourished, no apparent distress, awake Other Physical Findings: General- overweight eldery man in no acute distress HEENT- NCAT, PERRL, EOMI, anicteric sclera Neck - Supple, no JVD, trachea midline Cardio: Normal S1/S2 w/o m/g/r; RRR Pulm: CTA bilaterally Abdomen: Soft, NT, ND, BS+ Neuro: AAOx0, confused and delerious with probably visual/auditory hallucinations, mild tremor Ext: normal pulses, no edema Weaning Parameters NIF: 27 Minute Volume: 9.14 Resp rate: 20 Vt: 450 Heart Rate: 74 Weaning Schedule Start Time: 0820 Minute Volume: 13.3 Resp Rate: 27 Vt: 665 Heart Rate: 74 End Time: 0840 Minute Volume: 10.1 Resp Rate: 40 Vt: 700 Heart Rate: 100 Start Time: 0910 Heart Rate: 100 End Time: 1010 Heart Rate: 110 Current Medications: Current Medications Sig/Zev Start time Last Medication Dose Route Stop Time Status Admin Acetaminophen 1,000 MG Q6P PRN 08/05 1015 AC 08/07 N/A 1 UNIT IV 1828 Acetaminophen 1,000 MG Q8P PRN 08/03 0915 AC 08/03 PO 912 Albuterol Sulfate 3 ML EVERY 4 HRS/AWAKE 08/05 1200 AC 08/07 INH 2014 Artificial Tears 2 GTT 4 TIMES/DAY 07/28 1300 AC 08/07 OPH 202 Aspirin 81 MG DAILY 07/25 1417 AC 08/04 PO 817 Chlorhexidine 15 ML BID 08/03 2100 AC 08/07 Gluconate PO 2028 Clotrimazole 1 CHERYL BID 07/31 0915 08/07 TOP 2028 Dextrose/Sodium 1,000 ML .[id number] 08/06 1115 08/07 Chloride IV 0334 Enoxaparin Sodium 40 MG DAILY 07/25 1315 AC 08/07 SC 0942 Ipratropium [place] 2.5 ML EVERY 4 HRS/AWAKE 08/05 1200 AC 08/07 INH 2015 Levetiracetam 1,500 MG Q12 07/26 2100 08/07 N/A 1 UNIT IV 2026 Lorazepam 1 MG Q6 PRN 08/07 1415 AC 08/07 IV 220 Metronidazole 500 MG Q8H 08/05 1100 AC 08/07 N/A 1 UNIT IV 1917 Valproate Sodium 1,000 MG Q12 08/03 2100 08/07 Sodium Chloride 50 ML IV 2054 Zinc Oxide 1 CHERYL BID 08/05 2100 08/07 TOP 2026 Impression/Plan Impression/Problem List Impression: 73-year-old man with multiple medical problems significant for CAD status post multiple cardiac stents brought in by ambulance for unresponsiveness status post recent retropharyngeal mass resection. Patient was awake and alert this morning for a brief time before becoming progressively more agitated and confused. Vitals signs remain within normal limits. Physical examination is unremarkable. Labs are signficant for Clinically patient appears to have confusion / delerium that is multifactorial secondary to mild anoxic brain injury, benzodiazepene withdrawal, and hospital acute delerium. Patient remains afebrile with resolved leukocytosis while on intravenous Flagyl for his C. diff colitis. He underwent a swallow evaluation today for which and MBS was recommended, but could not be completed due to agitation. Problem list -Status epilepticus, resolved -Anoxic brain injury, improving -C. difficile colitis, on Flagyl -Dysphagia, pending swallow evaluation -Acute hypoxic respiratory failure s/p self extubation -Recent retropharyngeal mass resection -Bradycardia, now resolved -Obstructive sleep apnea -Coronary artery disease, status post 7 cardiac stent -Hypertension -Chronic low back pain -Depression/anxiety Plan -Continue ICU admission -Total respiratory care with nebs PRN -Flagyl 500 mg IV every 8 hours -Keppra 1500 mg IV every 12 hours -Valproic acid 1000 mg IV every 12 hours -D5 half-normal saline at 60 mL/h while n.p.o. -Continue home meds: Aspirin -ENT following for recent retropharyngeal mass excision -Neurology following for status epilepticus -Cardiology following for bradycardia -PT evaluation -Follow-up cultures and sensitivities -C. difficile toxin: Positive -Urine culture: Enterococcus >100,000 colonies, pansensitive -Follow-up swallow evaluation -Pain control with acetaminophen -N.p.o., pending swallow evaluation -DVT prophylaxis with Lovenox -Full code -Contact Shwetha (daughter) for updates and consent Problem List: 1. Altered mental status 2. Status epilepticus 3. Hypoxic brain injury Pain Ratin Tomorrow's Labs & Rationales: CBC, ICU, Ammonia Plan DVT/Prophylaxis: mechanical, pharmacological
[2018-08-07 08:00] VITALS: BP 132/80
--- NOTE | 2018-08-07 09:46 | PN- CRCU ---
Subjective HPI/Critical Care Issues: Slow improvement and back to baseline slowly On oxygen nasal cannula Wishes to eat no further diarrhea this am Objective Current Medications: Current Medications Sig/Zev Start time Last Medication Dose Route Stop Time Status Admin Acetaminophen 1,000 MG Q6P PRN 08/05 1015 AC 08/05 N/A 1 UNIT IV 1041 Acetaminophen 1,000 MG Q8P PRN 08/03 0915 AC 08/03 PO 0913 Albuterol Sulfate 3 ML EVERY 4 HRS/AWAKE 08/05 1200 AC 08/07 INH 0807 Artificial Tears 2 GTT 4 TIMES/DAY 07/28 1300 AC 08/06 OPH 2045 Aspirin 81 MG DAILY 07/25 1417 AC 08/04 PO 0818 Chlorhexidine 15 ML BID 08/03 2100 AC 08/06 Gluconate PO 204 Clotrimazole 1 EDISON BID 07/31 0915 AC 08/06 TOP 2046 Dextrose/Sodium 1,000 ML .[id number] 08/06 1115 AC 08/07 Chloride IV 0334 Enoxaparin Sodium 40 MG DAILY 07/25 1315 AC 08/06 SC 0922 Furosemide 20 MG ONCE ONE 08/06 1100 DC 08/06 IV 08/06 1101 1248 Ipratropium [place] 2.5 ML EVERY 4 HRS/AWAKE 08/05 1200 AC 08/07 INH 0807 Levetiracetam 1,500 MG Q12 07/26 2100 AC 08/06 N/A 1 UNIT IV 2045 Metronidazole 500 MG Q8H 08/05 1100 AC 08/07 N/A 1 UNIT IV 0334 Valproate Sodium 1,000 MG Q12 08/03 2100 AC 08/06 Sodium Chloride 50 ML IV 204 Zinc Oxide 1 EDISON BID 08/05 2100 AC 08/06 TOP 2047 Vital Signs & I&O Last 24 Hrs of Vitals and I&O: Vital Signs Date Time Temp Pulse Resp B/P B/P Pulse O2 O2 Flow FiO2 Mean Ox Delivery Rate 08/07 0840 94 Nasal 5.0L Cannula 08/07 0400 94 Nasal 55% Cannula 08/07 0051 93 Nasal 55% Cannula 08/07 0000 96 Nasal 55% Cannula 08/07 0000 98.1 69 19 132/88 96 Nasal 55% Cannula 08/06 2204 94 Nasal 55% Cannula 08/06 2113 95 Nasal 55% Cannula 08/06 1710 95 Nasal 55% Cannula 08/06 1600 98.1 85 26 127/80 95 Nasal 55% Cannula 08/06 1600 95 Nasal 55% Cannula 08/06 1426 93 Nasal 55% Cannula 08/06 1200 93 Nasal 55% Cannula 08/06 1134 93 Nasal 55% Cannula Intake & Output 08/07 1600 08/07 0800 08/07 0000 Intake Total 580 610 Output Total 500 Balance 80 610 Intake, IV 580 610 Intake, Oral 0 Output, Urine 500 Laboratory Tests 08/07 08/07 0424 0400 Chemistry Sodium (137 - 145 mmol/L) 147 H Potassium (3.5 - 5.1 mmol/L) 3.7 Chloride (98 - 107 mmol/L) 112 H Carbon Dioxide (22 - 30 mmol/L) 28 Anion Gap (5 - 16) 8 BUN (9 - 20 mg/dL) 38 H Creatinine (0.7 - 1.2 mg/dL) 1.1 Estimated GFR (>60 ml/min) > 60 Glucose (65 - 99 mg/dL) 93 Calcium (8.4 - 10.2 mg/dL) 8.5 Phosphorus (2.5 - 4.5 mg/dL) 3.1 Magnesium (1.6 - 2.3 mg/dL) 2.5 H Total Bilirubin (0.2 - 1.3 mg/dL) 0.4 AST (17 - 59 U/L) 27 ALT (21 - 72 U/L) 30 Albumin (3.5 - 5.0 g/dL) 2.9 L Hematology CBC w Diff NO MAN DIFF REQ WBC (4.8 - 10.8 /CUMM) 7.8 RBC (4.70 - 6.10 /CUMM) 4.43 L Hgb (14.0 - 18.0 G/DL) 13.4 L Hct (42 - 52 %) 40.1 L MCV (80.0 - 94.0 FL) 90.7 MCH (27.0 - 31.0 PG) 30.3 MCHC (33.0 - 37.0 G/DL) 33.4 RDW (11.5 - 14.5 %) 14.3 Plt Count (130 - 400 /CUMM) 201 MPV (7.4 - 10.4 FL) 6.2 L Gran % (42.2 - 75.2 %) 73.0 Lymphocytes % (20.5 - 51.1 %) 14.4 L Monocytes % (1.7 - 9.3 %) 11.3 H Eosinophils % (0 - 5 %) 1.0 Basophils % (0.0 - 2.0 %) 0.3 Absolute Granulocytes (1.4 - 6.5 /CUMM) 5.7 Absolute Lymphocytes (1.2 - 3.4 /CUMM) 1.1 L Absolute Monocytes (0.10 - 0.60 /CUMM) 0.9 H Absolute Eosinophils (0.0 - 0.7 /CUMM) 0.1 Absolute Basophils (0.0 - 0.2 /CUMM) 0 Toxicology Valproic Acid (50 - 120 ug/mL) 82.3 Cancelled 08/06 08/05 0350 2125 Chemistry Sodium (137 - 145 mmol/L) 145 141 Potassium (3.5 - 5.1 mmol/L) 4.3 4.1 Chloride (98 - 107 mmol/L) 107 109 H Carbon Dioxide (22 - 30 mmol/L) 24 23 Anion Gap (5 - 16) 14 9 BUN (9 - 20 mg/dL) 27 H 24 H Creatinine (0.7 - 1.2 mg/dL) 1.0 0.9 Estimated GFR (>60 ml/min) > 60 > 60 Glucose (65 - 99 mg/dL) 96 101 H Calcium (8.4 - 10.2 mg/dL) 9.2 8.9 Phosphorus (2.5 - 4.5 mg/dL) 3.3 3.2 Magnesium (1.6 - 2.3 mg/dL) 2.4 H 2.2 Total Bilirubin (0.2 - 1.3 mg/dL) 0.9 0.8 AST (17 - 59 U/L) 39 38 ALT (21 - 72 U/L) 31 31 Albumin (3.5 - 5.0 g/dL) 3.6 3.4 L Hematology CBC w Diff NO MAN DIFF REQ NO MAN DIFF REQ WBC (4.8 - 10.8 /CUMM) 15.7 H 14.3 H RBC (4.70 - 6.10 /CUMM) 5.15 4.96 Hgb (14.0 - 18.0 G/DL) 15.5 14.9 Hct (42 - 52 %) 46.3 44.3 MCV (80.0 - 94.0 FL) 90.0 89.3 MCH (27.0 - 31.0 PG) 30.1 30.1 MCHC (33.0 - 37.0 G/DL) 33.5 33.7 RDW (11.5 - 14.5 %) 14.4 14.1 Plt Count (130 - 400 /CUMM) 246 180 MPV (7.4 - 10.4 FL) 6.4 L 6.6 L Gran % (42.2 - 75.2 %) 82.4 H 85.6 H Lymphocytes % (20.5 - 51.1 %) 6.9 L 4.7 L Monocytes % (1.7 - 9.3 %) 10.4 H 9.5 H Eosinophils % (0 - 5 %) 0.1 0.2 Basophils % (0.0 - 2.0 %) 0.2 0 Absolute Granulocytes (1.4 - 6.5 /CUMM) 12.9 H 12.3 H Absolute Lymphocytes (1.2 - 3.4 /CUMM) 1.1 L 0.7 L Absolute Monocytes (0.10 - 0.60 /CUMM) 1.6 H 1.4 H Absolute Eosinophils (0.0 - 0.7 /CUMM) 0 0 Absolute Basophils (0.0 - 0.2 /CUMM) 0 0 Impression/Plan Impression/Plan Impression/Plan: General Appearance: tachypenic and has at times paradoxical breathing, agitated Respiratory: quiet respiration, lungs clear Cardiovascular: regular rate/rhythm Gastrointestinal: normal bowel sounds, soft, non-tender Extremities: no edema Cranial Nerves: PERRL,does follow commands and lethargic IMPRESSION This is a 73-year-old gentleman with history of sleep apnea, not on CPAP regularly, COPD, increasing lung nodule which needs longitudinal follow-up, coronary artery disease with multiple stents in the past, chronic back pain, previous history of depression and anxiety on multiple medications noted, and recent surgery of retropharyngeal lipoma resection who came into the hospital with lethargy, was promptly intubated and admitted to the ICU, with subsequent episodes of bradycardia thought to be secondary to vagal nerve stimulation, then refractory status epilepticus s/p induced coma, with return of his mental status now self extubated with sig agitation and restlessness ISsues AMS unclear etiology - prob combination of met encephalopathy/recent ischemic encephalopathy/with seizures compounding the issue/ improved Resolving Resp failure - combination of issues improving (copd, mild fluid overload, atx etc) COPD with resp insuff - not a retainer Inital severe quinn/qtc prolongation now better Initial Refractory seizures now on edison meds Inital asp was on unasyn for 48 hrs nw with cdiff Recent retropharyngeal surg Oral and groin fungal infection better Anoxic brain injury - now improved Enterococci in urine - Smith dcd and symptomatic rx REC Cont present care MBS IV flagyl till he can take PO Cont all iv seizure meds Use prn ativan for agitation and if not hold meds Agg pulm toilet Cont seizure meds
[2018-08-07 16:00] VITALS: BP 140/82; BP 1400/82
[2018-08-08] VITALS: BP 93/53
[2018-08-08 04:39] LABS: ABSOLUTE BASOPHIL COUNT 0 /CUMM (0.0-0.2); ABSOLUTE EOSINOPHIL COUNT 0.1 /CUMM (0.0-0.7); ABSOLUTE LYMPH COUNT 1.1 /CUMM (1.2-3.4); BASOPHIL % 0.5 % (0.0-2.0); EOSINOPHIL % 1.2 % (0-5); GRANULOCYTE % 73.1 % (42.2-75.2); MEAN CORPUSCULAR HGB CONC 33.3 G/DL (33.0-37.0); MEAN CORPUSCULAR VOLUME 89.9 FL (80.0-94.0); PLATELET COUNT 237 /CUMM (130-400); RBC DISTRIBUTION WIDTH 14.1 % (11.5-14.5); RED BLOOD CELL CT 4.68 /CUMM (4.70-6.10); WHITE BLOOD CELL COUNT 8.2 /CUMM (4.8-10.8)
--- NOTE | 2018-08-08 07:15 | PN- Resident CRCU ---
Shekhar REEVES,Sergio 08/08/18 0715: Subjective HPI/CRCU Issues: Interim history Patient remained hemodynamically stable overnight with normal sinus rhythm and short runs of SVT on telemetry. He continued to remain agitated last night requiring placement of soft bilateral upper extremity restraints in addition to a Spencer. Subjective Patient seen and examined. He is seen lying flat in bed resting comfortably maintained in bilateral upper extremity soft restraints. He appears to be in no acute distress. He is somnolent and easily agitated and does not offer any subjective complaints or review of systems. Objective Vital Signs & I&O Last 8 Hrs of Vitals and I&O: Vital signs reviewed-please refer to paper chart Exam General Appearance: well developed/nourished, no apparent distress, alert, awake , comfortable Other Physical Findings: General- overweight eldery man in no acute distress HEENT- NCAT, PERRL, EOMI, anicteric sclera Neck - Supple, no JVD, trachea midline Cardio: Normal S1/S2 w/o m/g/r; RRR Pulm: CTA bilaterally Abdomen: Soft, NT, ND, BS+ Neuro: AAOx0, confused and delerious with probably visual/auditory hallucinations, mild tremor Ext: normal pulses, no edema, bilateral upper extremity soft restraints Weaning Parameters NIF: 27 Minute Volume: 9.14 Resp rate: 20 Vt: 450 Heart Rate: 74 Weaning Schedule Start Time: 0820 Minute Volume: 13.3 Resp Rate: 27 Vt: 665 Heart Rate: 74 End Time: 0840 Minute Volume: 10.1 Resp Rate: 40 Vt: 700 Heart Rate: 100 Start Time: 0910 Heart Rate: 100 End Time: 1010 Heart Rate: 110 Current Medications: Current Medications Sig/Zev Start time Last Medication Dose Route Stop Time Status Admin Acetaminophen 1,000 MG Q6P PRN 08/05 1015 AC 08/07 N/A 1 UNIT IV 1828 Acetaminophen 1,000 MG Q8P PRN 08/03 0915 AC 08/03 PO 09 Albuterol Sulfate 3 ML EVERY 4 HRS/AWAKE 08/05 1200 AC 08/08 INH 0915 Artificial Tears 2 GTT 4 TIMES/DAY 07/28 1300 AC 08/08 OPH 0948 Aspirin 81 MG DAILY 07/25 1417 AC 08/04 PO 0818 Chlorhexidine 15 ML BID 08/03 2100 AC 08/08 Gluconate PO 0944 Clotrimazole 1 EDISON BID 07/31 0915 AC 08/08 TOP 0945 Dextrose/Sodium 1,000 ML .[id number] 08/06 1115 DC 08/08 Chloride IV 0314 Enoxaparin Sodium 40 MG DAILY 07/25 1315 AC 08/08 SC 0942 Ipratropium [place] 2.5 ML EVERY 4 HRS/AWAKE 08/05 1200 AC 08/08 INH 0915 Levetiracetam 1,500 MG Q12 07/26 2100 AC 08/08 N/A 1 UNIT IV 0813 Lorazepam 1 MG Q6 PRN 08/07 1415 AC 08/08 IV 0429 Metronidazole 500 MG Q8H 08/05 1100 AC 08/08 N/A 1 UNIT IV 1115 Potassium Chloride 40 MEQ Q13H 08/08 0815 AC 08/08 Dextrose/Sodium 1,000 ML IV 08/08 2114 1115 Chloride Potassium Chloride 40 MEQ ONCE ONE 08/08 0800 CAN IV 08/08 0801 Valproate Sodium 1,000 MG Q12 08/03 2100 AC 08/08 Sodium Chloride 50 ML IV 0942 Zinc Oxide 1 EDISON BID 08/05 2100 08/08 TOP 0945 Impression/Plan Impression/Problem List Impression: 73-year-old man with multiple medical problems significant for CAD status post multiple cardiac stents brought in by ambulance for unresponsiveness status post recent retropharyngeal mass resection. Patient continues to remain confused and agitated requiring use of soft restraints. Vital signs remain within normal limits with physical examination remaining unchanged. Labs today are significant for sodium 150 and potassium of 3.3 for which fluids were changed to D5 half-normal saline with 40 mEq of potassium. He remains on intravenous Flagyl for his C. difficile colitis-he remains afebrile without leukocytosis. Patient underwent a swallow evaluation today with a modified barium swallow for which a diet of pure solid/honey thick liquids was recommended. Neurology is to be reconsulted. Consult with psychiatry placed. Problem list -Status epilepticus, resolved -Altered mental status, probable multifactorial delirium -Anoxic brain injury -C. difficile colitis, on Flagyl -Dysphagia, resolved -Acute hypoxic respiratory failure s/p self extubation -Recent retropharyngeal mass resection -Bradycardia, now resolved -Obstructive sleep apnea -Coronary artery disease, status post 7 cardiac stent -Hypertension -Chronic low back pain -Depression/anxiety Plan -Continue ICU admission -Total respiratory care with nebs PRN -Flagyl 500 mg IV every 8 hours -Keppra 1500 mg IV every 12 hours -Valproic acid 1000 mg IV every 12 hours -D5 half-normal saline +40 mEq KCl at 75 mL/h started -Continue home meds: Aspirin -ENT following for recent retropharyngeal mass excision -Neurology following for status epilepticus -Cardiology following for bradycardia -Psychiatry following for altered mental status -PT evaluation -Follow-up cultures and sensitivities -C. difficile toxin: Positive -Urine culture: Enterococcus >100,000 colonies, pansensitive -Follow-up swallow evaluation -Pain control with acetaminophen -Regular diet (pure/honey) -DVT prophylaxis with Lovenox -Full code -Contact Shwetha (daughter) for updates and consent Problem List: 1. Status epilepticus 2. Altered mental status Pain Ratin Tomorrow's Labs & Rationales: CBC, ICU Plan DVT/Prophylaxis: mechanical, pharmacological Christin REEVES,[facility] 08/08/18 1058: Attending MD Review Statement Attending Sign Off Attending Cosign Statement: I have: examined this patient, reviewed [facility] EMR data, personally reviewd images, discussd w/resident/PA/WASTEWATER OPERATOR, discussed mgmt plan w/jeny, discussed mgmt plan w/CM, discussed mgmt plan w/pt, agreed w/resident/PA/WASTEWATER OPERATOR, amended to note. Other Findings: Still continues to be agitated Events and data reviewed Continues to be afebrile Saturating 92-94 on 4 L Heart rate is 78 Other blood work reviewed Sodium is elevated, potassium is low, chloride is high. White count 8.2 hemoglobin 14 Impression/Plan: General Appearance: tachypenic and has at times paradoxical breathing, agitated Respiratory: quiet respiration, lungs clear Cardiovascular: regular rate/rhythm Gastrointestinal: normal bowel sounds, soft, non-tender Extremities: no edema Cranial Nerves: PERRL,does follow commands and lethargic IMPRESSION This is a 73-year-old gentleman with history of sleep apnea, not on CPAP regularly, COPD, increasing lung nodule which needs longitudinal follow-up, coronary artery disease with multiple stents in the past, chronic back pain, previous history of depression and anxiety on multiple medications noted, and recent surgery of retropharyngeal lipoma resection who came into the hospital with lethargy, was promptly intubated and admitted to the ICU, with subsequent episodes of bradycardia thought to be secondary to vagal nerve stimulation, then refractory status epilepticus s/p induced coma, with return of his mental status now self extubated with sig agitation and restlessness ISsues AMS unclear etiology - prob combination of met encephalopathy/recent ischemic encephalopathy/with prior seizures compounding the issue/ improved Resolving Resp failure - combination of issues improving (copd, mild fluid overload, atx etc) COPD with resp insuff - not a retainer Inital severe quinn/qtc prolongation now better Initial Refractory seizures now on edison meds Inital asp was on unasyn for 48 hrs nw with cdiff Recent retropharyngeal surg Oral and groin fungal infection better Anoxic brain injury - now improved Enterococci in urine - Smith dcd and symptomatic rx Hypernatremia REC Cont present care cont benzo prn Till he takes po will cont iv meds IVF to d5 1/2 normal saline with potassium IV flagyl till he can take PO Cont all iv seizure meds Use prn ativan for agitation and if not hold meds Agg pulm toilet Cont seizure meds Recheck TFTs Will follow
[2018-08-08 08:00] VITALS: BP 110/68
--- NOTE | 2018-08-08 11:25 | Cons- Psychiatry ---
Psychiatric Consult Date of Consult: 08/08/18 Reason for Consult: Altered mental status multifactorial etiology. Question as to whether benzodiazepine withdrawal is contributing. History of Present Illness: This 73-year-old male, previously apparently in good health, was found unresponsive at home. Past medical history significant for obstructive sleep apnea, coronary artery disease with 7 stents in situ, hypertension, chronic back pain, depression and anxiety. The patient had a seizure shortly after admission and was intubated. Neurology is following. He has been started on Depakote and Keppra. He developed bradycardia shortly thereafter which has now resolved. He has been diagnosed with C Diff. He has been intermittently agitated, requiring sedation. He is now extubated and if he passes a swallow test today will be able to take medication orally. CT brain shows mild atrophy with commensurate ventricular dilatation and prominence of sulci. The patient is currently in Jamin restraints. Capable of participating in interview. The patient is taking clonazepam 1 mg p.o. 3 times a day prior to admission on July 25. The half-life of this medication can be up to 50 hours. It is likely that benzodiazepine withdrawal is contributing to his agitation at least to some degree. Suggest introducing clonazepam at 0.5 mg p.o. twice daily when possible. If the patient is not taking medication orally, lorazepam can be used [0.5 mg of clonazepam is equivalent of 1 mg of lorazepam]. QTC on 08/06 was 473. If necessary, suggest low-dose [12.5 mg] of quetiapine to manage agitation. Suggest minimizing polypharmacy and practical measures of managing delirium. Thank you for consulting us on this patient. Please feel free to contact us if we can be of any further assistance. Allergies: Coded Allergies: STATINS (UNKNOWN 07/25/18) bee venom protein (honey bee) (UNKNOWN 07/25/18) Past History Past Medical History Neurological: NONE EENT: NONE Cardiovascular: CAD, hypertension, MA X7 Respiratory: NONE Gastrointestinal: GERD Hepatic: NONE Renal: KIDNEY STONES Musculoskeletal: chronic back pain, osteoarthritis Psychiatric: NONE Endocrine: NONE Blood Disorders: NONE Cancer(s): NONE YARD JACKER/Reproductive: NONE Past Surgical History Surgical History: REMOVAL PF LIPOMA
[2018-08-08 12:00] VITALS: BP 158/88
--- NOTE | 2018-08-08 13:29 | RADIOLOGY REPORT ---
EXAMINATION: XR MODIFIED BARIUM SWALLOW CLINICAL INFORMATION: Status post extubation. Assess for aspiration. COMPARISON: None TECHNIQUE: A modified barium swallow examination was performed with the patient in the sitting lateral position with speech pathology present. The patient was given puree, honey, nectar, thin liquid, and solid consistencies and fluoroscopic examination was performed. FINDINGS: With puree, honey, and nectar consistencies, there is delayed swallowing with pooling in the mouth and valleculae and moderate residual in the valleculae. With puree, there was 1 episode of trace supraglottic airway penetration which cleared. With a dry swallow after nectar, there was clearing of a good amount of the residual in the valleculae. With thin liquid with a teaspoon, there is slight delay in oral transfer and supraglottic penetration with no definite subglottic extension. Nasopharyngeal reflux is also identified with thin liquid. There is fairly good swallowing function with a cracker. There was some premature spillage from the oral cavity into the valleculae prior to triggering of the swallowing reflex with multiple consistencies. FLUOROSCOPY TIME: 4 minutes and 7 seconds. NUMBER OF IMAGES: No images. IMPRESSION: Moderate residual in the valleculae with all consistencies. Trace supraglottic airway penetration with puree. Slightly more supraglottic airway penetration with thin liquid barium but no definite subglottic extension.
[2018-08-08 16:00] VITALS: BP 104/60
--- NOTE | 2018-08-08 21:17 | PN- Cardiology ---
Subjective Subjective: * Patient is somewhat conversant and denies chest discomfort. * sinus rhythm with ST depressions. * potassium is 3.3 Objective Vital Signs and I&Os Vital Signs Date Time Temp Pulse Resp B/P B/P Pulse O2 O2 Flow FiO2 Mean Ox Delivery Rate 08/08 2000 95 Nasal 3.0L Cannula 08/08 1950 96 Nasal 3.0L Cannula 08/08 1600 98.0 90 26 104/60 93 Nasal 3.0L Cannula 08/08 1600 93 Nasal 3.0L Cannula 08/08 1200 97.8 81 20 158/88 95 Nasal 4.0L Cannula 08/08 1200 95 Nasal 4.0L Cannula 08/08 0921 92 Nasal 4.0L Cannula 08/08 0800 97.2 78 13 110/68 98 Nasal 5.0L Cannula 08/08 0800 98 Nasal 5.0L Cannula 08/08 0400 93 Nasal 5.0L Cannula 08/08 0000 97.1 79 19 93/53 93 Nasal 5.0L Cannula 08/08 0000 93 Nasal 5.0L Cannula Intake & Output 08/08 1600 08/08 0800 08/08 0000 08/07 1600 08/07 0800 08/07 0000 Intake Total 724 506 640 720 580 610 Output Total 200 300 400 550 500 Balance 524 206 240 170 80 610 Intake, IV 554 506 640 720 580 610 Intake, Oral 170 0 0 Number 2 Bowel Movements Output, Urine 200 300 400 550 500 Physical Exam: General: WD/WN male in no apparent distress; intubated and not responsive to verbal stimuli HEENT: NC/AT, PERRL, EOMI Neck: no JVD Heart: RRR without murmur Lungs: clear anteriorly ABdomen: soft, NT, +ve bowel sounds Extremities: no edema Assessment/Plan Assessment/Plan * This patient had bradycardia which is now resolved. The patient denies chest discomfort. He is stable from a cardiac standpoint although risk stratification with a stress test is recommended if his cognitive function continues to improve. Continue telemetry? Yes
[2018-08-09] VITALS: BP 150/98
[2018-08-09 04:51] LABS: ABSOLUTE BASOPHIL COUNT 0 /CUMM (0.0-0.2); ABSOLUTE EOSINOPHIL COUNT 0.2 /CUMM (0.0-0.7); ABSOLUTE LYMPH COUNT 1.2 /CUMM (1.2-3.4); ABSOLUTE MONOCYTE COUNT 1.2 /CUMM (0.10-0.60); BASOPHIL % 0.1 % (0.0-2.0); EOSINOPHIL % 2.6 % (0-5); GRANULOCYTE % 66.1 % (42.2-75.2); HEMATOCRIT 42.9 % (42-52); MEAN CORPUSCULAR HGB 29.9 PG (27.0-31.0); MEAN CORPUSCULAR HGB CONC 32.7 G/DL (33.0-37.0); MEAN CORPUSCULAR VOLUME 91.3 FL (80.0-94.0); MEAN PLATELET VOLUME 6.3 FL (7.4-10.4); PLATELET COUNT 225 /CUMM (130-400); RBC DISTRIBUTION WIDTH 14.4 % (11.5-14.5); WHITE BLOOD CELL COUNT 7.5 /CUMM (4.8-10.8)
--- NOTE | 2018-08-09 07:32 | PN- Resident CRCU ---
Subjective HPI/CRCU Issues: Interim history Patient remains hemodynamically stable overnight and in normal sinus rhythm on telemetry. He remained agitated and confused overnight without any significant events. Subjective Patient seen and examined. He is seen lying flat in his bed resting comfortably. He appears confused and agitated but in no acute distress. Patient's ex- is at his bedside. Subjective complaints and review of systems are unobtainable due to patient's mental status. Objective Vital Signs & I&O Last 8 Hrs of Vitals and I&O: Intake & Output 08/09 1600 Intake Total 1490 Output Total Balance 1490 Intake, IV 1250 Intake, Oral 240 Number 0 Bowel Movements Patient 77.734 kg Weight Weight Bed scale Measurement Method Vital signs reviewed-please refer to paper chart Exam General Appearance: awake, comfortable Other Physical Findings: General- overweight eldery man in no acute distress HEENT- NCAT, PERRL, EOMI, anicteric sclera Neck - Supple, no JVD, trachea midline Cardio: Normal S1/S2 w/o m/g/r; RRR Pulm: CTA bilaterally Abdomen: Soft, NT, ND, BS+ Neuro: AAOx0, confused and delerious with probably visual/auditory hallucinations, mild tremor Ext: normal pulses, no edema, bilateral upper extremity soft restraints Weaning Parameters NIF: 27 Minute Volume: 9.14 Resp rate: 20 Vt: 450 Heart Rate: 74 Weaning Schedule Start Time: 0820 Minute Volume: 13.3 Resp Rate: 27 Vt: 665 Heart Rate: 74 End Time: 0840 Minute Volume: 10.1 Resp Rate: 40 Vt: 700 Heart Rate: 100 Start Time: 0910 Heart Rate: 100 End Time: 1010 Heart Rate: 110 Current Medications: Current Medications Sig/Zev Start time Last Medication Dose Route Stop Time Status Admin Acetaminophen 1,000 MG Q6P PRN 08/05 1015 AC 08/07 N/A 1 UNIT IV 1828 Acetaminophen 1,000 MG Q8P PRN 08/03 0915 AC 08/03 PO 09 Albuterol Sulfate 3 ML EVERY 4 HRS/AWAKE 08/05 1200 AC 08/09 INH 1621 Artificial Tears 2 GTT 4 TIMES/DAY 07/28 1300 AC 08/09 OPH 1644 Aspirin 81 MG DAILY 07/25 1417 AC 08/09 PO 0956 Chlorhexidine 15 ML BID 08/03 2100 AC 08/09 Gluconate PO 0903 Clonazepam 0.5 MG BID 08/08 2100 AC 08/09 PO 08/15 2059 0132 Clotrimazole 1 CHERYL BID 07/31 0915 AC 08/09 TOP 0902 Enoxaparin Sodium 40 MG DAILY 07/25 1315 DC 08/09 SC 0917 Heparin Sodium/ 25,000 UNIT Q24H 08/09 1100 AC 08/09 Dextrose IV 1148 Dextrose/Water 500 ML Ipratropium [place] 2.5 ML EVERY 4 HRS/AWAKE 08/05 1200 AC 08/09 INH 1621 Lactated Ringer's 500 ML .Q1H 08/08 1915 DC IV 08/08 2014 Levetiracetam 1,500 MG Q12 07/26 2100 AC 08/09 N/A 1 UNIT IV 0811 Lorazepam 1 MG Q6 PRN 08/07 1415 AC 08/09 IV 1644 Metronidazole 500 MG Q8H 08/05 1100 DC 08/09 N/A 1 UNIT IV 1037 Morphine Sulfate 2 MG ONCE ONE 08/09 1130 DC 08/09 IV 08/09 1131 1144 Morphine Sulfate 2 MG Q6P PRN 08/09 1130 AC IV Morphine Sulfate 2 MG ONCE ONE 08/09 1015 DC 08/09 IV 08/09 1016 1010 Naloxone HCl 0 .STK-MED ONE 08/09 1221 DC .ROUTE Naloxone HCl 0.4 MG ONCE ONE 08/09 1215 DC 08/09 IV 08/09 1216 1218 Nitroglycerin 1 GM Q6 08/09 1200 AC 08/09 TOP 1122 Phosphate 250 MG PC AND AT BEDTIME 08/09 0900 AC 08/09 PO 1303 Potassium Chloride 0 .STK-MED ONE 08/09 0633 DC PO Potassium Chloride 40 MEQ ONCE ONE 08/09 0530 DC 08/09 PO 08/09 0531 0630 Potassium Chloride 40 MEQ Q13H 08/08 0815 DC 08/08 Dextrose/Sodium 1,000 ML IV 08/08 2114 1115 Chloride Quetiapine Fumarate 12.5 MG TIDPRN PRN 08/08 1445 DC 08/08 PO 1827 Sodium Chloride 1,000 ML BOLUS ONE 08/09 1215 DC 08/09 IV 08/09 1414 1226 Valproate Sodium 1,000 MG Q12 08/03 2100 AC 08/09 Sodium Chloride 50 ML IV 0858 Zinc Oxide 1 CHERYL BID 08/05 2100 08/09 TOP 0956 Impression/Plan Impression/Problem List Impression: 73-year-old man with multiple medical problems significant for CAD status post multiple cardiac stents brought in by ambulance for unresponsiveness status post recent retropharyngeal mass resection. Patient continues to have waxing/waning mental status. This morning patient had an acute onset episode of chest pain with a significant elevation in his blood pressure for which a stat EKG was obtained that demonstrated new diffuse ST segment depression with deep acute T wave inversions. Corresponding troponin I was 0.02. Fabric Awning Repairer Hermilo Olsen MD made aware whom recommended initiation of intravenous heparin and nitroglycerin paste. Given patient's extensive cardiovascular history in the context of these new EKG changes patient is being transferred to [facility] under the care of Dr. León with cardiology consultation by Dr. Caldera for possible cardiac catheterization. Problem list -Status epilepticus, resolved -Altered mental status, probable multifactorial delirium -Anoxic brain injury -C. difficile colitis, on Flagyl -Dysphagia, resolved -Acute hypoxic respiratory failure s/p self extubation -Recent retropharyngeal mass resection -Bradycardia, now resolved -Obstructive sleep apnea -Coronary artery disease, status post 7 cardiac stent -Hypertension -Chronic low back pain -Depression/anxiety Plan -Continue ICU admission -Total respiratory care with nebs PRN -Flagyl 500 mg IV every 8 hours -Keppra 1500 mg IV every 12 hours -Valproic acid 1000 mg IV every 12 hours -D5 half-normal saline +40 mEq KCl at 75 mL/h started -Continue home meds: Aspirin -ENT following for recent retropharyngeal mass excision -Neurology following for status epilepticus -Cardiology following for bradycardia -Psychiatry following for altered mental status -PT evaluation -Follow-up cultures and sensitivities -C. difficile toxin: Positive -Urine culture: Enterococcus >100,000 colonies, pansensitive -Follow-up swallow evaluation -Pain control with acetaminophen -Regular diet (pure/honey) -DVT prophylaxis with Lovenox -Full code -Contact Shwetha (daughter) for updates and consent Problem List: 1. Status epilepticus 2. Altered mental status 3. Respiratory failure 4. Hypoxic brain injury Pain Ratin Tomorrow's Labs & Rationales: Transferred to outside hospital Plan DVT/Prophylaxis: mechanical, pharmacological
[2018-08-09 08:00] VITALS: BP 130/76
--- NOTE | 2018-08-09 09:57 | PN- Pulmonary ---
Subjective HPI/Critical Care Issues: Doing about the same Confusion persisits on clonipin Objective Current Medications: Current Medications Sig/Zev Start time Last Medication Dose Route Stop Time Status Admin Acetaminophen 1,000 MG Q6P PRN 08/05 1015 AC 08/07 N/A 1 UNIT IV 1828 Acetaminophen 1,000 MG Q8P PRN 08/03 0915 AC 08/03 PO 0913 Albuterol Sulfate 3 ML EVERY 4 HRS/AWAKE 08/05 1200 AC 08/08 INH 1947 Artificial Tears 2 GTT 4 TIMES/DAY 07/28 1300 AC 08/09 OPH 0905 Aspirin 81 MG DAILY 07/25 1417 AC 08/04 PO 0818 Chlorhexidine 15 ML BID 08/03 2100 AC 08/09 Gluconate PO 0903 Clonazepam 0.5 MG BID 08/08 2100 AC 08/09 PO 08/15 2059 0132 Clotrimazole 1 EDISON BID 07/31 0915 AC 08/09 TOP 0902 Enoxaparin Sodium 40 MG DAILY 07/25 1315 AC 08/09 SC 0917 Ipratropium Murphy 2.5 ML EVERY 4 HRS/AWAKE 08/05 1200 AC 08/08 INH 1947 Lactated Ringer's 500 ML .Q1H 08/08 1915 DC IV 08/08 2014 Levetiracetam 1,500 MG Q12 07/26 2100 AC 08/09 N/A 1 UNIT IV 0811 Lorazepam 2 MG ONE ONE 08/08 1500 DC 08/08 IV 08/08 1501 1522 Lorazepam 1 MG Q6 PRN 08/07 1415 AC 08/08 IV 1415 Metronidazole 500 MG Q8H 08/05 1100 AC 08/09 N/A 1 UNIT IV 0310 Phosphate 250 MG PC AND AT BEDTIME 08/09 0900 AC PO Potassium Chloride 0 .STK-MED ONE 08/09 0633 DC PO Potassium Chloride 40 MEQ ONCE ONE 08/09 0530 DC 08/09 PO 08/09 0531 0630 Potassium Chloride 40 MEQ Q13H 08/08 0815 DC 08/08 Dextrose/Sodium 1,000 ML IV 08/08 2114 1115 Chloride Quetiapine Fumarate 12.5 MG TIDPRN PRN 08/08 1445 AC 08/08 PO 1827 Valproate Sodium 1,000 MG Q12 08/03 2100 AC 08/09 Sodium Chloride 50 ML IV 0858 Zinc Oxide 1 EDISON BID 08/05 2100 AC 08/08 TOP 2100 Vital Signs & I&O Last 24 Hrs of Vitals and I&O: Vital Signs Date Time Temp Pulse Resp B/P B/P Pulse O2 O2 Flow FiO2 Mean Ox Delivery Rate 08/09 0400 95 Nasal 3.0L Cannula 08/09 0000 97.5 90 25 150/98 95 Nasal 3.0L Cannula 08/09 0000 95 Nasal 3.0L Cannula 08/08 2000 95 Nasal 3.0L Cannula 08/08 1950 96 Nasal 3.0L Cannula 08/08 1600 98.0 90 26 104/60 93 Nasal 3.0L Cannula 08/08 1600 93 Nasal 3.0L Cannula 08/08 1200 97.8 81 20 158/88 95 Nasal 4.0L Cannula 08/08 1200 95 Nasal 4.0L Cannula Intake & Output 08/09 1600 08/09 0800 08/09 0000 Intake Total 670 934 Output Total Balance 670 934 Intake, IV 550 814 Intake, Oral 120 120 Number 0 0 Bowel Movements Laboratory Tests 08/09 08/08 0345 0333 Chemistry Sodium (137 - 145 mmol/L) 149 H 150 H Potassium (3.5 - 5.1 mmol/L) 3.2 L 3.3 L Chloride (98 - 107 mmol/L) 118 H 118 H Carbon Dioxide (22 - 30 mmol/L) 25 25 Anion Gap (5 - 16) 6 6 BUN (9 - 20 mg/dL) 20 30 H Creatinine (0.7 - 1.2 mg/dL) 0.8 0.9 Estimated GFR (>60 ml/min) > 60 > 60 Glucose (65 - 99 mg/dL) 92 88 Calcium (8.4 - 10.2 mg/dL) 8.3 L 8.5 Phosphorus (2.5 - 4.5 mg/dL) 2.4 L 2.9 Magnesium (1.6 - 2.3 mg/dL) 2.1 2.3 Total Bilirubin (0.2 - 1.3 mg/dL) 0.5 0.5 AST (17 - 59 U/L) 33 31 ALT (21 - 72 U/L) 36 36 Ammonia (9 - 30 umol/L) 20 Albumin (3.5 - 5.0 g/dL) 2.9 L 3.0 L TSH (0.270 - 4.200 uIU/mL) 0.982 Thyroxine (T4) (4.5 - 10.9 ug/dL) 7.6 Total T3 (0.97 - 1.69 ng/mL) 1.13 Hematology CBC w Diff NO MAN DIFF REQ NO MAN DIFF REQ WBC (4.8 - 10.8 /CUMM) 7.5 8.2 RBC (4.70 - 6.10 /CUMM) 4.70 4.68 L Hgb (14.0 - 18.0 G/DL) 14.0 14.0 Hct (42 - 52 %) 42.9 42.0 MCV (80.0 - 94.0 FL) 91.3 89.9 MCH (27.0 - 31.0 PG) 29.9 30.0 MCHC (33.0 - 37.0 G/DL) 32.7 L 33.3 RDW (11.5 - 14.5 %) 14.4 14.1 Plt Count (130 - 400 /CUMM) 225 237 MPV (7.4 - 10.4 FL) 6.3 L 6.0 L Gran % (42.2 - 75.2 %) 66.1 73.1 Lymphocytes % (20.5 - 51.1 %) 15.3 L 13.0 L Monocytes % (1.7 - 9.3 %) 15.9 H 12.2 H Eosinophils % (0 - 5 %) 2.6 1.2 Basophils % (0.0 - 2.0 %) 0.1 0.5 Absolute Granulocytes (1.4 - 6.5 /CUMM) 5.0 6.0 Absolute Lymphocytes (1.2 - 3.4 /CUMM) 1.2 1.1 L Absolute Monocytes (0.10 - 0.60 /CUMM) 1.2 H 1.0 H Absolute Eosinophils (0.0 - 0.7 /CUMM) 0.2 0.1 Absolute Basophils (0.0 - 0.2 /CUMM) 0 0 Impression/Plan Impression/Plan Impression/Plan: General Appearance: tachypenic and has at times paradoxical breathing, agitated Respiratory: quiet respiration, lungs clear Cardiovascular: regular rate/rhythm Gastrointestinal: normal bowel sounds, soft, non-tender Extremities: no edema Cranial Nerves: PERRL,does follow commands and lethargic IMPRESSION This is a 73-year-old gentleman with history of sleep apnea, not on CPAP regularly, COPD, increasing lung nodule which needs longitudinal follow-up, coronary artery disease with multiple stents in the past, chronic back pain, previous history of depression and anxiety on multiple medications noted, and recent surgery of retropharyngeal lipoma resection who came into the hospital with lethargy, was promptly intubated and admitted to the ICU, with subsequent episodes of bradycardia thought to be secondary to vagal nerve stimulation, then refractory status epilepticus s/p induced coma, with return of his mental status now self extubated with sig agitation and restlessness ISsues AMS unclear etiology - prob combination of met encephalopathy/recent ischemic encephalopathy/with prior seizures compounding the issue/ improved Resolving Resp failure - combination of issues improving (copd, mild fluid overload, atx etc) COPD with resp insuff - not a retainer Inital severe quinn/qtc prolongation now better Initial Refractory seizures now on edison meds Inital asp was on unasyn for 48 hrs nw with cdiff Recent retropharyngeal surg Oral and groin fungal infection better Anoxic brain injury - now improved Enterococci in urine - Smith dcd and symptomatic rx Hypernatremia REC Cont present care cont benzo low dose and try to avoid morning benzo dose D5 w with potassium IV flagyl till he can take PO Cont all iv seizure meds/ once he is stable will change to po Check trough levels of meds Ok to be down graded to tele Will follow
[2018-08-09 12:51] LABS: PTT 32 SEC (25-37)
[2018-08-09 13:21] LABS: PT 18.2 SEC (9.4-12.5)
[2018-08-09] MEDS ORDERED: KLONOPIN0.5 M1 PO (15:49)
[2018-08-09] MEDS ORDERED: PERIDEX473 ML PO (15:49)
[2018-08-09] MEDS ORDERED: LORAZEPAM2 MG/1 M1 IV ×2 (15:49→16:26)
[2018-08-09] MEDS ORDERED: PHOS-NAK PACKE1 EACH PO (15:49)
[2018-08-09] MEDS ORDERED: ACETAMINOPHEN500 M4 PO (15:49)
[2018-08-09] MEDS ORDERED: ASPIRIN81 M4 PO (15:49)
[2018-08-09] MEDS ORDERED: HEPARIN-1/25000 UNI1 IV (15:54)
--- NOTE | 2018-08-09 15:55 | Patient Discharge Instructions ---
Discharge Instructions General Discharge Information You were seen/treated for: Hypotension Seizures Bradycardia Dynamic ST wave changes Special Instructions: Please call and make a follow-up with your primary care physician within 1 week after discharge Acute Coronary Syndrome Inclusion Criteria At DC or during hospital stay patient has or had the following: ACS DIAGNOSIS No Discharge Core Measures Meds if any: Prescribed or Continued at Discharge Meds if any: NOT Prescribed or Continued at Discharge Congestive Heart Failure Inclusion Criteria At DC or during hospital stay patient has or had the following: CHF DIAGNOSIS No Discharge Core Measures Meds if any: Prescribed or Continued at Discharge Meds if any: NOT Prescribed or Continued at Discharge Cerebrovascular accident Inclusion Criteria At DC or during hospital stay patient has or had the following: CVA/TIA Diagnosis No Discharge Core Measures Meds if any: Prescribed or Continued at Discharge Meds if any: NOT Prescribed or Continued at Discharge Venous thromboembolism Inclusion Criteria VTE Diagnosis No VTE Type NONE VTE Confirmed by (Test) NONE Discharge Core Measures - Per Current guidelines, there needs to be overlap - treatment for the first 5 days of Warfarin therapy. - If discharged on Warfarin prior to 5 days of - overlap therapy, the patient will need to be - assessed for post discharge needs including - *Post discharge parental anticoagulation - *Warfarin and/or parental anticoagulation education - *Follow up date to check INR post discharge At least 5 days overlap therapy as Inpatient No Meds if any: Prescribed or Continued at Discharge Note: Overlap Therapy is Warfarin and Anticoagulant Meds if any: NOT Prescribed or Continued at Discharge
[2018-08-09 16:00] VITALS: BP 128/68
--- NOTE | 2018-08-09 16:05 | Discharge Summary ---
Visit Information Visit Dates Admission Date: 07/25/18 Discharge Date: 08/10/18 Hospital Course Course Attending Physician: Christin REEVES,Taqueira Hearn Primary Care Physician: Stephan Casas MD, III Consulting Request: 1 Consulting Specialty: Cardiology Consulting Request: 2 Consulting Specialty: Critical Care Consulting Request: 3 Consulting Specialty: Otorhinolaryngology Consulting Request: 4 Consulting Specialty: Neurology Consulting Request: 5 Consulting Specialty: Psychiatry Hospital Course: 73-year-old man with past medical history of coronary artery disease status post multiple cardiac stents, hypertension, COPD, LUKE, chronic low back pain, depression, and anxiety brought in by ambulance for unresponsiveness. Collateral information was obtained from patient's family upon initial evaluation due to patient's mental status. Patient recently underwent surgical excision of a large retropharyngeal mass that was reportedly prolonged and technically difficult with military education coordinator Dr. Segura. Patient had some reported respiratory difficulties postoperatively but was subsequently discharged home. Shortly thereafter he became progressively more confused for which she was brought to the [place] ED for further evaluation. Upon arrival to the [place] ED patient was found to be bradycardic with borderline blood pressures for which she was admitted to the intensive care unit and monitored on telemetry and treated with intravenous fluids. His bradycardia was thought to be multifactorial secondary to vagal stimulation from his ENT procedure and use of beta-blockers for which a dobutamine drip was utilized. Shortly thereafter patient was found to have tonic-clonic jerking movements for which he was treated with intravenous benzodiazepines and loaded with Keppra. Patient was intubated for airway protection. Patient proceeded to have a complicated prolonged hospital course for which cardiology, neurology, otolaryngology, and psychiatry were consulted. Patient was extubated uneventfully shortly after his hospital stay. Patient had further episodes of seizure activity for which valproic acid was added. Patient was found to have significant prolonged QTC. Patient was taking clonazepam 1 mg p.o. 3 times daily at home which was held and subsequently restarted after patient was taking pills and food by mouth approximately 10 days after his hospital stay. Patient was found to have C. difficile colitis for which she was started on intravenous metronidazole given his inability to take p.o. meds at times for which p.o. vancomycin was avoided. Patient underwent a swallow evaluation with modified barium swallow for which a diet of pure solids and honey thick liquids was recommended. On 08/09/18 patient was found to be somnolent and confused and complaining of chest pain which has never occurred during this hospitalization. A stat EKG and troponin were obtained that demonstrated normal sinus rhythm with new significant ST segment depression with hyperdynamic T wave inversions across the precordial leads. Accounts Officer Hermilo Olsen MD was made aware whom recommended starting patient on intravenous heparin and nitroglycerin. Patient was medicated with intravenous morphine 2 mg for his chest pain. After receiving nitroglycerin paste and a second dose of morphine patient's blood pressure dropped from approximately 160 systolic to 75/over 50 for which she was bolused with intravenous normal saline resulting in resolution of his hypotension. Troponin I returned at 0.02. Stat repeat transthoracic echocardiogram was obtained with images included in transfer material to assess for regional wall motion abnormalities. Y axis was contacted and patient is accepted to the medical ICU at [facility] under the care of Dr. León for a higher level of care which may include cardiac catheterization given his chest pain with EKG changes and known coronary artery disease with multiple cardiac stents. Patient's parole board member is Dr. Smith who should be made aware of his hospitalization. Patient is followed by animal laboratory technician Dr. Covarrubias-Case was discussed with animal laboratory technician Dr. Caldera whom recommended that any required cardiac intervention may be done by animal laboratory technician Dr. Colby. Patient's primary care provider Dr. Casas was also contacted whom will be involved with his care. Allergies: Coded Allergies: STATINS (UNKNOWN 07/25/18) bee venom protein (honey bee) (UNKNOWN 07/25/18) Disposition Summary Disposition Principal Diagnosis: Status epilepticus Chest pain with new EKG changes Recent retropharyngeal mass resection Symptomatic bradycardia Respiratory failure requiring intubation Altered mental status-likely multifactorial secondary to hospital delirium, toxic metabolic encephalopathy secondary to C. difficile colitis, and benzodiazepine withdrawal Additional Diagnosis: As above Discharge Disposition: other general hospital Discharge Instructions General Discharge Information Code Status: Full Code Patient's Diet: Regular (pure/honey) Patient's Activity: Per PT assessment Follow-Up Instructions/Appts: You are being transferred to [facility] for a higher level of care including access to cardiac catheterization lab which may be required for cardiac intervention. Medications at Discharge Discharge Medications: Stop taking the following medications: Metoprolol Succinate (Metoprolol Succinate) 25 MG TAB ORAL DAILY Qty = 30 Losartan Potassium (Cozaar) 25 MG TABLET ORAL DAILY Qty = 30 Mirtazapine (Mirtazapine) 15 MG TABLET ORAL Every night Qty = 30 Escitalopram Oxalate (Lexapro) 10 MG TABLET ORAL DAILY Qty = 30 Continue taking these medications: Gabapentin (Gabapentin) 300 MG CAPSULE 1 Capsule ORAL THREE TIMES DAILY Qty = 30 Comments: Last Taken: NOT GIVEN Time: Omeprazole (Omeprazole) 40 MG CAPSULE.DR 1 Capsule ORAL DAILY Qty = 30 Comments: Last Taken: NOT GIVEN Time: Atorvastatin Calcium (Lipitor) 10 MG TABLET 1 Tablet ORAL DAILY Qty = 30 Comments: not given in hospital Start taking the following new medications: LORazepam (Ativan) 2 MG/ML SDV 1 Milligram IV EVERY SIX HOURS as needed for AGITAT/HALLUCINATION/IRRITABIL Qty = 1 Refills = 1 Comments: Last Taken: 08/09/18 Time: 2245 Heparin (Heparin-1/2NS 25,000 Units/500) 25,000 UNIT/500 ML (50 UNIT/ML) IV.SOLN 5,000 Units IV DAILY Qty = 1 No Refills Comments: Last Taken: INFUSING AT 28.1ML/HR Time: PTTH DUE AT 08/10 2045 P.M Valproic Acid (As Sodium Salt) (Valproate Sodium) 500 MG/5 ML (100 MG/ML) VIAL 1,000 Milligram IV TWICE DAILY Qty = 1 No Refills Comments: Last Taken: 08/10/18 Time: 11:07A.M [LEVETIRACETAM] 1,500 Milligram IV EVERY 12 HOURS Qty = 1 No Refills Comments: Last Taken: 08/10/18 Time: 8:17A.M [METRONIDAZOLE] 500 Milligram IV THREE TIMES DAILY No Refills Instructions: Patient to complete 10 days on August 14 for Cdiff Comments: Last Taken:08/10/18 Time:9:45A.M Copies To: Satish REEVES,Edwin [place]; Sarah REEVES,Benny; Verenice REEVES,Tri; Augusto REEVES,Stephan Hargrove III
[2018-08-09] MEDS ORDERED: METOPROLOL SUCC25 M1 PO (16:10)
[2018-08-09] MEDS ORDERED: GABAPENTIN300 M2 PO (16:11)
[2018-08-09] MEDS ORDERED: COZAAR25 M1 PO (16:15)
[2018-08-09] MEDS ORDERED: OMEPRAZOLE40 M1 PO (16:15)
[2018-08-09] MEDS ORDERED: MIRTAZAPINE15 M2 PO (16:16)
[2018-08-09] MEDS ORDERED: LEXAPRO10 M1 PO (16:16)
[2018-08-09] MEDS ORDERED: LIPITOR10 M1 PO (16:17)
[2018-08-09] MEDS ORDERED: VALPROATE500 MG/5 M IV (16:26)
[2018-08-09] MEDS ORDERED: LEVETIRACETAM IV (16:29)
--- NOTE | 2018-08-09 18:29 | ECHOCARDIOGRAM REPORT ---
LANCE MARTINEZ Age: 73 : 1945 Gender: M Exam Date: 08/09/2018 14:36 Exam Location: [facility] Ht (in): 67 Wt (lb): 179 BSA: 1.98 BP: 149 / 94 Ordering Physician: Demetris Islas MD Referring Physician: Hermilo Olsen MD, PhD Technologist: Tobias Dumont [facility] Room Number: 108-01 Indications: Chest pain, unspecified Rhythm: Sinus Technical Quality: technically limited FINDINGS Left Ventricle Normal left ventricular size, wall thickness and systolic function with no obvious regional wall motion abnormalities. The ejection fraction is visually estimated at 60%. Right Ventricle The right ventricle is normal in size and function. Right Atrium The right atrium is normal in size. Left Atrium The left atrium is normal in size. The interatrial septum is intact. Mitral Valve The mitral valve is normal in structure and function. There is trace mitral regurgitation. Aortic Valve Structurally normal aortic valve without significant sclerosis or stenosis. There is trace aortic regurgitation. Tricuspid Valve The tricuspid valve is normal in structure and function. There is no tricuspid regurgitation. artery systolic pressure is normal. Pulmonic Valve Structurally normal pulmonic valve. There is no pulmonic regurgitation. Pericardium Normal pericardium without effusion. No pleural effusion. Great Vessels The aortic arch and great vessels are poorly seen. CONCLUSIONS 1. Normal EF of 60%. 2. Trace mitral regurgitation. 3. Trace aortic regurgitation. Hermilo Olsen M.D. (Electronically Signed) Final Date: 09 August 2018 18:28 MEASUREMENTS (Male / Female) Normal Values 2D ECHO LV Diastolic Diameter PLAX 5.6 cm 4.2 - 5.9 / 3.9 - 5.3 cm LV Systolic Diameter PLAX 3.1 cm 2.1 - 4.0 cm LV Fractional Shortening PLAX 44.6 % 25 - 46 % LV Ejection Fraction 2D Teich 75.3 % IVS Diastolic Thickness 1.0 cm LVPW Diastolic Thickness 0.9 cm LV Relative Wall Thickness 0.3 LVOT Diameter 2.2 cm Aortic Root Diameter 3.7 cm LA Systolic Diameter LX 4.1 cm 3.0 - 4.0 / 2.7 - 3.8 cm LA Volume 65.0 cm 18 - 58 / 22 - 52 cm Ascending Aorta Diameter 3.9 cm DOPPLER AV Peak Velocity 152.0 cm/s AV Peak Gradient 9.2 mmHg AV Mean Velocity 101.0 cm/s AV Mean Gradient 5.0 mmHg AV Velocity Time Integral 23.8 cm LVOT Peak Velocity 105.0 cm/s LVOT Peak Gradient 4.4 mmHg LVOT Mean Velocity 66.6 cm/s LVOT Mean Gradient 2.0 mmHg LVOT Velocity Time Integral 16.4 cm LVOT Stroke Volume 62.3 cm AV Area Cont Eq vti 2.6 cm AV Area Cont Eq pk 2.6 cm MV Peak Velocity 66.3 cm/s MV Peak Gradient 1.8 mmHg MV Mean Velocity 48.7 cm/s MV Mean Gradient 1.0 mmHg Mitral E Point Velocity 54.4 cm/s Mitral A Point Velocity 59.9 cm/s Mitral E to A Ratio 0.9 MV PHT Velocity 52.9 cm/s MV Deceleration [place] 214.0 cm/s MV Pressure Half Time 74.2 ms MV Area PHT 3.0 cm MV Deceleration Time 208.0 ms TV Peak Velocity 234.0 cm/s TV Peak E Velocity 50.9 cm/s TV Peak A Velocity 46.3 cm/s TV E to A Ratio 1.1 Right Atrial Pressure 5.0 mmHg PV Peak Velocity 128.0 cm/s PV Peak Gradient 6.6 mmHg PV Mean Velocity 96.7 cm/s PV Mean Gradient 4.0 mmHg PV Velocity Time Integral 18.1 cm LV E' Lateral Velocity 11.2 cm/s Mitral E to LV E' Lateral Ratio 4.9 LV E' Septal Velocity 12.5 cm/s Mitral E to LV E' Septal Ratio 4.4
[2018-08-09 19:11] LABS: PTT 40 SEC (25-37)
--- NOTE | 2018-08-09 20:54 | PN- Cardiology ---
Subjective Subjective: * Patient is intermittently confused. * sinus rhythm with diffuse ST depressions that are worse than his baseline. * decreased potassium * normal troponin Objective Vital Signs and I&Os Vital Signs Date Time Temp Pulse Resp B/P B/P Pulse O2 O2 Flow FiO2 Mean Ox Delivery Rate 08/09 2005 94 Nasal 3.0L Cannula 08/09 1600 Nasal 3.0L Cannula 08/09 1600 98.4 80 18 128/68 94 Nasal 3.0L Cannula 08/09 1200 95 Nasal 3.0L Cannula 08/09 0800 995 Nasal 3.0L Cannula 08/09 0800 97.1 80 28 130/76 95 Nasal 3.0L Cannula 08/09 0400 95 Nasal 3.0L Cannula 08/09 0000 97.5 90 25 150/98 95 Nasal 3.0L Cannula 08/09 0000 95 Nasal 3.0L Cannula Intake & Output 08/09 1600 08/09 0800 08/09 0000 08/08 1600 08/08 0800 08/08 0000 Intake Total 1490 670 934 724 506 640 Output Total 200 300 400 Balance 1490 670 934 524 206 240 Intake, IV 1250 550 814 554 506 640 Intake, Oral 240 120 120 170 0 Number 0 0 0 2 Bowel Movements Output, Urine 200 300 400 Patient 171 lb Weight Weight Bed scale Measurement Method Physical Exam: General: WD/WN male in no apparent distress; intubated and not responsive to verbal stimuli HEENT: NC/AT, PERRL, EOMI Neck: no JVD Heart: RRR without murmur Lungs: clear anteriorly ABdomen: soft, NT, +ve bowel sounds Extremities: no edema Assessment/Plan Assessment/Plan * This patient has ST depressions that are consistent with ischemia although a reliable history of angina cannot be elicited from this patient. In consideration of his comorbidities this patient will be treated medically for now. He does not have any injury current on his ECG and his troponin is normal. Stop Seroguel which can cause QT prolongation and may cause torsade. Begin NTG paste 1/2 inch Q 6 hours. Begin IV heparin and aspirin. Continue telemetry? Yes
[2018-08-10] VITALS: BP 104/66
[2018-08-10 02:32] LABS: PTT 53 SEC (25-37)
[2018-08-10 05:00] VITALS: BP 136/80
[2018-08-10 05:40] LABS: ABSOLUTE BASOPHIL COUNT 0 /CUMM (0.0-0.2); ABSOLUTE EOSINOPHIL COUNT 0.1 /CUMM (0.0-0.7); ABSOLUTE GRANULOCYTE CT 8.3 /CUMM (1.4-6.5); ABSOLUTE LYMPH COUNT 0.9 /CUMM (1.2-3.4); ABSOLUTE MONOCYTE COUNT 1.6 /CUMM (0.10-0.60); BASOPHIL % 0.3 % (0.0-2.0); EOSINOPHIL % 1.1 % (0-5); GRANULOCYTE % 75.6 % (42.2-75.2); HEMATOCRIT 38.6 % (42-52); MEAN CORPUSCULAR HGB 30.5 PG (27.0-31.0); MEAN CORPUSCULAR HGB CONC 33.5 G/DL (33.0-37.0); MEAN CORPUSCULAR VOLUME 90.9 FL (80.0-94.0); MEAN PLATELET VOLUME 5.9 FL (7.4-10.4); PLATELET COUNT 223 /CUMM (130-400); RBC DISTRIBUTION WIDTH 14.6 % (11.5-14.5); RED BLOOD CELL CT 4.25 /CUMM (4.70-6.10); WHITE BLOOD CELL COUNT 10.9 /CUMM (4.8-10.8)
[2018-08-10 08:00] VITALS: BP 158/80
--- NOTE | 2018-08-10 08:11 | PN- Resident CRCU ---
Indira Burger 08/10/18 0811: Subjective HPI/CRCU Issues: AMS requiring intubation 24 Hour Events: Paper charts reviewed, no acute events overnight. Patient seen this morning resting in bed, he would awaken to command. Patient is incoherent, unable to obtain any subjective information this morning. Objective Vital Signs & I&O Last 8 Hrs of Vitals and I&O: Intake & Output 08/10 1600 Intake Total 566.7 Output Total Balance 566.7 Intake, IV 446.7 Intake, Oral 120 Exam General Appearance: well developed/nourished Respiratory: normal breath sounds, lungs clear Cardiovascular: regular rate/rhythm Gastrointestinal: normal bowel sounds, soft, non-tender Extremities: Normal pulses, bilat. UE soft restraints Cranial Nerves: AAOx0 Weaning Parameters NIF: 27 Minute Volume: 9.14 Resp rate: 20 Vt: 450 Heart Rate: 74 Weaning Schedule Start Time: 0820 Minute Volume: 13.3 Resp Rate: 27 Vt: 665 Heart Rate: 74 End Time: 0840 Minute Volume: 10.1 Resp Rate: 40 Vt: 700 Heart Rate: 100 Start Time: 0910 Heart Rate: 100 End Time: 1010 Heart Rate: 110 Current Medications: Current Medications Sig/Zev Start time Last Medication Dose Route Stop Time Status Admin Acetaminophen 1,000 MG Q6P PRN 08/05 1015 DCD 08/07 N/A 1 UNIT IV 1828 Acetaminophen 1,000 MG Q8P PRN 08/03 0915 DCD 08/03 PO 0913 Albuterol Sulfate 3 ML EVERY 4 HRS/AWAKE 08/05 1200 DCD 08/10 INH 1159 Artificial Tears 2 GTT 4 TIMES/DAY 07/28 1300 DCD 08/10 OPH 1311 Aspirin 81 MG DAILY 07/25 1417 DCD 08/10 PO 0918 Chlorhexidine 15 ML BID 08/03 2100 DCD 08/10 Gluconate PO 923 Clonazepam 0 .STK-MED ONE 08/09 2159 DC PO Clonazepam 0.5 MG BID 08/08 2100 DCD 08/10 PO 08/15 Clotrimazole 1 CHEYRL BID 07/31 915 DCD 08/10 TOP 24 Heparin Sodium 4,700 UNIT ONCE ONE 08/09 2045 DC 08/09 (Porcine) IV 08/09 Heparin Sodium 0 .STK-MED ONE 08/09 1958 DC (Porcine) .ROUTE Heparin Sodium/ 25,000 UNIT Q24H 08/09 1100 DCD 08/10 Dextrose IV 1024 Dextrose/Water 500 ML Ipratropium Pearblossom 2.5 ML EVERY 4 HRS/AWAKE 08/05 1200 DCD 08/10 INH 1159 Levetiracetam 1,500 MG Q12 07/26 2100 DCD 08/10 N/A 1 UNIT IV 0817 Lorazepam 0.5 MG ONCE ONE 08/09 2000 DC 08/09 IV 08/09 2001 195 Lorazepam 1 MG Q6 PRN 08/07 1415 DCD 08/10 IV 0441 Metronidazole 500 MG Q8H 08/10 0900 DCD 08/10 N/A 1 UNIT IV 08/14 0859 0945 Morphine Sulfate 2 MG Q6P PRN 08/09 1130 DCD 08/10 IV 0400 Nitroglycerin 1 GM Q6 08/09 1200 DC 08/10 TOP 0611 Phosphate 250 MG PC AND AT BEDTIME 08/09 0900 DCD 08/10 PO 1303 Sodium Chloride 500 ML BOLUS ONE 08/10 1130 DC IV 08/10 1229 Valproate Sodium 1,000 MG Q12 08/03 2100 DCD 08/10 Sodium Chloride 50 ML IV 1107 Zinc Oxide 1 CHERYL BID 08/05 2100 DCD 08/10 TOP 0924 Impression/Plan Impression/Problem List Impression: 73-year-old man with multiple medical problems significant for CAD status post multiple cardiac stents brought in by ambulance for unresponsiveness status post recent retropharyngeal mass resection. Patient continues to have waxing/waning mental status. This morning patient had an acute onset episode of chest pain with a significant elevation in his blood pressure for which a stat EKG was obtained that demonstrated new diffuse ST segment depression with deep acute T wave inversions. Corresponding troponin I was 0.02. Asbestos Removal Worker Hermilo Olsen MD made aware whom recommended initiation of intravenous heparin and nitroglycerin paste. Given patient's extensive cardiovascular history in the context of these new EKG changes patient is being transferred to [facility] under the care of Dr. León with cardiology consultation by Dr. Caldera for possible cardiac catheterization. Problem list -Status epilepticus, resolved -Altered mental status, probable multifactorial delirium -Anoxic brain injury -C. difficile colitis, on Flagyl -Dysphagia, resolved -Acute hypoxic respiratory failure s/p self extubation -Recent retropharyngeal mass resection -Bradycardia, now resolved -Obstructive sleep apnea -Coronary artery disease, status post 7 cardiac stent -Hypertension -Chronic low back pain -Depression/anxiety Plan -Continue ICU admission -Total respiratory care with nebs PRN -Flagyl 500 mg IV every 8 hours -Keppra 1500 mg IV every 12 hours -Valproic acid 1000 mg IV every 12 hours -D5 half-normal saline +40 mEq KCl at 75 mL/h started -Continue home meds: Aspirin -ENT following for recent retropharyngeal mass excision -Neurology following for status epilepticus -Cardiology following for bradycardia -Psychiatry following for altered mental status -PT evaluation -Follow-up cultures and sensitivities -C. difficile toxin: Positive -Urine culture: Enterococcus >100,000 colonies, pansensitive -Follow-up swallow evaluation -Pain control with acetaminophen -Regular diet (pure/honey) -DVT prophylaxis with Lovenox -Full code -Contact Shwetha (daughter) for updates and consent Patient has been a telemetry hold since yesterday, was supposed to be transferred to [facility] yesterday. However the transfer had not occurred , patient is scheduled to be transferred to [facility] at 1:30 PM this afternoon, patient is in stable condition for transfer. Problem List: 1. Hypoxic brain injury Pain Ratin Tomorrow's Labs & Rationales: n/a Plan DVT/Prophylaxis: mechanical, pharmacological Code Status: Full Code Michael Aaron MD 08/10/18 1108: Attending MD Review Statement Attending Sign Off Attending Cosign Statement: I have: examined this patient, reviewed aval EMR data, personally reviewd images, discussd w/resident/PA/WATER QUALITY TECHNICIAN, discussed mgmt plan w/jeny, discussed mgmt plan w/CM, discussed mgmt plan w/pt, agreed w/resident/PA/WATER QUALITY TECHNICIAN, amended to note. Other Findings: IMichael M.D. have examined this patient, reviewed available EMR data, personally reviewed images, discussed with resident/PA/WATER QUALITY TECHNICIAN, discussed management plan with housestaff and nursing staff, discussed managment plan all of healthcare providers, discussed management plan with patient and/or family, agreed with resident/PA/WATER QUALITY TECHNICIAN. The past history and parts of the chart have been autopopulated. Impression 73 year old man * AMS - initially refractory seizures, encephalopathy - metabolic vs. anoxic, ? concern for withdrawals from benzodiazepines * COPD * enterococci in urine, C.DIFF * prolonged qtc, initial bradycardia, ST depressions, hx of cardiac disease Plan Respiratory -on oxygen, spo2 >92% ID -enterococci in urine, c.diff -flagyl IV CVS -cardiology consultation appreciated -patient accepted to [place] for continued cardiac care and a consideration for intervention Heme -monitor cbc, coags -heparin gtt Metabolic -monitor ins/outs, creatinine, lytes Alimentary -NPO, cannot swallow Neuro -neurology f/u -on anti-epileptics -aspiration precautions -ativan DVT prophyalxis at all times Telemetry hold - awaiting transfer to [place] Signed out to hospitalist - Dr. Parra
[2018-08-10 09:46] LABS: PTT 59 SEC (25-37)
[2018-08-10] MEDS ORDERED: METRONIDAZOLE IV (11:15)
[2018-08-10 11:37] VITALS: BP 126/87
== END 2018-08-10 14:00 | disposition short-term general hospital (02) | DRG 207 ==
LOC: ERH 22:36 → CRI 07-25 00:25 → ERHI 07-25 00:25 → ENRESERV 07-25 01:37 → CRI 07-25 02:27
PROVIDERS: Emergency Medicine; Internal Medicine; Internal Medicine Adolescent Medicine; Internal Medicine Critical Care Medicine; Internal Medicine Interventional Cardiology; Internal Medicine Pulmonary Disease; Physical Medicine & Rehabilitation; Student in an Organized Health Care Education/Training Program
PROC: 5A1955Z Respiratory Ventilation, Greater than 96 Consecutive Hours (ICD-10-PCS; principal; 2018-07-25)
PROC: 0BH17EZ Insertion of Endotracheal Airway into Trachea, Via Natural or Artificial Opening (ICD-10-PCS; 2018-07-25)
DX: J96.01 Acute respiratory failure with hypoxia (principal); J69.0 Pneumonitis due to inhalation of food and vomit; G92 Toxic encephalopathy; G40.803 Other epilepsy, intractable, with status epilepticus; G93.1 Anoxic brain damage, not elsewhere classified; I97.89 Other postprocedural complications and disorders of the circulatory system, not elsewhere classified; A04.72 Enterocolitis due to Clostridium difficile, not specified as recurrent; B48.8 Other specified mycoses; I25.10 Atherosclerotic heart disease of native coronary artery without angina pectoris; I10 Essential (primary) hypertension; Z95.5 Presence of coronary angioplasty implant and graft; G47.33 Obstructive sleep apnea (adult) (pediatric); G89.29 Other chronic pain; M54.9 Dorsalgia, unspecified; M19.90 Unspecified osteoarthritis, unspecified site; I25.2 Old myocardial infarction; R60.9 Edema, unspecified; I95.9 Hypotension, unspecified; K21.9 Gastro-esophageal reflux disease without esophagitis; J44.9 Chronic obstructive pulmonary disease, unspecified; R91.1 Solitary pulmonary nodule; I25.9 Chronic ischemic heart disease, unspecified; I49.8 Other specified cardiac arrhythmias; B35.6 Tinea cruris; R13.10 Dysphagia, unspecified; F32.9 Major depressive disorder, single episode, unspecified; F41.9 Anxiety disorder, unspecified; Z88.8 Allergy status to other drugs, medicaments and biological substances; Z87.891 Personal history of nicotine dependence; R45.1 Restlessness and agitation; G40.901 Epilepsy, unspecified, not intractable, with status epilepticus; R94.31 Abnormal electrocardiogram [ECG] [EKG]
CPT/HCPCS: 87476; CCU; 36415; 36592; 71045; 74230; 80307; 81001; 82436; 87040; 87070; 87086; 87147; 93005; 93010; 93306; 93970; 94799; 95816; 96374; 96375; 97110-GO; 97161-GP; 97530-GO; 99291; J0131; J0330; J0713; J1630; J1644; J1650; J1940; J1953; J2060; J2250; J2310; J3490; J7040; J7042; J7060; J7120